=== PATIENT | female | born 1985 | race Caucasian/White ===

== ENCOUNTER 2016-12-22 14:59 | Emergency (ER) | payer MEDICARE, OTHER ==
[2016-12-22 15:32] VITALS: BP 118/68; PULSE 80; RESP 18; TEMP 97.2
--- NOTE | 2016-12-22 17:12 | ED ---
ENT HPI - General Chief complaint: ENT Stated complaint: Ear Pain Time Seen by Provider: 12/22/16 16:59 Source: patient, RN notes reviewed Mode of arrival: ambulatory Limitations: no limitations - History of Present Illness Initial comments: Patient is a 31 year old female with chief complaint of right ear pain and drainage for 4 weeks. Patient reports that she saw her PCP and was placed on ciprofloxacin drops for 4 weeks and has had no improvement of her ear pain. She states the outer ear is crusted and painful to touch. She denies fever, chills, headache, decreased hearing, changes in vision, nausea, vomiting, dizziness, cough, sore throat, chest pain, shortness of breath, or changes in bladder or bowel habits. - Related Data Home Medications Medication Instructions Recorded Confirmed FLUoxetine HCL [PROzac] 50 mg PO TU 08/24/14 06/09/16 Dicyclomine [Bentyl] 20 mg PO QID 09/28/15 06/09/16 Ibuprofen [Motrin] 800 mg PO Q8HR PRN 09/28/15 06/09/16 Ranitidine HCl [Zantac] 75 mg PO BID 09/28/15 06/09/16 Previous Rx's Medication Instructions Recorded Cephalexin [Keflex] 250 mg PO Q6HR #40 cap 06/09/16 Ibuprofen [Motrin] 600 mg PO Q6HR #20 tab 06/26/16 Erythromycin Topical [Erythromycin 1 applic TOPICAL BID #25 ml 11/02/16 2% Topical Soln] Tobramycin 0.3% Ophth Soln [Tobrex 1 drop RIGHT EAR DAILY #1 bottle 12/22/16 0.3% Ophth Soln] Allergies Allergy/AdvReac Type Severity Reaction Status Date / Time No Known Allergies Allergy Verified 06/26/16 15:43 Review of Systems ROS Statement: Those systems with pertinent positive or pertinent negative responses have been documented in the HPI. ROS Other: All systems not noted in ROS Statement are negative. Past Medical History Past Medical History: Heart Failure, GI Bleed Additional Past Medical History / Comment(s): HEART VALVE REPLACEMENT. HX GI PROB FOR YEARS - HX VOMITED BLOOD, HIATAL HERNIA. 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 DEVELOPMENTAL DISABILITY. History of Any Multi-Drug Resistant Organisms: None Reported Past Surgical History: Ear Surgery, Hernia Repair, Orthopedic Surgery Additional Past Surgical History / Comment(s): RT Foot Surgery; Open Heart Surg @ 3 YRS OLD, VALVE REPLACED. EXC BRAIN TUMOR. HIATAL HERNIA REPAIR. RT EARDRUM REPAIRED. Past Anesthesia/Blood Transfusion Reactions: No Reported Reaction Past Psychological History: ADD/ADHD, Anxiety Additional Psychological History / Comment(s): "TAKE RX AT HS TO CALM ME DOWN." IMPULSE CONTROL PROB, MOD MENTAL RETARDATION - PER DIRECTOR OF PSYCHIATRY GWEN NUÑEZ AT [facility], [phone], WHO ALSO GAVE ADDITIONAL PATIENT MEDICAL INFO/HX. Smoking Status: Current every day smoker Past Alcohol Use History: None Reported Past Drug Use History: None Reported - Past Family History Mother Family Medical History: No Reported History General Exam - General Exam Comments Initial Comments: Patient is a 31 year old woman of small stature, she is in no acute distress. Limitations: no limitations General appearance: alert, in no apparent distress Head exam: Present: atraumatic, normocephalic, normal inspection Eye exam: Present: normal appearance, PERRL, EOMI. Absent: scleral icterus, conjunctival injection, periorbital swelling ENT exam: Present: normal exam, normal oropharynx, mucous membranes moist, TM's normal bilaterally (Right and left tm have no erythema, or fluid collection. Right external ear canal is crusted and irritated. The canal is patent. ). Absent: normal external ear exam Neck exam: Present: normal inspection. Absent: tenderness, meningismus, lymphadenopathy Respiratory exam: Present: normal lung sounds bilaterally. Absent: respiratory distress, wheezes, rales, rhonchi, stridor Cardiovascular Exam: Present: regular rate, normal rhythm, normal heart sounds. Absent: systolic murmur, diastolic murmur, rubs, gallop, clicks GI/Abdominal exam: Present: soft, normal bowel sounds. Absent: distended, tenderness, guarding, rebound, rigid Extremities exam: Present: normal inspection, full ROM, normal capillary refill. Absent: tenderness, pedal edema, joint swelling, calf tenderness Neurological exam: Present: alert, oriented X3, CN II-XII intact Psychiatric exam: Present: normal affect, normal mood Skin exam: Present: warm, dry, intact, normal color. Absent: rash Course Vital Signs 12/22/16 15:30 Temperature 97.2 F L Pulse Rate 80 Respiratory 18 Rate Blood Pressure 118/68 O2 Sat by Pulse 96 Oximetry Medical Decision Making - Medical Decision Making Patient is a 31 year old female with otitis externa of the right ear for 4 weeks that has not improved with ciprofloxacin drops. Ear canal is patent and does not need to have ear wick in place. TMs are normal bilaterally. No fever or decreased hearing or dizziness. Patient will be switched to tobramycin drops and instructed to follow up with an ENT specialist. PAtient understands treatment plan and willcomply. Disposition Clinical Impression: Right otitis externa Disposition: HOME SELF-CARE Condition: Good Instructions: Otitis Externa (ED) Additional Instructions: Patient instructed to follow up with ENT specialist. Return to the EC if any alarming signs or symptoms occur. Follow-up with primary care physician as well. Prescriptions: Tobramycin 0.3% Ophth Soln [Tobrex 0.3% Ophth Soln] 1 drop RIGHT EAR DAILY #1 bottle Referrals: Tamica Bean MD [Primary Care Provider] - 1-2 days Param Crain DO [Doctor of Osteopathic Medicine] - 1-2 days Time of Disposition: 17:08
== END 2016-12-22 17:25 | disposition home or self-care (01) ==
LOC: EC 14:59
DX: H60.91 Unspecified otitis externa, right ear (principal); F41.9 Anxiety disorder, unspecified; F63.9 Impulse disorder, unspecified; F71 Moderate intellectual disabilities; F17.200 Nicotine dependence, unspecified, uncomplicated; Z95.2 Presence of prosthetic heart valve; Z79.899 Other long term (current) drug therapy
CPT/HCPCS: 99282

== ENCOUNTER 2017-04-23 18:32 | Emergency (ER) | payer MEDICARE, OTHER ==
[2017-04-23 18:41] VITALS: BP 96/53; PULSE 67; RESP 20; TEMP 98.1
--- NOTE | 2017-04-23 19:00 | ED ---
Lower Extremity Injury HPI - General Chief Complaint: Extremity Injury, Lower Stated Complaint: foot pain Time Seen by Provider: 04/23/17 18:46 Source: patient, RN notes reviewed Mode of arrival: ambulatory Limitations: no limitations - History of Present Illness Initial Comments: 31-year-old female presents emergency room chief complaint of left ankle pain. Patient states that she tripped on the curb on Thursday. Patient states since she's been having some left ankle pain. Patient states it's worse with walking. Patient states there is no fall or head injury with this. Patient states she was concerned due to her continued symptoms so she thought that she should be evaluated.Patient denies any recent fever, chills, shortness of breath , chest pain, back pain, abdominal pain, nausea vomiting, numbness or tingling, dysuria or hematuria, constipation or diarrhea, headaches or visual changes, or any other current symptoms. - Related Data Home Medications Medication Instructions Recorded Confirmed FLUoxetine HCL [PROzac] 50 mg PO TU 08/24/14 06/09/16 Dicyclomine [Bentyl] 20 mg PO QID 09/28/15 06/09/16 Ibuprofen [Motrin] 800 mg PO Q8HR PRN 09/28/15 06/09/16 Ranitidine HCl [Zantac] 75 mg PO BID 09/28/15 06/09/16 Previous Rx's Medication Instructions Recorded Cephalexin [Keflex] 250 mg PO Q6HR #40 cap 06/09/16 Ibuprofen [Motrin] 600 mg PO Q6HR #20 tab 06/26/16 Erythromycin Topical [Erythromycin 1 applic TOPICAL BID #25 ml 11/02/16 2% Topical Soln] Tobramycin 0.3% Ophth Soln [Tobrex 1 drop RIGHT EAR DAILY #1 bottle 12/22/16 0.3% Ophth Soln] Allergies Allergy/AdvReac Type Severity Reaction Status Date / Time No Known Allergies Allergy Verified 04/23/17 18:41 Review of Systems ROS Statement: Those systems with pertinent positive or pertinent negative responses have been documented in the HPI. ROS Other: All systems not noted in ROS Statement are negative. Past Medical History Past Medical History: Heart Failure, GI Bleed Additional Past Medical History / Comment(s): HEART VALVE REPLACEMENT. HX GI PROB FOR YEARS - HX VOMITED BLOOD, HIATAL HERNIA. 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 DEVELOPMENTAL DISABILITY. History of Any Multi-Drug Resistant Organisms: None Reported Past Surgical History: Ear Surgery, Hernia Repair, Orthopedic Surgery Additional Past Surgical History / Comment(s): RT Foot Surgery; Open Heart Surg @ 3 YRS OLD, VALVE REPLACED. EXC BRAIN TUMOR. HIATAL HERNIA REPAIR. RT EARDRUM REPAIRED. Past Anesthesia/Blood Transfusion Reactions: No Reported Reaction Past Psychological History: ADD/ADHD, Anxiety Additional Psychological History / Comment(s): "TAKE RX AT HS TO CALM ME DOWN." IMPULSE CONTROL PROB, MOD MENTAL RETARDATION - PER INDUSTRIAL SAFETY ENGINEER GWEN NUÑEZ AT [facility], [phone], WHO ALSO GAVE ADDITIONAL PATIENT MEDICAL INFO/HX. Smoking Status: Current every day smoker Past Alcohol Use History: None Reported Past Drug Use History: None Reported - Past Family History Mother Family Medical History: No Reported History General Exam - General Exam Comments Initial Comments: General: The patient is awake and alert, in no distress, and does not appear acutely ill. Neck: The neck is supple, there is no tenderness. Cardiovascular: There is a regular rate and rhythm. No murmur, rub or gallop is appreciated. Respiratory: Lungs are clear to auscultation, respirations are non-labored, breath sounds are equal. No wheezes, stridor, rales, or rhonchi. Musculoskeletal: Sensation intact with 2+ pulses of the left foot x-ray. Signed motion of the left ankle and foot. Patient does have tenderness along the medial aspect of the left foot. Normal range of motion. Neurological: CN II-XII intact, There are no obvious motor or sensory deficits. Coordination appears grossly intact. Speech is normal. Skin: Skin is warm and dry and no rashes or lesions are noted. Psychiatric: Normal mood and affect. Limitations: no limitations Course Vital Signs 04/23/17 18:37 Temperature 98.1 F Pulse Rate 67 Respiratory 20 Rate Blood Pressure 96/53 O2 Sat by Pulse 98 Oximetry Medical Decision Making - Medical Decision Making 31-year-old female presents for left ankle pain. Patient at this times x-rays reviewed and negative. We discussed Motrin Tylenol rest ice. We discussed return parameters and follow-up. Tenderness in the evidence. She'll be discharged. - Radiology Data Radiology results: report reviewed, image reviewed Disposition Clinical Impression: Left ankle sprain Disposition: HOME SELF-CARE Condition: Stable Instructions: Ankle Sprain (ED) Additional Instructions: Please use medication as discussed. Please follow up with family doctor if symptoms have not improved over the next two days. Please return to the emergency room if your symptoms increase or worsen or for any other concerns. Referrals: Tamica Bean MD [Primary Care Provider] - 1-2 days
--- NOTE | 2017-04-23 19:12 | XR ---
EXAMINATION TYPE: XR ankle complete LT DATE OF EXAM: 04/23/2017 7:09 PM COMPARISON: NONE HISTORY: Pain TECHNIQUE: 3 views FINDINGS: I see no fracture nor dislocation. Joint spaces are normal. IMPRESSION: Negative left ankle
== END 2017-04-23 19:17 | disposition home or self-care (01) ==
LOC: EC 18:32
DX: S93.402A Sprain of unspecified ligament of left ankle, initial encounter (principal); F17.200 Nicotine dependence, unspecified, uncomplicated; Z79.899 Other long term (current) drug therapy; Z87.19 Personal history of other diseases of the digestive system; Z98.890 Other specified postprocedural states; W22.8XXA Striking against or struck by other objects, initial encounter
CPT/HCPCS: 99283

== ENCOUNTER 2017-05-06 14:51 | Emergency (ER) | payer MEDICARE, OTHER ==
[2017-05-06 15:09] VITALS: BP 112/56; PULSE 78; RESP 20; TEMP 97.9
[2017-05-06] MEDS ORDERED: KETOROLAC 60 MG/2 ML VIAL IM STA (15:19)
--- NOTE | 2017-05-06 15:19 | ED ---
Extremity Problem HPI - General Chief complaint: Extremity Problem,Nontraumatic Stated complaint: R leg swelling Time Seen by Provider: 05/06/17 15:10 Source: patient, RN notes reviewed Mode of arrival: ambulatory Limitations: no limitations - History of Present Illness Initial comments: 31 yo female presents to the ER with cc of right groin pain. Patient states she went running 2 days ago and since she's had this right groin pain. Patient states she is able to walk she just has his pain when she tries to circulate one way or the other. Patient states she took Motrin without much improvement to the pain. Patient states she had no falls or trauma to the leg. Patient states she is not currently having any other symptoms. Patient denies any recent fever, chills, shortness of breath, chest pain, back pain, abdominal pain , nausea vomiting, numbness or tingling, dysuria or hematuria, constipation or diarrhea, headaches or visual changes, or any other current symptoms. - Related Data Home Medications Medication Instructions Recorded Confirmed FLUoxetine HCL [PROzac] 50 mg PO TU 08/24/14 06/09/16 Dicyclomine [Bentyl] 20 mg PO QID 09/28/15 06/09/16 Ibuprofen [Motrin] 800 mg PO Q8HR PRN 09/28/15 06/09/16 Ranitidine HCl [Zantac] 75 mg PO BID 09/28/15 06/09/16 Previous Rx's Medication Instructions Recorded Cephalexin [Keflex] 250 mg PO Q6HR #40 cap 06/09/16 Ibuprofen [Motrin] 600 mg PO Q6HR #20 tab 06/26/16 Erythromycin Topical [Erythromycin 1 applic TOPICAL BID #25 ml 11/02/16 2% Topical Soln] Tobramycin 0.3% Ophth Soln [Tobrex 1 drop RIGHT EAR DAILY #1 bottle 12/22/16 0.3% Ophth Soln] Allergies Allergy/AdvReac Type Severity Reaction Status Date / Time No Known Allergies Allergy Verified 04/23/17 18:41 Review of Systems ROS Statement: Those systems with pertinent positive or pertinent negative responses have been documented in the HPI. ROS Other: All systems not noted in ROS Statement are negative. Past Medical History Past Medical History: Heart Failure, GI Bleed Additional Past Medical History / Comment(s): HEART VALVE REPLACEMENT. HX GI PROB FOR YEARS - HX VOMITED BLOOD, HIATAL HERNIA. 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 DEVELOPMENTAL DISABILITY. History of Any Multi-Drug Resistant Organisms: None Reported Past Surgical History: Ear Surgery, Hernia Repair, Orthopedic Surgery Additional Past Surgical History / Comment(s): RT Foot Surgery; Open Heart Surg @ 3 YRS OLD, VALVE REPLACED. EXC BRAIN TUMOR. HIATAL HERNIA REPAIR. RT EARDRUM REPAIRED. Past Anesthesia/Blood Transfusion Reactions: No Reported Reaction Past Psychological History: ADD/ADHD, Anxiety Additional Psychological History / Comment(s): "TAKE RX AT HS TO CALM ME DOWN." IMPULSE CONTROL PROB, MOD MENTAL RETARDATION - PER NET LEAD ARCHITECT GWEN NUÑEZ AT [facility], [phone], WHO ALSO GAVE ADDITIONAL PATIENT MEDICAL INFO/HX. Smoking Status: Current every day smoker Past Alcohol Use History: None Reported Past Drug Use History: None Reported - Past Family History Mother Family Medical History: No Reported History General Exam - General Exam Comments Initial Comments: General: The patient is awake and alert, in no distress, and does not appear acutely ill. Neck: The neck is supple, there is no tenderness. Cardiovascular: There is a regular rate and rhythm. No murmur, rub or gallop is appreciated. Respiratory: Lungs are clear to auscultation, respirations are non-labored, breath sounds are equal. No wheezes, stridor, rales, or rhonchi. Musculoskeletal: Patient With 2+ pulses. Right lower extremity. Full range of motion of the right hip and knee and ankle. Patient has some tenderness along palpation along the upper right groin area. No tenderness to bony prominences of the hip. No deformity. Neurological: CN II-XII intact, There are no obvious motor or sensory deficits. Coordination appears grossly intact. Speech is normal. Skin: Skin is warm and dry and no rashes or lesions are noted. Psychiatric: Normal mood and affect. Limitations: no limitations Course Vital Signs 05/06/17 15:06 Temperature 97.9 F Pulse Rate 78 Respiratory 20 Rate Blood Pressure 112/56 O2 Sat by Pulse 98 Oximetry Medical Decision Making - Medical Decision Making 31-year-old female presents for what appears to be a right groin sprain. This time we will start the patient on Motrin for home. Discussed ICU discussed Tylenol. We discussed return parameters and follow-up. We discussed all the patient questions. She stated that she understood and she is agreement the plan. This time she'll be discharged home. - Radiology Data Radiology results: report reviewed, image reviewed Disposition Clinical Impression: Strain of right inguinal muscle Disposition: HOME SELF-CARE Condition: Stable Instructions: Groin Pain (ED) Additional Instructions: Please use medication as discussed. Please follow up with family doctor if symptoms have not improved over the next two days. Please return to the emergency room if your symptoms increase or worsen or for any other concerns. Referrals: Tamica Bean MD [Primary Care Provider] - 1-2 days Time of Disposition: 15:30
--- NOTE | 2017-05-06 15:23 | XR ---
EXAMINATION TYPE: XR Hip Complete RT DATE OF EXAM: 05/06/2017 CLINICAL HISTORY: pain TECHNIQUE: AP and frogleg views of the right hip are obtained. COMPARISON: None. FINDINGS: There is no acute fracture/dislocation evident. The joint space appears within normal li mits. The overlying soft tissue appears unremarkable. IMPRESSION: 1. There is no acute fracture or dislocation. ICD 10 NO FRACTURE, INITIAL EVALUATION
== END 2017-05-06 15:34 | disposition home or self-care (01) ==
LOC: EC 14:51
DX: S39.011A Strain of muscle, fascia and tendon of abdomen, initial encounter (principal); F17.200 Nicotine dependence, unspecified, uncomplicated; Z79.899 Other long term (current) drug therapy; X58.XXXA Exposure to other specified factors, initial encounter; Y93.02 Activity, running
CPT/HCPCS: 99283; 96372; 73502; J1885

== ENCOUNTER 2017-08-27 17:25 | Emergency (ER) | payer MEDICARE, OTHER ==
[2017-08-27 17:30] VITALS: BP 101/61; PULSE 70; RESP 20; TEMP 97.1
--- NOTE | 2017-08-27 17:44 | ED ---
General Adult HPI - General Chief complaint: Extremity Injury, Upper Stated complaint: left arm injury Time Seen by Provider: 08/27/17 17:39 Source: patient, RN notes reviewed Mode of arrival: ambulatory Limitations: no limitations - History of Present Illness Initial comments: Patient 32-year-old female who presents emergency room today with a chief complaint of a trip and fall that occurred yesterday. She states that she landed on the left elbow. She states she's had pain locally to this area. She states worse with certain movements of both flexion and extension. Patient denies any head injury or loss conscious. She denies any other complaints associated symptoms. Patient denies any recent fever, chills, shortness of breath, chest pain, back pain, abdominal pain, nausea or vomiting, numbness or tingling, dysuria or hematuria, constipation or diarrhea, headaches or visual changes, or any other complaints. - Related Data Home Medications Medication Instructions Recorded Confirmed FLUoxetine HCL [PROzac] 50 mg PO TU 08/24/14 06/09/16 Dicyclomine [Bentyl] 20 mg PO QID 09/28/15 06/09/16 Ibuprofen [Motrin] 800 mg PO Q8HR PRN 09/28/15 06/09/16 Ranitidine HCl [Zantac] 75 mg PO BID 09/28/15 06/09/16 Previous Rx's Medication Instructions Recorded Cephalexin [Keflex] 250 mg PO Q6HR #40 cap 06/09/16 Ibuprofen [Motrin] 600 mg PO Q6HR #20 tab 06/26/16 Erythromycin Topical [Erythromycin 1 applic TOPICAL BID #25 ml 11/02/16 2% Topical Soln] Tobramycin 0.3% Ophth Soln [Tobrex 1 drop RIGHT EAR DAILY #1 bottle 12/22/16 0.3% Ophth Soln] Allergies Allergy/AdvReac Type Severity Reaction Status Date / Time No Known Allergies Allergy Verified 08/27/17 17:29 Review of Systems ROS Statement: Those systems with pertinent positive or pertinent negative responses have been documented in the HPI. ROS Other: All systems not noted in ROS Statement are negative. Past Medical History Past Medical History: Heart Failure, GI Bleed Additional Past Medical History / Comment(s): HEART VALVE REPLACEMENT. HX GI PROB FOR YEARS - HX VOMITED BLOOD, HIATAL HERNIA. 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 DEVELOPMENTAL DISABILITY. History of Any Multi-Drug Resistant Organisms: None Reported Past Surgical History: Ear Surgery, Hernia Repair, Orthopedic Surgery Additional Past Surgical History / Comment(s): RT Foot Surgery; Open Heart Surg @ 3 YRS OLD, VALVE REPLACED. EXC BRAIN TUMOR. HIATAL HERNIA REPAIR. RT EARDRUM REPAIRED. Past Anesthesia/Blood Transfusion Reactions: No Reported Reaction Past Psychological History: ADD/ADHD, Anxiety Smoking Status: Current every day smoker Past Alcohol Use History: None Reported Past Drug Use History: None Reported - Past Family History Mother Family Medical History: No Reported History General Exam - General Exam Comments Initial Comments: General: The patient is awake and alert, in no distress, and does not appear acutely ill. Neck: The neck is supple, there is no tenderness or JVD. Cardiovascular: There is a regular rate and rhythm. No murmur, rub or gallop is appreciated. Respiratory: Lungs are clear to auscultation, respirations are non-labored, breath sounds are equal. No wheezes, stridor, rales, or rhonchi. Musculoskeletal: Patient has normal appearance of the left elbow. There is no bruising or swelling. Shows full range of motion both flexion and extension. Mild tenderness to the posterior aspect. Sensations are intact pulses are bilaterally 2+. Normal appearance of the left shoulder no bony tenderness. Normal appearance of the left wrist with no tenderness on exam. Pulses equal bilateral 2+. strength 5/5. Neurological: A&O x 3. CN II-XII intact, There are no obvious motor or sensory deficits. Coordination appears grossly intact. Speech is normal. Skin: Skin is warm and dry and no rashes or lesions are noted. Psychiatric: Normal mood and affect. Limitations: no limitations Course Vital Signs 08/27/17 17:27 Temperature 97.1 F L Pulse Rate 70 Respiratory 20 Rate Blood Pressure 101/61 O2 Sat by Pulse 96 Oximetry Medical Decision Making - Medical Decision Making X-ray negative for any acute abnormality. Patient will be discharged home advised ice elevate the affected area. Advised follow-up in 7-10 days if symptoms persist for repeat x-rays. Disposition Clinical Impression: Contusion of elbow, left Disposition: HOME SELF-CARE Condition: Good Instructions: Contusion in Adults (ED) Additional Instructions: Please use Tylenol/ibuprofen as needed for pain. Please continue to ice elevate the affected area. Please also doctor symptoms persist in 7-10 days. Please return to emergency room if the symptoms increase or worsen or for any other concerns. Referrals: Tamica Bean MD [Primary Care Provider] - 1-2 days Time of Disposition: 18:01
--- NOTE | 2017-08-27 18:00 | XR ---
EXAMINATION TYPE: XR elbow complete LT DATE OF EXAM: 08/27/2017 COMPARISON: NONE HISTORY: Elbow pain TECHNIQUE: 3 views FINDINGS: I see no fracture nor dislocation. Joint spaces are normal. There is no sign of elbow joint effusion. IMPRESSION: Negative left elbow exam
== END 2017-08-27 18:27 | disposition home or self-care (01) ==
LOC: EC 17:25
DX: S50.02XA Contusion of left elbow, initial encounter (principal); F17.200 Nicotine dependence, unspecified, uncomplicated; Z79.899 Other long term (current) drug therapy; W01.0XXA Fall on same level from slipping, tripping and stumbling without subsequent striking against object, initial encounter
CPT/HCPCS: 99283

== ENCOUNTER 2018-02-13 10:28 | Emergency (ER) | payer MEDICARE, OTHER ==
[2018-02-13 10:36] VITALS: BP 126/72; PULSE 87; RESP 17; TEMP 97.1
--- NOTE | 2018-02-13 11:54 | ED ---
Skin/Abscess/FB HPI - General Chief complaint: Skin/Abscess/Foreign Body Stated complaint: RASH Time Seen by Provider: 02/13/18 11:02 Source: patient, RN notes reviewed Mode of arrival: ambulatory Limitations: no limitations - History of Present Illness Initial comments: This is a 32-year-old female who is developmentally disabled who states she was putting baby powder on her perineum and buttock region and started developing a rash yesterday which became painful. She denies any fevers chills sweats dysuria hematuria or constipation diarrhea. No history of hemorrhoids MD complaint: rash - Related Data Home Medications Medication Instructions Recorded Confirmed EPINEPHrine [Epipen 2-Watson] 0.3 mg IM ONCE PRN 08/27/17 08/27/17 FLUoxetine HCL [PROzac Weekly] 90 mg PO Q7D 08/27/17 08/27/17 Loratadine Oral Soln [Claritin 5 mg PO DAILY 08/27/17 08/27/17 Oral Soln] Melatonin 3 mg PO HS 08/27/17 08/27/17 Montelukast [Singulair] 10 mg PO HS 08/27/17 08/27/17 Omeprazole 20 mg PO DAILY 08/27/17 08/27/17 Ondansetron [Zofran ODT] 4 mg PO Q8HR PRN 08/27/17 08/27/17 hydrOXYzine PAMOATE [Vistaril] 25 mg PO BID PRN 08/27/17 08/27/17 risperiDONE ODT [RisperDAL M-TAB] 1 mg PO HS 08/27/17 08/27/17 traZODone HCL 150 mg PO HS 08/27/17 08/27/17 Previous Rx's Medication Instructions Recorded Nystatin 100,000 Unit/gm Oint 1 applic TOPICAL BID #30 gm 02/13/18 [Mycostatin Oint] Allergies Allergy/AdvReac Type Severity Reaction Status Date / Time venom-honey bee Allergy Anaphylaxis Verified 02/13/18 10:33 Review of Systems ROS Statement: Those systems with pertinent positive or pertinent negative responses have been documented in the HPI. ROS Other: All systems not noted in ROS Statement are negative. Past Medical History Past Medical History: Heart Failure, GI Bleed Additional Past Medical History / Comment(s): HEART VALVE REPLACEMENT. HX GI PROB FOR YEARS - HX VOMITED BLOOD, HIATAL HERNIA. 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 DEVELOPMENTAL DISABILITY. History of Any Multi-Drug Resistant Organisms: None Reported Past Surgical History: Ear Surgery, Hernia Repair, Orthopedic Surgery Additional Past Surgical History / Comment(s): RT Foot Surgery; Open Heart Surg @ 3 YRS OLD, VALVE REPLACED. EXC BRAIN TUMOR. HIATAL HERNIA REPAIR. RT EARDRUM REPAIRED. Past Anesthesia/Blood Transfusion Reactions: No Reported Reaction Past Psychological History: ADD/ADHD, Anxiety Smoking Status: Current every day smoker Past Alcohol Use History: None Reported Past Drug Use History: None Reported - Past Family History Mother Family Medical History: No Reported History General Exam - General Exam Comments Initial Comments: This is a well-developed well-nourished awake alert oriented 3 female Limitations: no limitations General appearance: alert, in no apparent distress Head exam: Present: atraumatic, normocephalic, normal inspection Eye exam: Present: normal appearance, PERRL, EOMI. Absent: scleral icterus, conjunctival injection, periorbital swelling Neck exam: Present: normal inspection. Absent: tenderness, meningismus, lymphadenopathy Cardiovascular Exam: Present: regular rate GI/Abdominal exam: Present: soft, normal bowel sounds. Absent: distended, tenderness, guarding, rebound, rigid Rectal exam: Present: other (Examination of the perianal region reveals an erythematous rash in the perianal region extending toward the perineum. No drainage or discharge. No step-off or crepitation no eschar formation at this time. No bleeding. Patient does have a perianal sinus with no drainage at this time this is located in the 6 o'clock position.) Extremities exam: Present: normal inspection, full ROM, normal capillary refill. Absent: tenderness, pedal edema, joint swelling, calf tenderness Back exam: Present: normal inspection Neurological exam: Present: alert, oriented X3, CN II-XII intact Psychiatric exam: Present: normal affect, normal mood Skin exam: Present: warm, dry. Absent: intact, normal color Course Vital Signs 02/13/18 10:33 Temperature 97.1 F L Pulse Rate 87 Respiratory 17 Rate Blood Pressure 126/72 O2 Sat by Pulse 94 L Oximetry Medical Decision Making - Medical Decision Making Patient does have evidence of knee perianal rash she'll be discharged with precautions to not using more however. She'll be prescribed appropriate medication Disposition Clinical Impression: Perianal dermatitis, Candidiasis of anus Disposition: HOME SELF-CARE Condition: Good Instructions: Skin Yeast Infection (ED) Prescriptions: Nystatin 100,000 Unit/gm Oint [Mycostatin Oint] 1 applic TOPICAL BID #30 gm Referrals: Tamica Bean MD [Primary Care Provider] - 1-2 days
== END 2018-02-13 12:10 | disposition home or self-care (01) ==
LOC: EC 10:28 → EEVIPCON 10:28 → EC 12:10
DX: L30.9 Dermatitis, unspecified (principal); B37.89 Other sites of candidiasis; I50.9 Heart failure, unspecified; F90.9 Attention-deficit hyperactivity disorder, unspecified type; F41.9 Anxiety disorder, unspecified; F17.200 Nicotine dependence, unspecified, uncomplicated; Z79.899 Other long term (current) drug therapy; Z91.030 Bee allergy status
CPT/HCPCS: 99282

== ENCOUNTER 2018-03-02 19:19 | Inpatient (IN) | payer MEDICARE, OTHER ==
[2018-03-02] MEDS ORDERED: SODIUM CHLORIDE 0.9% 500 ML IV STA (19:34)
[2018-03-02] MEDS ORDERED: ONDANSETRON 4 MG/2 ML VIAL IVP STA (19:34)
--- NOTE | 2018-03-02 19:39 | ED ---
General Adult HPI - General Chief complaint: Nausea/Vomiting/Diarrhea Stated complaint: Vomiting and diarrhea Time Seen by Provider: 03/02/18 19:29 Source: patient, RN notes reviewed Mode of arrival: ambulatory Limitations: no limitations - History of Present Illness Initial comments: 32-year-old female presents to the emergency department with a chief complaint of nausea vomiting and diarrhea. Last 2 days. She denies any blood in the vomit or diarrhea. She states generalized abdominal cramping.any point tenderness. She states she has had some burning with urination. They state that they've been concerned about fever but never taking it. Patient denies any recent fever, chills, shortness of breath, chest pain, back pain, numbness or tingling, dysuria or hematuria, constipation or diarrhea, headaches or visual changes, or any other current symptoms. - Related Data Home Medications Medication Instructions Recorded Confirmed EPINEPHrine [Epipen 2-Watson] 0.3 mg IM ONCE PRN 08/27/17 03/02/18 FLUoxetine HCL [PROzac Weekly] 90 mg PO Q7D 08/27/17 03/02/18 Melatonin 3 mg PO HS 08/27/17 03/02/18 Montelukast [Singulair] 10 mg PO HS 08/27/17 03/02/18 Omeprazole 20 mg PO DAILY 08/27/17 03/02/18 hydrOXYzine PAMOATE [Vistaril] 25 mg PO BID PRN 08/27/17 03/02/18 risperiDONE ODT [RisperDAL M-TAB] 1 mg PO HS 08/27/17 03/02/18 traZODone HCL 150 mg PO HS 08/27/17 03/02/18 Loratadine [Claritin] 10 mg PO DAILY 03/02/18 03/02/18 Allergies Allergy/AdvReac Type Severity Reaction Status Date / Time venom-honey bee Allergy Anaphylaxis Verified 03/02/18 19:37 Review of Systems ROS Statement: Those systems with pertinent positive or pertinent negative responses have been documented in the HPI. ROS Other: All systems not noted in ROS Statement are negative. Past Medical History Past Medical History: Heart Failure, GI Bleed Additional Past Medical History / Comment(s): HEART VALVE REPLACEMENT. HX GI PROB FOR YEARS - HX VOMITED BLOOD, HIATAL HERNIA. 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 DEVELOPMENTAL DISABILITY. History of Any Multi-Drug Resistant Organisms: None Reported Past Surgical History: Ear Surgery, Hernia Repair, Orthopedic Surgery Additional Past Surgical History / Comment(s): RT Foot Surgery; Open Heart Surg @ 3 YRS OLD, VALVE REPLACED. EXC BRAIN TUMOR. HIATAL HERNIA REPAIR. RT EARDRUM REPAIRED. Past Anesthesia/Blood Transfusion Reactions: No Reported Reaction Past Psychological History: ADD/ADHD, Anxiety Smoking Status: Current every day smoker Past Alcohol Use History: None Reported Past Drug Use History: None Reported - Past Family History Mother Family Medical History: No Reported History General Exam Limitations: no limitations General appearance: alert, in no apparent distress ENT exam: Present: normal exam, mucous membranes moist Neck exam: Present: normal inspection. Absent: tenderness, meningismus, lymphadenopathy Respiratory exam: Present: normal lung sounds bilaterally. Absent: respiratory distress, wheezes, rales, rhonchi, stridor Cardiovascular Exam: Present: regular rate, normal rhythm, normal heart sounds. Absent: systolic murmur, diastolic murmur, rubs, gallop, clicks GI/Abdominal exam: Present: soft, normal bowel sounds. Absent: distended, tenderness, guarding, rebound, rigid Neurological exam: Present: alert, oriented X3 Psychiatric exam: Present: normal affect, normal mood Skin exam: Present: warm, dry, intact, normal color. Absent: rash Course Vital Signs 03/02/18 03/02/18 03/02/18 19:26 20:46 21:37 Temperature 97.9 F 98.0 F Pulse Rate 103 H 71 76 Respiratory 20 18 14 Rate Blood Pressure 123/65 106/57 116/65 O2 Sat by Pulse 96 99 97 Oximetry Medical Decision Making - Medical Decision Making 32-year-old female presents to the emergency department with a chief complaint of nausea vomiting and diarrhea. At this time patient's lab work is reviewed additional elevated white blood cell count. There is suspicion for possible UTI in the urine and CT is showing a colitis. Due to the patient's elevated white blood cell count with the colitis nausea vomiting diarrhea we will admit the patient and start her on Cipro Flagyl for the floor. We will admit to [facility] and consult oncology eye. Patient is in agreement this plan all questions have been answered - Lab Data Result diagrams: 03/02/18 19:50 03/02/18 19:50 Lab Results 03/02/18 03/02/1803/02/18 Range/Units 19:41 19:50 19:50 WBC 17.7 H (3.8-10.6) k/uL RBC 5.53 H (3.80-5.40) m/uL Hgb 15.6 (11.4-16.0) gm/dL Hct 45.5 (34.0-46.0) % MCV 82.3 (80.0-100.0) fL MCH 28.2 (25.0-35.0) pg MCHC 34.2 (31.0-37.0) g/dL RDW 13.2 (11.5-15.5) % Plt Count 212 (150-450) k/uL Neutrophils % 83 % Lymphocytes % 9 % Monocytes % 6 % Eosinophils % 1 % Basophils % 0 % Neutrophils # 14.6 H (1.3-7.7) k/uL Lymphocytes # 1.5 (1.0-4.8) k/uL Monocytes # 1.1 H (0-1.0) k/uL Eosinophils # 0.2 (0-0.7) k/uL Basophils # 0.1 (0-0.2) k/uL Sodium 143 (137-145) mmol/L Potassium 3.8 (3.5-5.1) mmol/L Chloride 110 H (98-107) mmol/L Carbon Dioxide 16 L (22-30) mmol/L Anion Gap 17 mmol/L BUN 6 L (7-17) mg/dL Creatinine 0.50 L (0.52-1.04) mg/dL Est GFR (CKD-EPI)AfAm >90 (>60 ml/min/1.73 sqM) Est GFR (CKD-EPI)NonAf >90 (>60 ml/min/1.73 sqM) Glucose 126 H (74-99) mg/dL Plasma Lactic Acid Grant (0.7-2.0) mmol/L Calcium 9.0 (8.4-10.2) mg/dL Total Bilirubin 0.3 (0.2-1.3) mg/dL AST 13 L (14-36) U/L ALT 16 (9-52) U/L Alkaline Phosphatase 72 (38-126) U/L Total Protein 6.9 (6.3-8.2) g/dL Albumin 4.0 (3.5-5.0) g/dL Amylase 43 (30-110) U/L Lipase 36 (23-300) U/L Urine Color Urine Appearance (Clear) Urine pH (5.0-8.0) Ur Specific [place] (1.001-1.035) Urine Protein (Negative) Urine Glucose (UA) (Negative) Urine Ketones (Negative) Urine Blood (Negative) Urine Nitrite (Negative) Urine Bilirubin (Negative) Urine Urobilinogen (<2.0) mg/dL Ur Leukocyte Esterase (Negative) Urine RBC (0-5) /hpf Urine WBC (0-5) /hpf Ur Squamous Epith Cells (0-4) /hpf Urine Bacteria (None) /hpf Urine Mucus (None) /hpf Urine HCG, Qual (Not Detectd) C. difficile (EIA) Intrp (Negative) Influenza Type A RNA Not Detected (Not Detectd) Influenza Type B (PCR) Not Detected (Not Detectd) 03/02/18 03/02/18 03/02/18 Range/Units 19:50 20:00 20:00 WBC (3.8-10.6) k/uL RBC (3.80-5.40) m/uL Hgb (11.4-16.0) gm/dL Hct (34.0-46.0) % MCV (80.0-100.0) fL MCH (25.0-35.0) pg MCHC (31.0-37.0) g/dL RDW (11.5-15.5) % Plt Count (150-450) k/uL Neutrophils % % Lymphocytes % % Monocytes % % Eosinophils % % Basophils % % Neutrophils # (1.3-7.7) k/uL Lymphocytes # (1.0-4.8) k/uL Monocytes # (0-1.0) k/uL Eosinophils # (0-0.7) k/uL Basophils # (0-0.2) k/uL Sodium (137-145) mmol/L Potassium (3.5-5.1) mmol/L Chloride (98-107) mmol/L Carbon Dioxide (22-30) mmol/L Anion Gap mmol/L BUN (7-17) mg/dL Creatinine (0.52-1.04) mg/dL Est GFR (CKD-EPI)AfAm (>60 ml/min/1.73 sqM) Est GFR (CKD-EPI)NonAf (>60 ml/min/1.73 sqM) Glucose (74-99) mg/dL Plasma Lactic Acid Grant 1.2 (0.7-2.0) mmol/L Calcium (8.4-10.2) mg/dL Total Bilirubin (0.2-1.3) mg/dL AST (14-36) U/L ALT (9-52) U/L Alkaline Phosphatase (38-126) U/L Total Protein (6.3-8.2) g/dL Albumin (3.5-5.0) g/dL Amylase (30-110) U/L Lipase (23-300) U/L Urine Color Red Urine Appearance Cloudy H (Clear) Urine pH 6.0 (5.0-8.0) Ur Specific [place] 1.025 (1.001-1.035) Urine Protein 2+ H (Negative) Urine Glucose (UA) Negative (Negative) Urine Ketones Trace H (Negative) Urine Blood Negative (Negative) Urine Nitrite Negative (Negative) Urine Bilirubin 1+ H (Negative) Urine Urobilinogen 4.0 (<2.0) mg/dL Ur Leukocyte Esterase Moderate H (Negative) Urine RBC 3 (0-5) /hpf Urine WBC 33 H (0-5) /hpf Ur Squamous Epith Cells 22 H (0-4) /hpf Urine Bacteria Rare H (None) /hpf Urine Mucus Many H (None) /hpf Urine HCG, Qual Not Detected (Not Detectd) C. difficile (EIA) Intrp (Negative) Influenza Type A RNA (Not Detectd) Influenza Type B (PCR) (Not Detectd) 03/02/18 Range/Units 21:29 WBC (3.8-10.6) k/uL RBC (3.80-5.40) m/uL Hgb (11.4-16.0) gm/dL Hct (34.0-46.0) % MCV (80.0-100.0) fL MCH (25.0-35.0) pg MCHC (31.0-37.0) g/dL RDW (11.5-15.5) % Plt Count (150-450) k/uL Neutrophils % % Lymphocytes % % Monocytes % % Eosinophils % % Basophils % % Neutrophils # (1.3-7.7) k/uL Lymphocytes # (1.0-4.8) k/uL Monocytes # (0-1.0) k/uL Eosinophils # (0-0.7) k/uL Basophils # (0-0.2) k/uL Sodium (137-145) mmol/L Potassium (3.5-5.1) mmol/L Chloride (98-107) mmol/L Carbon Dioxide (22-30) mmol/L Anion Gap mmol/L BUN (7-17) mg/dL Creatinine (0.52-1.04) mg/dL Est GFR (CKD-EPI)AfAm (>60 ml/min/1.73 sqM) Est GFR (CKD-EPI)NonAf (>60 ml/min/1.73 sqM) Glucose (74-99) mg/dL Plasma Lactic Acid Grant (0.7-2.0) mmol/L Calcium (8.4-10.2) mg/dL Total Bilirubin (0.2-1.3) mg/dL AST (14-36) U/L ALT (9-52) U/L Alkaline Phosphatase (38-126) U/L Total Protein (6.3-8.2) g/dL Albumin (3.5-5.0) g/dL Amylase (30-110) U/L Lipase (23-300) U/L Urine Color Urine Appearance (Clear) Urine pH (5.0-8.0) Ur Specific [place] (1.001-1.035) Urine Protein (Negative) Urine Glucose (UA) (Negative) Urine Ketones (Negative) Urine Blood (Negative) Urine Nitrite (Negative) Urine Bilirubin (Negative) Urine Urobilinogen (<2.0) mg/dL Ur Leukocyte Esterase (Negative) Urine RBC (0-5) /hpf Urine WBC (0-5) /hpf Ur Squamous Epith Cells (0-4) /hpf Urine Bacteria (None) /hpf Urine Mucus (None) /hpf Urine HCG, Qual (Not Detectd) C. difficile (EIA) Intrp Negative (Negative) Influenza Type A RNA (Not Detectd) Influenza Type B (PCR) (Not Detectd) Disposition Clinical Impression: Colitis, UTI (urinary tract infection) Disposition: ADMITTED IP TO THIS HOSP Condition: Stable Referrals: Tamica Bean MD [Primary Care Provider] - 1-2 days Decision Date: 03/02/18 Decision Time: 22:14
[2018-03-02 19:59] LABS: Basophils # (A) 0.1 k/uL (0-0.2); Basophils % (A) 0 %; Eosinophils # (A) 0.2 k/uL (0-0.7); Eosinophils % (A) 1 %; HCT 45.5 % (34.0-46.0); HGB 15.6 gm/dL (11.4-16.0); Lymphocytes # (A) 1.5 k/uL (1.0-4.8); Lymphocytes % (A) 9 %; MCH 28.2 pg (25.0-35.0); MCHC 34.2 g/dL (31.0-37.0); MCV 82.3 fL (80.0-100.0); Mean Platelet Volume 7.7; Monocytes # (A) 1.1 k/uL (0-1.0); Monocytes % (A) 6 %; Neutrophils # (A) 14.6 k/uL (1.3-7.7); Neutrophils % (A) 83 %; Platelet Count 212 k/uL (150-450); RBC 5.53 m/uL (3.80-5.40); RDW 13.2 % (11.5-15.5); WBC 17.7 k/uL (3.8-10.6)
[2018-03-02] MEDS ORDERED: RX INFO: IV CONTRAST WAS GIVEN 1 EACH MISC MISCELLANE PRN (20:09)
[2018-03-02 20:10] LABS: ALT 16 U/L (9-52); AST 13 U/L (14-36); Alkaline Phosphatase 72 U/L (38-126); Amylase 43 U/L (30-110); Anion Gap 17 mmol/L; Blood Urea Nitrogen 6 mg/dL (7-17); Carbon Dioxide 16 mmol/L (22-30); Chloride 110 mmol/L (98-107); Glucose 126 mg/dL (74-99); Lipase 36 U/L (23-300); Potassium 3.8 mmol/L (3.5-5.1); Sodium 143 mmol/L (137-145); Total Bilirubin 0.3 mg/dL (0.2-1.3); Total Protein 6.9 g/dL (6.3-8.2)
[2018-03-02 20:12] LABS: Appearance,Urine Cloudy (Clear); Bacteria,Urine Rare /hpf; Bilirubin,Urine 1+ (Negative); Blood,Urine Negative (Negative); Color,Urine Red; Glucose,Urine (UA) Negative (Negative); Ketones,Urine Trace (Negative); Leukocyte Esterase,Urine Moderate (Negative); Mucus,Urine Many /hpf; Nitrite,Urine Negative (Negative); Protein,Urine 2+ (Negative); RBC,Urine 3 /hpf (0-5); Specific Gravity,Urine 1.025 (1.001-1.035); Squamous Epithelial Cell,Urine 22 /hpf (0-4); WBC,Urine 33 /hpf (0-5)
--- NOTE | 2018-03-02 20:58 | CT ---
EXAMINATION TYPE: CT abdomen pelvis w con DATE OF EXAM: 03/02/2018 HISTORY: Abdominal distention and fever CT DLP: 297.6mGycm Automated Exposure Control for Dose Reduction was Utilized. CONTRAST: CT scan of the abdomen and pelvis is performed with IV Contrast, patient injected with 100 mL of Isov ue 300. COMPARISON: None. FINDINGS: LUNG BASES: No significant abnormality is appreciated. LIVER/GB: No significant abnormality is appreciated. No cholelithiasis. PANCREAS: No significant abnormality is seen. No ductal dilatation. SPLEEN: The spleen is nonenlarged measuring 12 cm in craniocaudal dimension. ADRENALS: No significant abnormality is seen. No nodularity. KIDNEYS: No significant abnormality is seen. Kidneys excrete and enhance symmetrically. BOWEL: There is diffuse mucosal hyperemia of the nondilated large bowel as seen on series 7 image 28. Mild surrounding inflammatory fat stranding is seen of the colon such as on series 3 image 49 in the left hemicolon. Areas of submucosal fat deposition such as on series 7 image 25 and series 3 image 4 8 within the redundant transverse colon are seen indicating a chronic component. Few loops of small b owel display mild bowel wall thickening centrally within the abdomen on series 3 image 32. The append ix is within normal limits of size measuring 6 mm and without periappendiceal fat stranding. Large sharon wel measures up to 3.9 cm and small bowel is also nondilated mucosal hyperemia small bowel with focal narrowing is seen within the central abdomen on series 7 image 21 and series 3 image 38. UTERUS/ADNEXA: There are cystic changes of the right adnexa. LYMPH NODES: No greater than 1cm abdominal or pelvic lymph nodes are appreciated. OSSEOUS STRUCTURES: There is a slight levoscoliotic curvature of the thoracolumbar spine, which may b e positional in nature. IMPRESSION: 1. Diffuse colonic mucosal hyperemia, mild pericolonic fat stranding, and areas of submucosal fat dep osition suggest acute on chronic inflammatory or infectious process. Considerations are for inflammat ory bowel disease or colitis such as C. difficile colitis. 2. Focal areas of mucosal hyperemia, bowel wall thickening, and narrowing of the small bowel may be r eactive, inflammatory, or relate to enteritis. 3. Cystic changes of the right ovary.
[2018-03-02] MEDS ORDERED: ONDANSETRON 4 MG/2 ML VIAL IVP PRN (22:14)
[2018-03-02] MEDS ORDERED: NALOXONE 0.4 MG/ML 1 ML VIAL IV PRN (22:14)
[2018-03-02] MEDS ORDERED: metroNIDAZOLE-NS PMX 500 MG in SALINE 1 100ML.BAG IVPB ONE (22:17)
[2018-03-02] MEDS ORDERED: LEVOFLOXACIN 250MG-D5W PMX 250 MG in DEXTROSE/WATER 1 50ML.BAG IVPB STA (22:17)
[2018-03-02] MEDS: SODIUM CHLORIDE 0.9% 1,000 ML IV SCH (22:51)
[2018-03-02] MEDS ORDERED: hydrOXYzine PAMOATE 25 MG CAP PO PRN (23:27)
[2018-03-02] MEDS: MELATONIN 3 MG TABLET PO SCH (23:45)
[2018-03-02] MEDS: traZODone HCL 50 MG TAB PO SCH (23:45)
[2018-03-02] MEDS: risperiDONE ODT 1 MG TAB PO SCH (23:46)
[2018-03-02] MEDS: MONTELUKAST 10 MG TAB PO SCH (23:46)
[2018-03-03 03:15] VITALS: BMI 21.3
[2018-03-03 07:55] LABS: Basophils # (A) 0.1 k/uL (0-0.2); Basophils % (A) 1 %; Eosinophils # (A) 0.1 k/uL (0-0.7); Eosinophils % (A) 1 %; HCT 38.6 % (34.0-46.0); HGB 13.1 gm/dL (11.4-16.0); Lymphocytes # (A) 1.4 k/uL (1.0-4.8); Lymphocytes % (A) 15 %; MCH 28.6 pg (25.0-35.0); MCV 84.2 fL (80.0-100.0); Mean Platelet Volume 7.3; Monocytes # (A) 0.8 k/uL (0-1.0); Monocytes % (A) 9 %; Neutrophils % (A) 73 %; Platelet Count 192 k/uL (150-450); RBC 4.58 m/uL (3.80-5.40); RDW 13.1 % (11.5-15.5); WBC 9.6 k/uL (3.8-10.6)
[2018-03-03 08:16] LABS: ALT 23 U/L (9-52); AST 11 U/L (14-36); Alkaline Phosphatase 53 U/L (38-126); Anion Gap 11 mmol/L; Blood Urea Nitrogen 3 mg/dL (7-17); Calcium 8.2 mg/dL (8.4-10.2); Carbon Dioxide 18 mmol/L (22-30); Chloride 115 mmol/L (98-107); Glucose 70 mg/dL (74-99); Potassium 3.9 mmol/L (3.5-5.1); Sodium 144 mmol/L (137-145); Total Bilirubin 0.3 mg/dL (0.2-1.3); Total Protein 5.5 g/dL (6.3-8.2)
[2018-03-03] MEDS: LORATADINE 10 MG TAB PO SCH (08:33)
[2018-03-03] MEDS: PANTOPRAZOLE 40 MG TABLET PO SCH (08:33)
[2018-03-03] MEDS ORDERED: predniSONE 20 MG TAB PO STA (10:43)
--- NOTE | 2018-03-03 10:50 | P.HPIM ---
History of Present Illness 32-year-old female presents to the emergency department with a chief complaint of nausea vomiting and diarrhea. Last 2 days. She denies any blood in the vomit or diarrhea. She states generalized abdominal cramping.any point tenderness. She states she has had some burning with urination. They state that they've been concerned about fever but never taking it. Also company of severe abdominal pain although her abdomen is soft patient is found to have diffuse colitis which is normally seen in ulcerative colitis. We will give her a dose of prednisone and will let the gastroneurology make further addition regarding his antibiotic contrast systemic steroids. Patient is negative for C. diff patient is still having diarrhea had couple episodes of diarrhea today patient's IV fluids will be increased to 100 mL per hour because of the diarrhea. Patient was given a dose of levofloxacin and metronidazole any Review of Systems REVIEW OF SYSTEMS: CONSTITUTIONAL: No fever, no malaise, no fatigue. HEENT: No recent visual problems or hearing problems. Denied any sore throat. CARDIOVASCULAR: No chest pain, orthopnea, PND, no palpitations, no syncope. PULMONARY: No shortness of breath, no cough, no hemoptysis. GASTROINTESTINAL: As mentioned in HPI NEUROLOGICAL: No headaches, no weakness, no numbness. HEMATOLOGICAL: Denies any bleeding or petechiae. GENITOURINARY: Denies any burning micturition, frequency, or urgency. MUSCULOSKELETAL/RHEUMATOLOGICAL: Denies any joint pain, swelling, or any muscle pain. ENDOCRINE: Denies any polyuria or polydipsia. The rest of the 14-point review of systems is negative. Past Medical History Past Medical History: Heart Failure, GI Bleed Additional Past Medical History / Comment(s): HEART VALVE REPLACEMENT. HX GI PROB FOR YEARS, HIATAL HERNIA. 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 DEVELOPMENTAL DISABILITY. History of Any Multi-Drug Resistant Organisms: None Reported Past Surgical History: Ear Surgery, Hernia Repair, Orthopedic Surgery Additional Past Surgical History / Comment(s): RT Foot Surgery; Open Heart Surg @ 3 YRS OLD, VALVE REPLACED. EXC BRAIN TUMOR. HIATAL HERNIA REPAIR. RT EARDRUM REPAIRED. Past Anesthesia/Blood Transfusion Reactions: No Reported Reaction Past Psychological History: ADD/ADHD, Anxiety Additional Psychological History / Comment(s): IMPULSE CONTROL PROB, MOD MENTAL RETARDATION Smoking Status: Current every day smoker Past Alcohol Use History: None Reported Past Drug Use History: None Reported - Past Family History Father Family Medical History: No Reported History Additional Family Medical History / Comment(s): Mother Family Medical History: No Reported History Additional Family Medical History / Comment(s): Medications and Allergies Home Medications Medication Instructions Recorded Confirmed Type EPINEPHrine [Epipen 2-Watson] 0.3 mg IM ONCE PRN 08/27/17 03/02/18 History FLUoxetine HCL [PROzac Weekly] 90 mg PO Q7D 08/27/17 03/02/18 History Melatonin 3 mg PO HS 08/27/17 03/02/18 History Montelukast [Singulair] 10 mg PO HS 08/27/17 03/02/18 History Omeprazole 20 mg PO DAILY 08/27/17 03/02/18 History hydrOXYzine PAMOATE [Vistaril] 25 mg PO BID PRN 08/27/17 03/02/18 History risperiDONE ODT [RisperDAL M-TAB] 1 mg PO HS 08/27/17 03/02/18 History traZODone HCL 150 mg PO HS 08/27/17 03/02/18 History Loratadine [Claritin] 10 mg PO DAILY 03/02/18 03/02/18 History Allergies Allergy/AdvReac Type Severity Reaction Status Date / Time venom-honey bee Allergy Anaphylaxis Verified 03/02/18 19:37 Physical Exam Vitals: Vital Signs Temp Pulse Pulse Resp BP BP Pulse Ox 03/03/18 07:00 98.4 F 74 18 99/54 100 03/02/18 23:45 18 03/02/18 23:09 98.5 F 75 18 118/63 96 03/02/18 21:37 98.0 F 76 14 116/65 97 03/02/18 20:46 71 18 106/57 99 03/02/18 19:26 97.9 F 103 H 20 123/65 96 Intake and Output 03/02/18 03/03/18 03/03/18 22:59 06:59 14:59 Other: # Voids 2 # Bowel Movements 1 Weight 31.751 kg 31.751 kg PHYSICAL EXAMINATION: GENERAL: The patient is alert and oriented x3, not in any acute distress. Short stature and mental delay HEENT: Pupils are round and equally reacting to light. EOMI. No scleral icterus. No conjunctival pallor. Normocephalic, atraumatic. No pharyngeal erythema. No thyromegaly. CARDIOVASCULAR: S1 and S2 present. No murmurs, rubs, or gallops. PULMONARY: Chest is clear to auscultation, no wheezing or crackles. ABDOMEN: Soft, subjective tenderness in the right lower quadrant, nondistended, normoactive bowel sounds. No palpable organomegaly. MUSCULOSKELETAL: No joint swelling or deformity. EXTREMITIES: No cyanosis, clubbing, or pedal edema. NEUROLOGICAL: Gross neurological examination did not reveal any focal deficits. SKIN: No rashes. Results CBC & Chem 7: 03/03/18 07:18 03/03/18 07:18 Labs: Abnormal Lab Results - Last 24 Hours (Table) 03/02/18 03/02/18 03/02/18 Range/Units 19:50 19:50 20:00 WBC 17.7 H (3.8-10.6) k/uL RBC 5.53 H (3.80-5.40) m/uL Neutrophils # 14.6 H (1.3-7.7) k/uL Monocytes # 1.1 H (0-1.0) k/uL Chloride 110 H (98-107) mmol/L Carbon Dioxide 16 L (22-30) mmol/L BUN 6 L (7-17) mg/dL Creatinine 0.50 L (0.52-1.04) mg/dL Glucose 126 H (74-99) mg/dL Calcium (8.4-10.2) mg/dL AST 13 L (14-36) U/L Total Protein (6.3-8.2) g/dL Albumin (3.5-5.0) g/dL Urine Appearance Cloudy H (Clear) Urine Protein 2+ H (Negative) Urine Ketones Trace H (Negative) Urine Bilirubin 1+ H (Negative) Ur Leukocyte Esterase Moderate H (Negative) Urine WBC 33 H (0-5) /hpf Ur Squamous Epith Cells 22 H (0-4) /hpf Urine Bacteria Rare H (None) /hpf Urine Mucus Many H (None) /hpf 03/03/18 Range/Units 07:18 WBC (3.8-10.6) k/uL RBC (3.80-5.40) m/uL Neutrophils # (1.3-7.7) k/uL Monocytes # (0-1.0) k/uL Chloride 115 H (98-107) mmol/L Carbon Dioxide 18 L (22-30) mmol/L BUN 3 L (7-17) mg/dL Creatinine 0.51 L (0.52-1.04) mg/dL Glucose 70 L (74-99) mg/dL Calcium 8.2 L (8.4-10.2) mg/dL AST 11 L (14-36) U/L Total Protein 5.5 L (6.3-8.2) g/dL Albumin 3.0 L (3.5-5.0) g/dL Urine Appearance (Clear) Urine Protein (Negative) Urine Ketones (Negative) Urine Bilirubin (Negative) Ur Leukocyte Esterase (Negative) Urine WBC (0-5) /hpf Ur Squamous Epith Cells (0-4) /hpf Urine Bacteria (None) /hpf Urine Mucus (None) /hpf Microbiology - Last 24 Hours (Table) 03/02/18 20:00 Urine Culture - Preliminary Urine,Clean Catch 03/02/18 21:29 Stool Culture - Preliminary Stool Thrombosis Risk Factor Assmnt - Choose All That Apply Any of the Below Risk Factors Present?: No Assessment and Plan Plan: Abdominal pain, diarrhea secondary to colitis patient has diffuse colitis concern for ulcerative colitis patient will be given a dose of prednisone as mentioned above gastric body will evaluated the patient. -Asked esophageal reflux disease -depression -Developmental delay For above-mentioned chronic medical problems patient will be resumed and continued on appropriate home medications
[2018-03-03] MEDS: KETOROLAC 30 MG/ML 1 ML VIAL IVP PRN (17:21)
[2018-03-03] MEDS: SODIUM CHLORIDE 0.9% 1,000 ML IV SCH ×2 (19:39→19:40)
[2018-03-03] MEDS: traZODone HCL 50 MG TAB PO SCH (21:18)
[2018-03-03] MEDS: risperiDONE ODT 1 MG TAB PO SCH (21:18)
[2018-03-03] MEDS: MONTELUKAST 10 MG TAB PO SCH (21:18)
[2018-03-03] MEDS: MELATONIN 3 MG TABLET PO SCH (21:18)
[2018-03-03] MEDS: ACETAMINOPHEN TAB 325 MG TAB PO PRN (21:32)
--- NOTE | 2018-03-03 21:57 | CONS ---
CONSULTATION DATE OF DICTATION: 03/03/2018 REASON FOR CONSULTATION: Nausea, vomiting, diarrhea. HISTORY OF PRESENT ILLNESS: The patient is a 32-year-old white female who came into the emergency room with nausea, vomiting and diarrhea for the last several years' duration. much worse and hence came into the emergency room and subsequently admitted to the hospital for further evaluation. She did have a CT of the abdomen and pelvis done that showed diffuse thickening of the colon consistent with colitis/possible IBD and hence we are consulted in regards to these issues. Upon further questioning, the patient states that she has been having diarrhea for many years; in fact, she was investigated with a colonoscopy by Dr. Mittal in August of 2015 which revealed normal colon, and random biopsies from the colon did not show any evidence of colitis. The patient since then has been taking Imodium as needed. During this hospitalization she did have stool studies and C difficile has been negative. This morning she states that she had 2 soft bowel movements, has been on a clear liquid diet. She was given a dose of empiric prednisone for possible IBD. She denies any rectal bleeding or melena. She usually has about 3 to 4 loose bowel movements daily. No weight loss. No fever, chills, night sweats. No family history of inflammatory bowel disease. PAST MEDICAL HISTORY: 1. Congestive heart failure. 2. Heart valve replacement. 3. History of developmental disability. PAST SURGICAL HISTORY: 1. Open heart surgery at age 3 for valve replacement. 2. Excision of brain tumor. 3. Hiatal hernia repair. FAMILY HISTORY: Father . Mother: None. HOME MEDICATIONS: 1. Singulair. 2. Melatonin. 3. Vistaril. 4. Risperdal. 5. Trazodone. 6. Claritin. 7. Omeprazole. 8. Prozac. ALLERGIES: NONE. SOCIAL HISTORY: No smoking or alcohol use. REVIEW OF SYSTEMS: CARDIOPULMONARY: No chest pain, shortness of breath. GENITOURINARY: No dysuria or hematuria. MUSCULOSKELETAL: Unremarkable. SKIN: Unremarkable. ENDOCRINE: Unremarkable. PSYCHIATRY: Unremarkable. NEUROLOGY: Mild mental retardation. ENT/VISION: Unremarkable. CONSTITUTIONAL: No recent weight loss. No fever, chills, night sweats. PHYSICAL EXAMINATION: She appears comfortable, in no apparent distress. Vital signs are stable. Blood pressure is 99/54, pulse rate 74, temperature 98.4. HEENT EXAMINATION: Unremarkable. Conjunctivae pink. Sclerae anicteric. Oral cavity NECK: No JVD or lymph node enlargement. Abdomen was soft. It was nontender, nondistended. Liver and spleen were not palpable. Bowel sounds are positive. No organomegaly. EXTREMITIES: No pedal edema. SKIN: No rashes. NEURO: Alert and oriented LABS: WBC 17.7, hemoglobin 15.6, platelets are normal. Basic metabolic panel is within normal limits. Stool for C difficile toxin is negative. CT of the abdomen and pelvis showed diffuse mucosal thickening of the large bowel suspicious for acute colitis. Possibility of IBD versus infectious colitis cannot be excluded. IMPRESSION: This is a patient who presents to the hospital with chronic diarrhea with abdominal pain, intermittent episodes of nausea and vomiting on and off for the last several years' duration which have been much worse in the she did have a colonoscopy by Dr. Mittal in 2014 which was unremarkable. Biopsies were also unremarkable. Most likely we are dealing with an acute infectious diarrhea irritable bowel syndrome. She was given a dose of prednisone 20 mg this morning for possible IBD. In any event, her diarrhea has significantly improved, and this morning she had only 2 bowel movements C difficile toxin was negative. RECOMMENDATIONS: 1. No indication for steroid therapy at the present time. 2. Imodium as needed for the chronic diarrhea. 3. . 4. If her symptoms improve, she can be discharged home tomorrow with an outpatient followup. Thank you for this consultation. MMODL / IJN: [id number] /
[2018-03-04] MEDS: KETOROLAC 30 MG/ML 1 ML VIAL IVP PRN ×2 (00:01→05:57)
[2018-03-04] MEDS: SODIUM CHLORIDE 0.9% 1,000 ML IV SCH (05:57)
[2018-03-04 07:32] VITALS: BP 97/59; PULSE 62; TEMP 97.9
[2018-03-04] MEDS: ACETAMINOPHEN TAB 325 MG TAB PO PRN ×2 (07:59→12:37)
[2018-03-04] MEDS: PANTOPRAZOLE 40 MG TABLET PO SCH (07:59)
[2018-03-04] MEDS: LORATADINE 10 MG TAB PO SCH (07:59)
[2018-03-04 10:56] VITALS: RESP 15
--- NOTE | 2018-03-04 12:13 | P.DS ---
Providers Date of admission: 03/02/18 22:39 Attending physician: Stephon Celaya Consults: 03/02/18 22:15 Consult Physician Routine Consulting Provider: Khurram Singh Consult Reason/Comments: colitis Do you want consulting provider notified?: Yes Primary care physician: Vikas Davey [facility] Course: Patient is a pleasant 31-year-old female was admitted for a possibility of nonspecific carotis patient has diffuse thickening of the colon. Which appears to be nonspecific colitis and patient will follow with central does outpatient gastric body evaluate the patient has been not recommending either steroid her anti-medics at this time. Patient will be discharged on as needed Imodium for diarrhea. Patient is than 100,000 the bacilli in the urine and septic cocci. It appears to be a symptom any bacteria concerning her abdominal pain leukocytosis and unsure whether abdominal pain is secondary to colitis, patient will be discharged and treated like urinary tract infection with Ceftin for 5 days. PHYSICAL EXAMINATION: GENERAL: The patient is alert and oriented x3, not in any acute distress. Well developed, well nourished. HEENT: Pupils are round and equally reacting to light. EOMI. No scleral icterus. No conjunctival pallor. Normocephalic, atraumatic. No pharyngeal erythema. No thyromegaly. CARDIOVASCULAR: S1 and S2 present. No murmurs, rubs, or gallops. PULMONARY: Chest is clear to auscultation, no wheezing or crackles. ABDOMEN: Soft, nontender, nondistended, normoactive bowel sounds. No palpable organomegaly. MUSCULOSKELETAL: No joint swelling or deformity. EXTREMITIES: No cyanosis, clubbing, or pedal edema. NEUROLOGICAL: Gross neurological examination did not reveal any focal deficits. SKIN: No rashes. Abdominal pain, diarrhea secondary to colitis or urinary tract infection prednisone as mentioned above gastric body will evaluated the patient. -Asked esophageal reflux disease -depression -Developmental delay -Urinary tract infection cannot be ruled out Patient Condition at Discharge: Stable Plan - Discharge Summary New Discharge Prescriptions: New Cefuroxime Axetil [Ceftin] 500 mg PO BID #10 tab Loperamide [Imodium] 2 mg PO QID PRN #30 capsule PRN Reason: Diarrhea No Action EPINEPHrine [Epipen 2-Watson] 0.3 mg IM ONCE PRN PRN Reason: Anaphylaxis Omeprazole 20 mg PO DAILY Montelukast [Singulair] 10 mg PO HS traZODone HCL 150 mg PO HS risperiDONE ODT [RisperDAL M-TAB] 1 mg PO HS hydrOXYzine PAMOATE [Vistaril] 25 mg PO BID PRN PRN Reason: Anxiety FLUoxetine HCL [PROzac Weekly] 90 mg PO Q7D Melatonin 3 mg PO HS Loratadine [Claritin] 10 mg PO DAILY Discharge Medication List EPINEPHrine [Epipen 2-Watson] 0.3 mg IM ONCE PRN 08/27/17 [History] FLUoxetine HCL [PROzac Weekly] 90 mg PO Q7D 08/27/17 [History] Melatonin 3 mg PO HS 08/27/17 [History] Montelukast [Singulair] 10 mg PO HS 08/27/17 [History] Omeprazole 20 mg PO DAILY 08/27/17 [History] hydrOXYzine PAMOATE [Vistaril] 25 mg PO BID PRN 08/27/17 [History] risperiDONE ODT [RisperDAL M-TAB] 1 mg PO HS 08/27/17 [History] traZODone HCL 150 mg PO HS 08/27/17 [History] Loratadine [Claritin] 10 mg PO DAILY 03/02/18 [History] Cefuroxime Axetil [Ceftin] 500 mg PO BID #10 tab 03/04/18 [Rx] Loperamide [Imodium] 2 mg PO QID PRN #30 capsule 03/04/18 [Rx] Follow up Appointment(s)/Referral(s): Tamica Bean MD [Primary Care Provider] - 3 Days Huong Gibson MD [STAFF PHYSICIAN] - 1 Week Discharge Disposition: HOME SELF-CARE
== END 2018-03-04 14:46 | disposition home or self-care (01) | DRG 392 ==
LOC: EC 19:19 → 5MS5E 22:39
PROVIDERS: ADMIT Hospitalist; ATTEND Hospitalist
DX: A09 Infectious gastroenteritis and colitis, unspecified (principal); I50.9 Heart failure, unspecified; N39.0 Urinary tract infection, site not specified; F17.200 Nicotine dependence, unspecified, uncomplicated; F32.9 Major depressive disorder, single episode, unspecified; F41.9 Anxiety disorder, unspecified; F71 Moderate intellectual disabilities; F90.9 Attention-deficit hyperactivity disorder, unspecified type; K21.9 Gastro-esophageal reflux disease without esophagitis; Z95.2 Presence of prosthetic heart valve; Z79.899 Other long term (current) drug therapy; Z79.52 Long term (current) use of systemic steroids; Z91.030 Bee allergy status
CPT/HCPCS: 36415; 74177; 80053; 81001; 81025; 82150; 83605; 83690; 85025; 87040; 87045; 87046; 87077; 87086; 87186; 87324; 87502; 89055; 96365; 96375; 99285

== ENCOUNTER 2018-03-18 12:02 | Day surgery (SDC) | payer MEDICARE, OTHER ==
[2018-03-17 08:24] VITALS: BMI 21.3
[~2018-03-18 12:02] MED LIST: LACTATED RINGERS 1,000 ML IV SCH
[2018-03-18 12:47] VITALS: RESP 16; TEMP 98.1
[2018-03-18] MEDS ORDERED: LIDOCAINE 1% 20 ML VIAL (10MG/ML) FOR IV START SQ ONE (12:59)
[2018-03-18] MEDS ORDERED: LIDOCAINE 1% INJ 10MG/ML (20 ML MDV) ONE (13:37)
[2018-03-18] MEDS ORDERED: PROPOFOL 10 MG/ML 20 ML VIAL IV ONE (13:37)
[2018-03-18 14:25] VITALS: PULSE 66
--- NOTE | 2018-03-18 14:32 | P.PCN ---
Date of Procedure: 03/18/18 Procedure(s) Performed: Procedure: 1. Esophagogastroduodenoscopy and biopsy. 2. Colonoscopy and biopsy. Preoperative diagnosis: Nausea, vomiting and diarrhea. Postoperative diagnosis: 1. Small sliding hiatal hernia with no obvious esophagitis or complicated reflux disease. 2. Mild antral gastritis. 3. Terminal ileitis. 4. Biopsies obtained from the duodenum, antrum, esophagus, terminal ileum and right colon. Preparation: HalfLytely prep. Sedation: Was provided by anesthesia. Brief clinical history: The patient is a 32-year-old female who I have evaluated recently in the office regarding chronic nausea, vomiting and diarrhea. I scheduled this evaluation to assess for celiac disease, inflammatory bowel disease or other pathology. Her last endoscopic evaluation I am aware of was in 2011. Procedure: With the patient on her left lateral decubitus position and after informed consent and adequate sedation, I passed the Olympus-GIF 160 video upper endoscope through the cricopharyngeus down the esophagus. GE junction was at 30-31 cm from the incisors and there was a small sliding hiatal hernia but no obvious esophagitis or complicated reflux disease. The endoscope was then passed into the stomach which was insufflated with air and inspected in detail including the retroflex view in the cardia. There was some mottling and erythema in the antrum but no ulcers or erosions. Pyloric channel, duodenal bulb, post bulbar area and descending duodenum appeared within normal limits. I obtained multiple biopsies from the duodenum, antrum and esophagus then the endoscope was withdrawn and I proceeded with the colonoscopy. Perianal area did not show any fissures or fistulas. There were no masses felt on digital rectal examination. The Olympus CFQ 160L video colonoscope was then inserted in the rectum in the usual fashion and advanced to the cecum. I intubated the ileocecal valve and examined the terminal ileum. There was multiple erosions and small ulcerations in the terminal ileum against a background of edema and erythema of the mucosa and there was some friability consistent with ileitis. There were no strictures. The colon appeared healthy with no evidence of inflammatory bowel disease. There were no polyps, cancer or diverticular disease. I obtained biopsies from the terminal ileum and right colon then I retroflexed the endoscope in the rectum is for the endoscope was withdrawn. The patient tolerated the procedure well. Plan: I shared the findings with the patient and her legal guardian. Will await biopsy results. I will see her in follow-up in the office and make additional recommendations regarding her management based on her course and biopsy results. I will keep you updated on her progress.
[2018-03-18 14:35] VITALS: BP 120/72
== END 2018-03-18 14:56 | disposition home or self-care (01) ==
LOC: ORWHC2ENDO 12:02
DX: K29.50 Unspecified chronic gastritis without bleeding (principal); K21.0 Gastro-esophageal reflux disease with esophagitis; K51.80 Other ulcerative colitis without complications; K44.9 Diaphragmatic hernia without obstruction or gangrene; Z95.2 Presence of prosthetic heart valve; J45.909 Unspecified asthma, uncomplicated; F17.210 Nicotine dependence, cigarettes, uncomplicated; Z79.899 Other long term (current) drug therapy; Z91.030 Bee allergy status
CPT/HCPCS: 88305; 84703; 45380; 43239; J2001; J2704

== ENCOUNTER 2018-03-24 13:18 | Emergency (ER) | payer MEDICARE, OTHER ==
[2018-03-24 13:34] VITALS: BP 110/70; PULSE 98; RESP 20; TEMP 98
--- NOTE | 2018-03-24 14:35 | ED ---
General Adult HPI - General Chief complaint: Fall Stated complaint: Fell off porch-leg/hand pain Time Seen by Provider: 03/24/18 14:15 Source: patient, RN notes reviewed Mode of arrival: ambulatory Limitations: no limitations - History of Present Illness Initial comments: 32-year-old female presents to the emergency department for chief complaint of fall last night patient fell about 2 feet off of a porch. Patient states she fell on her right wrist. Patient is complaining of pain in the right wrist and hand as well as the left upper leg. Patient denies any neck or back pain. Patient denies any loss of consciousness or headaches. Patient denies hitting her head. Patient states she can move her right wrist but it is painful. Patient states she can walk without difficulty. Patient has no other complaints at this time including shortness of breath, chest pain, abdominal pain, visual changes, nausea or vomiting. - Related Data Home Medications Medication Instructions Recorded Confirmed EPINEPHrine [Epipen 2-Watson] 0.3 mg IM ONCE PRN 08/27/17 03/24/18 FLUoxetine HCL [PROzac Weekly] 90 mg PO Q7D 08/27/17 03/24/18 Melatonin 3 mg PO HS 08/27/17 03/24/18 Montelukast [Singulair] 10 mg PO HS 08/27/17 03/24/18 Omeprazole 20 mg PO DAILY 08/27/17 03/24/18 hydrOXYzine PAMOATE [Vistaril] 25 mg PO BID PRN 08/27/17 03/24/18 risperiDONE ODT [RisperDAL M-TAB] 1 mg PO HS 08/27/17 03/24/18 traZODone HCL 150 mg PO HS 08/27/17 03/24/18 Loratadine [Claritin] 10 mg PO DAILY 03/02/18 03/24/18 Previous Rx's Medication Instructions Recorded Loperamide [Imodium] 2 mg PO QID PRN #30 capsule 03/04/18 Allergies Allergy/AdvReac Type Severity Reaction Status Date / Time venom-honey bee Allergy Anaphylaxis Verified 03/24/18 13:50 Review of Systems ROS Statement: Those systems with pertinent positive or pertinent negative responses have been documented in the HPI. ROS Other: All systems not noted in ROS Statement are negative. Past Medical History Past Medical History: Heart Failure, GI Bleed Additional Past Medical History / Comment(s): HEART VALVE REPLACEMENT. HX GI PROB FOR YEARS, HIATAL HERNIA. 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 DEVELOPMENTAL DISABILITY. colitis History of Any Multi-Drug Resistant Organisms: None Reported Past Surgical History: Ear Surgery, Hernia Repair, Orthopedic Surgery Additional Past Surgical History / Comment(s): RT Foot Surgery; Open Heart Surg @ 3 YRS OLD, VALVE REPLACED. EXC BRAIN TUMOR. HIATAL HERNIA REPAIR. RT EARDRUM REPAIRED. Past Anesthesia/Blood Transfusion Reactions: No Reported Reaction Past Psychological History: ADD/ADHD, Anxiety Smoking Status: Current every day smoker Past Alcohol Use History: None Reported Past Drug Use History: None Reported - Past Family History Father Family Medical History: No Reported History Additional Family Medical History / Comment(s): Mother Family Medical History: No Reported History Additional Family Medical History / Comment(s): General Exam Limitations: no limitations General appearance: alert, in no apparent distress Neck exam: Present: normal inspection, full ROM. Absent: tenderness, meningismus, lymphadenopathy Respiratory exam: Present: normal lung sounds bilaterally. Absent: respiratory distress, wheezes, rales, rhonchi, stridor Cardiovascular Exam: Present: regular rate, normal rhythm, normal heart sounds. Absent: systolic murmur, diastolic murmur, rubs, gallop, clicks Extremities exam: Present: full ROM (Full range of motion of the right wrist with pain with flexion. Full range of motion of the left hip and knee.), tenderness (Tenderness to the dorsal aspect of the right wrist and hand. No scaphoid tenderness. Tenderness to the lateral left hip. No tenderness of left knee or ankle.), normal capillary refill (Refill less than 2 seconds in the right upper extremity and radial pulse 2+. Cap refill less than 2 seconds in the left lower extremity.). Absent: pedal edema, joint swelling, calf tenderness Course Vital Signs 03/24/18 13:32 Temperature 98.0 F Pulse Rate 98 Respiratory 20 Rate Blood Pressure 110/70 O2 Sat by Pulse 98 Oximetry Medical Decision Making - Medical Decision Making 32-year-old female presents the emergency department for chief complaint of fall last night. Patient denies loss of consciousness or hitting her head. Patient fell from a porch onto her right wrist and left upper leg. Exam on exam patient has some tenderness in the left wrist and dorsal hand on palpation and tenderness with flexion of the right wrist. No tenderness of the scaphoid area. Patient also has tenderness to the elevation of the left hip on the lateral aspect. Patient has full range of motion of the hip. No pain in the back. Patient denies any chance of . X-rays of the right wrist and hand and left femur were ordered which showed no acute fractures or dislocations. 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 Patient had no tenderness of the left patella or knee joint. Patient was given an [place] wrap of the right wrist. She was educated on keeping it elevated, resting and icing it. She was also told to ice the left hip but states her pain is better in the left hip. She was told to take Motrin or Tylenol for pain relief which she states she has at home. She was educated if symptoms do not resolve in 7-10 days she may need repeat x-rays. Patient will follow-up with primary care. She will return to the emergency Department if she has any worsening symptoms. Disposition Clinical Impression: Wrist pain Disposition: HOME SELF-CARE Condition: Good Instructions: Wrist Injury (ED), RICE Therapy (ED) Additional Instructions: Please use Motrin or Tylenol for pain relief. Please room her to rest, ice, and elevate the right wrist. Follow up with primary care provider in one to 2 days. Return to the emergency department if you have any worsening symptoms Is patient prescribed a controlled substance at d/c from ED?: No Referrals: Tamica Bean MD [Primary Care Provider] - 1-2 days Time of Disposition: 15:26
--- NOTE | 2018-03-24 14:40 | XR ---
EXAMINATION TYPE: XR femur LT DATE OF EXAM: 03/24/2018 COMPARISON: NONE HISTORY: Pain TECHNIQUE: 4 views submitted FINDINGS: Visualized femurs intact. No definite acute displaced fracture. Osseous structures intact. Narrowing of the joint space is noted. No erosive changes. 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 IMPRESSION: No acute fracture. 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 Correlate with point tenderness for confi rmation.
--- NOTE | 2018-03-24 14:41 | XR ---
EXAMINATION TYPE: XR hand complete RT DATE OF EXAM: 03/24/2018 COMPARISON: NONE HISTORY: Pain TECHNIQUE: Three views are submitted. FINDINGS: The osseous structures are intact. The joint spaces are preserved and there is no acute fracture or dislocation. IMPRESSION: 1. No definite acute fracture or dislocation if symptoms persist, follow-up study in 7 to 10 days wo uld be suggested
--- NOTE | 2018-03-24 14:42 | XR ---
EXAMINATION TYPE: XR wrist complete RT DATE OF EXAM: 03/24/2018 COMPARISON: NONE HISTORY: Pain TECHNIQUE: Four views submitted. FINDINGS: The osseous structures are intact. The joint spaces are preserved and there is no acute fracture or dislocation. IMPRESSION: 1. No definite acute fracture or dislocation if symptoms persist, follow-up study in 7 to 10 days wo uld be suggested
== END 2018-03-24 15:39 | disposition home or self-care (01) ==
LOC: EC 13:18
DX: M25.531 Pain in right wrist (principal); M79.641 Pain in right hand; M25.552 Pain in left hip; I50.9 Heart failure, unspecified; F90.9 Attention-deficit hyperactivity disorder, unspecified type; F41.9 Anxiety disorder, unspecified; F17.200 Nicotine dependence, unspecified, uncomplicated; Z91.030 Bee allergy status; Z79.899 Other long term (current) drug therapy; W01.0XXA Fall on same level from slipping, tripping and stumbling without subsequent striking against object, initial encounter; Y92.89 Other specified places as the place of occurrence of the external cause
CPT/HCPCS: 99283

== ENCOUNTER 2018-05-10 21:14 | Emergency (ER) | payer MEDICARE, OTHER ==
[2018-05-10] MEDS ORDERED: ALBUTEROL NEBULIZED 2.5 MG/3 ML INHALATION STA ×2 (22:47→23:43)
[2018-05-10] MEDS ORDERED: ONDANSETRON 4 MG/2 ML VIAL IVP STA (22:47)
--- NOTE | 2018-05-10 22:51 | ED ---
Nausea/Vomiting/Diarrhea HPI - General Chief complaint: Nausea/Vomiting/Diarrhea Stated complaint: vomiting Time Seen by Provider: 05/10/18 22:26 Source: patient Mode of arrival: ambulatory Limitations: no limitations - History of Present Illness Initial comments: This patient is a 32-year-old woman who presents with the complaint that she has had multiple episodes of vomiting. The patient states that this had started this evening sometime after 6 PM. She does note that she is having frequent nonproductive cough, and that the gagging associated may have brought the vomiting on. Patient is denying further associated symptoms, including no fever or chills, no chest or abdominal pain. No dyspnea or sputum associated with the cough. She has not had change in bowel movements or urination. MD complaint: vomiting -: hour(s) Associated Abdominal Pain: No Consistency: intermittent Improves with: none Worsens with: other Associated Symptoms: cough - Related Data Home Medications Medication Instructions Recorded Confirmed FLUoxetine HCL [PROzac Weekly] 90 mg PO Q7D 08/27/17 05/10/18 Melatonin 3 mg PO HS 08/27/17 05/10/18 Montelukast [Singulair] 10 mg PO HS 08/27/17 05/10/18 Omeprazole 20 mg PO DAILY 08/27/17 05/10/18 hydrOXYzine PAMOATE [Vistaril] 25 mg PO BID PRN 08/27/17 05/10/18 risperiDONE ODT [RisperDAL M-TAB] 1 mg PO HS 08/27/17 05/10/18 traZODone HCL 150 mg PO HS 08/27/17 05/10/18 Loratadine [Claritin] 10 mg PO DAILY 03/02/18 05/10/18 Mesalamine [Pentasa] 500 mg PO QID 05/10/18 05/10/18 Previous Rx's Medication Instructions Recorded Albuterol Inhaler [Ventolin Hfa 1 - 2 puff INHALATION Q6HR PRN #1 05/11/18 Inhaler] inhaler Benzonatate [Tessalon Perles] 100 mg PO TID PRN #20 capsule 05/11/18 predniSONE 30 mg PO DAILY #15 tab 05/11/18 Allergies Allergy/AdvReac Type Severity Reaction Status Date / Time venom-honey bee Allergy Anaphylaxis Verified 05/10/18 22:48 Review of Systems ROS Statement: Those systems with pertinent positive or pertinent negative responses have been documented in the HPI. ROS Other: All systems not noted in ROS Statement are negative. Constitutional: Denies: fever, chills, weakness Respiratory: Reports: cough. Denies: dyspnea, hemoptysis Cardiovascular: Denies: chest pain, palpitations, orthopnea, edema, syncope Gastrointestinal: Reports: vomiting. Denies: abdominal pain, nausea, diarrhea, hematemesis, melena, hematochezia Genitourinary: Denies: dysuria, hematuria Musculoskeletal: Denies: back pain Skin: Denies: rash Neurological: Denies: headache Past Medical History Past Medical History: Heart Failure, GI Bleed Additional Past Medical History / Comment(s): HEART VALVE REPLACEMENT. HX GI PROB FOR YEARS, HIATAL HERNIA. 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 DEVELOPMENTAL DISABILITY. colitis History of Any Multi-Drug Resistant Organisms: None Reported Past Surgical History: Ear Surgery, Hernia Repair, Orthopedic Surgery Additional Past Surgical History / Comment(s): RT Foot Surgery; Open Heart Surg @ 3 YRS OLD, VALVE REPLACED. EXC BRAIN TUMOR. HIATAL HERNIA REPAIR. RT EARDRUM REPAIRED. Past Anesthesia/Blood Transfusion Reactions: No Reported Reaction Past Psychological History: ADD/ADHD, Anxiety Smoking Status: Current every day smoker Past Alcohol Use History: None Reported Past Drug Use History: None Reported - Past Family History Father Family Medical History: No Reported History Additional Family Medical History / Comment(s): Mother Family Medical History: No Reported History Additional Family Medical History / Comment(s): General Exam Limitations: no limitations General appearance: alert, in no apparent distress Head exam: Present: atraumatic, normocephalic Eye exam: Present: normal appearance. Absent: scleral icterus, conjunctival injection ENT exam: Present: normal oropharynx Respiratory exam: Present: wheezes, other (Frequent nonproductive cough during the exam). Absent: respiratory distress, rales, rhonchi, stridor, accessory muscle use, decreased breath sounds, prolonged expiratory Cardiovascular Exam: Present: regular rate, normal rhythm, normal heart sounds. Absent: systolic murmur, diastolic murmur, rubs, gallop GI/Abdominal exam: Present: soft, normal bowel sounds. Absent: distended, tenderness, guarding, rebound, rigid, mass Extremities exam: Present: normal inspection, normal capillary refill. Absent: pedal edema, calf tenderness Back exam: Present: normal inspection. Absent: CVA tenderness (R), CVA tenderness (L) Skin exam: Present: warm, dry, intact, normal color. Absent: rash Course Vital Signs 05/10/18 05/10/18 05/10/18 21:35 22:56 23:06 Temperature 98.0 F Pulse Rate 69 72 72 Respiratory 18 Rate Blood Pressure 112/73 O2 Sat by Pulse 97 Oximetry 05/10/18 05/11/18 05/11/18 23:57 00:06 00:26 Temperature Pulse Rate 68 72 122 H Respiratory 18 Rate Blood Pressure 106/56 O2 Sat by Pulse 93 L Oximetry Medical Decision Making - Lab Data Result diagrams: 05/10/18 22:30 05/10/18 22:30 Lab Results 05/10/18 05/10/18 Range/Units 22:30 22:30 WBC 17.4 H (3.8-10.6) k/uL RBC 5.34 (3.80-5.40) m/uL Hgb 15.7 (11.4-16.0) gm/dL Hct 45.0 (34.0-46.0) % MCV 84.4 (80.0-100.0) fL MCH 29.3 (25.0-35.0) pg MCHC 34.7 (31.0-37.0) g/dL RDW 13.0 (11.5-15.5) % Plt Count 207 (150-450) k/uL Neutrophils % 88 % Lymphocytes % 8 % Monocytes % 3 % Eosinophils % 0 % Basophils % 0 % Neutrophils # 15.3 H (1.3-7.7) k/uL Lymphocytes # 1.3 (1.0-4.8) k/uL Monocytes # 0.6 (0-1.0) k/uL Eosinophils # 0.0 (0-0.7) k/uL Basophils # 0.1 (0-0.2) k/uL Sodium 141 (137-145) mmol/L Potassium 4.7 (3.5-5.1) mmol/L Chloride 104 (98-107) mmol/L Carbon Dioxide 23 (22-30) mmol/L Anion Gap 14 mmol/L BUN 6 L (7-17) mg/dL Creatinine 0.59 (0.52-1.04) mg/dL Est GFR (CKD-EPI)AfAm >90 (>60 ml/min/1.73 sqM) Est GFR (CKD-EPI)NonAf >90 (>60 ml/min/1.73 sqM) Glucose 104 H (74-99) mg/dL Calcium 9.5 (8.4-10.2) mg/dL Total Bilirubin 0.4 (0.2-1.3) mg/dL AST 19 (14-36) U/L ALT 36 (9-52) U/L Alkaline Phosphatase 72 (38-126) U/L Total Protein 7.1 (6.3-8.2) g/dL Albumin 4.6 (3.5-5.0) g/dL Disposition Clinical Impression: Bronchitis Disposition: HOME SELF-CARE Condition: Fair Instructions: Acute Bronchitis (ED) Prescriptions: Albuterol Inhaler [Ventolin Hfa Inhaler] 1 - 2 puff INHALATION Q6HR PRN #1 inhaler PRN Reason: Wheezing Benzonatate [Tessalon Perles] 100 mg PO TID PRN #20 capsule PRN Reason: Cough predniSONE 30 mg PO DAILY #15 tab Is patient prescribed a controlled substance at d/c from ED?: No Referrals: Tamica Bean MD [Primary Care Provider] - 1-2 days
[2018-05-10 22:54] LABS: Basophils # (A) 0.1 k/uL (0-0.2); Basophils % (A) 0 %; Eosinophils % (A) 0 %; HGB 15.7 gm/dL (11.4-16.0); Lymphocytes # (A) 1.3 k/uL (1.0-4.8); Lymphocytes % (A) 8 %; MCH 29.3 pg (25.0-35.0); MCHC 34.7 g/dL (31.0-37.0); MCV 84.4 fL (80.0-100.0); Mean Platelet Volume 7.5; Monocytes # (A) 0.6 k/uL (0-1.0); Monocytes % (A) 3 %; Neutrophils # (A) 15.3 k/uL (1.3-7.7); Neutrophils % (A) 88 %; Platelet Count 207 k/uL (150-450); RBC 5.34 m/uL (3.80-5.40); WBC 17.4 k/uL (3.8-10.6)
[2018-05-10 23:10] LABS: ALT 36 U/L (9-52); AST 19 U/L (14-36); Albumin 4.6 g/dL (3.5-5.0); Alkaline Phosphatase 72 U/L (38-126); Anion Gap 14 mmol/L; Blood Urea Nitrogen 6 mg/dL (7-17); Calcium 9.5 mg/dL (8.4-10.2); Carbon Dioxide 23 mmol/L (22-30); Chloride 104 mmol/L (98-107); Glucose 104 mg/dL (74-99); Potassium 4.7 mmol/L (3.5-5.1); Sodium 141 mmol/L (137-145); Total Bilirubin 0.4 mg/dL (0.2-1.3); Total Protein 7.1 g/dL (6.3-8.2)
--- NOTE | 2018-05-10 23:36 | XR ---
EXAMINATION TYPE: XR chest 2V DATE OF EXAM: 05/10/2018 COMPARISON: 02/25/2016 HISTORY: Heart valve replacement. Vomiting TECHNIQUE: Frontal and lateral views of the chest are obtained. FINDINGS: There is thoracic mild dextroscoliosis. Lungs are clear. Heart size is normal. There is no sign of pleural effusion or pneumothorax. There are sternal wires. IMPRESSION: No active cardiopulmonary disease. No change.
[2018-05-10] MEDS ORDERED: predniSONE 20 MG TAB PO STA (23:43)
[2018-05-11 01:02] VITALS: BP 101/59; RESP 19; TEMP 98.6
[2018-05-11 01:33] VITALS: PULSE 91
== END 2018-05-11 01:32 | disposition home or self-care (01) ==
LOC: EC 21:14
DX: J40 Bronchitis, not specified as acute or chronic (principal); F41.9 Anxiety disorder, unspecified; F17.200 Nicotine dependence, unspecified, uncomplicated; Z79.899 Other long term (current) drug therapy; Z91.030 Bee allergy status; Z87.19 Personal history of other diseases of the digestive system
CPT/HCPCS: 36415; 94640; 80053; 85025; 71046; 99284; 96374; J2405; J7512

== ENCOUNTER 2018-05-23 15:55 | Emergency (ER) | payer MEDICARE, OTHER ==
[2018-05-23 16:43] VITALS: BP 123/78; PULSE 82; RESP 18; TEMP 98
--- NOTE | 2018-05-23 17:20 | ED ---
General Adult HPI - General Chief complaint: Upper Respiratory Infection Stated complaint: Cold Symtoms Time Seen by Provider: 05/23/18 16:47 Source: patient, RN notes reviewed Mode of arrival: ambulatory Limitations: no limitations - History of Present Illness Initial comments: 32-year-old female presents to the emergency department for a chief complaint of cough times one week. Patient describes the cough as a dry cough. Patient denies coughing anything up. Patient has tried mfej-ozp-wyrbnzy cold medicine. Patient denies shortness of breath or difficulty breathing. Patient denies a history of asthma. Patient is a current smoker. Patient also admits to mild rhinorrhea. Patient denies sore throat. Patient states she has seasonal ALLERGIES. Denies fevers or chills at home. Patient also hurt her wrist while walking across the street to smoke today and fell. Patient states it is painful to move. Patient did not sustain any other injuries when she fell. Patient has no other complaints at this time including shortness of breath, chest pain, abdominal pain, nausea or vomiting, headache, or visual changes. - Related Data Home Medications Medication Instructions Recorded Confirmed FLUoxetine HCL [PROzac Weekly] 90 mg PO Q7D 08/27/17 05/23/18 Melatonin 3 mg PO HS 08/27/17 05/23/18 Montelukast [Singulair] 10 mg PO HS 08/27/17 05/23/18 Omeprazole 20 mg PO DAILY 08/27/17 05/23/18 hydrOXYzine PAMOATE [Vistaril] 25 mg PO BID PRN 08/27/17 05/23/18 risperiDONE ODT [RisperDAL M-TAB] 1 mg PO HS 08/27/17 05/23/18 traZODone HCL 150 mg PO HS 08/27/17 05/23/18 Loratadine [Claritin] 10 mg PO DAILY 03/02/18 05/23/18 Mesalamine [Pentasa] 500 mg PO QID 05/10/18 05/23/18 Previous Rx's Medication Instructions Recorded Albuterol Inhaler [Ventolin Hfa 1 - 2 puff INHALATION Q6HR PRN #1 05/11/18 Inhaler] inhaler Benzonatate [Tessalon Perles] 100 mg PO TID PRN #20 capsule 05/11/18 predniSONE 30 mg PO DAILY #15 tab 05/11/18 Benzonatate [Tessalon Perles] 200 mg PO Q8H PRN #15 capsule 05/23/18 Loratadine [Claritin] 10 mg PO DAILY #20 tab 05/23/18 Allergies Allergy/AdvReac Type Severity Reaction Status Date / Time venom-honey bee Allergy Anaphylaxis Verified 05/10/18 22:48 Review of Systems ROS Statement: Those systems with pertinent positive or pertinent negative responses have been documented in the HPI. ROS Other: All systems not noted in ROS Statement are negative. Past Medical History Past Medical History: Heart Failure, GI Bleed Additional Past Medical History / Comment(s): HEART VALVE REPLACEMENT. HX GI PROB FOR YEARS, HIATAL HERNIA. 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 DEVELOPMENTAL DISABILITY. colitis History of Any Multi-Drug Resistant Organisms: None Reported Past Surgical History: Ear Surgery, Hernia Repair, Orthopedic Surgery Additional Past Surgical History / Comment(s): RT Foot Surgery; Open Heart Surg @ 3 YRS OLD, VALVE REPLACED. EXC BRAIN TUMOR. HIATAL HERNIA REPAIR. RT EARDRUM REPAIRED. Past Anesthesia/Blood Transfusion Reactions: No Reported Reaction Past Psychological History: ADD/ADHD, Anxiety Smoking Status: Current every day smoker Past Alcohol Use History: None Reported Past Drug Use History: None Reported - Past Family History Father Family Medical History: No Reported History Additional Family Medical History / Comment(s): Mother Family Medical History: No Reported History Additional Family Medical History / Comment(s): General Exam Limitations: no limitations General appearance: alert, in no apparent distress Head exam: Present: atraumatic, normocephalic, normal inspection Eye exam: Present: normal appearance ENT exam: Present: normal exam, normal oropharynx, mucous membranes moist, TM's normal bilaterally, normal external ear exam Neck exam: Present: normal inspection, full ROM. Absent: tenderness, meningismus, lymphadenopathy Respiratory exam: Present: normal lung sounds bilaterally. Absent: respiratory distress, wheezes, rales, rhonchi, stridor Cardiovascular Exam: Present: regular rate, normal rhythm, normal heart sounds. Absent: systolic murmur, diastolic murmur, rubs, gallop, clicks Extremities exam: Present: tenderness (Tenderness to the dorsal left wrist. No scaphoid tenderness. No tenderness in the hand or forearm.), normal capillary refill (Refill less than 2 seconds and radial pulse 2+ in left upper extremity) , other (Sensation intact in the left upper extremity. No abrasions or lacerations noted. No signs of infection.). Absent: full ROM (Patient has about 30 flexion and extension of the left wrist. Full range motion of the left elbow and digits in the left hand), joint swelling (No swelling, redness, or ecchymosis noted in the left wrist) Course Vital Signs 05/23/18 16:41 Temperature 98.0 F Pulse Rate 82 Respiratory 18 Rate Blood Pressure 123/78 O2 Sat by Pulse 97 Oximetry Medical Decision Making - Medical Decision Making 32-year-old female presents to the emergency department for chief complaint of cough times one week. Patient also has mild rhinorrhea. No sore throat. No shortness of breath or difficulty breathing. No history of asthma. Patient also hurt her left wrist while walking across the street to smoke. She had fallen on it. Patient has limited range of motion of the left wrist. Tenderness to the dorsal left wrist. No scaphoid tenderness. No swelling or ecchymosis noted to the left wrist. Lungs are clear to auscultation bilaterally. Throat is nonerythematous and tympanic membranes are within normal limits. No rhinorrhea noted at this time. Patient is afebrile in the emergency department with a temp of 98.0. 97% on room air. No acute fractures evident in the left wrist. No correlation for a possible subluxation of the ulna seen on physical exam. Chest x-ray shows no acute cardiopulmonary process. Patient will be discharged home with Tessalon Perles and Claritin. She will follow up with primary care in 1-2 days. She will return to the emergency Department if she has any worsening symptoms, shortness of breath, difficult to breathing, or high fevers. Disposition Clinical Impression: Upper respiratory infection Disposition: HOME SELF-CARE Condition: Good Instructions: Upper Respiratory Infection (ED) Additional Instructions: Please take Motrin for pain in the left wrist. Please take Tessalon perles for cough as needed. Please take Claritin daily. Follow-up with primary care in 1- 2 days. If symptoms worsen or you experience shortness of breath return to the emergency department. Prescriptions: Benzonatate [Tessalon Perles] 200 mg PO Q8H PRN #15 capsule PRN Reason: Cough Loratadine [Claritin] 10 mg PO DAILY #20 tab Is patient prescribed a controlled substance at d/c from ED?: No Referrals: Tamica Bean MD [Primary Care Provider] - 1-2 days Time of Disposition: 17:26
--- NOTE | 2018-05-23 17:31 | XR ---
EXAMINATION TYPE: XR chest 2V DATE OF EXAM: 05/23/2018 COMPARISON: 05/10/2018 INDICATION: Pain TECHNIQUE: Frontal and lateral views of the chest are obtained. FINDINGS: The heart size is normal. The pulmonary vasculature is normal. The lungs are clear. Scoliosis is present. Sternotomy wires are present. IMPRESSION: 1. No acute pulmonary process.
--- NOTE | 2018-05-23 17:33 | XR ---
EXAMINATION TYPE: XR wrist complete LT DATE OF EXAM: 05/23/2018 COMPARISON: NONE HISTORY: Pain TECHNIQUE: 4 view left wrist FINDINGS: No acute fractures are evident. Soft tissues are normal. Joint spaces are preserved. Follow-up exam can be performed 7-10 days from acute trauma for continued pain. If there is pain at t he anatomic snuff box, nuclear medicine bone scan could be performed. There appears to be some rotation on the lateral projection. Correlate for subluxation of the ulna. IMPRESSION: 1. No acute fractures evident. 2. Bilateral view is somewhat limited. Correlate for subluxation of the ulna.
== END 2018-05-23 17:48 | disposition home or self-care (01) ==
LOC: EC 15:55
DX: J06.9 Acute upper respiratory infection, unspecified (principal); M25.532 Pain in left wrist; I50.9 Heart failure, unspecified; F90.9 Attention-deficit hyperactivity disorder, unspecified type; F41.9 Anxiety disorder, unspecified; F17.200 Nicotine dependence, unspecified, uncomplicated; Z79.899 Other long term (current) drug therapy; Z91.030 Bee allergy status; Z95.2 Presence of prosthetic heart valve
CPT/HCPCS: 71046; 99283

== ENCOUNTER 2018-10-12 19:44 | Emergency (ER) | payer MEDICARE, OTHER ==
[2018-10-12 19:53] VITALS: TEMP 97.4
--- NOTE | 2018-10-12 21:16 | ED ---
General Adult HPI - General Chief complaint: Vaginal Bleeding Stated complaint: female gu Time Seen by Provider: 10/12/18 20:28 Source: patient Mode of arrival: ambulatory Limitations: no limitations - History of Present Illness Initial comments: 33-year-old female patient presents to the emergency department today for complaints of vaginal bleeding. Patient states that she started having increased vaginal bleeding yesterday with passage of small clots. Patient states that she has changed her pad approximately every 4 hours. Patient states that she has not had a menstrual period for the last 7 years due to taking the Depo shot. Patient states that she is late receiving the depo shot, she was due in the middle of August. States that she is having some suprapubic cramping. She denies any dizziness or weakness. Denies any use of anticoagulants or antiplatelet medications. She denies any history of bleeding disorders. She denies chance of . Patient denies any recent rash, fever, chills, shortness breath, chest pain, nausea, vomiting, diarrhea, constipation, back pain, numbness, tingling, hematuria, dysuria, urinary urgency , urinary frequency, headache, visual changes, or any other complaints. - Related Data Home Medications Medication Instructions Recorded Confirmed FLUoxetine HCL [PROzac Weekly] 90 mg PO Q7D 08/27/17 10/12/18 Omeprazole 20 mg PO DAILY 08/27/17 10/12/18 hydrOXYzine PAMOATE [Vistaril] 25 mg PO BID PRN 08/27/17 10/12/18 risperiDONE ODT [RisperDAL M-TAB] 1 mg PO HS 08/27/17 10/12/18 Mesalamine [Pentasa] 1,000 mg PO QID 05/10/18 10/12/18 Melatonin 5 mg PO HS 10/12/18 10/12/18 traZODone HCL 200 mg PO HS 10/12/18 10/12/18 Previous Rx's Medication Instructions Recorded Loratadine [Claritin] 10 mg PO DAILY #20 tab 05/23/18 Allergies Allergy/AdvReac Type Severity Reaction Status Date / Time venom-honey bee Allergy Anaphylaxis Verified 10/12/18 20:42 Review of Systems ROS Statement: Those systems with pertinent positive or pertinent negative responses have been documented in the HPI. ROS Other: All systems not noted in ROS Statement are negative. Past Medical History Past Medical History: Heart Failure, GI Bleed Additional Past Medical History / Comment(s): HEART VALVE REPLACEMENT. HX GI PROB FOR YEARS, HIATAL HERNIA. 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 DEVELOPMENTAL DISABILITY. colitis History of Any Multi-Drug Resistant Organisms: None Reported Past Surgical History: Ear Surgery, Hernia Repair, Orthopedic Surgery Additional Past Surgical History / Comment(s): RT Foot Surgery; Open Heart Surg @ 3 YRS OLD, VALVE REPLACED. EXC BRAIN TUMOR. HIATAL HERNIA REPAIR. RT EARDRUM REPAIRED. Past Anesthesia/Blood Transfusion Reactions: No Reported Reaction Past Psychological History: ADD/ADHD, Anxiety Smoking Status: Current some day smoker Past Alcohol Use History: None Reported Past Drug Use History: None Reported - Past Family History Father Family Medical History: No Reported History Additional Family Medical History / Comment(s): Mother Family Medical History: No Reported History Additional Family Medical History / Comment(s): General Exam Limitations: no limitations General appearance: alert, in no apparent distress, other (This is a well- developed, well-nourished adult female patient in no acute distress. Vital signs upon presentation are temperature 97.4F, pulse 76, respirations 20, blood pressure 107/72, pulse ox 97% on room air.) Eye exam: Present: normal appearance, PERRL, EOMI. Absent: scleral icterus, conjunctival injection, periorbital swelling ENT exam: Present: normal exam, normal oropharynx, mucous membranes moist Respiratory exam: Present: normal lung sounds bilaterally. Absent: respiratory distress, wheezes, rales, rhonchi, stridor Cardiovascular Exam: Present: regular rate, normal rhythm, normal heart sounds. Absent: systolic murmur, diastolic murmur, rubs, gallop, clicks GI/Abdominal exam: Present: soft, normal bowel sounds. Absent: distended, tenderness, guarding, rebound, rigid Back exam: Present: normal inspection. Absent: CVA tenderness (R), CVA tenderness (L) Neurological exam: Present: alert, oriented X3, CN II-XII intact Psychiatric exam: Present: normal affect, normal mood Skin exam: Present: warm, dry, intact, normal color. Absent: rash Course Vital Signs 10/12/18 10/12/18 19:49 21:25 Temperature 97.4 F L Pulse Rate 76 85 Respiratory 20 17 Rate Blood Pressure 107/72 123/85 O2 Sat by Pulse 97 97 Oximetry Medical Decision Making - Medical Decision Making 33-year-old female patient presented to the emergency department today for complaints of vaginal bleeding with passage of clots. Physical examination is unremarkable, abdomen soft and nontender. Vital signs are stable with no tachycardia or hypotension. Patient does report being late receiving her depo provera injection. She does not report any significant amount of bleeding stating that she has to change her pad only every 4 hours. Given patient's description of symptoms this is felt to be breakthrough bleeding from being late with her injection. Patient is hemodynamically stable. I did discuss that this is most likely return of her normal menstrual cycle. She is instructed to follow-up with her primary care physician and gynecology for further evaluation. Return parameters were discussed in detail. She verbalizes understanding and agrees with this plan. Disposition Clinical Impression: Menses, irregular Disposition: HOME SELF-CARE Condition: Good Instructions: Menstruation (ED) Additional Instructions: Increase fluids. Follow up with your primary care physician or school teacher for recheck in 1-2 days. Return immediately for any new, worsening, or concerning symptoms. Is patient prescribed a controlled substance at d/c from ED?: No Referrals: Tamica Bean MD [Primary Care Provider] - 1-2 days Time of Disposition: 21:16
[2018-10-12] MEDS ORDERED: KETOROLAC 30 MG/ML 1 ML VIAL IM STA (21:21)
[2018-10-12 21:27] VITALS: BP 123/85; PULSE 85; RESP 17
== END 2018-10-12 21:28 | disposition home or self-care (01) ==
LOC: EC 19:44
DX: N92.6 Irregular menstruation, unspecified (principal); I50.9 Heart failure, unspecified; F90.9 Attention-deficit hyperactivity disorder, unspecified type; F41.9 Anxiety disorder, unspecified; F17.200 Nicotine dependence, unspecified, uncomplicated; Z79.899 Other long term (current) drug therapy; Z91.030 Bee allergy status; Z95.2 Presence of prosthetic heart valve
CPT/HCPCS: 99283; 96372; J1885

== ENCOUNTER → 2018-11-01 | Outpatient (CLI) | payer MEDICARE, OTHER ==
--- NOTE | 2018-11-01 15:44 | US ---
EXAMINATION TYPE: US pelvic complete DATE OF EXAM: 11/01/2018 COMPARISON: NONE CLINICAL HISTORY: N94.6 DYSMENORRHEA. No cycles for 7 years since she gave , patient states no p rocedure to stop cycles done, spotting to light bleeding has begun, , patient is of small stature and habitus TECHNIQUE: TA. Transabdominal sonographic images of the pelvis were acquired. No TV done at this t ulices. Date of LMP: 7 yrs ago EXAM MEASUREMENTS: Uterus: 7.8 x 3.9 x 3.3 cm Endometrial Stripe: 0.7 cm Right Ovary: 2.4 x 2.4 x 2.4 cm Left Ovary: 1.9 x 1.6 x 1.1 cm 1. Uterus: Retroverted wnl 2. Endometrium: wnl 3. Right Ovary: 1.8cm dominant follicle incidentally seen 4. Left Ovary: wnl 5. Bilateral Adnexa: wnl 6. Posterior cul-de-sac: mild free fluid seen IMPRESSION: 1. Endometrial thickness is within normal limits. 2. Scant amount of free pelvic fluid is likely physiologic. 3. Dominant 1.8 cm right ovarian follicle incidentally noted.
== END | disposition home or self-care (01) ==
LOC: RADUSWWP 15:05
PROVIDERS: ATTEND Internal Medicine
DX: N94.6 Dysmenorrhea, unspecified (principal); Z88.2 Allergy status to sulfonamides
CPT/HCPCS: 76856

== ENCOUNTER 2019-06-26 13:10 | Emergency (ER) | payer MEDICARE, OTHER ==
[2019-06-26] MEDS ORDERED: ONDANSETRON 4 MG/2 ML VIAL IVP STA (14:10)
[2019-06-26] MEDS ORDERED: SODIUM CHLORIDE 0.9% 500 ML 500 ML IV STA (14:10)
[2019-06-26] MEDS ORDERED: KETOROLAC 30 MG/ML 1 ML VIAL IVP STA (14:10)
--- NOTE | 2019-06-26 14:20 | ED ---
General Adult HPI - General Chief complaint: Abdominal Pain Stated complaint: Vomiting Time Seen by Provider: 06/26/19 13:35 Source: patient, RN notes reviewed Mode of arrival: ambulatory Limitations: no limitations - History of Present Illness Initial comments: 34-year-old female with a past medical history of heart failure, GI bleed, hiatal hernia, Crohn's disease presents to the emergency department for abdominal pain. This has been ongoing for the past several days. States that she is now having nausea vomiting as well. States the pain is mostly in the mid lower abdomen. This is sharp in nature. Patient denies fevers or chills. She denies diarrhea. Denies any alleviating or aggravating factors.Patient has no other complaints at this time including shortness of breath, chest pain, headache, or visual changes. - Related Data Home Medications Medication Instructions Recorded Confirmed FLUoxetine HCL [PROzac Weekly] 90 mg PO MO 08/27/17 06/26/19 Omeprazole 20 mg PO DAILY 08/27/17 06/26/19 hydrOXYzine PAMOATE [Vistaril] 25 mg PO BID PRN 08/27/17 06/26/19 risperiDONE ODT [RisperDAL M-TAB] 1 mg PO HS 08/27/17 06/26/19 Mesalamine [Pentasa] 1,000 mg PO QID 05/10/18 06/26/19 Melatonin 5 mg PO HS 10/12/18 06/26/19 traZODone HCL 200 mg PO HS 10/12/18 06/26/19 Previous Rx's Medication Instructions Recorded Loratadine [Claritin] 10 mg PO DAILY #20 tab 05/23/18 Cephalexin [Keflex] 500 mg PO TID 7 Days cap 06/26/19 Allergies Allergy/AdvReac Type Severity Reaction Status Date / Time venom-honey bee Allergy Anaphylaxis Verified 06/26/19 14:03 Review of Systems ROS Statement: Those systems with pertinent positive or pertinent negative responses have been documented in the HPI. ROS Other: All systems not noted in ROS Statement are negative. Past Medical History Past Medical History: Heart Failure, GI Bleed Additional Past Medical History / Comment(s): HEART VALVE REPLACEMENT. HX GI PROB FOR YEARS, HIATAL HERNIA. 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 DEVELOPMENTAL DISABILITY. colitis History of Any Multi-Drug Resistant Organisms: None Reported Past Surgical History: Ear Surgery, Hernia Repair, Orthopedic Surgery Additional Past Surgical History / Comment(s): RT Foot Surgery; Open Heart Surg @ 3 YRS OLD, VALVE REPLACED. EXC BRAIN TUMOR. HIATAL HERNIA REPAIR. RT EARDRUM REPAIRED. Past Anesthesia/Blood Transfusion Reactions: No Reported Reaction Past Psychological History: ADD/ADHD, Anxiety Smoking Status: Current some day smoker Past Alcohol Use History: None Reported Past Drug Use History: None Reported - Past Family History Father Family Medical History: No Reported History Additional Family Medical History / Comment(s): Mother Family Medical History: No Reported History Additional Family Medical History / Comment(s): General Exam Limitations: no limitations General appearance: alert, in no apparent distress Head exam: Present: atraumatic, normocephalic, normal inspection Eye exam: Present: normal appearance, PERRL, EOMI. Absent: scleral icterus, conjunctival injection, periorbital swelling ENT exam: Present: normal exam, mucous membranes moist Neck exam: Present: normal inspection, full ROM. Absent: tenderness, meningismus, lymphadenopathy Respiratory exam: Present: normal lung sounds bilaterally. Absent: respiratory distress, wheezes, rales, rhonchi, stridor Cardiovascular Exam: Present: regular rate, normal rhythm, normal heart sounds. Absent: systolic murmur, diastolic murmur, rubs, gallop, clicks GI/Abdominal exam: Present: soft, tenderness (tenderess nto the periumbilical area with mild guarding noted), normal bowel sounds. Absent: distended, guarding, rebound, rigid Neurological exam: Present: alert, oriented X3 Psychiatric exam: Present: normal affect, normal mood Course Vital Signs 06/26/19 06/26/19 13:12 14:40 Temperature 98.3 F Pulse Rate 82 Respiratory 18 16 Rate Blood Pressure 121/72 O2 Sat by Pulse 95 Oximetry Medical Decision Making - Medical Decision Making 34-year-old female with a past medical history of heart failure, GI bleed, hiatal hernia, Crohn's disease presents for abdominal pain 3 days. Also admits to nausea and vomiting as well. States the pain is also in the mid lower abdomen. Exam patient does have some lower abdominal pain with tenderness. CBC and CMP are unremarkable. Urine does show urinary tract infection, patient w ill be treated with Keflex. No evidence of sepsis. CT shows bowels aren't a similar appearance to prior exam and likely related to patient's underlying colitis. Patient will be treated with antibiotics for urinary tract infection and will follow up with GI. She will return here if she has any worsening symptoms. - Lab Data Result diagrams: 06/26/19 14:25 06/26/19 14:25 Lab Results 06/26/19 06/26/19 06/26/19 Range/Units 14:25 14:25 14:25 WBC 9.8 (3.8-10.6) k/uL RBC 4.84 (3.80-5.40) m/uL Hgb 13.7 (11.4-16.0) gm/dL Hct 40.0 (34.0-46.0) % MCV 82.7 (80.0-100.0) fL MCH 28.4 (25.0-35.0) pg MCHC 34.4 (31.0-37.0) g/dL RDW 15.7 H (11.5-15.5) % Plt Count 225 (150-450) k/uL Neutrophils % 74 % Lymphocytes % 16 % Monocytes % 7 % Eosinophils % 1 % Basophils % 1 % Neutrophils # 7.3 (1.3-7.7) k/uL Lymphocytes # 1.6 (1.0-4.8) k/uL Monocytes # 0.7 (0-1.0) k/uL Eosinophils # 0.1 (0-0.7) k/uL Basophils # 0.1 (0-0.2) k/uL Sodium 141 (137-145) mmol/L Potassium 3.9 (3.5-5.1) mmol/L Chloride 113 H (98-107) mmol/L Carbon Dioxide 20 L (22-30) mmol/L Anion Gap 8 mmol/L BUN 7 (7-17) mg/dL Creatinine 0.58 (0.52-1.04) mg/dL Est GFR (CKD-EPI)AfAm >90 (>60 ml/min/1.73 sqM) Est GFR (CKD-EPI)NonAf >90 (>60 ml/min/1.73 sqM) Glucose 81 (74-99) mg/dL Plasma Lactic Acid [place] 0.7 (0.7-2.0) mmol/L Calcium 9.1 (8.4-10.2) mg/dL Total Bilirubin 0.3 (0.2-1.3) mg/dL AST 11 L (14-36) U/L ALT 14 (9-52) U/L Alkaline Phosphatase 76 (38-126) U/L Total Protein 6.3 (6.3-8.2) g/dL Albumin 3.8 (3.5-5.0) g/dL Amylase 49 (30-110) U/L Lipase 76 (23-300) U/L Urine Color Urine Appearance (Clear) Urine pH (5.0-8.0) Ur Specific [place] (1.001-1.035) Urine Protein (Negative) Urine Glucose (UA) (Negative) Urine Ketones (Negative) Urine Blood (Negative) Urine Nitrite (Negative) Urine Bilirubin (Negative) Urine Urobilinogen (<2.0) mg/dL Ur Leukocyte Esterase (Negative) Urine RBC (0-5) /hpf Urine WBC (0-5) /hpf Ur Squamous Epith Cells (0-4) /hpf Amorphous Sediment (None) /hpf Urine Bacteria (None) /hpf Urine Mucus (None) /hpf Urine HCG, Qual (Not Detectd) 06/26/19 06/26/19 Range/Units 15:20 15:20 WBC (3.8-10.6) k/uL RBC (3.80-5.40) m/uL Hgb (11.4-16.0) gm/dL Hct (34.0-46.0) % MCV (80.0-100.0) fL MCH (25.0-35.0) pg MCHC (31.0-37.0) g/dL RDW (11.5-15.5) % Plt Count (150-450) k/uL Neutrophils % % Lymphocytes % % Monocytes % % Eosinophils % % Basophils % % Neutrophils # (1.3-7.7) k/uL Lymphocytes # (1.0-4.8) k/uL Monocytes # (0-1.0) k/uL Eosinophils # (0-0.7) k/uL Basophils # (0-0.2) k/uL Sodium (137-145) mmol/L Potassium (3.5-5.1) mmol/L Chloride (98-107) mmol/L Carbon Dioxide (22-30) mmol/L Anion Gap mmol/L BUN (7-17) mg/dL Creatinine (0.52-1.04) mg/dL Est GFR (CKD-EPI)AfAm (>60 ml/min/1.73 sqM) Est GFR (CKD-EPI)NonAf (>60 ml/min/1.73 sqM) Glucose (74-99) mg/dL Plasma Lactic Acid [place] (0.7-2.0) mmol/L Calcium (8.4-10.2) mg/dL Total Bilirubin (0.2-1.3) mg/dL AST (14-36) U/L ALT (9-52) U/L Alkaline Phosphatase (38-126) U/L Total Protein (6.3-8.2) g/dL Albumin (3.5-5.0) g/dL Amylase (30-110) U/L Lipase (23-300) U/L Urine Color Yellow Urine Appearance Clear (Clear) Urine pH 6.0 (5.0-8.0) Ur Specific [place] 1.008 (1.001-1.035) Urine Protein Negative (Negative) Urine Glucose (UA) Negative (Negative) Urine Ketones Negative (Negative) Urine Blood Negative (Negative) Urine Nitrite Negative (Negative) Urine Bilirubin Negative (Negative) Urine Urobilinogen <2.0 (<2.0) mg/dL Ur Leukocyte Esterase Large H (Negative) Urine RBC 3 (0-5) /hpf Urine WBC 33 H (0-5) /hpf Ur Squamous Epith Cells 7 H (0-4) /hpf Amorphous Sediment Rare H (None) /hpf Urine Bacteria Rare H (None) /hpf Urine Mucus Rare H (None) /hpf Urine HCG, Qual Not Detected (Not Detectd) Disposition Clinical Impression: Urinary tract infection, Abdominal pain Disposition: HOME SELF-CARE Condition: Good Instructions (If sedation given, give patient instructions): Abdominal Pain (ED), Urinary Tract Infection in Women (ED) Additional Instructions: Take antibiotic as directed. Please follow up with primary care in 1-2 days. Follow up with GI as well. Please return to the ER if patient has any worsening symptoms. Prescriptions: Cephalexin [Keflex] 500 mg PO TID 7 Days cap Is patient prescribed a controlled substance at d/c from ED?: No Referrals: Tamica Bean MD [Primary Care Provider] - 1-2 days Ashu Javier MD [STAFF PHYSICIAN] - 1-2 days Time of Disposition: 17:28
[2019-06-26 14:41] VITALS: RESP 16
[2019-06-26 14:48] LABS: ALT 14 U/L (9-52); AST 11 U/L (14-36); African American GFR (CKD) >90 (>60 ml/min/1.73 sqM); Albumin 3.8 g/dL (3.5-5.0); Alkaline Phosphatase 76 U/L (38-126); Amylase 49 U/L (30-110); Anion Gap 8 mmol/L; Blood Urea Nitrogen 7 mg/dL (7-17); Calcium 9.1 mg/dL (8.4-10.2); Carbon Dioxide 20 mmol/L (22-30); Chloride 113 mmol/L (98-107); Glucose 81 mg/dL (74-99); Potassium 3.9 mmol/L (3.5-5.1); Sodium 141 mmol/L (137-145); Total Bilirubin 0.3 mg/dL (0.2-1.3); Total Protein 6.3 g/dL (6.3-8.2)
[2019-06-26 14:54] LABS: Basophils # (A) 0.1 k/uL (0-0.2); Basophils % (A) 1 %; Eosinophils # (A) 0.1 k/uL (0-0.7); Eosinophils % (A) 1 %; HGB 13.7 gm/dL (11.4-16.0); Lymphocytes # (A) 1.6 k/uL (1.0-4.8); Lymphocytes % (A) 16 %; MCH 28.4 pg (25.0-35.0); MCHC 34.4 g/dL (31.0-37.0); MCV 82.7 fL (80.0-100.0); Mean Platelet Volume 7.2; Monocytes # (A) 0.7 k/uL (0-1.0); Monocytes % (A) 7 %; Neutrophils # (A) 7.3 k/uL (1.3-7.7); Neutrophils % (A) 74 %; Platelet Count 225 k/uL (150-450); RBC 4.84 m/uL (3.80-5.40); RDW 15.7 % (11.5-15.5); WBC 9.8 k/uL (3.8-10.6)
[2019-06-26 15:59] LABS: Amorphous Sediment,Urine Rare /hpf; Appearance,Urine Clear (Clear); Bacteria,Urine Rare /hpf; Bilirubin,Urine Negative (Negative); Blood,Urine Negative (Negative); Color,Urine Yellow; Glucose,Urine (UA) Negative (Negative); Ketones,Urine Negative (Negative); Leukocyte Esterase,Urine Large (Negative); Mucus,Urine Rare /hpf; Nitrite,Urine Negative (Negative); Protein,Urine Negative (Negative); RBC,Urine 3 /hpf (0-5); Specific Gravity,Urine 1.008 (1.001-1.035); Squamous Epithelial Cell,Urine 7 /hpf (0-4); Urobilinogen,Urine <2.0 mg/dL (<2.0); WBC,Urine 33 /hpf (0-5)
--- NOTE | 2019-06-26 16:50 | CT ---
EXAMINATION TYPE: CT abdomen pelvis w con DATE OF EXAM: 06/26/2019 COMPARISON: Prior chest x-ray 03/02/2018 HISTORY: Abdominal pain. Hx of crohns CT DLP: 401.3 mGycm Automated exposure control for dose reduction was used. TECHNIQUE: Helical acquisition of images from the lung bases through the pelvis have been completed. CONTRAST: Performed without Oral Contrast and with IV Contrast, patient injected with 70 mL of Isovue 300. FINDINGS: LUNG BASES: No significant abnormality is appreciated. AORTA: No significant abnormality is appreciated. LIVER/GB: No significant abnormality is appreciated. PANCREAS: No significant abnormality is seen. SPLEEN: No significant abnormality is seen. ADRENALS: No significant abnormality is seen. KIDNEYS: No significant abnormality is seen. REPRODUCTIVE ORGANS: No significant abnormality is seen BOWEL: Colonic wall shows some fatty replacement similar to prior exam. Areas of bowel wall hyperemi a also noted as on prior. There are fluid-filled loops of small bowel, areas of colonic wall thickeni ng present. FREE AIR: No Free Air visible. ASCITES: None visible. PELVIC ADENOPATHY: None visualized. RETROPERITONEAL ADENOPATHY: No Retroperitoneal Adenopathy visible. URINARY BLADDER: No significant abnormality is seen. OSSEOUS STRUCTURES: Spinal curvature is again noted. IMPRESSION: BOWEL SHOWS A SIMILAR APPEARANCE TO PRIOR EXAM AND MAY BE RELATED TO PATIENT'S UNDERLYING COLITIS, CR OHN'S DISEASE.
[2019-06-26 17:39] VITALS: BP 112/65; PULSE 78; TEMP 98
== END 2019-06-26 17:35 | disposition home or self-care (01) ==
LOC: EC 13:10
DX: N39.0 Urinary tract infection, site not specified (principal); R10.33 Periumbilical pain; R11.2 Nausea with vomiting, unspecified; I50.9 Heart failure, unspecified; F90.9 Attention-deficit hyperactivity disorder, unspecified type; F41.9 Anxiety disorder, unspecified; F17.200 Nicotine dependence, unspecified, uncomplicated; Z79.899 Other long term (current) drug therapy; Z91.030 Bee allergy status; Z95.2 Presence of prosthetic heart valve
CPT/HCPCS: 36415; 80053; 82150; 83605; 83690; 85025; 81001; 81025; 74177; 99284; 96360; J2405; J1885; Q9967

== ENCOUNTER 2019-08-06 02:33 | Emergency (ER) | payer MEDICARE, OTHER ==
--- NOTE | 2019-08-06 04:03 | XR ---
EXAM: XR Left Ribs and AP Chest, 3 or More Views CLINICAL HISTORY: ITS.REASON XR Reason: Pain, fall TECHNIQUE: Frontal and oblique views of the left ribs and frontal view of the chest. COMPARISON: Chest radiography 05/23/18 FINDINGS: No acute or healing fracture or malalignment. Intact sternotomy wires. No consolidation. No pleural effusion or pneumothorax. Scoliosis. IMPRESSION: 1. No acute cardiopulmonary disease. 2. No acute or healing left rib fractures.
--- NOTE | 2019-08-06 04:20 | ED ---
General Adult HPI - General Chief complaint: Trauma Stated complaint: Rib Pain Time Seen by Provider: 08/06/19 02:43 Source: patient Mode of arrival: ambulatory Limitations: no limitations - History of Present Illness Initial comments: This patient is a 34-year-old woman who presents to be evaluated for left rib pains. Patient states she had a low level fall onto the edge of a metal cart landing on the side of her ribs. She did initially have some pain and stated that she felt that it would resolve but as it has not gone away in the intervening days she is concerned she may have a rib fracture. The patient denies shortness of breath, cough or hemoptysis, fever or chills. Onset/Timin -: days(s) Location: chest Radiation: non-radiation Quality: aching Consistency: constant Improves with: none Worsens with: movement, other (Patient) Treatments Prior to Arrival: none - Related Data Home Medications Medication Instructions Recorded Confirmed FLUoxetine HCL [PROzac Weekly] 90 mg PO MO 08/27/17 06/26/19 Omeprazole 20 mg PO DAILY 08/27/17 06/26/19 hydrOXYzine PAMOATE [Vistaril] 25 mg PO BID PRN 08/27/17 06/26/19 risperiDONE ODT [RisperDAL M-TAB] 1 mg PO HS 08/27/17 06/26/19 Mesalamine [Pentasa] 1,000 mg PO QID 05/10/18 06/26/19 Melatonin 5 mg PO HS 10/12/18 06/26/19 traZODone HCL 200 mg PO HS 10/12/18 06/26/19 Previous Rx's Medication Instructions Recorded Loratadine [Claritin] 10 mg PO DAILY #20 tab 05/23/18 Cephalexin [Keflex] 500 mg PO TID 7 Days cap 06/26/19 Naproxen [Naprosyn] 250 mg PO BID #14 tab 08/06/19 Allergies Allergy/AdvReac Type Severity Reaction Status Date / Time venom-honey bee Allergy Anaphylaxis Verified 08/06/19 02:42 Review of Systems ROS Statement: Those systems with pertinent positive or pertinent negative responses have been documented in the HPI. ROS Other: All systems not noted in ROS Statement are negative. Constitutional: Denies: fever, chills Respiratory: Denies: cough, dyspnea, hemoptysis Cardiovascular: Reports: as per HPI, chest pain. Denies: palpitations, syncope Gastrointestinal: Denies: abdominal pain, nausea, vomiting Genitourinary: Denies: dysuria, hematuria Musculoskeletal: Denies: back pain Skin: Denies: rash Neurological: Denies: headache Past Medical History Past Medical History: Heart Failure, GI Bleed Additional Past Medical History / Comment(s): HEART VALVE REPLACEMENT. HX GI PROB FOR YEARS, HIATAL HERNIA. 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 DEVELOPMENTAL DISABILITY. colitis History of Any Multi-Drug Resistant Organisms: None Reported Past Surgical History: Ear Surgery, Hernia Repair, Orthopedic Surgery Additional Past Surgical History / Comment(s): RT Foot Surgery; Open Heart Surg @ 3 YRS OLD, VALVE REPLACED. EXC BRAIN TUMOR. HIATAL HERNIA REPAIR. RT EARDRUM REPAIRED. Past Anesthesia/Blood Transfusion Reactions: No Reported Reaction Past Psychological History: ADD/ADHD, Anxiety Smoking Status: Current some day smoker Past Alcohol Use History: None Reported Past Drug Use History: None Reported - Past Family History Father Family Medical History: No Reported History Additional Family Medical History / Comment(s): Mother Family Medical History: No Reported History Additional Family Medical History / Comment(s): General Exam Limitations: no limitations General appearance: alert, in no apparent distress Head exam: Present: atraumatic, other (Microcephaly) Neck exam: Present: normal inspection, full ROM. Absent: tenderness Respiratory exam: Present: normal lung sounds bilaterally, chest wall tenderness (Left-sided rib tenderness). Absent: respiratory distress, wheezes, rales, rhonchi, stridor, accessory muscle use, decreased breath sounds, prolonged expiratory Cardiovascular Exam: Present: regular rate, normal rhythm, normal heart sounds. Absent: systolic murmur, diastolic murmur, rubs, gallop GI/Abdominal exam: Present: soft. Absent: distended, tenderness, guarding, rebound, rigid, mass Back exam: Present: normal inspection. Absent: CVA tenderness (L), vertebral tenderness Neurological exam: Present: alert Skin exam: Present: warm, dry, intact, normal color. Absent: rash Course Vital Signs 08/06/19 08/06/19 02:39 04:42 Temperature 97.8 F 97.9 F Pulse Rate 83 69 Respiratory 15 16 Rate Blood Pressure 106/70 115/67 O2 Sat by Pulse 97 98 Oximetry Disposition Clinical Impression: Fall, Chest wall injury Disposition: HOME SELF-CARE Condition: Good Instructions (If sedation given, give patient instructions): Chest Wall Pain (ED) Prescriptions: Naproxen [Naprosyn] 250 mg PO BID #14 tab Is patient prescribed a controlled substance at d/c from ED?: No Referrals: Tamica Bean MD [Primary Care Provider] - 1-2 days
[2019-08-06 04:43] VITALS: BP 115/67; PULSE 69; RESP 16; TEMP 97.9
== END 2019-08-06 04:43 | disposition home or self-care (01) ==
LOC: EC 02:33
DX: S29.9XXA Unspecified injury of thorax, initial encounter (principal); I50.9 Heart failure, unspecified; F41.9 Anxiety disorder, unspecified; F17.200 Nicotine dependence, unspecified, uncomplicated; Z95.2 Presence of prosthetic heart valve; Z79.899 Other long term (current) drug therapy; Z91.030 Bee allergy status; W22.8XXA Striking against or struck by other objects, initial encounter; Y92.512 Supermarket, store or market as the place of occurrence of the external cause
CPT/HCPCS: 99283

== ENCOUNTER → 2019-10-17 | Outpatient (CLI) | payer MEDICARE, OTHER ==
[2019-10-17 16:41] LABS: HCT 40.1 % (34.0-46.0); MCHC 34.9 g/dL (31.0-37.0); MCV 80.2 fL (80.0-100.0); Mean Platelet Volume 6.7; Platelet Count 213 k/uL (150-450); RDW 12.8 % (11.5-15.5)
[2019-10-17 17:20] LABS: Erythrocyte Sedimentation Rate 3 mm/hr (0-20)
[2019-10-18 01:57] LABS: % Iron Saturation 16.09 (12.00-45.00); ALT 20 U/L (8-44); AST 21 U/L (13-35); African American GFR (CKD) 136.9 (60.0-200.0); Albumin/Globulin Ratio 2.33 (1.60-3.17); Alkaline Phosphatase 79 U/L (41-126); C Reactive Protein <0.4 mg/dL (0.0-0.8); Calcium 8.4 mg/dL (8.7-10.3); Carbon Dioxide 20.1 mmol/L (21.6-31.8); Chloride 109 mmol/L (96-109); Globulin 1.8 g/dL (1.6-3.3); Glucose 78 mg/dL (70-110); Iron 51 ug/dL (50-170); Potassium 4.2 mmol/L (3.5-5.5); Sodium 140 mmol/L (135-145); Total Bilirubin 0.2 mg/dL (0.3-1.2); Total Iron Binding Capacity 317 ug/dL (228-460)
[2019-10-18 02:03] LABS: Hepatitis A Antibody IgM Non-Reactive (Non-Reactive); Hepatitis B Core IgM Non-Reactive (Non-Reactive); Hepatitis B Surface Antigen Non-Reactive (Non-Reactive); Hepatitis C IgG Antibody Non-Reactive (Non-Reactive)
== END | disposition home or self-care (01) ==
LOC: LABWHC1 15:35
PROVIDERS: ATTEND Physician Assistant
DX: K50.00 Crohn's disease of small intestine without complications (principal)
CPT/HCPCS: 36415; 80053; 80074; 82607; 83540; 83550; 85027; 85652; 86140

== ENCOUNTER → 2020-06-12 | Outpatient (CLI) | payer MEDICARE, OTHER ==
--- NOTE | 2020-06-13 02:37 | MR ---
EXAMINATION TYPE: MR ankle RT wo con DATE OF EXAM: 06/12/2020 COMPARISON: None HISTORY: RT ankle pain, swelling, locking Multiplanar multiecho imaging of the right ankle was performed with no contrast. There is some deformity of the posterior calcaneus. The ankle mortise is anatomic. There is some narr owing of the posterior aspect of the ankle joint space. There is deformity of the Achilles tendon whi ch is anterior to its normal position. There appears to be absence of bone on the posterior calcaneus . There is narrowing and deformity of the talonavicular joint. There is fusion of the subtalar joint. There is some ankylosis of the calcaneal cuboidal joint. The medial and lateral flexor tendons appea r intact. Extensor tendons of the foot appear intact. I see no focal bone destruction. There is no ev idence of a soft tissue mass. There is no pathologic fluid collection. There is mild subcutaneous edema around the lateral hindfoot and also anterior to the lower tibia. IMPRESSION: No acute bony abnormality. Deformity of the calcaneus. Multiple fusions of the hindfoot. No evidence of ligament or tendon tear. Mild arthritic change of the ankle joint. Subcutaneous edema around the anterior lower tibia and over the lateral aspect of the hindfoot.
== END | disposition home or self-care (01) ==
LOC: RADMRIMAIN 06-04 12:42
PROVIDERS: ATTEND Orthopaedic Surgery
DX: M19.071 Primary osteoarthritis, right ankle and foot (principal); M21.961 Unspecified acquired deformity of right lower leg; Z72.0 Tobacco use

== ENCOUNTER 2020-07-02 15:40 | Emergency (ER) | payer MEDICARE, OTHER ==
[2020-07-02 15:47] VITALS: RESP 16; TEMP 98.1
[2020-07-02] MEDS ORDERED: ONDANSETRON 4 MG/2 ML VIAL IVP STA (16:14)
[2020-07-02] MEDS ORDERED: SODIUM CHLORIDE 0.9% 1,000 ML IV STA (16:14)
--- NOTE | 2020-07-02 16:30 | ED ---
General Adult HPI - General Chief complaint: Dizziness Stated complaint: dizziness Time Seen by Provider: 07/02/20 15:54 Source: patient Mode of arrival: wheelchair Limitations: no limitations - History of Present Illness Initial comments: 35-year-old female patient presents to the emergency department today for evaluation of dizziness. Patient states she had an appointment with her primary care physician earlier today. Patient states upon discharge became very dizzy. States the room is spinning around her. States the dizziness is present at rest or with movement. States she has had several episodes of vomiting since the incident. She has been unable to keep down any food or fluids. She denies blurred or double vision. Denies any headache. Denies abdominal pain, fever, chills, constipation, or diarrhea. Denies any urinary symptoms. Denies any chance of . Patient does admit to sustaining a head injury about a week ago. States she was diagnosed with concussion. She states she has not been any dizziness since the injury. Patient denies any recent rash, cough, shortness of breath, chest pain, back pain, numbness, tingling, hematuria, dysuria, urinary urgency, urinary frequency, or any other complaints. - Related Data Home Medications Medication Instructions Recorded Confirmed FLUoxetine HCL [PROzac Weekly] 90 mg PO TU 08/27/17 06/28/20 hydrOXYzine pamoate [Vistaril] 25 mg PO BID PRN 08/27/17 06/28/20 risperiDONE ODT [RisperDAL M-TAB] 1 mg PO 08/27/17 06/28/20 Melatonin 5 mg PO 10/12/18 06/28/20 traZODone HCL 200 mg PO 10/12/18 06/28/20 Famotidine [Pepcid] 20 mg PO BID 06/28/20 06/28/20 Montelukast [Singulair] 10 mg PO DAILY 06/28/20 06/28/20 buPROPion HCL [Wellbutrin SR] 150 mg PO DAILY 06/28/20 06/28/20 Previous Rx's Medication Instructions Recorded Loratadine [Claritin] 10 mg PO DAILY #20 tab 05/23/18 Meclizine [Antivert] 25 mg PO BID #14 tab 07/02/20 Ondansetron [Zofran ODT] 4 mg PO Q8HR PRN #10 tab 07/02/20 Allergies Allergy/AdvReac Type Severity Reaction Status Date / Time venom-honey bee Allergy Anaphylaxis Verified 07/02/20 15:46 Review of Systems ROS Statement: Those systems with pertinent positive or pertinent negative responses have been documented in the HPI. ROS Other: All systems not noted in ROS Statement are negative. Past Medical History Past Medical History: Heart Failure, GI Bleed Additional Past Medical History / Comment(s): HEART VALVE REPLACEMENT. HX GI PROB FOR YEARS, HIATAL HERNIA. 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 DEVELOPMENTAL DISABILITY. colitis History of Any Multi-Drug Resistant Organisms: None Reported Past Surgical History: Ear Surgery, Hernia Repair, Orthopedic Surgery Additional Past Surgical History / Comment(s): RT Foot Surgery; Open Heart Surg @ 3 YRS OLD, VALVE REPLACED. EXC BRAIN TUMOR. HIATAL HERNIA REPAIR. RT EARDRUM REPAIRED. Past Anesthesia/Blood Transfusion Reactions: No Reported Reaction Past Psychological History: ADD/ADHD, Anxiety Smoking Status: Never smoker Past Alcohol Use History: None Reported Past Drug Use History: None Reported - Past Family History Father Family Medical History: No Reported History Additional Family Medical History / Comment(s): Mother Family Medical History: No Reported History Additional Family Medical History / Comment(s): General Exam Limitations: no limitations General appearance: alert, in no apparent distress, other (This is a small appearing adult female patient in no acute distress. Vital signs upon presen tation are temperature 98.1F, pulse 78, respirations 16, blood pressure 101/62, pulse ox 99% on room air.) Eye exam: Present: normal appearance, PERRL, EOMI. Absent: scleral icterus, conjunctival injection, nystagmus, periorbital swelling Respiratory exam: Present: normal lung sounds bilaterally. Absent: respiratory distress, wheezes, rales, rhonchi, stridor Cardiovascular Exam: Present: regular rate, normal rhythm, normal heart sounds. Absent: systolic murmur, diastolic murmur, rubs, gallop, clicks GI/Abdominal exam: Present: soft, normal bowel sounds. Absent: distended, tenderness, guarding, rebound, rigid Neurological exam: Present: alert, oriented X3, CN II-XII intact, other (Strength in all 4 extremities is 5/5.) Psychiatric exam: Present: normal affect, normal mood Skin exam: Present: warm, dry, intact, normal color. Absent: rash Course Vital Signs 07/02/20 07/02/20 07/02/20 15:42 17:46 18:06 Temperature 98.1 F Pulse Rate 78 86 Pulse Rate [ 69 Sitting] Pulse Rate [ 77 Standing] Pulse Rate [ 65 Supine] Respiratory 16 16 Rate Blood Pressure 101/62 112/79 Blood Pressure 108/68 [Sitting] Blood Pressure 105/65 [Standing] Blood Pressure 115/67 [Supine] O2 Sat by Pulse 99 99 Oximetry 07/02/20 18:35 Temperature Pulse Rate 73 Pulse Rate [ Sitting] Pulse Rate [ Standing] Pulse Rate [ Supine] Respiratory 16 Rate Blood Pressure 106/67 Blood Pressure [Sitting] Blood Pressure [Standing] Blood Pressure [Supine] O2 Sat by Pulse 99 Oximetry EKG Findings - EKG Comments: EKG Findings:: EKG obtained at 1622 shows normal sinus rhythm with a ventricular rate is 64, OR interval 192, QRS duration 86, QT 438, QTC 451. Medical Decision Making - Medical Decision Making 35 year-old female patient presents to the emergency department today for evaluation of dizziness and vomiting. Physical examination reveals normal soft nontender abdomen. She is neurologically intact with no focal deficits. EKG shows sinus rhythm. She is given IV fluids. Labs reviewed and are unremarkable. I did discuss findings and results with the patient. She'll be started on meclizine instructed to rest. She is instructed to follow-up with her primary care physician for recheck in 1-2 days. Return parameters discussed in detail. She verbalizes understanding and agrees with this plan - Lab Data Result diagrams: 07/02/20 16:21 07/02/20 16:21 Lab Results 07/02/20 07/02/20 07/02/20 Range/Units 16:21 16:21 16:21 WBC 8.5 (3.8-10.6) k/uL RBC 4.85 (3.80-5.40) m/uL Hgb 13.7 (11.4-16.0) gm/dL Hct 40.8 (34.0-46.0) % MCV 84.2 (80.0-100.0) fL MCH 28.3 (25.0-35.0) pg MCHC 33.6 (31.0-37.0) g/dL RDW 12.5 (11.5-15.5) % Plt Count 169 (150-450) k/uL Neutrophils % 63 % Lymphocytes % 24 % Monocytes % 8 % Eosinophils % 1 % Basophils % 1 % Neutrophils # 5.4 (1.3-7.7) k/uL Lymphocytes # 2.0 (1.0-4.8) k/uL Monocytes # 0.7 (0-1.0) k/uL Eosinophils # 0.1 (0-0.7) k/uL Basophils # 0.1 (0-0.2) k/uL Sodium 140 (137-145) mmol/L Potassium 3.8 (3.5-5.1) mmol/L Chloride 108 H (98-107) mmol/L Carbon Dioxide 23 (22-30) mmol/L Anion Gap 9 mmol/L BUN 8 (7-17) mg/dL Creatinine 0.60 (0.52-1.04) mg/dL Est GFR (CKD-EPI)AfAm >90 (>60 ml/min/1.73 sqM) Est GFR (CKD-EPI)NonAf >90 (>60 ml/min/1.73 sqM) Glucose 82 (74-99) mg/dL Calcium 8.9 (8.4-10.2) mg/dL Total Bilirubin 0.4 (0.2-1.3) mg/dL AST 17 (14-36) U/L ALT 11 (4-34) U/L Alkaline Phosphatase 70 (38-126) U/L Troponin I <0.012 (0.000-0.034) ng/mL Total Protein 6.4 (6.3-8.2) g/dL Albumin 4.1 (3.5-5.0) g/dL Urine Color Urine Appearance (Clear) Urine pH (5.0-8.0) Ur Specific [place] (1.001-1.035) Urine Protein (Negative) Urine Glucose (UA) (Negative) Urine Ketones (Negative) Urine Blood (Negative) Urine Nitrite (Negative) Urine Bilirubin (Negative) Urine Urobilinogen (<2.0) mg/dL Ur Leukocyte Esterase (Negative) Urine RBC (0-5) /hpf Urine WBC (0-5) /hpf Ur Squamous Epith Cells (0-4) /hpf Urine Bacteria (None) /hpf Urine Mucus (None) /hpf Urine HCG, Qual (Not Detectd) 08/03/20 08/03/20 Range/Units 17:43 17:43 WBC (3.8-10.6) k/uL RBC (3.80-5.40) m/uL Hgb (11.4-16.0) gm/dL Hct (34.0-46.0) % MCV (80.0-100.0) fL MCH (25.0-35.0) pg MCHC (31.0-37.0) g/dL RDW (11.5-15.5) % Plt Count (150-450) k/uL Neutrophils % % Lymphocytes % % Monocytes % % Eosinophils % % Basophils % % Neutrophils # (1.3-7.7) k/uL Lymphocytes # (1.0-4.8) k/uL Monocytes # (0-1.0) k/uL Eosinophils # (0-0.7) k/uL Basophils # (0-0.2) k/uL Sodium (137-145) mmol/L Potassium (3.5-5.1) mmol/L Chloride (98-107) mmol/L Carbon Dioxide (22-30) mmol/L Anion Gap mmol/L BUN (7-17) mg/dL Creatinine (0.52-1.04) mg/dL Est GFR (CKD-EPI)AfAm (>60 ml/min/1.73 sqM) Est GFR (CKD-EPI)NonAf (>60 ml/min/1.73 sqM) Glucose (74-99) mg/dL Calcium (8.4-10.2) mg/dL Total Bilirubin (0.2-1.3) mg/dL AST (14-36) U/L ALT (4-34) U/L Alkaline Phosphatase (38-126) U/L Troponin I (0.000-0.034) ng/mL Total Protein (6.3-8.2) g/dL Albumin (3.5-5.0) g/dL Urine Color Light Yellow Urine Appearance Clear (Clear) Urine pH 6.0 (5.0-8.0) Ur Specific [place] 1.003 (1.001-1.035) Urine Protein Negative (Negative) Urine Glucose (UA) Negative (Negative) Urine Ketones Negative (Negative) Urine Blood Negative (Negative) Urine Nitrite Negative (Negative) Urine Bilirubin Negative (Negative) Urine Urobilinogen <2.0 (<2.0) mg/dL Ur Leukocyte Esterase Moderate H (Negative) Urine RBC 3 (0-5) /hpf Urine WBC 13 H (0-5) /hpf Ur Squamous Epith Cells 1 (0-4) /hpf Urine Bacteria Rare H (None) /hpf Urine Mucus Rare H (None) /hpf Urine HCG, Qual Not Detected (Not Detectd) Disposition Clinical Impression: Dizziness, Vomiting Disposition: HOME SELF-CARE Condition: Good Instructions (If sedation given, give patient instructions): Acute Nausea and Vomiting (ED), Dizziness (ED) Additional Instructions: Increase fluids. Rest. Take medications as directed. Follow-up through primary care physician for recheck in 1-2 days. Return to the emergency department immediately for any new, worsening, or concerning symptoms. Prescriptions: Meclizine [Antivert] 25 mg PO BID #14 tab Ondansetron [Zofran ODT] 4 mg PO Q8HR PRN #10 tab PRN Reason: Nausea Is patient prescribed a controlled substance at d/c from ED?: No Referrals: Tamica Bean MD [Primary Care Provider] - 1-2 days Time of Disposition: 18:33
[2020-07-02 16:41] LABS: Basophils # (A) 0.1 k/uL (0-0.2); Basophils % (A) 1 %; Eosinophils # (A) 0.1 k/uL (0-0.7); Eosinophils % (A) 1 %; HCT 40.8 % (34.0-46.0); HGB 13.7 gm/dL (11.4-16.0); Lymphocytes % (A) 24 %; MCH 28.3 pg (25.0-35.0); MCHC 33.6 g/dL (31.0-37.0); MCV 84.2 fL (80.0-100.0); Mean Platelet Volume 8.3; Monocytes # (A) 0.7 k/uL (0-1.0); Monocytes % (A) 8 %; Neutrophils # (A) 5.4 k/uL (1.3-7.7); Neutrophils % (A) 63 %; Platelet Count 169 k/uL (150-450); RBC 4.85 m/uL (3.80-5.40); RDW 12.5 % (11.5-15.5); WBC 8.5 k/uL (3.8-10.6)
[2020-07-02 16:51] LABS: ALT 11 U/L (4-34); AST 17 U/L (14-36); African American GFR (CKD) >90 (>60 ml/min/1.73 sqM); Albumin 4.1 g/dL (3.5-5.0); Alkaline Phosphatase 70 U/L (38-126); Anion Gap 9 mmol/L; Blood Urea Nitrogen 8 mg/dL (7-17); Calcium 8.9 mg/dL (8.4-10.2); Carbon Dioxide 23 mmol/L (22-30); Chloride 108 mmol/L (98-107); Glucose 82 mg/dL (74-99); Non-African American GFR(CKD) >90 (>60 ml/min/1.73 sqM); Potassium 3.8 mmol/L (3.5-5.1); Sodium 140 mmol/L (137-145); Total Bilirubin 0.4 mg/dL (0.2-1.3); Total Protein 6.4 g/dL (6.3-8.2)
[2020-07-02 18:21] LABS: Appearance,Urine Clear (Clear); Bacteria,Urine Rare /hpf; Bilirubin,Urine Negative (Negative); Blood,Urine Negative (Negative); Color,Urine Light Yellow; Glucose,Urine (UA) Negative (Negative); Ketones,Urine Negative (Negative); Leukocyte Esterase,Urine Moderate (Negative); Mucus,Urine Rare /hpf; Nitrite,Urine Negative (Negative); Protein,Urine Negative (Negative); RBC,Urine 3 /hpf (0-5); Specific Gravity,Urine 1.003 (1.001-1.035); Squamous Epithelial Cell,Urine 1 /hpf (0-4); Urobilinogen,Urine <2.0 mg/dL (<2.0); WBC,Urine 13 /hpf (0-5)
[2020-07-02] MEDS ORDERED: MECLIZINE 12.5 MG TAB PO STA (18:24)
[2020-07-02 18:36] VITALS: BP 106/67; PULSE 73
== END 2020-07-02 18:50 | disposition home or self-care (01) ==
LOC: EC 15:40
DX: R42 Dizziness and giddiness (principal); R11.10 Vomiting, unspecified; I50.9 Heart failure, unspecified; F41.9 Anxiety disorder, unspecified; F90.9 Attention-deficit hyperactivity disorder, unspecified type; Z79.899 Other long term (current) drug therapy; Z79.51 Long term (current) use of inhaled steroids; Z91.030 Bee allergy status; Z95.2 Presence of prosthetic heart valve
CPT/HCPCS: 36415; 93005; 80053; 84484; 85025; 81001; 81025; 87086; 99284; 96374; 96361 ×2; J2405

== ENCOUNTER 2020-07-18 15:55 | Emergency (ER) | payer MEDICARE, OTHER ==
[2020-07-18 16:08] VITALS: BP 106/72; PULSE 93; RESP 20; TEMP 98.2
[2020-07-18] MEDS ORDERED: ACETAMINOPHEN TAB 500 MG TAB PO STA (16:16)
--- NOTE | 2020-07-18 16:46 | XR ---
EXAMINATION TYPE: XR foot complete RT DATE OF EXAM: 07/18/2020 COMPARISON: 09/11/2016 HISTORY: Foot pain TECHNIQUE: 3 views FINDINGS: Metatarsals are intact. There is some deformity of the calcaneus and hindfoot. There is fus ion of the subtalar joint and the calcaneal cuboidal joint. I see no fracture nor dislocation. There are no erosions. There is no subluxation. IMPRESSION: Deformity of the hindfoot. No acute abnormality of the right foot. No fracture. No change compared to old exam.
--- NOTE | 2020-07-18 16:59 | ED ---
Lower Extremity Injury HPI - General Chief Complaint: Extremity Injury, Lower Stated Complaint: Foot Injury Time Seen by Provider: 07/18/20 16:09 Source: patient, family Mode of arrival: wheelchair Limitations: physical limitation - History of Present Illness Initial Comments: 35 year-old female patient presents to the emergency department today for eval uation of right foot injury. Patient states that she did injure the foot on Thursday. States that she fell down and landed on top of her foot. States she's been having pain since. States she has taken Motrin for the pain but denies any other pain medication or relief practices. She denies numbness or tingling to the foot. She has had previous surgery to this foot. Denies any other injuries or concerns.Patient denies any headache, neck pain, back pain, chest pain, shortness of breath, dizziness, weakness, abdominal pain, nausea, vomiting, or difficulties with bowel movements or urination. - Related Data Home Medications Medication Instructions Recorded Confirmed FLUoxetine HCL [PROzac Weekly] 90 mg PO TU 08/27/17 06/28/20 hydrOXYzine pamoate [Vistaril] 25 mg PO BID PRN 08/27/17 06/28/20 risperiDONE ODT [RisperDAL M-TAB] 1 mg PO HS 08/27/17 06/28/20 Melatonin 5 mg PO HS 10/12/18 06/28/20 traZODone HCL 200 mg PO HS 10/12/18 06/28/20 Famotidine [Pepcid] 20 mg PO BID 06/28/20 06/28/20 Montelukast [Singulair] 10 mg PO DAILY 06/28/20 06/28/20 buPROPion HCL [Wellbutrin SR] 150 mg PO DAILY 06/28/20 06/28/20 Previous Rx's Medication Instructions Recorded Loratadine [Claritin] 10 mg PO DAILY #20 tab 05/23/18 Meclizine [Antivert] 25 mg PO BID #14 tab 07/02/20 Ondansetron [Zofran ODT] 4 mg PO Q8HR PRN #10 tab 07/02/20 Allergies Allergy/AdvReac Type Severity Reaction Status Date / Time venom-honey bee Allergy Anaphylaxis Verified 07/18/20 16:08 Review of Systems ROS Statement: Those systems with pertinent positive or pertinent negative responses have been documented in the HPI. ROS Other: All systems not noted in ROS Statement are negative. Past Medical History Past Medical History: Heart Failure, GI Bleed Additional Past Medical History / Comment(s): HEART VALVE REPLACEMENT. HX GI PROB FOR YEARS, HIATAL HERNIA. 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 DEVELOPMENTAL DISABILITY. colitis History of Any Multi-Drug Resistant Organisms: None Reported Past Surgical History: Ear Surgery, Hernia Repair, Orthopedic Surgery Additional Past Surgical History / Comment(s): RT Foot Surgery; Open Heart Surg @ 3 YRS OLD, VALVE REPLACED. EXC BRAIN TUMOR. HIATAL HERNIA REPAIR. RT EARDRUM REPAIRED. Past Anesthesia/Blood Transfusion Reactions: No Reported Reaction Past Psychological History: ADD/ADHD, Anxiety Smoking Status: Never smoker Past Alcohol Use History: None Reported Past Drug Use History: None Reported - Past Family History Father Family Medical History: No Reported History Additional Family Medical History / Comment(s): Mother Family Medical History: No Reported History Additional Family Medical History / Comment(s): General Exam Limitations: physical limitation General appearance: alert, in no apparent distress Respiratory exam: Present: normal lung sounds bilaterally. Absent: respiratory distress, wheezes, rales, rhonchi, stridor Cardiovascular Exam: Present: regular rate, normal rhythm, normal heart sounds. Absent: systolic murmur, diastolic murmur, rubs, gallop, clicks Extremities exam: Present: normal inspection, full ROM, normal capillary refill, other (There is tenderness noted over the right lateral foot. No ecchymosis, swelling, redness noted. Pedal and posttibial pulses are 2+ and equal.). Ab sent: tenderness, pedal edema, joint swelling, calf tenderness Neurological exam: Present: alert, oriented X3, CN II-XII intact Psychiatric exam: Present: normal affect, normal mood Skin exam: Present: warm, dry, intact, normal color. Absent: rash Course Vital Signs 07/18/20 16:05 Temperature 98.2 F Pulse Rate 93 Respiratory 20 Rate Blood Pressure 106/72 O2 Sat by Pulse 99 Oximetry Medical Decision Making - Medical Decision Making 35-year-old female patient presents to the emergency department today for evaluation of right foot pain after a fall on Thursday. Physical examination was unremarkable. She does have chronic skeletal deformity to the ankle and foot. There is previous surgery. There is no redness or swelling over the foot. X- ray was obtained and showed no acute abnormalities or changes from previous exam. We did place an [place] wrap for comfort and support. We did discuss brain as a cause for her symptoms. She'll be discharged follow-up with her primary care physician for recheck in 1-2 days. Return parameters discussed in detail. She verbalizes understanding and agrees with this plan. - Radiology Data Radiology results: report reviewed, image reviewed 3 views of the right foot are obtained. Report was reviewed in its entirety. Impression by Dr. Andres shows deformity of the hindfoot. No acute abnormality. No fracture. No change compared to old exam. Disposition Clinical Impression: Right foot sprain Disposition: HOME SELF-CARE Condition: Good Instructions (If sedation given, give patient instructions): Foot Sprain (ED) Additional Instructions: Use [place] wrap for comfort and support. Rest, ice, elevate the foot. Take Tylenol Motrin for pain control. Follow-up through primary care physician for recheck in 1-2 days. Have repeat x-rays performed in 7-10 days if pain symptoms persist. Return to the emergency department immediately for any new, worsening, or concerning symptoms. Is patient prescribed a controlled substance at d/c from ED?: No Referrals: Tamica Bean MD [Primary Care Provider] - 1-2 days Time of Disposition: 16:59
== END 2020-07-18 17:08 | disposition home or self-care (01) ==
LOC: EC 15:55
DX: S93.601A Unspecified sprain of right foot, initial encounter (principal); M21.961 Unspecified acquired deformity of right lower leg; F90.9 Attention-deficit hyperactivity disorder, unspecified type; F41.9 Anxiety disorder, unspecified; Z79.890 Hormone replacement therapy; Z79.899 Other long term (current) drug therapy; Z91.030 Bee allergy status; Z98.890 Other specified postprocedural states; W01.0XXA Fall on same level from slipping, tripping and stumbling without subsequent striking against object, initial encounter; Y92.009 Unspecified place in unspecified non-institutional (private) residence as the place of occurrence of the external cause
CPT/HCPCS: 99283

== ENCOUNTER → 2020-08-27 | Outpatient (CLI) | payer MEDICARE, OTHER ==
--- NOTE | 2020-08-27 19:36 | MR ---
MRI right ankle HISTORY: Pain Multiplanar multisequence imaging obtained through the right ankle Correlation to prior right ankle MRI 06/12/2020 There is no significant interval change. Ankylosis present between the talus, calcaneus, navicular an d cuboid bones as noted on prior exam. Tibiotalar joint shows remodeling. Articular cartilage is thou ght to be thinned. Achilles tendon is likely repositioned with some thickened appearance peripherally , soft tissue present may represent scar tissue at the level near the insertion and slightly proximal with susceptibility artifact, plantar aponeurosis is intact. Arthropathy is present at the mid foot, joints show similar appearance with articular cartilage signal loss, some subchondral geode formatio n at the navicular cuneiform joints, remodeling of joint spaces. No fracture or dislocation. Flexor a nd extensor tendons without well-defined possibly due to plane of imaging. Peroneal longus and brevis tendons, seen peripherally. Difficult to exclude a longitudinal tear of peroneal longus seen on sagi ttal image 12, coronal image 14. There is no ankle joint effusion. IMPRESSION: Exam may be somewhat limited by overlying cast. Possible longitudinal tear peroneal longu s tendon as described. Postop changes. Osteoarthritis.
== END | disposition home or self-care (01) ==
LOC: RADMRIMAIN 12:00
PROVIDERS: ATTEND Orthopaedic Surgery
DX: M19.071 Primary osteoarthritis, right ankle and foot (principal); Z98.890 Other specified postprocedural states; Z72.0 Tobacco use

== ENCOUNTER 2020-09-14 19:55 | Emergency (ER) | payer MEDICARE, OTHER ==
[2020-09-14 20:01] VITALS: BP 123/83; PULSE 95; RESP 18; TEMP 97.7
[2020-09-14] MEDS ORDERED: KETOROLAC 15 MG/ML 1 ML VIAL IM STA (20:22)
--- NOTE | 2020-09-14 20:24 | ED ---
Lower Extremity Injury HPI - General Chief Complaint: Extremity Injury, Lower Stated Complaint: R Foot Swelling Time Seen by Provider: 09/14/20 20:03 Source: patient Mode of arrival: ambulatory Limitations: no limitations - History of Present Illness Initial Comments: 35 year-old female patient presents to the emergency department today for evaluation of right foot swelling. Patient states that she has had chronic injury to the right foot and ankle, she has had surgery before. Patient states that she has been on her feet all day today and she's had increased swelling to the foot. Patient states that the foot is also painful. Denies taking any medication for pain. States she was recently in a cast for injury but it was removed. Patient states she's had on and off swelling to the foot for many years. Denies any new injury.Patient denies any headache, neck pain, back pain, chest pain, shortness of breath, dizziness, weakness, abdominal pain, nausea, vomiting, or difficulties with bowel movements or urination. - Related Data Home Medications Medication Instructions Recorded Confirmed FLUoxetine HCL [PROzac Weekly] 90 mg PO TU 08/27/17 06/28/20 hydrOXYzine pamoate [Vistaril] 25 mg PO BID PRN 08/27/17 06/28/20 risperiDONE ODT [RisperDAL M-TAB] 1 mg PO HS 08/27/17 06/28/20 Melatonin 5 mg PO HS 10/12/18 06/28/20 traZODone HCL 200 mg PO HS 10/12/18 06/28/20 Famotidine [Pepcid] 20 mg PO BID 06/28/20 06/28/20 Montelukast [Singulair] 10 mg PO DAILY 06/28/20 06/28/20 buPROPion HCL [Wellbutrin SR] 150 mg PO DAILY 06/28/20 06/28/20 Previous Rx's Medication Instructions Recorded Loratadine [Claritin] 10 mg PO DAILY #20 tab 05/23/18 Meclizine [Antivert] 25 mg PO BID #14 tab 07/02/20 Ondansetron [Zofran ODT] 4 mg PO Q8HR PRN #10 tab 07/02/20 Allergies Allergy/AdvReac Type Severity Reaction Status Date / Time venom-honey bee Allergy Anaphylaxis Verified 09/14/20 20:00 Review of Systems ROS Statement: Those systems with pertinent positive or pertinent negative responses have been documented in the HPI. ROS Other: All systems not noted in ROS Statement are negative. Past Medical History Past Medical History: Heart Failure, GI Bleed Additional Past Medical History / Comment(s): HEART VALVE REPLACEMENT. HX GI PROB FOR YEARS, HIATAL HERNIA. 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 DEVELOPMENTAL DISABILITY. colitis History of Any Multi-Drug Resistant Organisms: None Reported Past Surgical History: Ear Surgery, Hernia Repair, Orthopedic Surgery Additional Past Surgical History / Comment(s): RT Foot Surgery; Open Heart Surg @ 3 YRS OLD, VALVE REPLACED. EXC BRAIN TUMOR. HIATAL HERNIA REPAIR. RT EARD RUM REPAIRED. Past Anesthesia/Blood Transfusion Reactions: No Reported Reaction Past Psychological History: ADD/ADHD, Anxiety Smoking Status: Current every day smoker Past Alcohol Use History: None Reported Past Drug Use History: None Reported - Past Family History Father Family Medical History: No Reported History Additional Family Medical History / Comment(s): Mother Family Medical History: No Reported History Additional Family Medical History / Comment(s): General Exam Limitations: no limitations General appearance: alert, in no apparent distress Respiratory exam: Present: normal lung sounds bilaterally. Absent: respiratory distress, wheezes, rales, rhonchi, stridor Cardiovascular Exam: Present: regular rate, normal rhythm, normal heart sounds. Absent: systolic murmur, diastolic murmur, rubs, gallop, clicks Extremities exam: Present: full ROM, normal capillary refill, other (Mild soft tissue swelling noted over the dorsal aspect of the right foot. No erythema. Skin is otherwise warm and dry. Cap refills less than 3 seconds. Pedal pulses 2+. There is no calf swelling or tenderness.). Absent: normal inspection, tenderness, pedal edema, joint swelling, calf tenderness Neurological exam: Present: alert, oriented X3, CN II-XII intact Psychiatric exam: Present: normal affect, normal mood Skin exam: Present: warm, dry, intact, normal color. Absent: rash Course Vital Signs 09/14/20 19:58 Temperature 97.7 F Pulse Rate 95 Respiratory 18 Rate Blood Pressure 123/83 O2 Sat by Pulse 97 Oximetry Medical Decision Making - Medical Decision Making 35-year-old female patient presents to the emergency department today for evaluation of swelling to the right foot. Physical examination did reveal soft tissue swelling to the dorsal aspect of the foot. No erythema. Neurovascular status is intact. There is no calf pain or swelling. Patient has known injury to the foot recently got out of a cast. States she's been on her feet all day today. States she has chronic issues and swelling with this foot. She has not taking anything for pain. Will give [place] wrap for compression. She is instructed to elevate the foot. She is instructed to take ibuprofen and Tylenol for pain control. She does have an appointment numbing up with her warehouse distribution specialist. She is urged to keep this appointment. Return parameters were discussed in detail. She verbalizes understanding and agrees this plan. Disposition Clinical Impression: Swelling of right foot Disposition: HOME SELF-CARE Condition: Good Instructions (If sedation given, give patient instructions): Edema (ED) Additional Instructions: Use [place] wrap for compression and support. Take Tylenol Motrin for pain control. Keep leg elevated to aid with swelling. Follow-up with warehouse distribution specialist as you have planned. Follow-up with your primary care physician for recheck in 1-2 days. Return to the emergency department immediately for any new, worsening, or concerning symptoms. Is patient prescribed a controlled substance at d/c from ED?: No Referrals: Tamica Bean MD [Primary Care Provider] - 1-2 days Time of Disposition: 20:23
== END 2020-09-14 20:44 | disposition home or self-care (01) ==
LOC: EC 19:55
DX: S99.921A Unspecified injury of right foot, initial encounter (principal); M79.89 Other specified soft tissue disorders; K44.9 Diaphragmatic hernia without obstruction or gangrene; F41.9 Anxiety disorder, unspecified; F90.9 Attention-deficit hyperactivity disorder, unspecified type; F17.200 Nicotine dependence, unspecified, uncomplicated; Z79.899 Other long term (current) drug therapy; Z79.890 Hormone replacement therapy; Z91.030 Bee allergy status; Z98.890 Other specified postprocedural states; X58.XXXA Exposure to other specified factors, initial encounter
CPT/HCPCS: 99283; 96372; J1885

== ENCOUNTER 2021-02-04 19:17 | Emergency (ER) | payer MEDICARE, OTHER ==
[2021-02-04 19:26] VITALS: BP 123/82; PULSE 96; RESP 18; TEMP 97.8
--- NOTE | 2021-02-04 19:58 | CT ---
EXAMINATION TYPE: CT brain cspine wo con DATE OF EXAM: 02/04/2021 COMPARISON: CT brain and C-spine from 06/28/2020. HISTORY: Fall. Loss of consciousness. CT DLP: 1071 mGycm Automated exposure control for dose reduction was used. TECHNIQUE: CT scan of the head and cervical spine are performed without contrast. FINDINGS: There is no acute intracranial hemorrhage, mass effect, or midline shift identified. The ventricles and sulci are within normal limits in size. The globes are intact and the visualized sin uses are clear. Cervical spine is visualized in its entirety from C1 through upper thoracic levels and demonstrates s atisfactory alignment without evidence of acute fracture or dislocation. Prevertebral soft tissue ap pears within normal limits. The C1-C2 articulation is unremarkable. There is straightening of the c ervical spine. Right-sided scoliosis of the cervical spine is also noted. IMPRESSION: 1. There is no acute fracture or dislocation evident in the cervical spine. 2. No acute intracranial hemorrhage, mass effect, or midline shift is seen.
--- NOTE | 2021-02-04 20:51 | ED ---
Head Injury HPI - General Chief complaint: Head Injury Stated complaint: fell/hit head Time Seen by Provider: 02/04/21 20:50 Source: patient Mode of arrival: ambulatory Limitations: no limitations - History of Present Illness Initial comments: 35yo female presenting today for chief complaint of trip and fall head injury around 1PM today. Patient states she tripped and fall the sidewalk striking her head today. Patient states she's had some nausea since. Patient states she is a mild headache. She denies vision changes because of the upper or lower extremity speech changes she denies repetitive questioning she denies any neck pain, she has a injury to the extremities abdomen or chest. Denies thoracic or lumbar spine. She denies any use of anticoagulation therapy she denies any bleeding diathesis. Patient is noticeable complaints upon arrival she appears well and nontoxic distress. Patient denies chest pain syncope or shortness of breath - Related Data Home Medications Medication Instructions Recorded Confirmed FLUoxetine HCL [PROzac Weekly] 90 mg PO TU 08/27/17 06/28/20 hydrOXYzine pamoate [Vistaril] 25 mg PO BID PRN 08/27/17 06/28/20 risperiDONE ODT [RisperDAL M-TAB] 1 mg PO HS 08/27/17 06/28/20 Melatonin 5 mg PO HS 10/12/18 06/28/20 traZODone HCL 200 mg PO HS 10/12/18 06/28/20 Famotidine [Pepcid] 20 mg PO BID 06/28/20 06/28/20 Montelukast [Singulair] 10 mg PO DAILY 06/28/20 06/28/20 buPROPion HCL [Wellbutrin SR] 150 mg PO DAILY 06/28/20 06/28/20 Previous Rx's Medication Instructions Recorded Loratadine [Claritin] 10 mg PO DAILY #20 tab 05/23/18 Meclizine [Antivert] 25 mg PO BID #14 tab 07/02/20 Ondansetron [Zofran ODT] 4 mg PO Q8HR PRN #10 tab 07/02/20 Allergies/Adverse reactions: Allergies Allergy/AdvReac Type Severity Reaction Status Date / Time venom-honey bee Allergy Anaphylaxis Verified 02/04/21 19:26 Review of Systems ROS Statement: Those systems with pertinent positive or pertinent negative responses have been documented in the HPI. ROS Other: All systems not noted in ROS Statement are negative. Past Medical History Past Medical History: Heart Failure, GI Bleed Additional Past Medical History / Comment(s): HEART VALVE REPLACEMENT. HX GI PROB FOR YEARS, HIATAL HERNIA. 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 DEVELOPMENTAL DISABILITY. colitis History of Any Multi-Drug Resistant Organisms: None Reported Past Surgical History: Ear Surgery, Hernia Repair, Orthopedic Surgery Additional Past Surgical History / Comment(s): RT Foot Surgery; Open Heart Surg @ 3 YRS OLD, VALVE REPLACED. EXC BRAIN TUMOR. HIATAL HERNIA REPAIR. RT EARDRUM REPAIRED. Past Anesthesia/Blood Transfusion Reactions: No Reported Reaction Past Psychological History: ADD/ADHD, Anxiety Smoking Status: Current every day smoker Past Alcohol Use History: None Reported Past Drug Use History: None Reported - Past Family History Father Family Medical History: No Reported History Additional Family Medical History / Comment(s): Mother Family Medical History: No Reported History Additional Family Medical History / Comment(s): General Exam - General Exam Comments Initial Comments: General: The patient is awake and alert, in no distress Eye: +3 mm pupils are equal, round and reactive to light, extra-ocular movements are intact. No nystagmus. There is normal conjunctiva bilaterally. No signs of icterus. Ears, nose, mouth and throat: There are moist mucous membranes and no oral lesions. Neck: The neck is supple, there is no tenderness or JVD. Midline constipation of the cervical spine full range of motion cervical spine without limitations. Cardiovascular: There is a regular rate and rhythm. No murmur, rub or gallop is appreciated. Respiratory: Lungs are clear to auscultation, respirations are non-labored, rut ath sounds are equal. No wheezes, stridor, rales, or rhonchi. Gastrointestinal: Soft, non-distended, non-tender abdomen without masses or organomegaly noted. There is no rebound or guarding present. Musculoskeletal: Normal ROM, no tenderness. Strength 5/5 of the UE and LE b/l. Sensation intact. Radial and DP pulses equal bilaterally 2+. Neurological: A&O x 3. CN II-XII intact, There are no obvious motor or sensory deficits. No pronator drift gait is smooth and coordinated without ataxia. Coordination appears grossly intact. Speech is normal. Skin: Skin is warm and dry and no rashes or lesions are noted. Psychiatric: Cooperative, appropriate mood & affect, normal judgment. Limitations: no limitations Course Vital Signs 02/04/21 19:24 Temperature 97.8 F Pulse Rate 96 Respiratory 18 Rate Blood Pressure 123/82 O2 Sat by Pulse 96 Oximetry Medical Decision Making - Medical Decision Making 35yo female presenting for cc of trip and fall with headache/nausea/vomiting. CT brain (-). C-spine limited views but patient has no midline tenderness. patient has no focal neurological deficits. she appears well nontoxic. patient is agreeable to discharge [facility] concussion protocols and pcp f/u. patient discharged appearing well. Disposition Clinical Impression: Fall, Head injury, Concussion Disposition: HOME SELF-CARE Condition: Good Instructions (If sedation given, give patient instructions): Concussion (ED) Additional Instructions: Please use medication as discussed. Please follow-up with family doctor in the next 2 days. Please return to emergency room if the symptoms increase or worsen or for any other concerns. Is patient prescribed a controlled substance at d/c from ED?: No Referrals: Eduardo Montoya MD [Primary Care Provider] - 1-2 days Time of Disposition: 20:51
== END 2021-02-04 20:59 | disposition home or self-care (01) ==
LOC: EC 19:17
DX: S06.0X0A Concussion without loss of consciousness, initial encounter (principal); I50.9 Heart failure, unspecified; F17.200 Nicotine dependence, unspecified, uncomplicated; W01.0XXA Fall on same level from slipping, tripping and stumbling without subsequent striking against object, initial encounter; Z95.2 Presence of prosthetic heart valve
CPT/HCPCS: 70450; 72125; 99284

== ENCOUNTER 2021-03-16 13:08 | Inpatient (IN) | payer MEDICARE, OTHER ==
[2021-03-16] MEDS ORDERED: LORazepam 2 MG/ML INJ IV STA (13:34)
--- NOTE | 2021-03-16 13:37 | ED ---
General Adult HPI - General Chief complaint: Extremity Problem,Nontraumatic Stated complaint: Right leg shaking Time Seen by Provider: 03/16/21 13:21 Source: patient, RN notes reviewed Mode of arrival: EMS Limitations: no limitations - History of Present Illness Initial comments: Patient is a pleasant 35-year-old female presenting to the emergency Department with complaints of right leg shaking. Onset of symptoms was when she woke this morning. Symptoms have been waxing and waning. No history of similar symptoms previously. Patient cannot control his shaking. She can only involves the right leg. No other area of involvement. Patient states her vision may be a little bit blurry. No confusion or weakness. No history of seizures. - Related Data Home Medications Medication Instructions Recorded Confirmed FLUoxetine HCL [PROzac Weekly] 90 mg PO TU 08/27/17 03/16/21 traZODone HCL 200 mg PO HS 10/12/18 03/16/21 Famotidine [Pepcid] 20 mg PO BID 06/28/20 03/16/21 Montelukast [Singulair] 10 mg PO DAILY 06/28/20 03/16/21 Allopurinol [Zyloprim] 100 mg PO DAILY 03/16/21 03/16/21 Ergocalciferol [Vitamin D2 (1250 1,250 mcg PO Q30D 03/16/21 03/16/21 Mcg = 71723 Iu)] buPROPion [Wellbutrin] 75 mg PO BID 03/16/21 03/16/21 busPIRone HCl [Buspar] 10 mg PO BID 03/16/21 03/16/21 Previous Rx's Medication Instructions Recorded Loratadine [Claritin] 10 mg PO DAILY #20 tab 05/23/18 Allergies Allergy/AdvReac Type Severity Reaction Status Date / Time venom-honey bee Allergy Anaphylaxis Verified 03/16/21 14:18 Review of Systems ROS Statement: Those systems with pertinent positive or pertinent negative responses have been documented in the HPI. ROS Other: All systems not noted in ROS Statement are negative. Constitutional: Denies: fever Eyes: Reports: as per HPI. Denies: eye pain, eye discharge ENT: Denies: ear pain Respiratory: Denies: dyspnea Cardiovascular: Denies: chest pain Endocrine: Denies: fatigue Gastrointestinal: Denies: abdominal pain Genitourinary: Denies: dysuria Musculoskeletal: Denies: back pain Skin: Denies: rash Neurological: Reports: as per HPI. Denies: headache, weakness, confusion Past Medical History Past Medical History: Heart Failure, GI Bleed Additional Past Medical History / Comment(s): HEART VALVE REPLACEMENT. HX GI PROB FOR YEARS, HIATAL HERNIA. 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 DEVELOPMENTAL DISABILITY. colitis History of Any Multi-Drug Resistant Organisms: None Reported Past Surgical History: Ear Surgery, Hernia Repair, Orthopedic Surgery Additional Past Surgical History / Comment(s): RT Foot Surgery; Open Heart Surg @ 3 YRS OLD, VALVE REPLACED. EXC BRAIN TUMOR. HIATAL HERNIA REPAIR. RT EARDRUM REPAIRED. Past Anesthesia/Blood Transfusion Reactions: No Reported Reaction Past Psychological History: ADD/ADHD, Anxiety Smoking Status: Current every day smoker Past Alcohol Use History: None Reported Past Drug Use History: None Reported - Past Family History Father Family Medical History: No Reported History Additional Family Medical History / Comment(s): Mother Family Medical History: No Reported History Additional Family Medical History / Comment(s): General Exam Limitations: no limitations General appearance: alert, in no apparent distress Head exam: Present: atraumatic, normocephalic Eye exam: Present: normal appearance, PERRL, EOMI Expanded Eyelids: Normal Inspection: Bilateral Pupils: Regular, Round: Bilateral Sclera/Conjunctival: Normal Inspection: Bilateral Posterior chamber: Normal Inspection: Bilateral Neck exam: Present: normal inspection Respiratory exam: Present: normal lung sounds bilaterally, other (Sternotomy scar) Cardiovascular Exam: Present: regular rate, normal rhythm GI/Abdominal exam: Present: soft. Absent: tenderness Extremities exam: Present: normal inspection, full ROM. Absent: tenderness Neurological exam: Present: alert, oriented X3, CN II-XII intact, other (Intermittent tremor to the right leg). Absent: motor sensory deficit Expanded Neurological exam: Present: protecting the airway Speech: Present: fluid speech Cranial nerves: EOM's Intact: Normal Cerebellar function: Heel to [place]: Normal Motor strength exam: RUE: 5, LUE: 5, RLE: 5, LLE: 5 Eye Response: (4) open spontaneously Motor Response: (6) obeys commands Verbal Response: (5) oriented Psychiatric exam: Present: normal affect, normal mood Skin exam: Present: normal color Course Vital Signs 03/16/21 03/16/21 13:13 14:00 Temperature 97.9 F Pulse Rate 92 70 Respiratory 16 22 Rate Blood Pressure 109/85 126/86 O2 Sat by Pulse 98 97 Oximetry EKG Findings - EKG Comments: EKG Findings:: Normal sinus rhythm at 74. SC 176. QRS 80. QT 406. QTc 450. Normal axis. Normal QRS. T wave inversion in precordial leads. Medical Decision Making - Medical Decision Making Patient reevaluated. And resting comfortably in bed. Patient still complaining of occasional right leg tremor. This is again witnessed during part of the reevaluation. Patient states blurry vision has resolved. Patient updated on results and plan. Case was discussed in detail with Dr. Montoya who is familiar with this patient and will admit with neurology consult. - Lab Data Result diagrams: 03/16/21 13:39 03/16/21 13:39 Lab Results 03/16/21 03/16/21 Range/Units 13:39 13:39 WBC 11.7 H (3.8-10.6) k/uL RBC 5.25 (3.80-5.40) m/uL Hgb 16.0 (11.4-16.0) gm/dL Hct 44.3 (34.0-46.0) % MCV 84.3 (80.0-100.0) fL MCH 30.5 (25.0-35.0) pg MCHC 36.2 (31.0-37.0) g/dL RDW 13.0 (11.5-15.5) % Plt Count 248 (150-450) k/uL MPV 7.6 Neutrophils % 68 % Lymphocytes % 17 % Monocytes % 11 % Eosinophils % 1 % Basophils % 1 % Neutrophils # 8.0 H (1.3-7.7) k/uL Lymphocytes # 2.0 (1.0-4.8) k/uL Monocytes # 1.3 H (0-1.0) k/uL Eosinophils # 0.1 (0-0.7) k/uL Basophils # 0.1 (0-0.2) k/uL Sodium 137 (137-145) mmol/L Potassium 4.2 (3.5-5.1) mmol/L Chloride 106 (98-107) mmol/L Carbon Dioxide 20 L (22-30) mmol/L Anion Gap 11 mmol/L BUN 13 (7-17) mg/dL Creatinine 0.64 (0.52-1.04) mg/dL Est GFR (CKD-EPI)AfAm >90 (>60 ml/min/1.73 sqM) Est GFR (CKD-EPI)NonAf >90 (>60 ml/min/1.73 sqM) Glucose 96 (74-99) mg/dL Calcium 9.7 (8.4-10.2) mg/dL Magnesium 1.5 L (1.6-2.3) mg/dL Total Bilirubin 0.7 (0.2-1.3) mg/dL AST 32 (14-36) U/L ALT 39 H (4-34) U/L Alkaline Phosphatase 83 (38-126) U/L Total Protein 7.2 (6.3-8.2) g/dL Albumin 4.6 (3.5-5.0) g/dL - Radiology Data Radiology results: report reviewed (Computed tomography scan of the brain reveals no acute abnormality.) Disposition Clinical Impression: Tremor Disposition: ADMITTED IP TO THIS HOSP Is patient prescribed a controlled substance at d/c from ED?: No Referrals: Eduarod Montoya MD [Primary Care Provider] - 1-2 days Decision Time: 15:28
[2021-03-16 13:53] LABS: Basophils # (A) 0.1 k/uL (0-0.2); Basophils % (A) 1 %; Eosinophils # (A) 0.1 k/uL (0-0.7); Eosinophils % (A) 1 %; HCT 44.3 % (34.0-46.0); Lymphocytes % (A) 17 %; MCH 30.5 pg (25.0-35.0); MCHC 36.2 g/dL (31.0-37.0); MCV 84.3 fL (80.0-100.0); Mean Platelet Volume 7.6; Monocytes # (A) 1.3 k/uL (0-1.0); Monocytes % (A) 11 %; Neutrophils % (A) 68 %; Platelet Count 248 k/uL (150-450); RBC 5.25 m/uL (3.80-5.40); WBC 11.7 k/uL (3.8-10.6)
[2021-03-16 14:00] LABS: ALT 39 U/L (4-34); AST 32 U/L (14-36); African American GFR (CKD) >90 (>60 ml/min/1.73 sqM); Albumin 4.6 g/dL (3.5-5.0); Alkaline Phosphatase 83 U/L (38-126); Anion Gap 11 mmol/L; Blood Urea Nitrogen 13 mg/dL (7-17); Calcium 9.7 mg/dL (8.4-10.2); Carbon Dioxide 20 mmol/L (22-30); Chloride 106 mmol/L (98-107); Glucose 96 mg/dL (74-99); Magnesium 1.5 mg/dL (1.6-2.3); Non-African American GFR(CKD) >90 (>60 ml/min/1.73 sqM); Potassium 4.2 mmol/L (3.5-5.1); Sodium 137 mmol/L (137-145); Total Bilirubin 0.7 mg/dL (0.2-1.3); Total Protein 7.2 g/dL (6.3-8.2)
--- NOTE | 2021-03-16 14:10 | CT ---
EXAMINATION TYPE: CT brain wo con DATE OF EXAM: 03/16/2021 COMPARISON: 02/04/2021 HISTORY: Blurry vision, seizure activity CT DLP: 952.8 mGycm Automated exposure control for dose reduction was used. There is some metal artifact from right sided hearing aid. The ventricles have fairly normal size. Th ere is no mass effect nor midline shift. There is no evidence of intracranial hemorrhage. The calvari um is intact. Skull base is intact. IMPRESSION: No acute intracranial abnormality. No adverse change compared to old exam.
[2021-03-16] MEDS ORDERED: NALOXONE 0.4 MG/ML 1 ML VIAL IV PRN (15:29)
[2021-03-16] MEDS ORDERED: LORazepam 2 MG/ML INJ IV PRN (15:29)
[2021-03-16] MEDS ORDERED: Magnesium Replacement Protocol 1 EACH MISC MISCELLANE PRN (17:24)
[2021-03-16] MEDS ORDERED: levETIRAcetam IV 500 MG in SODIUM CHLORIDE 0.9% 100 ML IVPB STA (18:50)
--- NOTE | 2021-03-16 19:05 | P.CNNES ---
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 She said that she woke up at 6:00 in the morning today and that she was feeling dizzy and she noticed that she is having the multiple episode of right leg uncontrollable shaking episodes that she could not stop. He said that she didn't lose consciousness with these episodes, denies any urinary or bowel incontinence or tongue bite. He said the episode the lasted a long time and upon asking her she said almost an hour but she said that she had another episode after that. He denies any history of epilepsy. Denies any similar episodes like this before. She notified ED team that she noted that her vision was also blurry. Regarding the patient's the brain tumor she said that she had as a child and it was resected at [facility] but she doesn't have any real recollection of what it was and that she said that surgery happened in the back of the head near the parietal occipital region. Regarding her history she said it was at term, normal and it was vaginal delivery. There is no complication. There is no family history of seizures. She does smoke one pack of cigarettes daily and she's been smoking for a long time. Denies any alcohol use. Of note she has a cast on her left upper extremity and she said that that she broke it because she tripped and she said that the cast will come off soon. Work-up in the hospital consisted of: Initial vital signs: Blood pressure of 109/85, heart rate of 92, temperature of 97.9 for oral, respiratory of 16, pulse ox of 98% room air. CT of the head is reported as no acute intracranial abnormality. No adverse changes compared to old exam. In the body of the report is mentioned that the patient has some metal artifact from the right side hearing aid. White blood cell is 11.7 which is slightly elevated Sodium is 137, glucose is 96, calcium 9.7, potassium is 4.2 on oral normal. The ALT slightly minimally elevated 39. While AST is 32 is normal. The magnesium is slightly low with 1.5. Escamilla virus PCR was not detected. Review of Systems Review of system: The 12 point system was reviewed and apparent positive and negative per HPI. Past Medical History Past Medical History: Heart Failure, GI Bleed Additional Past Medical History / Comment(s): HEART VALVE REPLACEMENT. HX GI PROB FOR YEARS, HIATAL HERNIA. 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 DEVELOPMENTAL DISABILITY. colitis History of Any Multi-Drug Resistant Organisms: None Reported Past Surgical History: Ear Surgery, Hernia Repair, Orthopedic Surgery Additional Past Surgical History / Comment(s): RT Foot Surgery; Open Heart Surg @ 3 YRS OLD, VALVE REPLACED. EXC BRAIN TUMOR. HIATAL HERNIA REPAIR. RT EARDRUM REPAIRED. Past Anesthesia/Blood Transfusion Reactions: No Reported Reaction Past Psychological History: ADD/ADHD, Anxiety Smoking Status: Current every day smoker Past Alcohol Use History: None Reported Past Drug Use History: None Reported - Past Family History Father Family Medical History: No Reported History Additional Family Medical History / Comment(s): Mother Family Medical History: No Reported History Additional Family Medical History / Comment(s): Medications and Allergies Home Medications Medication Instructions Recorded Confirmed Type FLUoxetine HCL [PROzac Weekly] 90 mg PO TU 08/27/17 03/16/21 History Loratadine [Claritin] 10 mg PO DAILY #20 tab 05/23/18 03/16/21 Rx traZODone HCL 200 mg PO HS 10/12/18 03/16/21 History Famotidine [Pepcid] 20 mg PO BID 06/28/20 03/16/21 History Montelukast [Singulair] 10 mg PO DAILY 06/28/20 03/16/21 History Allopurinol [Zyloprim] 100 mg PO DAILY 03/16/21 03/16/21 History Ergocalciferol [Vitamin D2 (1250 1,250 mcg PO Q30D 03/16/21 03/16/21 History Mcg = 61542 Iu)] buPROPion [Wellbutrin] 75 mg PO BID 03/16/21 03/16/21 History busPIRone HCl [Buspar] 10 mg PO BID 03/16/21 03/16/21 History Allergies Allergy/AdvReac Type Severity Reaction Status Date / Time venom-honey bee Allergy Anaphylaxis Verified 03/16/21 14:18 Physical Examination - Vital Signs Vital Signs: Vital Signs Temp Pulse Resp BP Pulse Ox 03/16/21 17:25 98 F 03/16/21 17:00 98 F 83 21 106/74 96 03/16/21 16:00 79 21 133/73 96 03/16/21 15:00 72 24 116/75 96 03/16/21 14:00 70 22 126/86 97 03/16/21 13:13 97.9 F 92 16 109/85 98 Intake and Output 03/16/21 03/16/21 03/16/21 06:59 14:59 22:59 Other: Weight 31.751 kg GENERAL: The patient appear older than her age, is small in size, lying in bed and is not in acute distress. CHEST: The heart rate is regular rate rhythm. No murmurs to auscultation. LUNG: Clear to auscultation bilaterally no wheezing noted throughout. Not labored breathing. ABDOMEN/GI: Bowel sounds present in all 4 quadrants. No tenderness to palpation throughout. NEUROLOGICAL: Higher mental function: The patient is awake, alert, oriented to self, place and time. Patient is following commands. No aphasia and no neglect. Cranial nerves: The pupils are round, equal and reactive to light and accommo dation. Visual leija are full to confrontation throughout. Extraocular movement is intact no nystagmus is noted. Facial sensation is normal to touch throughout. The facial strength is normal throughout. Hearing is normal bilaterally to hand rub. Tongue is midline and moved [id number] without any difficulty. No dysarthria is noted. Shoulder shrug is normal bilaterally. Motor: Gait is deferred. The strength is limited over the left upper extremity (has case) but was able to raise over gravity without difficulty. Otherwise strength is 5/5 throughout. Cerebellum: Normal finger to nose bilaterally. Sensation: Sensation is normal to touch throughout. Reflexes (right/left): 3+ throughout except left upper extremity could not assess because of cast. Plantars are mute bilaterally. 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 Loaded with the patient on Keppra 500mg once. I ordered a routine EEG. A stat is not needed. I recommend the patient to get MRI with and without and I recommend this to be done as an outpatient since we don't have any information regarding the patient history of the tumor. Placed the patient on seizure precaution and seizure pads. Recommend electrolytes correction defer the management to the primary team. The patient needs to follow-up with a neurologist as an outpatient within 1-2 weeks. The plan is discussed with the patient and her nurse. Thank you for the consultation. Dyllan Davis MD Neuro-Hospitalist Time with Patient: Greater than 30
[2021-03-16] MEDS: SODIUM CHLORIDE 0.9% 1,000 ML IV SCH (19:47)
[2021-03-16] MEDS: levETIRAcetam 250 MG TAB PO SCH (20:21)
[2021-03-16] MEDS: MAGNESIUM SULFATE-D5W PMX 1 GM in DEXTROSE/WATER 1 100ML.BAG IVPB SCH ×2 (20:22→21:42)
[2021-03-16 20:30] LABS: Appearance,Urine Clear (Clear); Bacteria,Urine Rare /hpf; Bilirubin,Urine Negative (Negative); Blood,Urine Negative (Negative); Color,Urine Yellow; Glucose,Urine (UA) Negative (Negative); Ketones,Urine 1+ (Negative); Leukocyte Esterase,Urine Moderate (Negative); Mucus,Urine Few /hpf; Nitrite,Urine Negative (Negative); Protein,Urine Trace (Negative); RBC,Urine 1 /hpf (0-5); Specific Gravity,Urine 1.034 (1.001-1.035); Squamous Epithelial Cell,Urine 5 /hpf (0-4); WBC,Urine 5 /hpf (0-5)
[2021-03-16] MEDS: traZODone HCL 100 MG TAB PO SCH (21:42)
[2021-03-17] MEDS: MONTELUKAST 10 MG TAB PO SCH (08:32)
[2021-03-17] MEDS: ACETAMINOPHEN TAB 325 MG TAB PO PRN ×2 (08:32→18:59)
[2021-03-17] MEDS: levETIRAcetam 250 MG TAB PO SCH (08:32)
[2021-03-17] MEDS: buPROPion 75 MG TAB PO SCH ×2 (08:32→20:02)
[2021-03-17] MEDS: busPIRone HCl 10 MG TAB PO SCH ×2 (08:32→20:02)
[2021-03-17] MEDS: allopurinoL 100 MG TAB PO SCH (08:32)
[2021-03-17] MEDS: FAMOTIDINE 20 MG TAB PO SCH ×2 (08:32→20:02)
--- NOTE | 2021-03-17 12:25 | P.PN ---
Subjective Progress Note Date: 03/17/21 The patient was seen at bedside and she stated that she is doing better compared to yesterday. She continues to have episode of jerking of the right lower extremity without lost of consciousness. Per the patient's nurse she has not witnessed any of these episodes. Objective - Vital Signs Vital signs: Vital Signs Temp 99.7 F H 03/17/21 08:00 Pulse 88 03/17/21 08:00 Resp 14 03/17/21 08:00 BP 93/52 03/17/21 08:00 Pulse Ox 96 03/17/21 08:00 Intake & Output 03/16/21 03/17/21 03/17/21 18:59 06:59 18:59 Intake Total 240 240 Output Total 400 450 Balance 240 -400 -210 Weight 31.751 kg 33.7 kg Intake: Oral 240 240 Output: Urine 400 450 - Exam GENERAL: The patient appear older than her age, is small in size, lying in bed and is not in acute distress. NEUROLOGICAL: Higher mental function: The patient is awake, alert, oriented to self, place and time. Patient is following commands. No aphasia and no neglect. Cranial nerves: The pupils are round, equal and reactive to light and accommodation. Visual leija are full to confrontation throughout. Extraocular movement is intact no nystagmus is noted. Facial sensation is normal to touch throughout. The facial strength is normal throughout. Hearing is normal bilaterally to hand rub. Tongue is midline and moved [id number] without any difficulty. No dysarthria is noted. Shoulder shrug is normal bilaterally. Motor: Gait is deferred. The strength is limited over the left upper extremity (has case) but was able to raise over gravity without difficulty. Otherwise strength is 5/5 throughout. Cerebellum: Normal finger to nose bilaterally. Sensation: Sensation is normal to touch throughout. Reflexes (right/left): 3+ throughout except left upper extremity could not ass ess because of cast. Plantars are mute bilaterally. 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 On Keppra 250mg 1 tab bid (low dose because of weight) and since continues to have these episode will increase Keppra to 500mg 1 tab bid. I ordered a routine EEG and likely to be done tomorrow. I recommend the patient to get MRI with and without and I recommend this to be done as an outpatient since we don't have any information regarding the patient history of the tumor. Placed the patient on seizure precaution and seizure pads. Recommend electrolytes correction defer the management to the primary team. The patient needs to follow-up with a neurologist as an outpatient within 1-2 weeks. The plan is discussed with the patient and her nurse. Dr. White will take over the neurology coverage tomorrow AM. Dyllan Davis MD Neuro-Hospitalist Time with Patient: Less than 30
[2021-03-17] MEDS: SODIUM CHLORIDE 0.9% 1,000 ML IV SCH (17:27)
--- NOTE | 2021-03-17 19:13 | HP ---
HISTORY AND PHYSICAL CHIEF COMPLAINT: Possible seizure. HISTORY OF PRESENT ILLNESS: This is another admission for this 35-year-old female with developmental disabilities and small stature. She apparently started to have muscle spasms and twitching in the right upper leg. This was not associated with any aura, change in vision or hearing, difficulty speaking, incontinence, etc. She has never had seizures before. REVIEW OF SYSTEMS: Otherwise unremarkable. She has had no fever and a cough, abdominal pain, etc. Past medical history, family history, personal and social histories are otherwise unremarkable and noncontributory. PHYSICAL EXAMINATION: Blood pressure 107/71 with a pulse of 84, respirations of 18, and temperature are 99.7. Head, ears, eyes, nose, mouth and throat are normal. Neck is supple. Chest is clear. Cardiac exam is normal. No murmurs or extra sounds. Abdomen is soft, nontender. Extremities revealed poor development and clubfoot deformities. Neurological: There were no spasms or twitching in the lower extremity at this time, nor any other signs or symptoms, seizure activity. IMPRESSION: 1. Muscle spasms in the right lower extremity. 2. Possible seizure disorder. 3. Fever, undetermined etiology. 4. Developmental musculoskeletal findings. PLAN: 1. Bedrest. 2. IV fluids. 3. Seizure precautions. 4. Neurology consult. MMODL / IJN: [id number] /
--- NOTE | 2021-03-17 19:13 | PN ---
PROGRESS NOTE DATE OF SERVICE: 03/17/2021. CHIEF COMPLAINT: 1. Twitching and muscle spasm in the right lower extremity. 2. Seizure. HISTORY OF PRESENT ILLNESS: This lady is doing fairly well. She has had no headaches, neurologic problems, or any further twitching or muscle spasm in the right leg. She does have a low-grade fever. PHYSICAL EXAMINATION: Chest is clear. Cardiac exam is normal. Abdomen is soft, nontender. Neurologically she seemed to be intact. IMPRESSION: 1. Muscle spasms and twitching in the right lower extremity. 2. Fever, undetermined etiology. PLAN: 1. Continue to monitor neurologically. 2. Neurology evaluation. 3. Look for etiology of fever. MMODL / IJN: [id number] /
[2021-03-17] MEDS: traZODone HCL 100 MG TAB PO SCH (20:02)
[2021-03-17] MEDS: levETIRAcetam 500 MG TAB PO SCH (20:02)
[2021-03-18 08:21] VITALS: RESP 16
[2021-03-18] MEDS: FAMOTIDINE 20 MG TAB PO SCH (08:21)
[2021-03-18] MEDS: allopurinoL 100 MG TAB PO SCH (08:21)
[2021-03-18] MEDS: levETIRAcetam 500 MG TAB PO SCH (08:21)
[2021-03-18] MEDS: MONTELUKAST 10 MG TAB PO SCH (08:21)
[2021-03-18] MEDS: busPIRone HCl 10 MG TAB PO SCH (08:21)
[2021-03-18] MEDS: buPROPion 75 MG TAB PO SCH (08:22)
[2021-03-18 11:20] VITALS: BP 101/60; PULSE 71; TEMP 98.8
[2021-03-18] MEDS: SODIUM CHLORIDE 0.9% 1,000 ML IV SCH (14:28)
--- NOTE | 2021-03-18 14:42 | EEG ---
ELECTROENCEPHALOGRAM REPORT DATE OF SERVICE: 03/18/2021 PREAMBLE: This is a 35-year-old female who has right leg jerking. This study is performed to evaluate for any epileptiform activity. The patient has periodic right leg jerking noted throughout most of the study. EEG FINDINGS: This is a 21 channel routine EEG recording in a patient utilizing 10/20 international system with referential and bipolar montages. The background consists of well developed, well regulated, moderate voltage activity in 12 hertz alpha. Background is posterior dominant and reactive to eye opening and closing. Photic driving response was seen with some flash frequencies. Hyperventilation reveals some disorganization of the background of no clinical significance. The patient has a post hyperventilation frequent right leg jerking, which was associated with only myogenic artifact seen mainly in the occipital leads, with no electrographic correlate. No epileptiform activity was seen in the entire study. IMPRESSION: This is a normal awake and drowsy EEG. No focal, lateralized, or epileptiform activity was seen. Numerous instances of right leg jerking were noted during the study, in which only myogenic artifacts were seen with no electrographic correlate. These spells are most likely non-epileptic in origin. Clinical correlation recommended. MMODL / IJN: [id number] /
--- NOTE | 2021-03-18 17:15 | XR ---
EXAMINATION TYPE: XR chest 2V DATE OF EXAM: 03/18/2021 CLINICAL HISTORY: fever. TECHNIQUE: Frontal and lateral view of the chest. COMPARISON: 08/06/2019 chest radiograph FINDINGS: Sternotomy wires. Redemonstrated dextroscoliotic curvature. Low lung volumes. The cardiome diastinal silhouette is not significantly changed and within normal limits for size. Pulmonary vascul ature is normal. Haziness at the left lung base likely due to overlapping soft tissue. No pleural eff usion or pneumothorax. IMPRESSION: Haziness at the left lung base is likely due to overlapping soft tissue. No definitive f ocal airspace opacity.
[2021-03-18 17:41] LABS: C Reactive Protein <0.5 mg/dL (<1.0); LDH 338 U/L (313-618)
[2021-03-18] MEDS ORDERED: CEPHALEXIN 500 MG CAP PO SCH (18:00)
--- NOTE | 2021-03-18 19:06 | PN ---
PROGRESS NOTE DATE OF SERVICE: 03/18/2021 CHIEF COMPLAINT: Muscle spasm in the right leg and possible seizure disorder. HISTORY OF PRESENT ILLNESS: This lady is doing well. She has had no further pain, muscle spasms, etc. PHYSICAL EXAMINATION: Her chest is clear. Cardiac exam is normal. Abdomen is soft and nontender. IMPRESSION: 1. Muscle spasms or tremors in the right lower extremity; etiology unknown. 2. Possible seizure disorder. PLAN: Await further recommendations and evaluation by Neurology. MMODL / DORISN: [id number] /
--- NOTE | 2021-03-18 22:45 | CONS ---
CONSULTATION DATE OF SERVICE: 03/18/2021 REASON FOR CONSULTATION: Fever unknown origin. HISTORY OF PRESENT ILLNESS: The patient is a 35-year-old female with a past medical history significant for brain tumor status post resection as a child who did have developmental disability and heart valve replaced. The patient presented to [facility] ER 2 days ago on March 16 for evaluation of right leg shaking. The patient states she woke up 6 in the morning and noticed to be feeling dizzy and noticed having mild episodes of right leg shaking episode that she could not stop. The patient did not loose consciousness and did not have bowel or urinary incontinence. The patient did not recall similar episodes in the past. With these symptoms, the patient was evaluated by the ER physician. On arrival to the ER, the patient was afebrile. However, she did have a low-grade fever of 99.7 on March 17 and no fever has been recorded since then. The patient is not tachycardic and did not have any hypoxemia. The patient did have mild elevated white count 11.7 on admission and has not been repeated since then. The patient did have a normal creatinine. ALT was mildly elevated at 39. Urine shows moderate leukocyte esterases, only 5 WBC. Escamilla PCR was negative. The patient did have a CT of the brain that was negative for any bleed. Infectious Disease was consulted today for fever of unknown origin. The patient did mention she is overall feeling better and no further episodes of shaking of the leg. REVIEW OF SYSTEMS: Positive points have been mentioned in HPI. Rest of the systems are negative. PAST MEDICAL HISTORY: History of brain tumor as a child status post resection. Did have developmental disability, ADHD, anxiety. PAST SURGICAL HISTORY: Right foot surgery, open-heart surgery, valve replaced, excision of a brain tumor, hiatal hernia repair and right atrium repair. SOCIAL HISTORY: Patient current everyday smoker. No drinking or drug use. FAMILY HISTORY: No pertinent findings noticed. ALLERGIES: VENOM, HONEY BEE. MEDICATIONS: The patient is currently on Tylenol, Zyloprim, Wellbutrin, vitamin D2, Pepcid, Keppra, Ativan, Singulair, Narcan, Desyrel. PHYSICAL EXAMINATION: Blood pressure 101/60 with a pulse of 71, temperature 98.8. She is 100% on room air. General description: The patient is a middle-aged female lying in bed in no distress. No tachypnea or accessory muscles of respiration use. HEENT: Examination shows no pallor or scleral icterus. Oral mucous membranes dry. NECK: Trachea central. No thyromegaly. LUNGS unlabored breathing. Clear to auscultation anterior with no wheeze or crackles. HEART S1, S2. Regular rate and rhythm. ABDOMEN: Soft, no tenderness. No guarding. No rigidity EXTREMITIES are no edema of the feet. NEUROLOGICAL examination: Patient is awake, alert, oriented times three. Mood and affect normal. LABS: Hemoglobin 16, white count 11.7, BUN of 13, creatinine 0.64. Moderate leukocyte Estrace. Only 5 WBC. DIAGNOSTIC IMPRESSION AND PLAN: The patient admitted to the hospital with shakiness of the right leg with concern for possible seizure activity. This patient did have a low-grade fever of 99.9 yesterday. No fever has been recorded since then. The patient is currently feeling fine and does not have any obvious focus of infection. PLAN: 1. We will obtain chest x-ray. Obtain blood cultures. Repeat CBC and inflammatory markers to complete the workup. 2. Empirically add Rocephin 1 g daily while waiting for the culture to finalize. 3. We will follow on clinical condition to further adjust medication if needed. Thank you for this consultation. Will follow this patient along with you. MMODL / IJN: [id number] /
[2021-03-19] MEDS ORDERED: FLUOXETINE HCL 90 MG PO SCH (09:00)
[2021-03-19] MEDS ORDERED: ERGOCALCIFEROL 1,250 MCG (50,000 IU) CAPSULE PO SCH (09:00)
--- NOTE | 2021-03-19 09:10 | P.PN ---
Subjective Progress Note Date: 03/18/21 Patient was seen for a follow-up. Patient initially seen by Dr. Dyllan Davis in consultation. Please refer to his note for details. Patient had episodes of right leg movement. EEG was performed, which revealed no epileptiform activity. Patient at present is alert and awake, sitting in the bed, wants to go home. Offers no complaints. Patient states that she does not get any seizures as long as she is taking seizure medications, although patient is not on any seizure medication at home, as per her home medication list. Telemetry monitoring showing sinus rhythm. No arrhythmia. Objective - Vital Signs Vital signs: Vital Signs Temp 98.8 F 03/18/21 11:20 Pulse 71 03/18/21 11:20 Resp 16 03/18/21 11:20 BP 101/60 03/18/21 11:20 Pulse Ox 100 03/18/21 11:20 Intake & Output 03/18/21 03/18/21 03/19/21 06:59 18:59 06:59 Intake Total 80 480 Output Total 600 Balance 80 -120 Weight 33.4 kg Intake: Intake, IV Titration 80 Amount Sodium Chloride 0.9% 1, 80 000 ml @ 20 mls/hr IV . Q24H [facility] Rx#:[id number] Oral 480 Output: Urine 600 Other: Voiding Method Bedside Commode Bedside Commode # Bowel Movements 1 - Exam Patient is alert and awake, in no distress. Patient appears older than her stated age. Speech and language functions are normal. Patient is well oriented. No aphasia. Detailed testing deferred. 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 No focal, lateralized or epileptiform activity was seen. Numerous instances of right leg jerking were noted during the study, in which only myogenic artifact were seen, with no electrographic correlate. These spells are most likely nonepileptic in origin. Clinical correlation recommended. May consider discontinuing Keppra, as these events does not appear seizures. Consider stopping Wellbutrin, as it can lower seizure threshold. The patient needs to follow-up with a neurologist as an outpatient within 1-2 weeks.
--- NOTE | 2021-03-19 21:42 | DS ---
DISCHARGE SUMMARY CHIEF COMPLAINT: Weakness and spasms in the right leg. HISTORY OF PRESENT ILLNESS AND PHYSICAL EXAMINATION: Details of this lady's history and physical can be found in the initial workup. LABORATORY STUDIES: While she was in the hospital, she had laboratory studies, details of which can be found in the laboratory section of her chart. COURSE IN THE HOSPITAL: After admission, she was placed on bedrest and started on intravenous fluids and frequent monitoring of her neurologic status and vital signs. It was thought that this could have represented a seizure disorder and possibly a central nervous system problem. She was seen, evaluated by Neurology, who felt that this was not seizure activity or a neurologic issue. She was doing well and had no further muscle spasms or cramping of legs and strength was normal. It was felt she could go home on usual activity, diet, medication, and she will follow up in the office. FINAL DIAGNOSES: Muscle spasm and muscle twitching in the right lower extremity. OPERATIONS: None. CONSULTATION: Neurology. She is improved. MMSOHAIL / DORISN: [id number] /
[2021-03-20 15:24] LABS: Ferritin 25.7 ng/mL (10.0-291.0)
== END 2021-03-18 18:12 | disposition home or self-care (01) | DRG 556 ==
LOC: EC 13:08 → 3SCARD 15:29 → OBSVTOIN 03-18 13:53
PROVIDERS: ADMIT Family Medicine; ATTEND Family Medicine
DX: M62.838 Other muscle spasm (principal); F17.210 Nicotine dependence, cigarettes, uncomplicated; I50.9 Heart failure, unspecified; Z79.899 Other long term (current) drug therapy; Z95.2 Presence of prosthetic heart valve; R25.3 Fasciculation; F41.9 Anxiety disorder, unspecified; F90.9 Attention-deficit hyperactivity disorder, unspecified type; R50.9 Fever, unspecified; Z91.030 Bee allergy status; Z20.822 Contact with and (suspected) exposure to COVID-19
CPT/HCPCS: 36415; 70450; 71046; 80053; 81001; 82728; 83615; 83735; 84145; 85025; 85379; 86140; 87040; 87635; 93005; 95816; 96374; 99285

== ENCOUNTER 2021-03-22 12:07 | Emergency (ER) | payer MEDICARE, OTHER ==
[2021-03-22 12:18] VITALS: RESP 18; TEMP 98.3
[2021-03-22] MEDS ORDERED: SODIUM CHLORIDE 0.9% 500 ML 500 ML IV STA (12:41)
[2021-03-22] MEDS ORDERED: MECLIZINE 12.5 MG TAB PO STA (12:41)
[2021-03-22] MEDS ORDERED: METOCLOPRAMIDE 5 MG/ML 2 ML VIAL IVP STA (12:42)
--- NOTE | 2021-03-22 12:46 | ED ---
General Adult HPI - General Chief complaint: Dizziness Stated complaint: Dizziness Time Seen by Provider: 03/22/21 12:20 Source: patient, RN notes reviewed Mode of arrival: EMS Limitations: no limitations - History of Present Illness Initial comments: Patient is a pleasant 35 over female presenting to the emergency Department with complaints of dizziness. Patient was recently in the hospital with right leg shaking. This did improve however still occurring occasionally. Patient denies any weakness of her leg. Patient states today when she woke up she felt dizzy. Dizziness increases greatly with head movement and position changes. No history of previous dizziness. No headache. No weakness or confusion. Patient has mild nausea. No vomiting. - Related Data Home Medications Medication Instructions Recorded Confirmed FLUoxetine HCL [PROzac Weekly] 90 mg PO TU 08/27/17 03/22/21 traZODone HCL 200 mg PO HS 10/12/18 03/22/21 Famotidine [Pepcid] 20 mg PO BID 06/28/20 03/22/21 Montelukast [Singulair] 10 mg PO HS 06/28/20 03/22/21 Allopurinol [Zyloprim] 100 mg PO HS 03/16/21 03/22/21 Ergocalciferol [Vitamin D2 (1250 1,250 mcg PO Q30D 03/16/21 03/22/21 Mcg = 00527 Iu)] buPROPion [Wellbutrin] 75 mg PO BID 03/16/21 03/22/21 busPIRone HCl [Buspar] 10 mg PO BID 03/16/21 03/22/21 Loratadine [Claritin] 10 mg PO HS 03/22/21 03/22/21 Previous Rx's Medication Instructions Recorded Cephalexin [Keflex] 500 mg PO QID #30 cap 03/18/21 Allergies Allergy/AdvReac Type Severity Reaction Status Date / Time venom-honey bee Allergy Anaphylaxis Verified 03/22/21 12:55 Review of Systems ROS Statement: Those systems with pertinent positive or pertinent negative responses have been documented in the HPI. ROS Other: All systems not noted in ROS Statement are negative. Constitutional: Denies: fever Eyes: Denies: eye pain ENT: Denies: ear pain Respiratory: Denies: cough, dyspnea Cardiovascular: Denies: chest pain Endocrine: Denies: fatigue Gastrointestinal: Denies: abdominal pain Genitourinary: Denies: dysuria Musculoskeletal: Denies: back pain Skin: Denies: rash Neurological: Reports: as per HPI, vertigo. Denies: headache, weakness, confusion Past Medical History Past Medical History: Heart Failure, GI Bleed Additional Past Medical History / Comment(s): HEART VALVE REPLACEMENT. HX GI PROB FOR YEARS, HIATAL HERNIA. 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 DEVELOPMENTAL DISABILITY. colitis History of Any Multi-Drug Resistant Organisms: None Reported Past Surgical History: Ear Surgery, Hernia Repair, Orthopedic Surgery Additional Past Surgical History / Comment(s): RT Foot Surgery; Open Heart Surg @ 3 YRS OLD, VALVE REPLACED. EXC BRAIN TUMOR. HIATAL HERNIA REPAIR. RT EARDRUM REPAIRED. Past Anesthesia/Blood Transfusion Reactions: No Reported Reaction Past Psychological History: ADD/ADHD, Anxiety Smoking Status: Current every day smoker Past Alcohol Use History: None Reported Past Drug Use History: None Reported - Past Family History Father Family Medical History: No Reported History Additional Family Medical History / Comment(s): Mother Family Medical History: No Reported History Additional Family Medical History / Comment(s): General Exam Limitations: no limitations General appearance: alert, in no apparent distress Head exam: Present: normocephalic Eye exam: Present: normal appearance, PERRL, EOMI. Absent: nystagmus ENT exam: Present: normal oropharynx, TM's normal bilaterally Neck exam: Present: normal inspection Respiratory exam: Present: normal lung sounds bilaterally Cardiovascular Exam: Present: regular rate, normal rhythm GI/Abdominal exam: Present: soft. Absent: tenderness Extremities exam: Present: normal inspection Neurological exam: Present: alert, CN II-XII intact. Absent: motor sensory deficit Expanded Neurological exam: Present: protecting the airway Speech: Present: fluid speech Cranial nerves: EOM's Intact: Normal Motor strength exam: RUE: 5, LUE: 5, RLE: 5, LLE: 5 Eye Response: (4) open spontaneously Motor Response: (6) obeys commands Verbal Response: (5) oriented Psychiatric exam: Present: normal affect, normal mood Skin exam: Present: normal color Course Vital Signs 03/22/21 03/22/21 12:16 13:30 Temperature 98.3 F Pulse Rate 79 74 Respiratory 18 18 Rate Blood Pressure 119/71 122/73 O2 Sat by Pulse 97 98 Oximetry EKG Findings - EKG Comments: EKG Findings:: Normal sinus rhythm with a rate of 77. Sinus arrhythmia. [place] 1 60 mL per QRS 84. QT 406. QTc 49. Normal axis. Normal QRS. Nonspecific T waves. Medical Decision Making - Medical Decision Making Patient requesting discharge home. Patient reevaluated and symptom-free. Patient was able to ambulate without difficulty. - Lab Data Result diagrams: 03/22/21 12:51 03/22/21 12:51 Lab Results 03/22/21 03/22/21 Range/Units 12:51 12:51 WBC 7.7 (3.8-10.6) k/uL RBC 4.71 (3.80-5.40) m/uL Hgb 14.2 (11.4-16.0) gm/dL Hct 39.5 (34.0-46.0) % MCV 84.0 (80.0-100.0) fL MCH 30.2 (25.0-35.0) pg MCHC 36.0 (31.0-37.0) g/dL RDW 12.7 (11.5-15.5) % Plt Count 185 (150-450) k/uL MPV 7.5 Neutrophils % 70 % Lymphocytes % 15 % Monocytes % 11 % Eosinophils % 1 % Basophils % 0 % Neutrophils # 5.4 (1.3-7.7) k/uL Lymphocytes # 1.2 (1.0-4.8) k/uL Monocytes # 0.9 (0-1.0) k/uL Eosinophils # 0.1 (0-0.7) k/uL Basophils # 0.0 (0-0.2) k/uL Sodium 134 L (137-145) mmol/L Potassium 4.1 (3.5-5.1) mmol/L Chloride 102 (98-107) mmol/L Carbon Dioxide 23 (22-30) mmol/L Anion Gap 9 mmol/L BUN 5 L (7-17) mg/dL Creatinine 0.49 L (0.52-1.04) mg/dL Est GFR (CKD-EPI)AfAm >90 (>60 ml/min/1.73 sqM) Est GFR (CKD-EPI)NonAf >90 (>60 ml/min/1.73 sqM) Glucose 98 (74-99) mg/dL Calcium 8.9 (8.4-10.2) mg/dL Total Bilirubin 0.5 (0.2-1.3) mg/dL AST 27 (14-36) U/L ALT 33 (4-34) U/L Alkaline Phosphatase 72 (38-126) U/L Total Protein 6.4 (6.3-8.2) g/dL Albumin 3.9 (3.5-5.0) g/dL Disposition Clinical Impression: Vertigo Disposition: HOME SELF-CARE Condition: Stable Instructions (If sedation given, give patient instructions): Dizziness (ED) Additional Instructions: [id number] Antivert if needed. Please follow-up with primary care physician in the next day or 2 for recheck. Return for dizziness, unable to walk, weakness or confusion, worsening or change in symptoms or other concerns. Is patient prescribed a controlled substance at d/c from ED?: No Referrals: Eduardo Montoya MD [Primary Care Provider] - 1-2 days Time of Disposition: 14:28
[2021-03-22 13:15] LABS: ALT 33 U/L (4-34); AST 27 U/L (14-36); African American GFR (CKD) >90 (>60 ml/min/1.73 sqM); Albumin 3.9 g/dL (3.5-5.0); Alkaline Phosphatase 72 U/L (38-126); Anion Gap 9 mmol/L; Blood Urea Nitrogen 5 mg/dL (7-17); Calcium 8.9 mg/dL (8.4-10.2); Carbon Dioxide 23 mmol/L (22-30); Chloride 102 mmol/L (98-107); Glucose 98 mg/dL (74-99); Non-African American GFR(CKD) >90 (>60 ml/min/1.73 sqM); Potassium 4.1 mmol/L (3.5-5.1); Sodium 134 mmol/L (137-145); Total Bilirubin 0.5 mg/dL (0.2-1.3); Total Protein 6.4 g/dL (6.3-8.2)
[2021-03-22 13:25] LABS: Basophils % (A) 0 %; Eosinophils # (A) 0.1 k/uL (0-0.7); Eosinophils % (A) 1 %; HCT 39.5 % (34.0-46.0); HGB 14.2 gm/dL (11.4-16.0); Lymphocytes # (A) 1.2 k/uL (1.0-4.8); Lymphocytes % (A) 15 %; MCH 30.2 pg (25.0-35.0); Mean Platelet Volume 7.5; Monocytes # (A) 0.9 k/uL (0-1.0); Monocytes % (A) 11 %; Neutrophils # (A) 5.4 k/uL (1.3-7.7); Neutrophils % (A) 70 %; Platelet Count 185 k/uL (150-450); RBC 4.71 m/uL (3.80-5.40); RDW 12.7 % (11.5-15.5); WBC 7.7 k/uL (3.8-10.6)
[2021-03-22 13:33] VITALS: BP 122/73; PULSE 74
== END 2021-03-22 14:34 | disposition home or self-care (01) ==
LOC: EC 12:07
DX: R42 Dizziness and giddiness (principal); R11.0 Nausea; I50.9 Heart failure, unspecified; F41.9 Anxiety disorder, unspecified; F90.9 Attention-deficit hyperactivity disorder, unspecified type; F17.200 Nicotine dependence, unspecified, uncomplicated; Z95.2 Presence of prosthetic heart valve
CPT/HCPCS: 36415; 93005; 80053; 85025; 99284; 96374; 96361 ×2; J2765

== ENCOUNTER 2021-04-11 13:16 | Emergency (ER) | payer MEDICARE, OTHER ==
[2021-04-11 13:30] VITALS: RESP 18; TEMP 98.6
--- NOTE | 2021-04-11 13:55 | ED ---
General Adult HPI - General Chief complaint: Seizure Stated complaint: Seizure Time Seen by Provider: 04/11/21 13:20 Source: patient, EMS, RN notes reviewed, old records reviewed Mode of arrival: EMS Limitations: no limitations - History of Present Illness Initial comments: This is a 35-year-old female who presents emergency Department with developmenta l delay and a history of seizures. Patient states yesterday she had a seizure that lasted less than a minute and her leg was shaking and again today she had a seizure where her leg was shaking and it lasted a minute. Patient states she was not unconscious and according to EMS there was no postictal state. Patient denies any recent fever chills or cough per patient denies any chest pain palpitations difficulty breathing or shortness of breath. Patient denies any abdominal pain patient denies nausea vomiting diarrhea. Patient denies any recent injury or trauma. Patient denies any dysuria hematuria urinary frequency. Patient states she's on Keppra and takes it daily. He states are getting with her cousin is what made seizure come on. - Related Data Home Medications Medication Instructions Recorded Confirmed FLUoxetine HCL [PROzac Weekly] 90 mg PO TU 08/27/17 03/22/21 traZODone HCL 200 mg PO HS 10/12/18 03/22/21 Famotidine [Pepcid] 20 mg PO BID 06/28/20 03/22/21 Montelukast [Singulair] 10 mg PO HS 06/28/20 03/22/21 Allopurinol [Zyloprim] 100 mg PO HS 03/16/21 03/22/21 Ergocalciferol [Vitamin D2 (1250 1,250 mcg PO Q30D 03/16/21 03/22/21 Mcg = 76226 Iu)] buPROPion [Wellbutrin] 75 mg PO BID 03/16/21 03/22/21 busPIRone HCl [Buspar] 10 mg PO BID 03/16/21 03/22/21 Loratadine [Claritin] 10 mg PO HS 03/22/21 03/22/21 Previous Rx's Medication Instructions Recorded Cephalexin [Keflex] 500 mg PO QID #30 cap 03/18/21 Allergies Allergy/AdvReac Type Severity Reaction Status Date / Time venom-honey bee Allergy Anaphylaxis Verified 03/22/21 12:55 Review of Systems ROS Statement: Those systems with pertinent positive or pertinent negative responses have been documented in the HPI. ROS Other: All systems not noted in ROS Statement are negative. Past Medical History Past Medical History: Heart Failure, GI Bleed Additional Past Medical History / Comment(s): HEART VALVE REPLACEMENT. HX GI PROB FOR YEARS, HIATAL HERNIA. 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 DEVELOPMENTAL DISABILITY. colitis History of Any Multi-Drug Resistant Organisms: None Reported Past Surgical History: Ear Surgery, Hernia Repair, Orthopedic Surgery Additional Past Surgical History / Comment(s): RT Foot Surgery; Open Heart Surg @ 3 YRS OLD, VALVE REPLACED. EXC BRAIN TUMOR. HIATAL HERNIA REPAIR. RT EARDRUM REPAIRED. Past Anesthesia/Blood Transfusion Reactions: No Reported Reaction Past Psychological History: ADD/ADHD, Anxiety Smoking Status: Current every day smoker Past Alcohol Use History: None Reported Past Drug Use History: None Reported - Past Family History Father Family Medical History: No Reported History Additional Family Medical History / Comment(s): Mother Family Medical History: No Reported History Additional Family Medical History / Comment(s): General Exam - General Exam Comments Initial Comments: GENERAL: Patient is well-developed and well-nourished. Patient is nontoxic and well- hydrated and is in no acute distress. ENT: Neck is soft and supple. No significant lymphadenopathy is noted. Oropharynx is clear. Moist mucous membranes. Neck has full range of motion without eliciting any pain. EYES: The sclera were anicteric and conjunctiva were pink and moist. Extraocular movements were intact and pupils were equal round and reactive to light. Eyelids were unremarkable. PULMONARY: Unlabored respirations. Good breath sounds bilaterally. No audible rales rhonchi or wheezing was noted. CARDIOVASCULAR: There is a regular rate and rhythm without any murmurs gallops or rubs. ABDOMEN: Soft and nontender with normal bowel sounds. SKIN: Skin is clear with no lesions or rashes and otherwise unremarkable. NEUROLOGIC: Patient is alert and oriented 2. Cranial nerves II through XII are grossly intact. Motor and sensory are also intact. Normal speech, volume and content. Symmetrical smile. MUSCULOSKELETAL: Normal extremities with adequate strength and full range of motion. No lower extremity swelling or edema. No calf tenderness. LYMPHATICS: No significant lymphadenopathy is noted PSYCHIATRIC: Normal psychiatric evaluation. Limitations: no limitations Course Vital Signs 04/11/21 13:21 Temperature 98.6 F Pulse Rate 89 Respiratory 18 Rate Blood Pressure 111/63 O2 Sat by Pulse 97 Oximetry Medical Decision Making - Medical Decision Making Patient will follow-up with her primary medical care doctor. She was seizure free while in the emergency department. It's difficult to assess whether patient actually had a seizure because she states she was always awake and it only occurred because her cousin upset her it only nourished leg was shaking. Patient states she was not confused at all after the seizure she described everything that was going on during the seizure. - Lab Data Result diagrams: 04/11/21 14:06 04/11/21 14:06 Lab Results 04/11/21 04/11/21 Range/Units 14:06 14:06 WBC 6.2 (3.8-10.6) k/uL RBC 4.46 (3.80-5.40) m/uL Hgb 13.3 (11.4-16.0) gm/dL Hct 38.0 (34.0-46.0) % MCV 85.4 (80.0-100.0) fL MCH 29.9 (25.0-35.0) pg MCHC 35.0 (31.0-37.0) g/dL RDW 13.1 (11.5-15.5) % Plt Count 200 (150-450) k/uL MPV 7.7 Neutrophils % 65 % Lymphocytes % 22 % Monocytes % 9 % Eosinophils % 1 % Basophils % 1 % Neutrophils # 4.0 (1.3-7.7) k/uL Lymphocytes # 1.4 (1.0-4.8) k/uL Monocytes # 0.6 (0-1.0) k/uL Eosinophils # 0.1 (0-0.7) k/uL Basophils # 0.1 (0-0.2) k/uL Sodium 140 (137-145) mmol/L Potassium 4.1 (3.5-5.1) mmol/L Chloride 109 H (98-107) mmol/L Carbon Dioxide 25 (22-30) mmol/L Anion Gap 6 mmol/L BUN 7 (7-17) mg/dL Creatinine 0.63 (0.52-1.04) mg/dL Est GFR (CKD-EPI)AfAm >90 (>60 ml/min/1.73 sqM) Est GFR (CKD-EPI)NonAf >90 (>60 ml/min/1.73 sqM) Glucose 100 H (74-99) mg/dL Calcium 9.1 (8.4-10.2) mg/dL Total Bilirubin 0.3 (0.2-1.3) mg/dL AST 28 (14-36) U/L ALT 33 (4-34) U/L Alkaline Phosphatase 65 (38-126) U/L Total Protein 6.1 L (6.3-8.2) g/dL Albumin 3.7 (3.5-5.0) g/dL Disposition Clinical Impression: Pseudoseizure Disposition: HOME SELF-CARE Condition: Good Instructions (If sedation given, give patient instructions): Recurrent Seizures in Adults (ED) Is patient prescribed a controlled substance at d/c from ED?: No Referrals: Eduardo Montoya MD [Primary Care Provider] - 1-2 days Time of Disposition: 14:37
[2021-04-11 14:20] LABS: Basophils # (A) 0.1 k/uL (0-0.2); Basophils % (A) 1 %; Eosinophils # (A) 0.1 k/uL (0-0.7); Eosinophils % (A) 1 %; HGB 13.3 gm/dL (11.4-16.0); Lymphocytes # (A) 1.4 k/uL (1.0-4.8); Lymphocytes % (A) 22 %; MCH 29.9 pg (25.0-35.0); MCV 85.4 fL (80.0-100.0); Mean Platelet Volume 7.7; Monocytes # (A) 0.6 k/uL (0-1.0); Monocytes % (A) 9 %; Neutrophils % (A) 65 %; Platelet Count 200 k/uL (150-450); RBC 4.46 m/uL (3.80-5.40); RDW 13.1 % (11.5-15.5); WBC 6.2 k/uL (3.8-10.6)
[2021-04-11 14:30] LABS: ALT 33 U/L (4-34); AST 28 U/L (14-36); African American GFR (CKD) >90 (>60 ml/min/1.73 sqM); Albumin 3.7 g/dL (3.5-5.0); Alkaline Phosphatase 65 U/L (38-126); Anion Gap 6 mmol/L; Blood Urea Nitrogen 7 mg/dL (7-17); Calcium 9.1 mg/dL (8.4-10.2); Carbon Dioxide 25 mmol/L (22-30); Chloride 109 mmol/L (98-107); Glucose 100 mg/dL (74-99); Non-African American GFR(CKD) >90 (>60 ml/min/1.73 sqM); Potassium 4.1 mmol/L (3.5-5.1); Sodium 140 mmol/L (137-145); Total Bilirubin 0.3 mg/dL (0.2-1.3); Total Protein 6.1 g/dL (6.3-8.2)
[2021-04-11 15:05] VITALS: BP 103/70; PULSE 72
== END 2021-04-11 15:07 | disposition home or self-care (01) ==
LOC: EC 13:16
DX: R56.9 Unspecified convulsions (principal); I50.9 Heart failure, unspecified; F41.9 Anxiety disorder, unspecified; F90.9 Attention-deficit hyperactivity disorder, unspecified type; F17.200 Nicotine dependence, unspecified, uncomplicated; Z95.2 Presence of prosthetic heart valve
CPT/HCPCS: 36415; 80053; 80177; 85025; 99285

== ENCOUNTER 2021-04-17 18:25 | Emergency (ER) | payer MEDICARE, OTHER ==
[2021-04-17 18:30] VITALS: RESP 18; TEMP 98.5
[2021-04-17] MEDS ORDERED: SODIUM CHLORIDE 0.9% 500 ML 500 ML IV STA (19:03)
[2021-04-17 19:29] LABS: Basophils # (A) 0.1 k/uL (0-0.2); Basophils % (A) 1 %; Eosinophils # (A) 0.1 k/uL (0-0.7); Eosinophils % (A) 1 %; HCT 36.7 % (34.0-46.0); HGB 13.1 gm/dL (11.4-16.0); Lymphocytes % (A) 27 %; MCH 30.4 pg (25.0-35.0); MCHC 35.6 g/dL (31.0-37.0); MCV 85.3 fL (80.0-100.0); Mean Platelet Volume 7.4; Monocytes # (A) 0.7 k/uL (0-1.0); Monocytes % (A) 9 %; Neutrophils # (A) 4.7 k/uL (1.3-7.7); Neutrophils % (A) 61 %; Platelet Count 204 k/uL (150-450); RDW 13.1 % (11.5-15.5); WBC 7.7 k/uL (3.8-10.6)
[2021-04-17 19:42] LABS: ALT 32 U/L (4-34); AST 32 U/L (14-36); African American GFR (CKD) >90 (>60 ml/min/1.73 sqM); Albumin 3.6 g/dL (3.5-5.0); Alcohol <10 mg/dL; Alkaline Phosphatase 78 U/L (38-126); Anion Gap 5 mmol/L; Blood Urea Nitrogen 7 mg/dL (7-17); Calcium 9.1 mg/dL (8.4-10.2); Carbon Dioxide 26 mmol/L (22-30); Chloride 107 mmol/L (98-107); Glucose 85 mg/dL (74-99); Non-African American GFR(CKD) >90 (>60 ml/min/1.73 sqM); Potassium 4.2 mmol/L (3.5-5.1); Sodium 138 mmol/L (137-145); Total Bilirubin 0.1 mg/dL (0.2-1.3); Total Protein 5.9 g/dL (6.3-8.2)
[2021-04-17 20:04] LABS: Appearance,Urine Cloudy (Clear); Bacteria,Urine Rare /hpf; Bilirubin,Urine Negative (Negative); Blood,Urine Negative (Negative); Budding Yeast,Urine Occasional /hpf; Color,Urine Light Yellow; Glucose,Urine (UA) Negative (Negative); Ketones,Urine Negative (Negative); Leukocyte Esterase,Urine Large (Negative); Nitrite,Urine Negative (Negative); PH, Urine 5.5 (5.0-8.0); Protein,Urine Negative (Negative); RBC,Urine 2 /hpf (0-5); Specific Gravity,Urine 1.007 (1.001-1.035); Squamous Epithelial Cell,Urine 4 /hpf (0-4); Urobilinogen,Urine <2.0 mg/dL (<2.0); WBC,Urine 12 /hpf (0-5)
[2021-04-17] MEDS ORDERED: cefTRIAXone IN SWFI 1,000 MG/10 ML SYRINGE IVP STA (20:42)
--- NOTE | 2021-04-17 20:45 | ED ---
Seizure HPI - General Chief Complaint: Seizure Stated Complaint: seizure Time Seen by Provider: 04/17/21 18:57 Source: patient, EMS Mode of arrival: EMS - History of Present Illness Initial Comments: 35 year-old female patient with developmental delay presents to the emergency department for evaluation of seizures. Patient states she had a seizure prior to coming in. States that it lasted about 4 minutes. Denies any loss of bowel or bladder control. States she was "unconscious". Is unable to describe the activity of the seizure. I was called into the room for patient having another seizure. Upon entry the patient's right leg was shaking. I was able to ask questions and obtain history. "Seizure activity" stopped while patient was talking and resumed when she was quiet. She denies any headache, dizziness, blurred, or double vision. Denies any nausea, vomiting, fever, or chills. Patient denies any recent rash, cough, shortness of breath, chest pain, abdominal pain, diarrhea, constipation, back pain, numbness, tingling, dizziness, weakness, headache, visual changes, or any other complaints. - Related Data Home Medications Medication Instructions Recorded Confirmed FLUoxetine HCL [PROzac Weekly] 90 mg PO TU 08/27/17 03/22/21 traZODone HCL 200 mg PO HS 10/12/18 03/22/21 Famotidine [Pepcid] 20 mg PO BID 06/28/20 03/22/21 Montelukast [Singulair] 10 mg PO HS 06/28/20 03/22/21 Allopurinol [Zyloprim] 100 mg PO HS 03/16/21 03/22/21 Ergocalciferol [Vitamin D2 (1250 1,250 mcg PO Q30D 03/16/21 03/22/21 Mcg = 38036 Iu)] buPROPion [Wellbutrin] 75 mg PO BID 03/16/21 03/22/21 busPIRone HCl [Buspar] 10 mg PO BID 03/16/21 03/22/21 Loratadine [Claritin] 10 mg PO HS 03/22/21 03/22/21 Previous Rx's Medication Instructions Recorded Cephalexin [Keflex] 500 mg PO QID #30 cap 03/18/21 Cephalexin [Keflex] 500 mg PO TID #21 cap 04/17/21 Allergies Allergy/AdvReac Type Severity Reaction Status Date / Time venom-honey bee Allergy Anaphylaxis Verified 03/22/21 12:55 Review of Systems ROS Statement: Those systems with pertinent positive or pertinent negative responses have been documented in the HPI. ROS Other: All systems not noted in ROS Statement are negative. Past Medical History Past Medical History: Heart Failure, GI Bleed Additional Past Medical History / Comment(s): HEART VALVE REPLACEMENT. HX GI PROB FOR YEARS, HIATAL HERNIA. 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 DEVELOPMENTAL DISABILITY. colitis History of Any Multi-Drug Resistant Organisms: None Reported Past Surgical History: Ear Surgery, Hernia Repair, Orthopedic Surgery Additional Past Surgical History / Comment(s): RT Foot Surgery; Open Heart Surg @ 3 YRS OLD, VALVE REPLACED. EXC BRAIN TUMOR. HIATAL HERNIA REPAIR. RT EARDRUM REPAIRED. Past Anesthesia/Blood Transfusion Reactions: No Reported Reaction Past Psychological History: ADD/ADHD, Anxiety Smoking Status: Current every day smoker Past Alcohol Use History: None Reported Past Drug Use History: None Reported - Past Family History Father Family Medical History: No Reported History Additional Family Medical History / Comment(s): Mother Family Medical History: No Reported History Additional Family Medical History / Comment(s): General Exam General appearance: alert, in no apparent distress Eye exam: Present: normal appearance, PERRL, EOMI. Absent: scleral icterus, conjunctival injection, nystagmus, periorbital swelling ENT exam: Present: normal exam, normal oropharynx, mucous membranes moist Respiratory exam: Present: normal lung sounds bilaterally. Absent: respiratory distress, wheezes, rales, rhonchi, stridor Cardiovascular Exam: Present: regular rate, normal rhythm, normal heart sounds. Absent: systolic murmur, diastolic murmur, rubs, gallop, clicks GI/Abdominal exam: Present: soft, normal bowel sounds. Absent: distended, tenderness, guarding, rebound, rigid Neurological exam: Present: alert, oriented X3, CN II-XII intact Expanded Speech: Present: fluid speech Cranial nerves: EOM's Intact: Normal, Nystagmus: Normal Eye Response: (4) open spontaneously Motor Response: (6) obeys commands Verbal Response: (5) oriented Psychiatric exam: Present: normal affect, normal mood Skin exam: Present: warm, dry, intact, normal color. Absent: rash Course Vital Signs 04/17/21 04/17/21 18:27 20:59 Temperature 98.5 F Pulse Rate 84 70 Respiratory 18 18 Rate Blood Pressure 112/77 110/62 O2 Sat by Pulse 98 97 Oximetry Medical Decision Making - Medical Decision Making 35-year-old female patient with development of delay history is seizures presents to the emergency department today for evaluation of seizures. States she had a 4 minute seizure at home. Has been taking Keppra did have an increase in the dosage yesterday. Physical examination is unremarkable. She is neurologically intact with no focal deficit. I was called into the room and informed patient was having a seizure upon my arrival her right leg was shaking. Right leg shaking did stop we are having a conversation and resumed when we were done. Labs unremarkable. There is evidence for urinary tract infection. She will be discharged with antibiotics. She is instructed to follow-up with the primary care physician and neurologist for further evaluation over the next 1-2 days. Return parameters were discussed in detail. She verbalizes underst anding and agrees with this plan. My attending is Dr. Trejo. - Lab Data Result diagrams: 04/17/21 19:15 04/17/21 19:15 Lab Results 04/17/21 04/17/21 04/17/21 Range/Units 19:15 19:15 19:15 WBC 7.7 (3.8-10.6) k/uL RBC 4.30 (3.80-5.40) m/uL Hgb 13.1 (11.4-16.0) gm/dL Hct 36.7 (34.0-46.0) % MCV 85.3 (80.0-100.0) fL MCH 30.4 (25.0-35.0) pg MCHC 35.6 (31.0-37.0) g/dL RDW 13.1 (11.5-15.5) % Plt Count 204 (150-450) k/uL MPV 7.4 Neutrophils % 61 % Lymphocytes % 27 % Monocytes % 9 % Eosinophils % 1 % Basophils % 1 % Neutrophils # 4.7 (1.3-7.7) k/uL Lymphocytes # 2.0 (1.0-4.8) k/uL Monocytes # 0.7 (0-1.0) k/uL Eosinophils # 0.1 (0-0.7) k/uL Basophils # 0.1 (0-0.2) k/uL Sodium 138 (137-145) mmol/L Potassium 4.2 (3.5-5.1) mmol/L Chloride 107 (98-107) mmol/L Carbon Dioxide 26 (22-30) mmol/L Anion Gap 5 mmol/L BUN 7 (7-17) mg/dL Creatinine 0.70 (0.52-1.04) mg/dL Est GFR (CKD-EPI)AfAm >90 (>60 ml/min/1.73 sqM) Est GFR (CKD-EPI)NonAf >90 (>60 ml/min/1.73 sqM) Glucose 85 (74-99) mg/dL Calcium 9.1 (8.4-10.2) mg/dL Total Bilirubin 0.1 L (0.2-1.3) mg/dL AST 32 (14-36) U/L ALT 32 (4-34) U/L Alkaline Phosphatase 78 (38-126) U/L Total Protein 5.9 L (6.3-8.2) g/dL Albumin 3.6 (3.5-5.0) g/dL Urine Color Light Yellow Urine Appearance Cloudy H (Clear) Urine pH 5.5 (5.0-8.0) Ur Specific [place] 1.007 (1.001-1.035) Urine Protein Negative (Negative) Urine Glucose (UA) Negative (Negative) Urine Ketones Negative (Negative) Urine Blood Negative (Negative) Urine Nitrite Negative (Negative) Urine Bilirubin Negative (Negative) Urine Urobilinogen <2.0 (<2.0) mg/dL Ur Leukocyte Esterase Large H (Negative) Urine RBC 2 (0-5) /hpf Urine WBC 12 H (0-5) /hpf Ur Squamous Epith Cells 4 (0-4) /hpf Urine Bacteria Rare H (None) /hpf Urine Yeast (Budding) Occasional H (None) /hpf Serum Alcohol <10 mg/dL - EKG Data -: EKG Interpreted by Me EKG Comments: EKG obtained in 192 shows normal sinus rhythm with a ventricular rate is 67, HI interval 198, QR holiness 82, QT 418, QTC 441. No evidence of ST elevation or depression. Disposition Clinical Impression: Seizure, UTI (urinary tract infection) Disposition: HOME SELF-CARE Condition: Good Instructions (If sedation given, give patient instructions): Urinary Tract Infection in Women (ED), Recurrent Seizures in Adults (ED) Additional Instructions: Take medications as directed. Follow up with your primary care physician for recheck in 1-2 days. Follow up with neurologist for further evaluation as soon as possible. Return for any new, worsening, or concerning symptoms Prescriptions: Cephalexin [Keflex] 500 mg PO TID #21 cap Is patient prescribed a controlled substance at d/c from ED?: No Referrals: Eduardo Montoya MD [Primary Care Provider] - 1-2 days Time of Disposition: 20:45
[2021-04-17 21:00] VITALS: BP 110/62; PULSE 70
== END 2021-04-17 21:01 | disposition home or self-care (01) ==
LOC: EC 18:25
DX: R56.9 Unspecified convulsions (principal); N39.0 Urinary tract infection, site not specified; I50.9 Heart failure, unspecified; F90.9 Attention-deficit hyperactivity disorder, unspecified type; F41.9 Anxiety disorder, unspecified; F17.200 Nicotine dependence, unspecified, uncomplicated; Z79.899 Other long term (current) drug therapy
CPT/HCPCS: 36415; 93005; 80053; 80177; 85025; 81001; 87086; 99285; 96374; 96361; G0480; J0696; 80320

== ENCOUNTER → 2021-05-02 | Outpatient (CLI) | payer MEDICARE, OTHER ==
--- NOTE | 2021-05-02 13:24 | MR ---
EXAMINATION TYPE: MR brain wo/w con DATE OF EXAM: 05/02/2021 COMPARISON: CT brain 03/16/2021 HISTORY: Seizures, patient unsure when they started. TECHNIQUE: Fast brain protocol was utilized due to patient's inability to cooperate with the exam Multiplanar, multisequence images of the brain and brainstem is performed without and with IV contras t, utilizing 3 mL intravenous Gadavist . FINDINGS: There is artifact on the exam. Diffusion weighted images demonstrate no evidence of a recen t infarct or other diffusion abnormality. There is similar crescentic CSF signal intensity focus pos terior to the cerebellar hemisphere right greater than left consistent with an arachnoid cyst. There is a focus of hyperintensity in the right frontal white matter, pericallosal location measuring 7 mm , axial image 19, some confluent hyperintensity present in the periventricular white matter and in th e recovery sequences, T2-weighted sequences. The ventricular system and cisternal spaces are normal i n size and appearance. The brain volume is age appropriate. Cerebellopontine angles are normal. No e vidence of mesial temporal sclerosis. Midline structures demonstrate normal morphology. The craniocervical junction appears within normal limits. Post contrast images demonstrate no abnormal enhancement. The dural venous sinuses appear pa tent. The visualized sinuses are clear and the globes are intact. IMPRESSION: Nonspecific white matter demyelination of questionable clinical significance. Limitations as described. Probable arachnoid cyst.
== END | disposition home or self-care (01) ==
LOC: RADMRIMAIN 10:36
PROVIDERS: ATTEND Psychiatry & Neurology Neurology
DX: R56.9 Unspecified convulsions (principal)
CPT/HCPCS: 70553; A9585

== ENCOUNTER 2021-05-16 18:24 | Emergency (ER) | payer MEDICARE, OTHER ==
[2021-05-16 19:07] VITALS: BP 143/85; PULSE 76; RESP 18; TEMP 98.8
[2021-05-16] MEDS ORDERED: ONDANSETRON 4 MG/2 ML VIAL IVP STA (19:40)
[2021-05-16] MEDS ORDERED: SODIUM CHLORIDE 0.9% 1,000 ML IV STA (19:40)
[2021-05-16 20:17] LABS: Basophils # (A) 0.1 k/uL (0-0.2); Basophils % (A) 1 %; Eosinophils # (A) 0.1 k/uL (0-0.7); Eosinophils % (A) 1 %; HCT 40.6 % (34.0-46.0); HGB 15.1 gm/dL (11.4-16.0); Hyperchromasia Slight; Lymphocytes # (A) 2.6 k/uL (1.0-4.8); Lymphocytes % (A) 27 %; MCH 30.7 pg (25.0-35.0); MCHC 37.2 g/dL (31.0-37.0); MCV 82.6 fL (80.0-100.0); Monocytes % (A) 11 %; Neutrophils # (A) 5.6 k/uL (1.3-7.7); Neutrophils % (A) 59 %; Platelet Count 229 k/uL (150-450); RBC 4.92 m/uL (3.80-5.40); RDW 12.5 % (11.5-15.5); WBC 9.6 k/uL (3.8-10.6)
--- NOTE | 2021-05-16 20:33 | ED ---
Abdominal Pain HPI - General Chief Complaint: Abdominal Pain Stated Complaint: Vomiting Time Seen by Provider: 05/16/21 19:26 Source: family, RN notes reviewed Mode of arrival: ambulatory Limitations: no limitations - History of Present Illness Initial Comments: Patient is a 35-year-old female that presents to the emergency room complaining of nausea and vomiting times past 6 days. She notes her primary care 100 come get evaluated for possible gastrointestinal fluid. Patient denied any abdominal pain or cramping. She notes that she is just concerned that she's been nauseous and vomiting several times a day over the last 6 days. She was in no apparent distress or pain while sitting up in bed in exam interview. She was well- appearing. She denied any chest pain shortness of breath headache diarrhea constipation fever fatigue chills hematemesis. - Related Data Home Medications Medication Instructions Recorded Confirmed FLUoxetine HCL [PROzac Weekly] 90 mg PO TU 08/27/17 03/22/21 traZODone HCL 200 mg PO HS 10/12/18 03/22/21 Famotidine [Pepcid] 20 mg PO BID 06/28/20 03/22/21 Montelukast [Singulair] 10 mg PO HS 06/28/20 03/22/21 Allopurinol [Zyloprim] 100 mg PO HS 03/16/21 03/22/21 Ergocalciferol [Vitamin D2 (1250 1,250 mcg PO Q30D 03/16/21 03/22/21 Mcg = 89188 Iu)] buPROPion [Wellbutrin] 75 mg PO BID 03/16/21 03/22/21 busPIRone HCl [Buspar] 10 mg PO BID 03/16/21 03/22/21 Loratadine [Claritin] 10 mg PO HS 03/22/21 03/22/21 Previous Rx's Medication Instructions Recorded Cephalexin [Keflex] 500 mg PO QID #30 cap 03/18/21 Cephalexin [Keflex] 500 mg PO TID #21 cap 04/17/21 Allergies Allergy/AdvReac Type Severity Reaction Status Date / Time venom-honey bee Allergy Anaphylaxis Verified 05/16/21 18:31 Review of Systems ROS Statement: Those systems with pertinent positive or pertinent negative responses have been documented in the HPI. ROS Other: All systems not noted in ROS Statement are negative. Past Medical History Past Medical History: Heart Failure, GI Bleed Additional Past Medical History / Comment(s): HEART VALVE REPLACEMENT. HX GI PROB FOR YEARS, HIATAL HERNIA. 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 DEVELOPMENTAL DISABILITY. colitis History of Any Multi-Drug Resistant Organisms: None Reported Past Surgical History: Ear Surgery, Hernia Repair, Orthopedic Surgery Additional Past Surgical History / Comment(s): RT Foot Surgery; Open Heart Surg @ 3 YRS OLD, VALVE REPLACED. EXC BRAIN TUMOR. HIATAL HERNIA REPAIR. RT EARDRUM REPAIRED. Past Anesthesia/Blood Transfusion Reactions: No Reported Reaction Past Psychological History: ADD/ADHD, Anxiety Smoking Status: Current every day smoker Past Alcohol Use History: None Reported Past Drug Use History: None Reported - Past Family History Father Family Medical History: No Reported History Additional Family Medical History / Comment(s): Mother Family Medical History: No Reported History Additional Family Medical History / Comment(s): General Exam Limitations: no limitations General appearance: alert, in no apparent distress Head exam: Present: atraumatic, normocephalic, normal inspection Eye exam: Present: normal appearance, PERRL, EOMI. Absent: scleral icterus, conjunctival injection, periorbital swelling Neck exam: Present: normal inspection Respiratory exam: Present: normal lung sounds bilaterally. Absent: respiratory distress, wheezes, rales, rhonchi, stridor Cardiovascular Exam: Present: regular rate, normal rhythm, normal heart sounds. Absent: systolic murmur, diastolic murmur, rubs, gallop, clicks GI/Abdominal exam: Present: soft, normal bowel sounds. Absent: distended, tenderness, guarding, rebound, rigid Extremities exam: Present: normal inspection, full ROM, normal capillary refill. Absent: tenderness, pedal edema, joint swelling, calf tenderness Neurological exam: Present: alert, oriented X3 Psychiatric exam: Present: normal affect, normal mood Skin exam: Present: warm, dry, intact, normal color. Absent: rash Course Vital Signs 05/16/21 18:28 Temperature 98.8 F Pulse Rate 76 Respiratory 18 Rate Blood Pressure 143/85 O2 Sat by Pulse 98 Oximetry Medical Decision Making - Medical Decision Making 35-year-old female complaining of nausea and vomiting 6 days. Labs, 1 L normal saline, 4 g of Zofran, KUB ordered. - Lab Data Result diagrams: 05/16/21 20:13 05/16/21 20:13 Lab Results 05/16/21 05/16/21 05/16/21 Range/Units 20:13 20:13 20:31 WBC 9.6 (3.8-10.6) k/uL RBC 4.92 (3.80-5.40) m/uL Hgb 15.1 (11.4-16.0) gm/dL Hct 40.6 (34.0-46.0) % MCV 82.6 (80.0-100.0) fL MCH 30.7 (25.0-35.0) pg MCHC 37.2 H (31.0-37.0) g/dL RDW 12.5 (11.5-15.5) % Plt Count 229 (150-450) k/uL MPV 7.0 Neutrophils % 59 % Lymphocytes % 27 % Monocytes % 11 % Eosinophils % 1 % Basophils % 1 % Neutrophils # 5.6 (1.3-7.7) k/uL Lymphocytes # 2.6 (1.0-4.8) k/uL Monocytes # 1.0 (0-1.0) k/uL Eosinophils # 0.1 (0-0.7) k/uL Basophils # 0.1 (0-0.2) k/uL Hyperchromasia Slight Sodium 135 L (137-145) mmol/L Potassium 3.4 L (3.5-5.1) mmol/L Chloride 99 (98-107) mmol/L Carbon Dioxide 24 (22-30) mmol/L Anion Gap 12 mmol/L BUN 4 L (7-17) mg/dL Creatinine 0.57 (0.52-1.04) mg/dL Est GFR (CKD-EPI)AfAm >90 (>60 ml/min/1.73 sqM) Est GFR (CKD-EPI)NonAf >90 (>60 ml/min/1.73 sqM) Glucose 104 H (74-99) mg/dL Calcium 9.3 (8.4-10.2) mg/dL Total Bilirubin 0.2 (0.2-1.3) mg/dL AST 22 (14-36) U/L ALT 16 (4-34) U/L Alkaline Phosphatase 78 (38-126) U/L Total Protein 6.3 (6.3-8.2) g/dL Albumin 4.0 (3.5-5.0) g/dL Amylase 46 (30-110) U/L Lipase 55 (23-300) U/L Urine Color Light Yellow Urine Appearance Cloudy H (Clear) Urine pH 6.5 (5.0-8.0) Ur Specific [place] 1.002 (1.001-1.035) Urine Protein Negative (Negative) Urine Glucose (UA) Negative (Negative) Urine Ketones Negative (Negative) Urine Blood Negative (Negative) Urine Nitrite Negative (Negative) Urine Bilirubin Negative (Negative) Urine Urobilinogen <2.0 (<2.0) mg/dL Ur Leukocyte Esterase Large H (Negative) Urine RBC 1 (0-5) /hpf Urine WBC 12 H (0-5) /hpf Ur Squamous Epith Cells 3 (0-4) /hpf Urine Bacteria Rare H (None) /hpf - Radiology Data Radiology results: report reviewed, image reviewed KUB: There is evidence for some mild large and small bowel ileus. No free air. I do not suspect a mechanical bowel obstruction. Disposition Clinical Impression: Abdominal pain, Nausea & vomiting, Gastritis Disposition: HOME SELF-CARE Condition: Stable Instructions (If sedation given, give patient instructions): Acute Nausea and V omiting (ED), Abdominal Pain (ED) Additional Instructions: Please return to the Emergency Department if symptoms worsen or any other concerns. Continue to take at home medications as prescribed. Increase oral fluids. Is patient prescribed a controlled substance at d/c from ED?: No Referrals: Eduardo Montoya MD [Primary Care Provider] - 1-2 days Time of Disposition: 21:26
[2021-05-16 20:35] LABS: ALT 16 U/L (4-34); AST 22 U/L (14-36); African American GFR (CKD) >90 (>60 ml/min/1.73 sqM); Alkaline Phosphatase 78 U/L (38-126); Amylase 46 U/L (30-110); Anion Gap 12 mmol/L; Blood Urea Nitrogen 4 mg/dL (7-17); Calcium 9.3 mg/dL (8.4-10.2); Carbon Dioxide 24 mmol/L (22-30); Chloride 99 mmol/L (98-107); Glucose 104 mg/dL (74-99); Lipase 55 U/L (23-300); Non-African American GFR(CKD) >90 (>60 ml/min/1.73 sqM); Potassium 3.4 mmol/L (3.5-5.1); Sodium 135 mmol/L (137-145); Total Bilirubin 0.2 mg/dL (0.2-1.3); Total Protein 6.3 g/dL (6.3-8.2)
[2021-05-16 21:01] LABS: Appearance,Urine Cloudy (Clear); Bacteria,Urine Rare /hpf; Bilirubin,Urine Negative (Negative); Blood,Urine Negative (Negative); Color,Urine Light Yellow; Glucose,Urine (UA) Negative (Negative); Ketones,Urine Negative (Negative); Leukocyte Esterase,Urine Large (Negative); Nitrite,Urine Negative (Negative); PH, Urine 6.5 (5.0-8.0); Protein,Urine Negative (Negative); RBC,Urine 1 /hpf (0-5); Specific Gravity,Urine 1.002 (1.001-1.035); Squamous Epithelial Cell,Urine 3 /hpf (0-4); Urobilinogen,Urine <2.0 mg/dL (<2.0); WBC,Urine 12 /hpf (0-5)
--- NOTE | 2021-05-16 21:19 | XR ---
EXAMINATION TYPE: XR KUB DATE OF EXAM: 05/16/2021 COMPARISON: 06/21/2012 HISTORY: Vomiting TECHNIQUE: Single view upright FINDINGS: There is some gas scattered in loops of large and small bowel. I see no evidence of free ai r. Lung bases are clear. There is no pathologic calcifications over the kidneys. IMPRESSION: There is evidence for some mild large and small bowel ileus. No free air. I do not suspec t a mechanical bowel obstruction.
== END 2021-05-16 21:42 | disposition home or self-care (01) ==
LOC: EC 18:24
DX: K29.70 Gastritis, unspecified, without bleeding (principal); I50.9 Heart failure, unspecified; F17.200 Nicotine dependence, unspecified, uncomplicated; F41.9 Anxiety disorder, unspecified
CPT/HCPCS: 36415; 80053; 82150; 83690; 85025; 81001; 87086; 74018; 99284; 96374; 96361; J2405; 96360

== ENCOUNTER → 2021-06-27 | Outpatient (CLI) | payer MEDICARE, OTHER ==
--- NOTE | 2021-06-27 14:52 | MR ---
EXAMINATION TYPE: MR hip LT wo con DATE OF EXAM: 06/27/2021 COMPARISON: KUB 05/16/2021 HISTORY: 36-year-old female M25.552, left hip pain TECHNIQUE: Multiplanar, multisequence images of the left hip were obtained without IV contrast. FINDINGS: No evidence for hip fracture or AVN. Mild patchy red marrow hyperplasia compatible with patient's relatively young age. No suspicious bon e marrow replacement. SI joints and sacrum appear symmetric and intact. 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 The left hip appears intact. There is physiologic joint fluid on both sides. No paralabral cyst. The rectus femoris and hamstrings origins as well as the iliopsoas and gluteal insertions appear inta ct. Symmetric course, caliber, and signal intensity of the sciatic nerves. The uterus is obliqued towards the right. No pelvic free fluid. IMPRESSION: 1. Incidental 1.6 cm left S1 sacral Tarlov cyst. These are generally incidental findings but uncommon ly may be symptomatic. Clinically correlate. 2. Otherwise, no specific MRI abnormality of the left hip.
== END | disposition home or self-care (01) ==
LOC: RADMRIMAIN 10:40
PROVIDERS: ATTEND Physician Assistant
DX: M25.552 Pain in left hip (principal); G96.191 Perineural cyst

== ENCOUNTER 2021-06-28 12:02 | Emergency (ER) | payer MEDICARE, OTHER ==
[2021-06-28 12:10] VITALS: BP 122/59; RESP 22; TEMP 98.1
[2021-06-28] MEDS ORDERED: ALBUTEROL NEBULIZED 2.5 MG/3 ML INHALATION STA (12:20)
[2021-06-28] MEDS ORDERED: IPRATROPIUM-ALBUTEROL 3 ML NEB INHALATION STA (12:20)
--- NOTE | 2021-06-28 12:27 | ED ---
General Adult HPI - General Chief complaint: Shortness of Breath Stated complaint: Cough,SOB Time Seen by Provider: 06/28/21 12:11 Source: patient, RN notes reviewed, old records reviewed Mode of arrival: ambulatory Limitations: no limitations - History of Present Illness Initial comments: 36-year-old female who had presented with nasal congestion, cough. She is a current smoker. She has had symptoms for the past 24 hours. No fever. She contacted her primary care physician with sent to the emergency department for evaluation with concern for pneumonia. She has had pneumonia in the past. No chest pain. No vomiting. - Related Data Home Medications Medication Instructions Recorded Confirmed FLUoxetine HCL [PROzac Weekly] 90 mg PO TU 08/27/17 03/22/21 traZODone HCL 200 mg PO HS 10/12/18 03/22/21 Famotidine [Pepcid] 20 mg PO BID 06/28/20 03/22/21 Montelukast [Singulair] 10 mg PO HS 06/28/20 03/22/21 Allopurinol [Zyloprim] 100 mg PO HS 03/16/21 03/22/21 Ergocalciferol [Vitamin D2 (1250 1,250 mcg PO Q30D 03/16/21 03/22/21 Mcg = 16263 Iu)] buPROPion [Wellbutrin] 75 mg PO BID 03/16/21 03/22/21 busPIRone HCl [Buspar] 10 mg PO BID 03/16/21 03/22/21 Loratadine [Claritin] 10 mg PO HS 03/22/21 03/22/21 Previous Rx's Medication Instructions Recorded Cephalexin [Keflex] 500 mg PO QID #30 cap 03/18/21 Cephalexin [Keflex] 500 mg PO TID #21 cap 04/17/21 Albuterol Inhaler [Ventolin Hfa 2 puff INHALATION RT-QID PRN #1 06/28/21 Inhaler] unit methylPREDNISolone Dose Pack 4 mg PO DIRECTED #21 package 06/28/21 [Medrol Dose Pack] Allergies Allergy/AdvReac Type Severity Reaction Status Date / Time venom-honey bee Allergy Anaphylaxis Verified 06/28/21 12:06 Review of Systems ROS Statement: Those systems with pertinent positive or pertinent negative responses have been documented in the HPI. ROS Other: All systems not noted in ROS Statement are negative. Past Medical History Past Medical History: Heart Failure, GI Bleed Additional Past Medical History / Comment(s): HEART VALVE REPLACEMENT. HX GI PROB FOR YEARS, HIATAL HERNIA. 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 DEVELOPMENTAL DISABILITY. colitis History of Any Multi-Drug Resistant Organisms: None Reported Past Surgical History: Ear Surgery, Hernia Repair, Orthopedic Surgery Additional Past Surgical History / Comment(s): RT Foot Surgery; Open Heart Surg @ 3 YRS OLD, VALVE REPLACED. EXC BRAIN TUMOR. HIATAL HERNIA REPAIR. RT EARDRUM REPAIRED. Past Anesthesia/Blood Transfusion Reactions: No Reported Reaction Past Psychological History: ADD/ADHD, Anxiety Smoking Status: Current every day smoker Past Alcohol Use History: None Reported Past Drug Use History: None Reported - Past Family History Father Family Medical History: No Reported History Additional Family Medical History / Comment(s): Mother Family Medical History: No Reported History Additional Family Medical History / Comment(s): General Exam Limitations: no limitations General appearance: alert, in no apparent distress Head exam: Present: atraumatic, normocephalic Eye exam: Present: normal appearance, PERRL ENT exam: Present: normal exam Neck exam: Present: normal inspection. Absent: tenderness, meningismus Respiratory exam: Present: wheezes, rhonchi, decreased breath sounds. Absent: respiratory distress, accessory muscle use Cardiovascular Exam: Present: regular rate, normal rhythm GI/Abdominal exam: Present: soft. Absent: distended, tenderness, guarding, rebound Extremities exam: Present: normal inspection. Absent: normal capillary refill, pedal edema Neurological exam: Present: alert. Absent: motor sensory deficit Psychiatric exam: Present: normal affect, normal mood Skin exam: Present: warm, dry, intact. Absent: cyanosis, diaphoretic Course Vital Signs 06/28/21 06/28/21 06/28/21 12:04 12:47 13:01 Temperature 98.1 F Pulse Rate 59 L 60 68 Respiratory 22 Rate Blood Pressure 122/59 O2 Sat by Pulse 95 Oximetry Medical Decision Making - Medical Decision Making 76-year-old female presenting for evaluation of runny nose, nasal congestion, cough. Patient was concerned that she may have developed a pneumonia. She does have a bilateral rhonchi. Otherwise good air entry. No respiratory distress. Chest x-ray is clear with no focal pneumonia or acute findings. Patient will will be prescribed albuterol, and short course of oral steroids. She will follow-up with her primary care physician regarding acute bronchitis. No antibiotics at this time. Disposition Clinical Impression: Acute bronchitis Disposition: HOME SELF-CARE Condition: Fair Instructions (If sedation given, give patient instructions): Acute Bronchitis (ED) Prescriptions: methylPREDNISolone Dose Pack [Medrol Dose Pack] 4 mg PO DIRECTED #21 package Albuterol Inhaler [Ventolin Hfa Inhaler] 2 puff INHALATION RT-QID PRN #1 unit PRN Reason: Cough Is patient prescribed a controlled substance at d/c from ED?: No Referrals: Eduardo Montoya MD [Primary Care Provider] - 1-2 days Time of Disposition: 13:12
--- NOTE | 2021-06-28 12:54 | XR ---
EXAMINATION TYPE: XR chest 2V DATE OF EXAM: 06/28/2021 COMPARISON: 03/18/2021 HISTORY: Chest pain TECHNIQUE: Frontal and lateral views of the chest are obtained. FINDINGS: There is no focal air space opacity. No evidence for pneumothorax. No pleural effusion. The cardiac silhouette size is within normal limits. Severe scoliosis thoracic spine convex to the right. IMPRESSION: 1. No acute cardiopulmonary process.
[2021-06-28 13:02] VITALS: PULSE 68
== END 2021-06-28 13:21 | disposition home or self-care (01) ==
LOC: EC 12:02
DX: J20.9 Acute bronchitis, unspecified (principal); R06.02 Shortness of breath; I50.9 Heart failure, unspecified; F41.9 Anxiety disorder, unspecified; F90.9 Attention-deficit hyperactivity disorder, unspecified type; F17.200 Nicotine dependence, unspecified, uncomplicated; Z79.899 Other long term (current) drug therapy; Z95.2 Presence of prosthetic heart valve
CPT/HCPCS: 71046; 99285

== ENCOUNTER 2021-07-16 16:34 | Emergency (ER) | payer MEDICARE, OTHER ==
[2021-07-16 17:05] VITALS: BP 103/67; PULSE 98; RESP 20; TEMP 98.5
--- NOTE | 2021-07-16 18:17 | XR ---
EXAMINATION TYPE: XR chest 2V DATE OF EXAM: 07/16/2021 COMPARISON: 06/28/2021 HISTORY: Cough TECHNIQUE: 2 views FINDINGS: Heart is normal. Lungs are clear of consolidation. There are no hilar masses. There is thor acic dextroscoliosis. There are sternal wires. Costophrenic angles are clear. Bony thorax is intact. IMPRESSION: No active cardiopulmonary disease. Scoliotic deformity. No change.
--- NOTE | 2021-07-16 18:31 | ED ---
General Adult HPI - General Chief complaint: Upper Respiratory Infection Stated complaint: Med Reaction Time Seen by Provider: 07/16/21 18:01 Source: patient Mode of arrival: ambulatory Limitations: no limitations - History of Present Illness Initial comments: 36-year-old female presenting to the emergency department with a chief complaint of a cough. Patient reports about one week ago she was diagnosed with acute pancreatitis from her primary care physician. States she was using antitussive medication with no significant improvement in symptoms. States now she is coughing up green sputum but denies any chest pain or shortness of breath. She does admit to smoking. She denies any fevers or chills. Denies any sore throat or rhinorrhea or otalgia. - Related Data Home Medications Medication Instructions Recorded Confirmed FLUoxetine HCL [PROzac Weekly] 90 mg PO TU 08/27/17 03/22/21 traZODone HCL 200 mg PO HS 10/12/18 03/22/21 Famotidine [Pepcid] 20 mg PO BID 06/28/20 03/22/21 Montelukast [Singulair] 10 mg PO HS 06/28/20 03/22/21 Allopurinol [Zyloprim] 100 mg PO HS 03/16/21 03/22/21 Ergocalciferol [Vitamin D2 (1250 1,250 mcg PO Q30D 03/16/21 03/22/21 Mcg = 74894 Iu)] buPROPion [Wellbutrin] 75 mg PO BID 03/16/21 03/22/21 busPIRone HCl [Buspar] 10 mg PO BID 03/16/21 03/22/21 Loratadine [Claritin] 10 mg PO HS 03/22/21 03/22/21 Previous Rx's Medication Instructions Recorded Cephalexin [Keflex] 500 mg PO QID #30 cap 03/18/21 Cephalexin [Keflex] 500 mg PO TID #21 cap 04/17/21 Albuterol Inhaler [Ventolin Hfa 2 puff INHALATION RT-QID PRN #1 06/28/21 Inhaler] unit methylPREDNISolone Dose Pack 4 mg PO DIRECTED #21 package 06/28/21 [Medrol Dose Pack] Azithromycin [Zithromax Z-pack (6 0 mg PO DIRECTED #1 pack 07/16/21 tabs)] Guaifenesin/Dextromethorphan 1 each PO BID #30 tab 07/16/21 [Mucinex Dm ER 1,200-60 mg Tab] Allergies Allergy/AdvReac Type Severity Reaction Status Date / Time venom-honey bee Allergy Anaphylaxis Verified 07/16/21 17:05 Review of Systems ROS Statement: Those systems with pertinent positive or pertinent negative responses have been documented in the HPI. ROS Other: All systems not noted in ROS Statement are negative. Past Medical History Past Medical History: Heart Failure, GI Bleed Additional Past Medical History / Comment(s): HEART VALVE REPLACEMENT. HX GI PROB FOR YEARS, HIATAL HERNIA. 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 DEVELOPMENTAL DISABILITY. colitis History of Any Multi-Drug Resistant Organisms: None Reported Past Surgical History: Ear Surgery, Hernia Repair, Orthopedic Surgery Additional Past Surgical History / Comment(s): RT Foot Surgery; Open Heart Surg @ 3 YRS OLD, VALVE REPLACED. EXC BRAIN TUMOR. HIATAL HERNIA REPAIR. RT EARDRUM REPAIRED. Past Anesthesia/Blood Transfusion Reactions: No Reported Reaction Past Psychological History: ADD/ADHD, Anxiety Smoking Status: Current every day smoker Past Alcohol Use History: None Reported Past Drug Use History: None Reported - Past Family History Father Family Medical History: No Reported History Additional Family Medical History / Comment(s): Mother Family Medical History: No Reported History Additional Family Medical History / Comment(s): General Exam Limitations: no limitations General appearance: alert, in no apparent distress Head exam: Present: atraumatic, normocephalic, normal inspection Eye exam: Present: normal appearance Pupils: Present: normal accommodation ENT exam: Present: normal exam, normal oropharynx, mucous membranes moist Neck exam: Present: normal inspection, full ROM. Absent: tenderness Respiratory exam: Present: normal lung sounds bilaterally. Absent: respiratory distress, wheezes, rales, rhonchi, stridor Cardiovascular Exam: Present: regular rate, normal rhythm, normal heart sounds. Absent: systolic murmur Extremities exam: Present: normal inspection, full ROM, normal capillary refill. Absent: tenderness, pedal edema, joint swelling Back exam: Present: normal inspection, full ROM. Absent: tenderness Neurological exam: Present: alert, oriented X3 Psychiatric exam: Present: normal affect, normal mood Skin exam: Present: warm, dry, intact, normal color Course Vital Signs 07/16/21 17:02 Temperature 98.5 F Pulse Rate 98 Respiratory 20 Rate Blood Pressure 103/67 O2 Sat by Pulse 98 Oximetry Medical Decision Making - Medical Decision Making 36-year-old female presents to emergency Department with a chief complaint of a cough. X-ray is unremarkable. I offered Covid testing, she declined. Considering the symptoms of an hour for approximately one week. I will treat with azithromycin. We'll also give Mucinex DM for symptomatic relief. Patient otherwise well appearing and feels comfortable going home. Return parameters were discussed with patient is an attending agreeable. Case discussed with Dr. Cuellar Disposition Clinical Impression: Acute bronchitis Disposition: HOME SELF-CARE Condition: Stable Instructions (If sedation given, give patient instructions): Acute Bronchitis (ED) Additional Instructions: Please return to the Emergency Department if symptoms worsen or any other concerns. Prescriptions: Guaifenesin/Dextromethorphan [Mucinex Dm ER 1,200-60 mg Tab] 1 each PO BID #30 tab Azithromycin [Zithromax Z-pack (6 tabs)] 0 mg PO DIRECTED #1 pack Is patient prescribed a controlled substance at d/c from ED?: No Referrals: Eduardo Montoya MD [Primary Care Provider] - 1-2 days Time of Disposition: 18:31
== END 2021-07-16 18:39 | disposition home or self-care (01) ==
LOC: EC 16:34
DX: J20.9 Acute bronchitis, unspecified (principal); I50.9 Heart failure, unspecified; F41.9 Anxiety disorder, unspecified; F90.9 Attention-deficit hyperactivity disorder, unspecified type; F17.200 Nicotine dependence, unspecified, uncomplicated; Z87.19 Personal history of other diseases of the digestive system; Z95.2 Presence of prosthetic heart valve
CPT/HCPCS: 71046; 99283

== ENCOUNTER 2021-08-12 09:52 | Emergency (ER) | payer MEDICARE, OTHER ==
[2021-08-12 10:01] VITALS: BP 100/63; PULSE 80; RESP 18; TEMP 98.4
--- NOTE | 2021-08-12 10:20 | ED ---
General Adult HPI - General Chief complaint: Recheck/Abnormal Lab/Rx Stated complaint: seizure Time Seen by Provider: 08/12/21 10:04 Source: EMS Mode of arrival: EMS Limitations: no limitations - History of Present Illness Initial comments: Patient is a 36-year-old female with history of developmental delay, seizure like activity, presenting to the emergency department stating that she feels like she may have had a seizure earlier this morning about 2 hours prior to arrival. She states "when she has a seizure her right leg shakes and she thought was shaking earlier." She states she's been without her medication for the past week because they were having pharmacy issues. They switched her pharmacy today and she will be getting her medication today. Patient states she feels fine otherwise, no headache, no blurry vision, no fevers or chills. No shortness of breath, no abdominal pain. She denies any nausea or vomiting. She states she feels like her normal self and wishes to go home. She has no further complaints at this time. Upon arrival to the ER, her vitals are stable. - Related Data Home Medications Medication Instructions Recorded Confirmed FLUoxetine HCL [PROzac Weekly] 90 mg PO TU 08/27/17 03/22/21 traZODone HCL 200 mg PO HS 10/12/18 03/22/21 Famotidine [Pepcid] 20 mg PO BID 06/28/20 03/22/21 Montelukast [Singulair] 10 mg PO HS 06/28/20 03/22/21 Allopurinol [Zyloprim] 100 mg PO HS 03/16/21 03/22/21 Ergocalciferol [Vitamin D2 (1250 1,250 mcg PO Q30D 03/16/21 03/22/21 Mcg = 66383 Iu)] buPROPion [Wellbutrin] 75 mg PO BID 03/16/21 03/22/21 busPIRone HCl [Buspar] 10 mg PO BID 03/16/21 03/22/21 Loratadine [Claritin] 10 mg PO HS 03/22/21 03/22/21 Previous Rx's Medication Instructions Recorded Cephalexin [Keflex] 500 mg PO QID #30 cap 03/18/21 Cephalexin [Keflex] 500 mg PO TID #21 cap 04/17/21 Albuterol Inhaler [Ventolin Hfa 2 puff INHALATION RT-QID PRN #1 06/28/21 Inhaler] unit methylPREDNISolone Dose Pack 4 mg PO DIRECTED #21 package 06/28/21 [Medrol Dose Pack] Azithromycin [Zithromax Z-pack (6 0 mg PO DIRECTED #1 pack 07/16/21 tabs)] Guaifenesin/Dextromethorphan 1 each PO BID #30 tab 07/16/21 [Mucinex Dm ER 1,200-60 mg Tab] Allergies Allergy/AdvReac Type Severity Reaction Status Date / Time venom-honey bee Allergy Anaphylaxis Verified 07/16/21 17:05 Review of Systems ROS Statement: Those systems with pertinent positive or pertinent negative responses have been documented in the HPI. ROS Other: All systems not noted in ROS Statement are negative. Past Medical History Past Medical History: Heart Failure, GI Bleed Additional Past Medical History / Comment(s): HEART VALVE REPLACEMENT. HX GI PROB FOR YEARS, HIATAL HERNIA. 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 DEVELOPMENTAL DISABILITY. colitis History of Any Multi-Drug Resistant Organisms: None Reported Past Surgical History: Ear Surgery, Hernia Repair, Orthopedic Surgery Additional Past Surgical History / Comment(s): RT Foot Surgery; Open Heart Surg @ 3 YRS OLD, VALVE REPLACED. EXC BRAIN TUMOR. HIATAL HERNIA REPAIR. RT EARDRUM REPAIRED. Past Anesthesia/Blood Transfusion Reactions: No Reported Reaction Past Psychological History: ADD/ADHD, Anxiety Smoking Status: Current every day smoker Past Alcohol Use History: None Reported Past Drug Use History: None Reported - Past Family History Father Family Medical History: No Reported History Additional Family Medical History / Comment(s): Mother Family Medical History: No Reported History Additional Family Medical History / Comment(s): General Exam - General Exam Comments Initial Comments: GENERAL: Patient is well-developed and well-nourished. Patient is nontoxic and in no acute distress. HEAD: Atraumatic, normocephalic. EYES: Pupils equal round and reactive to light, extraocular movements intact, sclera anicteric, conjunctiva are normal. Eyelids were unremarkable. ENT: Nares patent, oropharynx clear without exudates. Moist mucous membranes. NECK: Normal range of motion, supple without lymphadenopathy or JVD. LUNGS: Unlabored respirations. Breath sounds clear to auscultation bilaterally and equal. No wheezes rales or rhonchi. HEART: Regular rate and rhythm without murmurs, rubs or gallops. ABDOMEN: Soft, nontender, normoactive bowel sounds. No guarding, no rebound. No masses appreciated. : Deferred MUSCULOSKELETAL: Normal extremities with adequate strength and normal range of motion, no pitting or edema. No clubbing or cyanosis. NEUROLOGICAL: Patient is alert and oriented x 3. Motor and sensory are also intact. Cranial nerves II through XII grossly intact. Symmetrical smile. Normal speech, normal gait. PSYCH: Normal mood, normal affect. SKIN: Warm, Dry, normal turgor, no rashes or lesions noted. Limitations: no limitations Course Vital Signs 08/12/21 09:54 Temperature 98.4 F Pulse Rate 80 Respiratory 18 Rate Blood Pressure 100/63 O2 Sat by Pulse 98 Oximetry Medical Decision Making - Medical Decision Making Patient is a 36-year-old female with history of developmental delay, nonepileptic seizures, presenting as she felt like she may have had a seizure about 3 hours prior to arrival. She stakes her seizures are her right leg shaking, she states she felt like this was happening a few hours prior to arrival. She's has been without her medications for over a week secondary to pharmacy issues. She states she had her pharmacy switched today and she will be receiving all her medications today. Her exam is completely normal, no acute neuro deficits. She states she feels fine. Her vital signs are stable. I did offer blood work however patient declined stating she just wishes to go home. Patient is stable for discharge. Return parameters were discussed with the patient and she verbalized understanding. Case discussed with Dr. Reyes. Disposition Clinical Impression: Tremor Disposition: HOME SELF-CARE Condition: Stable Instructions (If sedation given, give patient instructions): Normal Exam (ED) Additional Instructions: Please return to the Emergency Department if symptoms worsen or any other concerns. Please take your medications as prescribed. Follow-up with your family doctor. Is patient prescribed a controlled substance at d/c from ED?: No Referrals: Eduardo Montoya MD [Primary Care Provider] - 1-2 days Time of Disposition: 10:33
== END 2021-08-12 10:50 | disposition home or self-care (01) ==
LOC: EC 09:52 → EEVIPCON 09:52 → EC 10:50
DX: R25.1 Tremor, unspecified (principal); I50.9 Heart failure, unspecified; F41.9 Anxiety disorder, unspecified; F90.9 Attention-deficit hyperactivity disorder, unspecified type; F17.200 Nicotine dependence, unspecified, uncomplicated
CPT/HCPCS: 99284

== ENCOUNTER 2021-08-18 19:27 | Emergency (ER) | payer MEDICARE, OTHER ==
[2021-08-18 19:35] VITALS: RESP 18; TEMP 97.8
--- NOTE | 2021-08-18 19:56 | ED ---
General Adult HPI - General Chief complaint: Chest Pain Stated complaint: Chest Pain Time Seen by Provider: 08/18/21 19:38 Source: patient, EMS Mode of arrival: EMS Limitations: no limitations - History of Present Illness Initial comments: Patient presents to the ED by ambulance for evaluation. Patient states that she was walking home a little over an hour ago when she developed chest pain that lasted for just a few seconds before spontaneously resolving. Patient states that she has not had any chest pain or any symptoms at all since then. Patient was given aspirin by EMS. Patient denies trauma or injury, fever or chills, headache, focal neuro deficit, radiation of her pain, neck/arm/jaw/back pain, pleuritic pain, cough or cold symptoms, dyspnea, palpitations, dizziness, nausea/vomiting/diaphoresis, abdominal pain, dysuria or urinary symptoms, leg or calf swelling or pain, or any other symptoms or complaints. Patient states that she is completely asymptomatic at this time. - Related Data Home Medications Medication Instructions Recorded Confirmed FLUoxetine HCL [PROzac Weekly] 90 mg PO TU 08/27/17 03/22/21 traZODone HCL 200 mg PO HS 10/12/18 03/22/21 Famotidine [Pepcid] 20 mg PO BID 06/28/20 03/22/21 Montelukast [Singulair] 10 mg PO HS 06/28/20 03/22/21 Allopurinol [Zyloprim] 100 mg PO HS 03/16/21 03/22/21 Ergocalciferol [Vitamin D2 (1250 1,250 mcg PO Q30D 03/16/21 03/22/21 Mcg = 03271 Iu)] buPROPion [Wellbutrin] 75 mg PO BID 03/16/21 03/22/21 busPIRone HCl [Buspar] 10 mg PO BID 03/16/21 03/22/21 Loratadine [Claritin] 10 mg PO HS 03/22/21 03/22/21 Previous Rx's Medication Instructions Recorded Cephalexin [Keflex] 500 mg PO QID #30 cap 03/18/21 Cephalexin [Keflex] 500 mg PO TID #21 cap 04/17/21 Albuterol Inhaler [Ventolin Hfa 2 puff INHALATION RT-QID PRN #1 06/28/21 Inhaler] unit methylPREDNISolone Dose Pack 4 mg PO DIRECTED #21 package 06/28/21 [Medrol Dose Pack] Azithromycin [Zithromax Z-pack (6 0 mg PO DIRECTED #1 pack 07/16/21 tabs)] Guaifenesin/Dextromethorphan 1 each PO BID #30 tab 07/16/21 [Mucinex Dm ER 1,200-60 mg Tab] Allergies Allergy/AdvReac Type Severity Reaction Status Date / Time venom-honey bee Allergy Anaphylaxis Verified 07/16/21 17:05 Review of Systems ROS Statement: Those systems with pertinent positive or pertinent negative responses have been documented in the HPI. ROS Other: All systems not noted in ROS Statement are negative. Past Medical History Past Medical History: Heart Failure, GI Bleed Additional Past Medical History / Comment(s): HEART VALVE REPLACEMENT. HX GI PROB FOR YEARS, HIATAL HERNIA. 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 DEVELOPMENTAL DISABILITY. colitis History of Any Multi-Drug Resistant Organisms: None Reported Past Surgical History: Ear Surgery, Hernia Repair, Orthopedic Surgery Additional Past Surgical History / Comment(s): RT Foot Surgery; Open Heart Surg @ 3 YRS OLD, VALVE REPLACED. EXC BRAIN TUMOR. HIATAL HERNIA REPAIR. RT EARDRUM REPAIRED. Past Anesthesia/Blood Transfusion Reactions: No Reported Reaction Past Psychological History: ADD/ADHD, Anxiety Smoking Status: Current every day smoker Past Alcohol Use History: None Reported Past Drug Use History: None Reported - Past Family History Father Family Medical History: No Reported History Additional Family Medical History / Comment(s): Mother Family Medical History: No Reported History Additional Family Medical History / Comment(s): General Exam Limitations: no limitations General appearance: alert, in no apparent distress Head exam: Present: atraumatic, normocephalic Eye exam: Present: normal appearance, EOMI ENT exam: Present: mucous membranes moist Neck exam: Present: other (Trachea is in midline) Respiratory exam: Present: normal lung sounds bilaterally. Absent: respiratory distress, wheezes, rales, rhonchi, stridor, chest wall tenderness Cardiovascular Exam: Present: regular rate, normal rhythm, normal heart sounds, other (normal radial pulses bilaterally ) GI/Abdominal exam: Present: soft. Absent: distended, tenderness, guarding Extremities exam: Present: other (Negative Homans sign bilaterally). Absent: tenderness, pedal edema, calf tenderness Neurological exam: Present: alert, oriented X3. Absent: motor sensory deficit Psychiatric exam: Present: normal affect, normal mood Skin exam: Present: warm, dry, intact, normal color Course Vital Signs 08/18/21 08/18/21 08/18/21 19:30 19:32 20:27 Temperature 97.8 F Pulse Rate 85 74 Pulse Rate [ 76 Storage Engineer ] Respiratory 18 18 18 Rate Blood Pressure 107/56 113/70 O2 Sat by Pulse 99 99 Oximetry - Reevaluation(s) Reevaluation #1: 08/18/21 21:22 Patient continues to deny having any chest pain or any symptoms at all while in the ED. Patient remains alert and breathing comfortably with a normal room air oxygen saturation. Patient is aware of her test results, and she feels comfortable being discharged home at this time. Patient was counseled about chest pain, and she was clearly explained return and follow-up instructions. Patient was instructed to have a low threshold for return to the emergency department should her symptoms worsen. Patient was also instructed to follow up closely with her primary care provider. Patient feels comfortable with this plan. EKG Findings - EKG Comments: EKG Findings:: Normal sinus rhythm, no ectopy, ventricular rate of 78 bpm, normal RI and QRS intervals, normal QT interval, anterior T-wave inversions, no significant change when compared to prior 04/17/2021 EKG Medical Decision Making - Medical Decision Making Patient reports having very brief atypical chest pain. Patient has been pain/symptom-free while in the ED. Patient's EKG is unchanged. Patient's chest x-ray is fairly unremarkable. Patient's labs are fairly unremarkable, including a negative troponin. I do not think that the patient's transient chest pain was from an emergent medical condition or cardiac in etiology. Will discharge patient home at this time. - Lab Data Result diagrams: 08/18/21 20:24 08/18/21 20:24 Lab Results 08/18/21 08/18/21 08/18/21 Range/Units 20:24 20:24 20:24 WBC 10.2 (3.8-10.6) k/uL RBC 4.58 (3.80-5.40) m/uL Hgb 14.0 (11.4-16.0) gm/dL Hct 39.3 (34.0-46.0) % MCV 85.7 (80.0-100.0) fL MCH 30.5 (25.0-35.0) pg MCHC 35.6 (31.0-37.0) g/dL RDW 13.3 (11.5-15.5) % Plt Count 204 (150-450) k/uL MPV 8.5 Neutrophils % 65 % Lymphocytes % 23 % Monocytes % 7 % Eosinophils % 1 % Basophils % 1 % Neutrophils # 6.6 (1.3-7.7) k/uL Lymphocytes # 2.4 (1.0-4.8) k/uL Monocytes # 0.8 (0-1.0) k/uL Eosinophils # 0.1 (0-0.7) k/uL Basophils # 0.1 (0-0.2) k/uL Sodium 137 (137-145) mmol/L Potassium 4.1 (3.5-5.1) mmol/L Chloride 107 (98-107) mmol/L Carbon Dioxide 20 L (22-30) mmol/L Anion Gap 10 mmol/L BUN 12 (7-17) mg/dL Creatinine 0.74 (0.52-1.04) mg/dL Est GFR (CKD-EPI)AfAm >90 (>60 ml/min/1.73 sqM) Est GFR (CKD-EPI)NonAf >90 (>60 ml/min/1.73 sqM) Glucose 107 H (74-99) mg/dL Calcium 9.3 (8.4-10.2) mg/dL Total Bilirubin 0.5 (0.2-1.3) mg/dL AST 24 (14-36) U/L ALT 17 (4-34) U/L Alkaline Phosphatase 51 (38-126) U/L Troponin I <0.012 (0.000-0.034) ng/mL Total Protein 6.2 L (6.3-8.2) g/dL Albumin 4.0 (3.5-5.0) g/dL HCG, Qual Not Detected - Radiology Data Radiology results: image reviewed (Chest x-ray: Sternotomy wires are present; no acute cardiopulmonary disease) Disposition Clinical Impression: Chest pain Disposition: HOME SELF-CARE Condition: Stable Instructions (If sedation given, give patient instructions): Chest Pain (ED) Additional Instructions: Return to the ER immediately should you develop new or worsening pain, shortness of breath, a fever, vomiting, feeling dizzy or faint, or new or worsening sympto ms. Follow up closely with your primary care provider. Is patient prescribed a controlled substance at d/c from ED?: No Referrals: Eduardo Montoya MD [Primary Care Provider] - 1-2 days Time of Disposition: 21:42
[2021-08-18 20:32] LABS: Basophils # (A) 0.1 k/uL (0-0.2); Basophils % (A) 1 %; Eosinophils # (A) 0.1 k/uL (0-0.7); Eosinophils % (A) 1 %; HCT 39.3 % (34.0-46.0); Lymphocytes # (A) 2.4 k/uL (1.0-4.8); Lymphocytes % (A) 23 %; MCH 30.5 pg (25.0-35.0); MCHC 35.6 g/dL (31.0-37.0); MCV 85.7 fL (80.0-100.0); Mean Platelet Volume 8.5; Monocytes # (A) 0.8 k/uL (0-1.0); Monocytes % (A) 7 %; Neutrophils # (A) 6.6 k/uL (1.3-7.7); Neutrophils % (A) 65 %; Platelet Count 204 k/uL (150-450); RBC 4.58 m/uL (3.80-5.40); RDW 13.3 % (11.5-15.5); WBC 10.2 k/uL (3.8-10.6)
[2021-08-18 20:49] LABS: Chloride 107 mmol/L (98-107); HCG,Qualitative Serum Not Detected
[2021-08-18 20:51] LABS: ALT 17 U/L (4-34); AST 24 U/L (14-36); African American GFR (CKD) >90 (>60 ml/min/1.73 sqM); Alkaline Phosphatase 51 U/L (38-126); Anion Gap 10 mmol/L; Blood Urea Nitrogen 12 mg/dL (7-17); Calcium 9.3 mg/dL (8.4-10.2); Carbon Dioxide 20 mmol/L (22-30); Glucose 107 mg/dL (74-99); Non-African American GFR(CKD) >90 (>60 ml/min/1.73 sqM); Potassium 4.1 mmol/L (3.5-5.1); Sodium 137 mmol/L (137-145); Total Bilirubin 0.5 mg/dL (0.2-1.3); Total Protein 6.2 g/dL (6.3-8.2)
--- NOTE | 2021-08-18 21:44 | XR ---
EXAMINATION TYPE: XR chest 2V DATE OF EXAM: 08/18/2021 COMPARISON: 07/16/2021 HISTORY: Chest pain TECHNIQUE: 2 views FINDINGS: Heart is normal. There is thoracic dextroscoliosis. There are sternal wires. Lungs are min r. There is no heart failure. There are no hilar masses. IMPRESSION: No active cardiopulmonary disease. No change.
[2021-08-18 21:45] VITALS: BP 101/69; PULSE 71
== END 2021-08-18 21:43 | disposition home or self-care (01) ==
LOC: EC 19:27
DX: R07.9 Chest pain, unspecified (principal); I50.9 Heart failure, unspecified; F17.200 Nicotine dependence, unspecified, uncomplicated; F90.9 Attention-deficit hyperactivity disorder, unspecified type; F41.9 Anxiety disorder, unspecified; Z95.2 Presence of prosthetic heart valve
CPT/HCPCS: 36415; 71046; 80053; 84484; 84703; 85025; 93005; 99285

== ENCOUNTER 2021-08-22 07:37 | Emergency (ER) | payer MEDICARE, OTHER ==
[2021-08-22 07:45] VITALS: RESP 18; TEMP 98
[2021-08-22] MEDS ORDERED: KETOROLAC 15 MG/ML 1 ML VIAL IM STA (08:06)
--- NOTE | 2021-08-22 08:34 | XR ---
Right wrist HISTORY: Trauma and pain 4 views the right wrist correlated prior exam 03/24/2018 There is no interval change. Bone mineralization, joint spaces and alignment are maintained. IMPRESSION: No fracture or dislocation.
--- NOTE | 2021-08-22 09:03 | ED ---
Upper Extremity HPI - General Chief Complaint: Extremity Injury, Upper Stated Complaint: Fall/wrist injury Time Seen by Provider: 08/22/21 07:47 Source: patient, RN notes reviewed Mode of arrival: ambulatory Limitations: no limitations - History of Present Illness Initial Comments: Patient is a 36-year-old female that presents to emergency department co mplaining of right wrist pain after falling off her porch yesterday she notes that approximately 3 steps. She notes that the echo slippery because it was wet. She notes she does have full range of motion and sensation in her right hand it is just tender and painful so she came to the emergency room to get evaluated. She was otherwise in no apparent distress or pain. She denied any chest pain shortness of breath headache nausea vomiting diarrhea constipation fever fatigue chills. - Related Data Home Medications Medication Instructions Recorded Confirmed FLUoxetine HCL [PROzac Weekly] 90 mg PO TU 08/27/17 03/22/21 traZODone HCL 200 mg PO HS 10/12/18 03/22/21 Famotidine [Pepcid] 20 mg PO BID 06/28/20 03/22/21 Montelukast [Singulair] 10 mg PO HS 06/28/20 03/22/21 Allopurinol [Zyloprim] 100 mg PO HS 03/16/21 03/22/21 Ergocalciferol [Vitamin D2 (1250 1,250 mcg PO Q30D 03/16/21 03/22/21 Mcg = 47881 Iu)] buPROPion [Wellbutrin] 75 mg PO BID 03/16/21 03/22/21 busPIRone HCl [Buspar] 10 mg PO BID 03/16/21 03/22/21 Loratadine [Claritin] 10 mg PO HS 03/22/21 03/22/21 Previous Rx's Medication Instructions Recorded Cephalexin [Keflex] 500 mg PO QID #30 cap 03/18/21 Cephalexin [Keflex] 500 mg PO TID #21 cap 04/17/21 Albuterol Inhaler [Ventolin Hfa 2 puff INHALATION RT-QID PRN #1 06/28/21 Inhaler] unit methylPREDNISolone Dose Pack 4 mg PO DIRECTED #21 package 06/28/21 [Medrol Dose Pack] Azithromycin [Zithromax Z-pack (6 0 mg PO DIRECTED #1 pack 07/16/21 tabs)] Guaifenesin/Dextromethorphan 1 each PO BID #30 tab 07/16/21 [Mucinex Dm ER 1,200-60 mg Tab] Allergies Allergy/AdvReac Type Severity Reaction Status Date / Time venom-honey bee Allergy Anaphylaxis Verified 08/22/21 07:39 Review of Systems ROS Statement: Those systems with pertinent positive or pertinent negative responses have been documented in the HPI. ROS Other: All systems not noted in ROS Statement are negative. Past Medical History Past Medical History: Heart Failure, GI Bleed Additional Past Medical History / Comment(s): HEART VALVE REPLACEMENT. HX GI PROB FOR YEARS, HIATAL HERNIA. 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 DEVELOPMENTAL DISABILITY. colitis History of Any Multi-Drug Resistant Organisms: None Reported Past Surgical History: Ear Surgery, Hernia Repair, Orthopedic Surgery Additional Past Surgical History / Comment(s): RT Foot Surgery; Open Heart Surg @ 3 YRS OLD, VALVE REPLACED. EXC BRAIN TUMOR. HIATAL HERNIA REPAIR. RT EARDRUM REPAIRED. Past Anesthesia/Blood Transfusion Reactions: No Reported Reaction Past Psychological History: ADD/ADHD, Anxiety Smoking Status: Current every day smoker Past Alcohol Use History: None Reported Past Drug Use History: None Reported - Past Family History Father Family Medical History: No Reported History Additional Family Medical History / Comment(s): Mother Family Medical History: No Reported History Additional Family Medical History / Comment(s): General Exam Limitations: no limitations General appearance: alert, in no apparent distress Head exam: Present: atraumatic, normocephalic, normal inspection Eye exam: Present: normal appearance, PERRL, EOMI. Absent: scleral icterus, conjunctival injection, periorbital swelling Neck exam: Present: normal inspection Respiratory exam: Present: normal lung sounds bilaterally. Absent: respiratory distress, wheezes, rales, rhonchi, stridor Cardiovascular Exam: Present: regular rate, normal rhythm, normal heart sounds. Absent: systolic murmur, diastolic murmur, rubs, gallop, clicks GI/Abdominal exam: Present: soft, normal bowel sounds. Absent: distended, tenderness, guarding, rebound, rigid Extremities exam: Present: normal inspection, tenderness, other (Positive Beatrice's test and what test right side) Neurological exam: Present: alert, oriented X3 Psychiatric exam: Present: normal affect, normal mood Skin exam: Present: warm, dry, intact, normal color. Absent: rash Course Vital Signs 08/22/21 07:40 Temperature 98 F Pulse Rate 83 Respiratory 18 Rate Blood Pressure 96/63 O2 Sat by Pulse 97 Oximetry Medical Decision Making - Medical Decision Making 36-year-old female complaining of right wrist pain after fall at night. X-ray of the right wrist, 15 mg of Toradol ordered. X-ray shows no acute fractures or dislocations. Given physical exam findings patient most likely has de Quervain's tenosynovitis. Case discussed with Dr. Cuellar, patient discharge home with follow-up primary care and orthopedics as needed. - Radiology Data Radiology results: report reviewed, image reviewed X-ray right wrist: No acute fractures or dislocations. Disposition Clinical Impression: De Quervain's tenosynovitis, right, Fall Disposition: HOME SELF-CARE Condition: Stable Instructions (If sedation given, give patient instructions): De Quervain Disease (ED) Additional Instructions: Please return to the Emergency Department if symptoms worsen or any other concerns. Follow-up with primary care in 1-2 days. Follow-up with orthopedics as needed. Rest ice compress elevate. Take Tylenol and Motrin as needed for pain and inflammation. Is patient prescribed a controlled substance at d/c from ED?: No Referrals: Eduardo Montoya MD [Primary Care Provider] - 1-2 days James Patel MD [STAFF PHYSICIAN] - 1-2 days Time of Disposition: 09:03
[2021-08-22 09:23] VITALS: BP 101/72; PULSE 82
== END 2021-08-22 09:22 | disposition home or self-care (01) ==
LOC: EC 07:37
DX: M65.4 Radial styloid tenosynovitis [de Quervain] (principal); I50.9 Heart failure, unspecified; F90.9 Attention-deficit hyperactivity disorder, unspecified type; F41.9 Anxiety disorder, unspecified; F17.200 Nicotine dependence, unspecified, uncomplicated
CPT/HCPCS: 96372; 99283

== ENCOUNTER 2021-08-23 14:59 | Emergency (ER) | payer MEDICARE, OTHER ==
[2021-08-23 15:18] VITALS: BP 112/71; PULSE 80; RESP 20; TEMP 97.9
--- NOTE | 2021-08-23 16:29 | ED ---
General Adult HPI - General Source: patient, RN notes reviewed, old records reviewed Mode of arrival: ambulatory Limitations: no limitations - History of Present Illness -: days(s) (5) Location: right, upper extremity (Wrist) Radiation: non-radiation Severity scale (1-10): 5 Quality: aching Consistency: constant Improves with: immobilization Worsens with: movement Associated Symptoms: denies other symptoms <Homer West - Last Filed: 08/24/21 00:43> <Agueda Reyes - Last Filed: 08/27/21 13:08> - General Chief complaint: Extremity Injury, Upper Stated complaint: R wrist pain Time Seen by Provider: 08/23/21 15:37 - History of Present Illness Initial comments: 36-year-old female, alert and oriented 4, presents to the emergency room with complaints of right wrist pain. She states that she seemed Dr. Montoya and had an x-ray done and it is negative he sent her to the emergency room for an [place] wrap. According to the patient's medical records she was seen in the emergency room yesterday x-ray negative directed to follow up with orthopedics. Patient states that she called orthopedics and they're closed for a week because of the weather Unable to get in. (Homer West) - Related Data Home Medications Medication Instructions Recorded Confirmed FLUoxetine HCL [PROzac Weekly] 90 mg PO TU 08/27/17 03/22/21 traZODone HCL 200 mg PO HS 10/12/18 03/22/21 Famotidine [Pepcid] 20 mg PO BID 06/28/20 03/22/21 Montelukast [Singulair] 10 mg PO HS 06/28/20 03/22/21 Allopurinol [Zyloprim] 100 mg PO HS 03/16/21 03/22/21 Ergocalciferol [Vitamin D2 (1250 1,250 mcg PO Q30D 03/16/21 03/22/21 Mcg = 75063 Iu)] buPROPion [Wellbutrin] 75 mg PO BID 03/16/21 03/22/21 busPIRone HCl [Buspar] 10 mg PO BID 03/16/21 03/22/21 Loratadine [Claritin] 10 mg PO HS 03/22/21 03/22/21 Previous Rx's Medication Instructions Recorded Cephalexin [Keflex] 500 mg PO QID #30 cap 03/18/21 Cephalexin [Keflex] 500 mg PO TID #21 cap 04/17/21 Albuterol Inhaler [Ventolin Hfa 2 puff INHALATION RT-QID PRN #1 06/28/21 Inhaler] unit methylPREDNISolone Dose Pack 4 mg PO DIRECTED #21 package 06/28/21 [Medrol Dose Pack] Azithromycin [Zithromax Z-pack (6 0 mg PO DIRECTED #1 pack 07/16/21 tabs)] Guaifenesin/Dextromethorphan 1 each PO BID #30 tab 07/16/21 [Mucinex Dm ER 1,200-60 mg Tab] Allergies Allergy/AdvReac Type Severity Reaction Status Date / Time venom-honey bee Allergy Anaphylaxis Verified 08/23/21 15:18 Review of Systems ROS Other: All systems not noted in ROS Statement are negative. <Homer West - Last Filed: 08/24/21 00:43> ROS Other: All systems not noted in ROS Statement are negative. <Agueda Reyes - Last Filed: 08/27/21 13:08> ROS Statement: Those systems with pertinent positive or pertinent negative responses have been documented in the HPI. Past Medical History Past Medical History: Heart Failure, GI Bleed Additional Past Medical History / Comment(s): HEART VALVE REPLACEMENT. HX GI PROB FOR YEARS, HIATAL HERNIA. 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 DEVELOPMENTAL DISABILITY. colitis History of Any Multi-Drug Resistant Organisms: None Reported Past Surgical History: Ear Surgery, Hernia Repair, Orthopedic Surgery Additional Past Surgical History / Comment(s): RT Foot Surgery; Open Heart Surg @ 3 YRS OLD, VALVE REPLACED. EXC BRAIN TUMOR. HIATAL HERNIA REPAIR. RT EARDRUM REPAIRED. Past Anesthesia/Blood Transfusion Reactions: No Reported Reaction Past Psychological History: ADD/ADHD, Anxiety Smoking Status: Current every day smoker Past Alcohol Use History: None Reported Past Drug Use History: None Reported - Past Family History Father Family Medical History: No Reported History Additional Family Medical History / Comment(s): Mother Family Medical History: No Reported History Additional Family Medical History / Comment(s): <Homer West - Last Filed: 08/24/21 00:43> General Exam Limitations: no limitations General appearance: alert, in no apparent distress Head exam: Present: atraumatic, normocephalic, normal inspection Eye exam: Present: normal appearance, EOMI. Absent: scleral icterus, conjunctival injection, periorbital swelling Neck exam: Present: normal inspection, full ROM. Absent: tenderness, meningismus, lymphadenopathy Respiratory exam: Present: normal lung sounds bilaterally. Absent: respiratory distress, wheezes, rales, rhonchi, stridor Cardiovascular Exam: Present: regular rate, normal rhythm, normal heart sounds. Absent: systolic murmur, diastolic murmur, rubs, gallop, clicks Right Hand Wrist exam: Present: full ROM, tenderness (Tenderness to palpation dorsal wrist). Absent: swelling, laceration, ecchymosis, deformity, crepitus, erythema Neurosensory exam: Present: 2-point discrimination Vascular: Present: normal capillary refill. Absent: vascular compromise Neurological exam: Present: alert, oriented X3, CN II-XII intact Psychiatric exam: Present: normal affect, normal mood Skin exam: Present: warm, dry, intact, normal color. Absent: rash <Homer West - Last Filed: 08/24/21 00:43> Course Vital Signs 08/23/21 15:14 Temperature 97.9 F Pulse Rate 80 Respiratory 20 Rate Blood Pressure 112/71 O2 Sat by Pulse 97 Oximetry Medical Decision Making <Homer West - Last Filed: 08/24/21 00:43> <Agueda Reyes - Last Filed: 08/27/21 13:08> - Medical Decision Making Patient was given an [place] wrap and directed to follow with orthopedics. She has full mobility of the wrist. She is neurovascularly intact. (Homer West) I was available for consultation in the emergency department. The history and physical exam were done by the midlevel provider. I was consulted for this patients care. I reviewed the case with the midlevel provider and based on their presentation of the patient, I agree with the assessment, medical decision making and plan of care as documented. Chart was dictated using [employer] dictation software. Attempts were made to c orrect any dictation errors however some typographical errors may persist. Patient was seen during a national state of emergency due to the Covid-19 pandemic. (Agueda Reyes) Disposition Is patient prescribed a controlled substance at d/c from ED?: No Time of Disposition: 16:30 <Homer West - Last Filed: 08/24/21 00:43> <Agueda Reyes - Last Filed: 08/27/21 13:08> Clinical Impression: Sprain and strain of wrist Disposition: HOME SELF-CARE Condition: Good Instructions (If sedation given, give patient instructions): Wrist Injury (ED) Additional Instructions: Take Tylenol and/or Motrin as needed for pain. Rest, ice, [place] wrap and elevate while at home. Follow-up with orthopedics next week Referrals: Eduardo Montoya MD [Primary Care Provider] - 1-2 days Bryan Fang MD [Medical Doctor] - 1-2 days
== END 2021-08-23 16:39 | disposition home or self-care (01) ==
LOC: EC 14:59
DX: S63.501A Unspecified sprain of right wrist, initial encounter (principal); I50.9 Heart failure, unspecified; F41.9 Anxiety disorder, unspecified; F17.200 Nicotine dependence, unspecified, uncomplicated; Z95.5 Presence of coronary angioplasty implant and graft; X58.XXXA Exposure to other specified factors, initial encounter
CPT/HCPCS: 99283

== ENCOUNTER 2021-09-04 19:28 | Emergency (ER) | payer MEDICARE, OTHER ==
[2021-09-04 19:53] VITALS: RESP 20
[2021-09-04] MEDS ORDERED: SODIUM CHLORIDE 0.9% 1,000 ML IV STA (20:04)
[2021-09-04 20:29] LABS: ALT 17 U/L (4-34); AST 31 U/L (14-36); African American GFR (CKD) >90 (>60 ml/min/1.73 sqM); Albumin 4.4 g/dL (3.5-5.0); Alkaline Phosphatase 65 U/L (38-126); Anion Gap 8 mmol/L; Basophils # (A) 0.1 k/uL (0-0.2); Basophils % (A) 1 %; Blood Urea Nitrogen 5 mg/dL (7-17); Calcium 9.3 mg/dL (8.4-10.2); Carbon Dioxide 21 mmol/L (22-30); Chloride 109 mmol/L (98-107); Eosinophils # (A) 0.1 k/uL (0-0.7); Eosinophils % (A) 1 %; Glucose 78 mg/dL (74-99); HCT 43.3 % (34.0-46.0); HGB 14.7 gm/dL (11.4-16.0); Hyperchromasia Slight; Lipase 50 U/L (23-300); Lymphocytes # (A) 2.6 k/uL (1.0-4.8); Lymphocytes % (A) 28 %; MCH 29.6 pg (25.0-35.0); MCV 86.9 fL (80.0-100.0); Mean Platelet Volume 8.2; Monocytes # (A) 0.8 k/uL (0-1.0); Monocytes % (A) 9 %; Neutrophils # (A) 5.6 k/uL (1.3-7.7); Neutrophils % (A) 60 %; Non-African American GFR(CKD) >90 (>60 ml/min/1.73 sqM); Platelet Count 233 k/uL (150-450); Potassium 4.6 mmol/L (3.5-5.1); RBC 4.98 m/uL (3.80-5.40); RDW 13.1 % (11.5-15.5); Sodium 138 mmol/L (137-145); Total Bilirubin 0.6 mg/dL (0.2-1.3); WBC 9.4 k/uL (3.8-10.6)
[2021-09-04] MEDS ORDERED: ONDANSETRON 4 MG/2 ML VIAL IVP STA (20:32)
--- NOTE | 2021-09-04 20:42 | ED ---
General Adult HPI - General Chief complaint: Neuro Symptoms/Deficit Stated complaint: Dizziness Time Seen by Provider: 09/04/21 19:48 Source: patient Mode of arrival: ambulatory Limitations: no limitations - History of Present Illness Initial comments: 36 year-old female patient presents to the emergency department for evaluation of dizziness and vomiting. Patient states both symptoms start this morning. Denies any diarrhea or abdominal pain. Eyes fever or chills. Denies headache, blurred vision, double vision. Denies any head injury. States she's had decreased food and fluid intake today. Denies numbness, tingling, weakness to the extremities. Denies chance of . Patient denies any recent rash, cough, shortness of breath, back pain, numbness, tingling, dizziness, weakness, headache, visual changes, or any other complaints. - Related Data Home Medications Medication Instructions Recorded Confirmed FLUoxetine HCL [PROzac Weekly] 90 mg PO TH 08/27/17 09/04/21 traZODone HCL 200 mg PO HS 10/12/18 09/04/21 Famotidine [Pepcid] 20 mg PO BID 06/28/20 09/04/21 Montelukast [Singulair] 10 mg PO DAILY 06/28/20 09/04/21 buPROPion [Wellbutrin] 75 mg PO BID 03/16/21 09/04/21 busPIRone HCl [Buspar] 10 mg PO BID 03/16/21 09/04/21 Loratadine [Claritin] 10 mg PO DAILY 03/22/21 09/04/21 Melatonin 5 mg PO HS 09/04/21 09/04/21 Nystatin [Nystop] 1 applic TOPICAL QID 09/04/21 09/04/21 levETIRAcetam [Keppra] 250 mg PO Q12HR 09/04/21 09/04/21 rOPINIRole HCL [Requip] 0.25 mg PO TID 09/04/21 09/04/21 risperiDONE [RisperDAL] 1 mg PO HS 09/04/21 09/04/21 Previous Rx's Medication Instructions Recorded Nitrofurantoin Monohyd/M-Cryst 100 mg PO Q12HR #14 cap 09/04/21 [Macrobid] Allergies Allergy/AdvReac Type Severity Reaction Status Date / Time venom-honey bee Allergy Anaphylaxis Verified 09/04/21 19:53 Review of Systems ROS Statement: Those systems with pertinent positive or pertinent negative responses have been documented in the HPI. ROS Other: All systems not noted in ROS Statement are negative. Past Medical History Past Medical History: Heart Failure, GI Bleed Additional Past Medical History / Comment(s): HEART VALVE REPLACEMENT. HX GI PROB FOR YEARS, HIATAL HERNIA. 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 DEVELOPMENTAL DISABILITY. colitis History of Any Multi-Drug Resistant Organisms: None Reported Past Surgical History: Ear Surgery, Hernia Repair, Orthopedic Surgery Additional Past Surgical History / Comment(s): RT Foot Surgery; Open Heart Surg @ 3 YRS OLD, VALVE REPLACED. EXC BRAIN TUMOR. HIATAL HERNIA REPAIR. RT EARDRUM REPAIRED. Past Anesthesia/Blood Transfusion Reactions: No Reported Reaction Past Psychological History: ADD/ADHD, Anxiety Smoking Status: Current every day smoker Past Alcohol Use History: None Reported Past Drug Use History: None Reported - Past Family History Father Family Medical History: No Reported History Additional Family Medical History / Comment(s): Mother Family Medical History: No Reported History Additional Family Medical History / Comment(s): General Exam Limitations: no limitations General appearance: alert, in no apparent distress, other Eye exam: Present: normal appearance, PERRL, EOMI. Absent: scleral icterus, conjunctival injection, nystagmus, periorbital swelling ENT exam: Present: normal exam, normal oropharynx, mucous membranes moist Respiratory exam: Present: normal lung sounds bilaterally. Absent: respiratory distress, wheezes, rales, rhonchi, stridor Cardiovascular Exam: Present: regular rate, normal rhythm, normal heart sounds. Absent: systolic murmur, diastolic murmur, rubs, gallop, clicks GI/Abdominal exam: Present: soft, normal bowel sounds. Absent: distended, tenderness, guarding, rebound, rigid Neurological exam: Present: alert, oriented X3, CN II-XII intact, other (Strength in all 4 extremities is 5/5) Psychiatric exam: Present: normal affect, normal mood Skin exam: Present: warm, dry, intact, normal color. Absent: rash Course Vital Signs 09/04/21 09/04/21 09/04/21 19:46 22:08 23:00 Temperature 98.2 F 98.7 F Pulse Rate 58 L 67 64 Respiratory 20 20 20 Rate Blood Pressure 86/59 102/70 106/77 O2 Sat by Pulse 97 98 98 Oximetry Medical Decision Making - Medical Decision Making 36-year-old female patient presents to the emergency department today for evaluation of dizziness and vomiting throughout the day today. Physical examination is unremarkable. She is neurologically intact with no focal deficits. Labs reviewed and are unremarkable. Urine did show evidence for mild infection. We gave her 1 L bolus. Blood pressure did improve while here. She'll be started on antibiotics for UTI. She is instructed to follow-up with her primary care physician for recheck in 1-2 days. Return parameters were discussed in detail. She verbalizes understanding and agrees with this plan. Case discussed with my attending Dr. Cuellar. - Lab Data Result diagrams: 09/04/21 20:06 09/04/21 20:06 Lab Results 09/04/21 09/04/21 09/04/21 Range/Units 20:06 20:06 20:06 WBC 9.4 (3.8-10.6) k/uL RBC 4.98 (3.80-5.40) m/uL Hgb 14.7 (11.4-16.0) gm/dL Hct 43.3 (34.0-46.0) % MCV 86.9 (80.0-100.0) fL MCH 29.6 (25.0-35.0) pg MCHC 34.0 (31.0-37.0) g/dL RDW 13.1 (11.5-15.5) % Plt Count 233 (150-450) k/uL MPV 8.2 Neutrophils % 60 % Lymphocytes % 28 % Monocytes % 9 % Eosinophils % 1 % Basophils % 1 % Neutrophils # 5.6 (1.3-7.7) k/uL Lymphocytes # 2.6 (1.0-4.8) k/uL Monocytes # 0.8 (0-1.0) k/uL Eosinophils # 0.1 (0-0.7) k/uL Basophils # 0.1 (0-0.2) k/uL Hyperchromasia Slight Sodium (137-145) mmol/L Potassium (3.5-5.1) mmol/L Chloride (98-107) mmol/L Carbon Dioxide (22-30) mmol/L Anion Gap mmol/L BUN (7-17) mg/dL Creatinine (0.52-1.04) mg/dL Est GFR (CKD-EPI)AfAm (>60 ml/min/1.73 sqM) Est GFR (CKD-EPI)NonAf (>60 ml/min/1.73 sqM) Glucose (74-99) mg/dL Plasma Lactic Acid Grant (0.7-2.0) mmol/L Calcium (8.4-10.2) mg/dL Total Bilirubin (0.2-1.3) mg/dL AST (14-36) U/L ALT (4-34) U/L Alkaline Phosphatase (38-126) U/L Total Protein (6.3-8.2) g/dL Albumin (3.5-5.0) g/dL Lipase (23-300) U/L Urine Color Light Yellow Urine Appearance Clear (Clear) Urine pH 6.0 (5.0-8.0) Ur Specific [place] 1.003 (1.001-1.035) Urine Protein Negative (Negative) Urine Glucose (UA) Negative (Negative) Urine Ketones Negative (Negative) Urine Blood Negative (Negative) Urine Nitrite Negative (Negative) Urine Bilirubin Negative (Negative) Urine Urobilinogen <2.0 (<2.0) mg/dL Ur Leukocyte Esterase Large H (Negative) Urine RBC 4 (0-5) /hpf Urine WBC 31 H (0-5) /hpf Ur Squamous Epith Cells 1 (0-4) /hpf Amorphous Sediment Rare H (None) /hpf Urine Bacteria Few H (None) /hpf Urine HCG, Qual Not Detected (Not Detectd) 09/04/21 09/04/21 Range/Units 20:06 20:06 WBC (3.8-10.6) k/uL RBC (3.80-5.40) m/uL Hgb (11.4-16.0) gm/dL Hct (34.0-46.0) % MCV (80.0-100.0) fL MCH (25.0-35.0) pg MCHC (31.0-37.0) g/dL RDW (11.5-15.5) % Plt Count (150-450) k/uL MPV Neutrophils % % Lymphocytes % % Monocytes % % Eosinophils % % Basophils % % Neutrophils # (1.3-7.7) k/uL Lymphocytes # (1.0-4.8) k/uL Monocytes # (0-1.0) k/uL Eosinophils # (0-0.7) k/uL Basophils # (0-0.2) k/uL Hyperchromasia Sodium 138 (137-145) mmol/L Potassium 4.6 (3.5-5.1) mmol/L Chloride 109 H (98-107) mmol/L Carbon Dioxide 21 L (22-30) mmol/L Anion Gap 8 mmol/L BUN 5 L (7-17) mg/dL Creatinine 0.52 (0.52-1.04) mg/dL Est GFR (CKD-EPI)AfAm >90 (>60 ml/min/1.73 sqM) Est GFR (CKD-EPI)NonAf >90 (>60 ml/min/1.73 sqM) Glucose 78 (74-99) mg/dL Plasma Lactic Acid Grant 1.5 (0.7-2.0) mmol/L Calcium 9.3 (8.4-10.2) mg/dL Total Bilirubin 0.6 (0.2-1.3) mg/dL AST 31 (14-36) U/L ALT 17 (4-34) U/L Alkaline Phosphatase 65 (38-126) U/L Total Protein 7.0 (6.3-8.2) g/dL Albumin 4.4 (3.5-5.0) g/dL Lipase 50 (23-300) U/L Urine Color Urine Appearance (Clear) Urine pH (5.0-8.0) Ur Specific [place] (1.001-1.035) Urine Protein (Negative) Urine Glucose (UA) (Negative) Urine Ketones (Negative) Urine Blood (Negative) Urine Nitrite (Negative) Urine Bilirubin (Negative) Urine Urobilinogen (<2.0) mg/dL Ur Leukocyte Esterase (Negative) Urine RBC (0-5) /hpf Urine WBC (0-5) /hpf Ur Squamous Epith Cells (0-4) /hpf Amorphous Sediment (None) /hpf Urine Bacteria (None) /hpf Urine HCG, Qual (Not Detectd) Disposition Clinical Impression: UTI (urinary tract infection), Dizziness, Vomiting Disposition: HOME SELF-CARE Condition: Good Instructions (If sedation given, give patient instructions): Urinary Tract Infection in Women (ED), Acute Nausea and Vomiting (ED), Dizziness (ED) Additional Instructions: Increase fluids. Rest. Complete antibiotic prescription in full even if you are feeling better. Follow-up with the primary care physician for recheck in 1- 2 days. Return for any new, worsening, or concerning symptoms. Prescriptions: Nitrofurantoin Monohyd/M-Cryst [Macrobid] 100 mg PO Q12HR #14 cap Is patient prescribed a controlled substance at d/c from ED?: No Referrals: Eduardo Montoya MD [Primary Care Provider] - 1-2 days Time of Disposition: 22:43
[2021-09-04 22:29] LABS: Amorphous Sediment,Urine Rare /hpf; Appearance,Urine Clear (Clear); Bacteria,Urine Few /hpf; Bilirubin,Urine Negative (Negative); Blood,Urine Negative (Negative); Color,Urine Light Yellow; Glucose,Urine (UA) Negative (Negative); Ketones,Urine Negative (Negative); Leukocyte Esterase,Urine Large (Negative); Nitrite,Urine Negative (Negative); Protein,Urine Negative (Negative); RBC,Urine 4 /hpf (0-5); Specific Gravity,Urine 1.003 (1.001-1.035); Squamous Epithelial Cell,Urine 1 /hpf (0-4); Urobilinogen,Urine <2.0 mg/dL (<2.0); WBC,Urine 31 /hpf (0-5)
[2021-09-04] MEDS ORDERED: NITROFURANTOIN MONOHYD/M-CRYST 100 MG CAP PO STA (22:41)
[2021-09-04 23:01] VITALS: BP 106/77; PULSE 64; TEMP 98.7
== END 2021-09-04 23:10 | disposition home or self-care (01) ==
LOC: EC 19:28
DX: R42 Dizziness and giddiness (principal); N39.0 Urinary tract infection, site not specified; I50.9 Heart failure, unspecified; F41.9 Anxiety disorder, unspecified; F17.200 Nicotine dependence, unspecified, uncomplicated; Z79.899 Other long term (current) drug therapy
CPT/HCPCS: 99284; 96374; 96361; 36415; 93005; 80053; 83605; 83690; 85025; 81001; 81025; 87086; J2405

== ENCOUNTER 2021-10-12 18:15 | Emergency (ER) | payer MEDICARE, OTHER ==
[2021-10-12 18:37] VITALS: BP 114/80; PULSE 85; RESP 16; TEMP 98.2
[2021-10-12] MEDS ORDERED: METOCLOPRAMIDE 5 MG/ML 2 ML VIAL IVP STA (19:42)
--- NOTE | 2021-10-12 19:44 | ED ---
General Adult HPI - General Chief complaint: Nausea/Vomiting/Diarrhea Stated complaint: Vomiting Time Seen by Provider: 10/12/21 19:29 Source: patient Mode of arrival: ambulatory Limitations: no limitations - History of Present Illness Initial comments: Dictation was produced using [employer] dictation software. please excuse any grammatical, word or spelling errors. Chief Complaint: 36-year-old female presents emergency department for nausea and vomiting History of Present Illness: Patient is 36-year-old female she has mental debili ty. She presents to emergency department for chief complaint of nausea and vomiting 1 day. She states she had some abdominal pain earlier today but does not have any abdominal pain now. She had 2 episodes of nonbilious nonbloody emesis. Has been seen in the emergency department on multiple occasions for nausea and vomiting. Denies any fevers. She denies any coughing. Denies any other constitutional symptoms. The ROS documented in this emergency department record has been reviewed and c onfirmed by me. Those systems with pertinent positive or negative responses have been documented in the HPI. All other systems are other negative and/or noncontributory. PHYSICAL EXAM: General Impression: Alert and oriented x3, not in acute distress HEENT: Normocephalic atraumatic, extra-ocular movements intact, pupils equal and reactive to light bilaterally, mucous membranes moist. Cardiovascular: Heart regular rate and rhythm Chest: Able to complete full sentences, no retractions, no tachypnea Abdomen: abdomen soft, non-tender, non-distended, no organomegaly, negative Lo sign, no pain in McBurney's point, no left lower quadrant tenderness Musculoskeletal: Pulses present and equal in all extremities, no peripheral edema Motor: no focal deficits noted Neurological: CN II-XII grossly intact, no focal motor or sensory deficits noted Skin: Intact with no visualized rashes Psych: Normal affect and mood ED course: 36-year-old well-appearing female presents emergency department for one day of nausea and vomiting. Vital signs upon arrival are within acceptable limits. Laboratory evaluation obtained. Mild leukocytosis 16.2. Metabolic panel is unremarkable. Urinalysis shows 6 white blood cells. Patient having urinary symptoms. Pending urine culture. Patient has a leukocytosis of unclear etiology. She is afebrile and is well-appearing at the bedside without any localizing symptoms. Patient will be discharged. She is told about her leukocytosis. Patient strongly advised follow-up with primary care doctor. Return parameters discussed. Patient otherwise will be discharged. She is in stable condition upon reevaluation at 8:51 PM. - Related Data Home Medications Medication Instructions Recorded Confirmed FLUoxetine HCL [PROzac Weekly] 90 mg PO TH 08/27/17 09/04/21 traZODone HCL 200 mg PO HS 10/12/18 09/04/21 Famotidine [Pepcid] 20 mg PO BID 06/28/20 09/04/21 Montelukast [Singulair] 10 mg PO DAILY 06/28/20 09/04/21 buPROPion [Wellbutrin] 75 mg PO BID 03/16/21 09/04/21 busPIRone HCl [Buspar] 10 mg PO BID 03/16/21 09/04/21 Loratadine [Claritin] 10 mg PO DAILY 03/22/21 09/04/21 Melatonin 5 mg PO HS 09/04/21 09/04/21 Nystatin [Nystop] 1 applic TOPICAL QID 09/04/21 09/04/21 levETIRAcetam [Keppra] 250 mg PO Q12HR 09/04/21 09/04/21 rOPINIRole HCL [Requip] 0.25 mg PO TID 09/04/21 09/04/21 risperiDONE [RisperDAL] 1 mg PO HS 09/04/21 09/04/21 Previous Rx's Medication Instructions Recorded Nitrofurantoin Monohyd/M-Cryst 100 mg PO Q12HR #14 cap 09/04/21 [Macrobid] Allergies Allergy/AdvReac Type Severity Reaction Status Date / Time venom-honey bee Allergy Anaphylaxis Verified 09/04/21 19:53 Review of Systems ROS Statement: Those systems with pertinent positive or pertinent negative responses have been documented in the HPI. ROS Other: All systems not noted in ROS Statement are negative. Past Medical History Past Medical History: Heart Failure, GI Bleed Additional Past Medical History / Comment(s): HEART VALVE REPLACEMENT. HX GI PROB FOR YEARS, HIATAL HERNIA. 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 DEVELOPMENTAL DISABILITY. colitis History of Any Multi-Drug Resistant Organisms: None Reported Past Surgical History: Ear Surgery, Hernia Repair, Orthopedic Surgery Additional Past Surgical History / Comment(s): RT Foot Surgery; Open Heart Surg @ 3 YRS OLD, VALVE REPLACED. EXC BRAIN TUMOR. HIATAL HERNIA REPAIR. RT EARDRUM REPAIRED. Past Anesthesia/Blood Transfusion Reactions: No Reported Reaction Past Psychological History: ADD/ADHD, Anxiety Smoking Status: Current every day smoker Past Alcohol Use History: None Reported Past Drug Use History: None Reported - Past Family History Father Family Medical History: No Reported History Additional Family Medical History / Comment(s): Mother Family Medical History: No Reported History Additional Family Medical History / Comment(s): General Exam Limitations: no limitations Course Vital Signs 10/12/21 18:34 Temperature 98.2 F Pulse Rate 85 Respiratory 16 Rate Blood Pressure 114/80 O2 Sat by Pulse 98 Oximetry Medical Decision Making - Lab Data Result diagrams: 10/12/21 19:56 10/12/21 19:56 Lab Results 10/12/21 10/12/21 10/12/21 Range/Units 19:56 19:56 19:56 WBC 16.2 H (3.8-10.6) k/uL RBC 4.87 (3.80-5.40) m/uL Hgb 14.7 (11.4-16.0) gm/dL Hct 41.0 (34.0-46.0) % MCV 84.2 (80.0-100.0) fL MCH 30.1 (25.0-35.0) pg MCHC 35.8 (31.0-37.0) g/dL RDW 12.7 (11.5-15.5) % Plt Count 269 (150-450) k/uL MPV 7.8 Neutrophils % 72 % Lymphocytes % 18 % Monocytes % 7 % Eosinophils % 1 % Basophils % 1 % Neutrophils # 11.7 H (1.3-7.7) k/uL Lymphocytes # 2.9 (1.0-4.8) k/uL Monocytes # 1.2 H (0-1.0) k/uL Eosinophils # 0.1 (0-0.7) k/uL Basophils # 0.1 (0-0.2) k/uL Hyperchromasia Moderate Sodium (137-145) mmol/L Potassium (3.5-5.1) mmol/L Chloride (98-107) mmol/L Carbon Dioxide (22-30) mmol/L Anion Gap mmol/L BUN (7-17) mg/dL Creatinine (0.52-1.04) mg/dL Est GFR (CKD-EPI)AfAm (>60 ml/min/1.73 sqM) Est GFR (CKD-EPI)NonAf (>60 ml/min/1.73 sqM) Glucose (74-99) mg/dL Calcium (8.4-10.2) mg/dL Urine Color Yellow Urine Appearance Clear (Clear) Urine pH 6.0 (5.0-8.0) Ur Specific [place] 1.006 (1.001-1.035) Urine Protein Negative (Negative) Urine Glucose (UA) Negative (Negative) Urine Ketones Negative (Negative) Urine Blood Negative (Negative) Urine Nitrite Negative (Negative) Urine Bilirubin Negative (Negative) Urine Urobilinogen <2.0 (<2.0) mg/dL Ur Leukocyte Esterase Moderate H (Negative) Urine RBC 2 (0-5) /hpf Urine WBC 6 H (0-5) /hpf Ur Squamous Epith Cells 2 (0-4) /hpf Urine Bacteria Rare H (None) /hpf Urine HCG, Qual Not Detected (Not Detectd) 10/12/21 Range/Units 19:56 WBC (3.8-10.6) k/uL RBC (3.80-5.40) m/uL Hgb (11.4-16.0) gm/dL Hct (34.0-46.0) % MCV (80.0-100.0) fL MCH (25.0-35.0) pg MCHC (31.0-37.0) g/dL RDW (11.5-15.5) % Plt Count (150-450) k/uL MPV Neutrophils % % Lymphocytes % % Monocytes % % Eosinophils % % Basophils % % Neutrophils # (1.3-7.7) k/uL Lymphocytes # (1.0-4.8) k/uL Monocytes # (0-1.0) k/uL Eosinophils # (0-0.7) k/uL Basophils # (0-0.2) k/uL Hyperchromasia Sodium 137 (137-145) mmol/L Potassium 3.6 (3.5-5.1) mmol/L Chloride 104 (98-107) mmol/L Carbon Dioxide 25 (22-30) mmol/L Anion Gap 8 mmol/L BUN 6 L (7-17) mg/dL Creatinine 0.51 L (0.52-1.04) mg/dL Est GFR (CKD-EPI)AfAm >90 (>60 ml/min/1.73 sqM) Est GFR (CKD-EPI)NonAf >90 (>60 ml/min/1.73 sqM) Glucose 92 (74-99) mg/dL Calcium 9.2 (8.4-10.2) mg/dL Urine Color Urine Appearance (Clear) Urine pH (5.0-8.0) Ur Specific [place] (1.001-1.035) Urine Protein (Negative) Urine Glucose (UA) (Negative) Urine Ketones (Negative) Urine Blood (Negative) Urine Nitrite (Negative) Urine Bilirubin (Negative) Urine Urobilinogen (<2.0) mg/dL Ur Leukocyte Esterase (Negative) Urine RBC (0-5) /hpf Urine WBC (0-5) /hpf Ur Squamous Epith Cells (0-4) /hpf Urine Bacteria (None) /hpf Urine HCG, Qual (Not Detectd) Disposition Clinical Impression: Leukocytosis, Nausea Disposition: HOME SELF-CARE Condition: Good Instructions (If sedation given, give patient instructions): Acute Nausea and Vomiting (ED) Is patient prescribed a controlled substance at d/c from ED?: No Referrals: Eduardo Montoya MD [Primary Care Provider] - 1-2 days
[2021-10-12 20:07] LABS: Basophils # (A) 0.1 k/uL (0-0.2); Basophils % (A) 1 %; Eosinophils # (A) 0.1 k/uL (0-0.7); Eosinophils % (A) 1 %; HGB 14.7 gm/dL (11.4-16.0); Hyperchromasia Moderate; Lymphocytes # (A) 2.9 k/uL (1.0-4.8); Lymphocytes % (A) 18 %; MCH 30.1 pg (25.0-35.0); MCHC 35.8 g/dL (31.0-37.0); MCV 84.2 fL (80.0-100.0); Mean Platelet Volume 7.8; Monocytes # (A) 1.2 k/uL (0-1.0); Monocytes % (A) 7 %; Neutrophils # (A) 11.7 k/uL (1.3-7.7); Neutrophils % (A) 72 %; Platelet Count 269 k/uL (150-450); RBC 4.87 m/uL (3.80-5.40); RDW 12.7 % (11.5-15.5); WBC 16.2 k/uL (3.8-10.6)
[2021-10-12 20:22] LABS: Appearance,Urine Clear (Clear); Bacteria,Urine Rare /hpf; Bilirubin,Urine Negative (Negative); Blood,Urine Negative (Negative); Color,Urine Yellow; Glucose,Urine (UA) Negative (Negative); Ketones,Urine Negative (Negative); Leukocyte Esterase,Urine Moderate (Negative); Nitrite,Urine Negative (Negative); Protein,Urine Negative (Negative); RBC,Urine 2 /hpf (0-5); Specific Gravity,Urine 1.006 (1.001-1.035); Squamous Epithelial Cell,Urine 2 /hpf (0-4); Urobilinogen,Urine <2.0 mg/dL (<2.0); WBC,Urine 6 /hpf (0-5)
[2021-10-12 20:42] LABS: African American GFR (CKD) >90 (>60 ml/min/1.73 sqM); Anion Gap 8 mmol/L; Blood Urea Nitrogen 6 mg/dL (7-17); Calcium 9.2 mg/dL (8.4-10.2); Carbon Dioxide 25 mmol/L (22-30); Chloride 104 mmol/L (98-107); Glucose 92 mg/dL (74-99); Non-African American GFR(CKD) >90 (>60 ml/min/1.73 sqM); Potassium 3.6 mmol/L (3.5-5.1); Sodium 137 mmol/L (137-145)
== END 2021-10-12 21:02 | disposition home or self-care (01) ==
LOC: EC 18:15
DX: D72.829 Elevated white blood cell count, unspecified (principal); R11.2 Nausea with vomiting, unspecified; I50.9 Heart failure, unspecified; F41.9 Anxiety disorder, unspecified; F17.200 Nicotine dependence, unspecified, uncomplicated; Z95.2 Presence of prosthetic heart valve; Z79.899 Other long term (current) drug therapy
CPT/HCPCS: 36415; 80048; 85025; 81001; 81025; 99284; 96374; J2765

== ENCOUNTER 2021-10-17 09:57 | Emergency (ER) | payer MEDICARE, OTHER ==
[2021-10-17 10:05] VITALS: BP 107/76; PULSE 55; RESP 18; TEMP 98
--- NOTE | 2021-10-17 11:05 | ED ---
General Adult HPI - General Chief complaint: Seizure Stated complaint: Seizures Time Seen by Provider: 10/17/21 10:22 Source: EMS Mode of arrival: EMS Limitations: no limitations - History of Present Illness Initial comments: 36-year-old female presents to the emergency room for a chief complaint of seizure. Patient has a history of seizures. Patient is at work today when she had a seizure. Patient states her work called an ambulance and they brought her in. Patient states she wants to go home. She denies any symptoms at this time. EMS reports she was awake or her seizure. Patient states she did take her medications today and has another scheduled dose tonight.Patient has no other complaints at this time including shortness of breath, chest pain, abdominal pain, nausea or vomiting, headache, or visual changes. - Related Data Home Medications Medication Instructions Recorded Confirmed FLUoxetine HCL [PROzac Weekly] 90 mg PO TH 08/27/17 09/04/21 traZODone HCL 200 mg PO HS 10/12/18 09/04/21 Famotidine [Pepcid] 20 mg PO BID 06/28/20 09/04/21 Montelukast [Singulair] 10 mg PO DAILY 06/28/20 09/04/21 buPROPion [Wellbutrin] 75 mg PO BID 03/16/21 09/04/21 busPIRone HCl [Buspar] 10 mg PO BID 03/16/21 09/04/21 Loratadine [Claritin] 10 mg PO DAILY 03/22/21 09/04/21 Melatonin 5 mg PO HS 09/04/21 09/04/21 Nystatin [Nystop] 1 applic TOPICAL QID 09/04/21 09/04/21 levETIRAcetam [Keppra] 250 mg PO Q12HR 09/04/21 09/04/21 rOPINIRole HCL [Requip] 0.25 mg PO TID 09/04/21 09/04/21 risperiDONE [RisperDAL] 1 mg PO HS 09/04/21 09/04/21 Previous Rx's Medication Instructions Recorded Nitrofurantoin Monohyd/M-Cryst 100 mg PO Q12HR #14 cap 09/04/21 [Macrobid] Allergies Allergy/AdvReac Type Severity Reaction Status Date / Time venom-honey bee Allergy Anaphylaxis Verified 10/17/21 10:05 Review of Systems ROS Statement: Those systems with pertinent positive or pertinent negative responses have been documented in the HPI. ROS Other: All systems not noted in ROS Statement are negative. Past Medical History Past Medical History: Heart Failure, GI Bleed Additional Past Medical History / Comment(s): HEART VALVE REPLACEMENT. HX GI PROB FOR YEARS, HIATAL HERNIA. 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 DEVELOPMENTAL DISABILITY. colitis History of Any Multi-Drug Resistant Organisms: None Reported Past Surgical History: Ear Surgery, Hernia Repair, Orthopedic Surgery Additional Past Surgical History / Comment(s): RT Foot Surgery; Open Heart Surg @ 3 YRS OLD, VALVE REPLACED. EXC BRAIN TUMOR. HIATAL HERNIA REPAIR. RT EARDRUM REPAIRED. Past Anesthesia/Blood Transfusion Reactions: No Reported Reaction Past Psychological History: ADD/ADHD, Anxiety Smoking Status: Current every day smoker Past Alcohol Use History: None Reported Past Drug Use History: None Reported - Past Family History Father Family Medical History: No Reported History Additional Family Medical History / Comment(s): Mother Family Medical History: No Reported History Additional Family Medical History / Comment(s): General Exam Limitations: no limitations General appearance: alert, in no apparent distress Head exam: Present: atraumatic Eye exam: Present: normal appearance, PERRL, EOMI. Absent: scleral icterus, conjunctival injection ENT exam: Present: normal exam, mucous membranes moist Neck exam: Present: normal inspection, full ROM. Absent: tenderness Respiratory exam: Present: normal lung sounds bilaterally. Absent: respiratory distress, wheezes Cardiovascular Exam: Present: regular rate, normal rhythm, normal heart sounds GI/Abdominal exam: Present: soft, normal bowel sounds. Absent: distended, tenderness Neurological exam: Present: alert, oriented X3, normal gait, other (GCS 15) Course Vital Signs 10/17/21 09:58 Temperature 98 F Pulse Rate 55 L Respiratory 18 Rate Blood Pressure 107/76 O2 Sat by Pulse 98 Oximetry Medical Decision Making - Medical Decision Making Vitals are stable. Patient is well-appearing. Patient has a history of seizures. Patient is requesting discharge. States she did not want 911 called and wants to go home. She did take her medications today. Patient is well- appearing, alert and oriented. Patient will follow up with her doctor. She will return here for any worsening symptoms. Disposition Clinical Impression: Recurrent seizures Disposition: HOME SELF-CARE Condition: Good Instructions (If sedation given, give patient instructions): Recurrent Seizures in Adults (ED) Additional Instructions: Please follow-up with your doctor in 1-2 days. Return to the emergency room for any worsening symptoms. Is patient prescribed a controlled substance at d/c from ED?: No Referrals: Eduardo Montoya MD [Primary Care Provider] - 1-2 days Time of Disposition: 11:03
== END 2021-10-17 11:27 | disposition home or self-care (01) ==
LOC: EC 09:57
DX: R56.9 Unspecified convulsions (principal); I50.9 Heart failure, unspecified; F90.9 Attention-deficit hyperactivity disorder, unspecified type; F41.9 Anxiety disorder, unspecified; F17.200 Nicotine dependence, unspecified, uncomplicated
CPT/HCPCS: 99284

== ENCOUNTER 2021-10-25 16:24 | Emergency (ER) | payer MEDICARE, OTHER ==
[2021-10-25] MEDS ORDERED: ASPIRIN 81 MG PO STA (17:22)
[2021-10-25] MEDS ORDERED: ALBUTEROL HFA INHALER INHALATION STA (17:22)
[2021-10-25] MEDS ORDERED: methylPREDNISolone SOD SUCCI 125 MG/2 ML VIAL IV STA (17:23)
[2021-10-25 17:48] LABS: Basophils # (A) 0.1 k/uL (0-0.2); Basophils % (A) 1 %; Eosinophils # (A) 0.1 k/uL (0-0.7); Eosinophils % (A) 1 %; HCT 38.3 % (34.0-46.0); HGB 13.7 gm/dL (11.4-16.0); Hyperchromasia Slight; Lymphocytes % (A) 20 %; MCH 29.7 pg (25.0-35.0); MCHC 35.8 g/dL (31.0-37.0); MCV 83.2 fL (80.0-100.0); Mean Platelet Volume 7.8; Monocytes # (A) 0.8 k/uL (0-1.0); Monocytes % (A) 8 %; Neutrophils # (A) 6.9 k/uL (1.3-7.7); Neutrophils % (A) 68 %; Platelet Count 180 k/uL (150-450); RDW 12.3 % (11.5-15.5); WBC 10.1 k/uL (3.8-10.6)
[2021-10-25 17:57] LABS: INR 1.2 (<1.2); Partial Thromboplastin Time 24.3 sec (22.0-30.0); Prothrombin Time 12.7 sec (9.0-12.0)
--- NOTE | 2021-10-25 18:05 | ED ---
General Adult HPI - General Chief complaint: Chest Pain Stated complaint: Chest Pain Time Seen by Provider: 10/25/21 16:59 Source: patient, EMS, RN notes reviewed, old records reviewed Mode of arrival: EMS Limitations: altered mental status, physical limitation - History of Present Illness Initial comments: Patient is a 36-year-old female who presents emergency Department complaining of chest pain. She was evaluated when she was placed in a room. She does have a prior cardiac history of heart failure and valvular repair. She does smoke tobacco and states she has a history of mild COPD as well. She presents emergency Department complaining of a one-day history of sternal chest pain. It is worse on palpation as well as with stretching and movement of the thorax. She also endorses a mildly productive cough. She endorses wheezing. Denies any fevers, chills, sick contacts. Denies any abdominal pain, nausea, vomiting. Denies any orthopnea, PND, lower extremity edema. She has no other acute complaint at this time. She states that the pain started approximate 4-5 hours prior to arrival in the department. She scribes the chest pain is sharp in achy located along the sternum and it does not radiate. It is primarily over the inferior aspect of the sternum. - Related Data Home Medications Medication Instructions Recorded Confirmed FLUoxetine HCL [PROzac Weekly] 90 mg PO TU 08/27/17 10/25/21 traZODone HCL 200 mg PO HS 10/12/18 10/25/21 Montelukast [Singulair] 10 mg PO DAILY 06/28/20 10/25/21 buPROPion [Wellbutrin] 75 mg PO BID 03/16/21 10/25/21 busPIRone HCl [Buspar] 10 mg PO BID 03/16/21 10/25/21 Loratadine [Claritin] 10 mg PO DAILY 03/22/21 10/25/21 Melatonin 5 mg PO HS 09/04/21 10/25/21 levETIRAcetam [Keppra] 250 mg PO Q12HR 09/04/21 10/25/21 rOPINIRole HCL [Requip] 0.25 mg PO TID 09/04/21 10/25/21 risperiDONE [RisperDAL] 1 mg PO HS 09/04/21 10/25/21 Albuterol Sulfate [Ventolin HFA] 2 puff INHALATION RT-Q6H PRN 10/25/21 10/25/21 Benzonatate [Tessalon Perles] 100 mg PO TID PRN 10/25/21 10/25/21 Ergocalciferol (Vitamin D2) 1,250 mcg PO TU 10/25/21 10/25/21 [Drisdol (50,000 Iu)] Fluticasone Nasal [place] [Flonase 1 spray EA NOSTRIL DAILY PRN 10/25/21 10/25/21 Nasal [place]] Sucralfate [Carafate] 1 gm PO BID 10/25/21 10/25/21 hydrOXYzine pamoate [Vistaril] 25 mg PO BID PRN 10/25/21 10/25/21 Previous Rx's Medication Instructions Recorded Albuterol Inhaler [Ventolin Hfa 1 puff INHALATION RT-QID #8 gm 10/25/21 Inhaler] Doxycycline Hyclate [Vibramycin] 100 mg PO BID 7 Days #14 cap 10/25/21 predniSONE [Deltasone] 40 mg PO DAILY 5 Days #10 tab 10/25/21 Allergies Allergy/AdvReac Type Severity Reaction Status Date / Time venom-honey bee Allergy Anaphylaxis Verified 10/25/21 17:37 codeine AdvReac Itching Verified 10/25/21 17:37 Review of Systems ROS Statement: Those systems with pertinent positive or pertinent negative responses have been documented in the HPI. Review of Systems: CONST: Denies fever EYES: Denies blurry vision ENT: Endorses cough C/V: Endorses chest pain RESP: Denies shortness of breath GI: Denies abdominal pain : Denies dysuria SKIN: Denies rash. MSK: Denies joint pain. NEURO: Denies headache ROS Other: All systems not noted in ROS Statement are negative. Past Medical History Past Medical History: Heart Failure, GI Bleed Additional Past Medical History / Comment(s): HEART VALVE REPLACEMENT. HX GI PROB FOR YEARS, HIATAL HERNIA. 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 DEVELOPMENTAL DISABILITY. colitis History of Any Multi-Drug Resistant Organisms: None Reported Past Surgical History: Ear Surgery, Hernia Repair, Orthopedic Surgery Additional Past Surgical History / Comment(s): RT Foot Surgery; Open Heart Surg @ 3 YRS OLD, VALVE REPLACED. EXC BRAIN TUMOR. HIATAL HERNIA REPAIR. RT EARDRUM REPAIRED. Past Anesthesia/Blood Transfusion Reactions: No Reported Reaction Past Psychological History: ADD/ADHD, Anxiety Smoking Status: Current every day smoker Past Alcohol Use History: None Reported Past Drug Use History: None Reported - Past Family History Father Family Medical History: No Reported History Additional Family Medical History / Comment(s): Mother Family Medical History: No Reported History Additional Family Medical History / Comment(s): General Exam - General Exam Comments Initial Comments: General: Appears in no acute distress. HEAD: Normal with no signs of head trauma. EYES: PERRLA, EOMI, conjunctiva normal, no discharge. ENT: Hearing grossly intact, normal oropharynx. RESPIRATORY: Mild end expiratory wheezing bilaterally. No increased work of breathing. No hypoxia. C/V: Regular rate and rhythm. S1 and S2 auscultated, no edema, peripheral pulses 2+ and intact throughout ABD: Abd is soft, nontender, nondistended EXT: Normal range of motion, no obvious deformity SKIN: No rashes or lesions observed on exposed skin. NEURO: Alert and oriented 4. No focal deficits. Limitations: altered mental status, physical limitation Course Vital Signs 10/25/21 10/25/21 10/25/21 16:40 18:47 19:32 Pulse Rate 60 61 72 Respiratory 18 16 19 Rate Blood Pressure 91/54 89/52 109/63 O2 Sat by Pulse 98 98 99 Oximetry Medical Decision Making - Medical Decision Making Based on the patient's presentation and physical exam, I'm concerned for possible cardiac etiology for her chest pain, however has strong suspicion that is likely chest wall pain and muscular skeletal in nature particularly because it is palpable. It started over 4 hours ago and therefore is single screening troponin addition to EKG, basic labs, chest x-ray will be obtained. We'll also obtain a COVID-19 swab. She'll be administered aspirin, albuterol, IV Solu- Medrol as well as 1 L fluid bolus. She was in agreement this plan. EKG shows no signs of acute ischemia. Chest x-ray shows no acute cardiop ulmonary process. Laboratory studies were remarkable for a negative troponin. Covid swab is negative. Otherwise laboratory studies are unremarkable. Sugar is slightly decreased and she was administered juice and crackers. Blood pressure was initially mildly decreased but improved with a 1 L fluid bolus. She chronically runs low SBP with systolics are 90- 110. On reevaluation, patient is feeling improved. She states the chest pain has resolved. I do believe it is safer to be discharged home. I do believe she is likely expressing about of bronchitis and she will be administered 1 time dose of doxycycline here in the department and given a prescription for it. She was in agreement this plan. I will provide the patient with a prescription for prednisone, albuterol inhal er, doxycycline. I instructed the patient to follow up with their PCP in the next 3 days. I explained that the patient should return to the emergency department if they experience any worsening symptoms. Strict return precautions were discussed with the patient. The patient expressed understanding of these instructions. I answered all questions that the patient had. The patient was discharged home in good condition with their prescriptions and follow up information. - Lab Data Result diagrams: 10/25/21 17:40 10/25/21 17:40 Lab Results 10/25/21 10/25/21 10/25/21 Range/Units 17:40 17:40 17:40 WBC 10.1 (3.8-10.6) k/uL RBC 4.60 (3.80-5.40) m/uL Hgb 13.7 (11.4-16.0) gm/dL Hct 38.3 (34.0-46.0) % MCV 83.2 (80.0-100.0) fL MCH 29.7 (25.0-35.0) pg MCHC 35.8 (31.0-37.0) g/dL RDW 12.3 (11.5-15.5) % Plt Count 180 (150-450) k/uL MPV 7.8 Neutrophils % 68 % Lymphocytes % 20 % Monocytes % 8 % Eosinophils % 1 % Basophils % 1 % Neutrophils # 6.9 (1.3-7.7) k/uL Lymphocytes # 2.0 (1.0-4.8) k/uL Monocytes # 0.8 (0-1.0) k/uL Eosinophils # 0.1 (0-0.7) k/uL Basophils # 0.1 (0-0.2) k/uL Hyperchromasia Slight PT 12.7 H (9.0-12.0) sec INR 1.2 H (<1.2) APTT 24.3 (22.0-30.0) sec Sodium 136 L (137-145) mmol/L Potassium 4.0 (3.5-5.1) mmol/L Chloride 104 (98-107) mmol/L Carbon Dioxide 27 (22-30) mmol/L Anion Gap 5 mmol/L BUN 6 L (7-17) mg/dL Creatinine 0.51 L (0.52-1.04) mg/dL Est GFR (CKD-EPI)AfAm >90 (>60 ml/min/1.73 sqM) Est GFR (CKD-EPI)NonAf >90 (>60 ml/min/1.73 sqM) Glucose 66 L (74-99) mg/dL Calcium 8.6 (8.4-10.2) mg/dL Magnesium 1.6 (1.6-2.3) mg/dL Total Bilirubin 0.2 (0.2-1.3) mg/dL AST 40 H (14-36) U/L ALT 53 H (4-34) U/L Alkaline Phosphatase 66 (38-126) U/L Troponin I (0.000-0.034) ng/mL Total Protein 6.0 L (6.3-8.2) g/dL Albumin 3.5 (3.5-5.0) g/dL Coronavirus (PCR) (Not Detectd) 10/25/21 10/25/21 Range/Units 17:40 17:40 WBC (3.8-10.6) k/uL RBC (3.80-5.40) m/uL Hgb (11.4-16.0) gm/dL Hct (34.0-46.0) % MCV (80.0-100.0) fL MCH (25.0-35.0) pg MCHC (31.0-37.0) g/dL RDW (11.5-15.5) % Plt Count (150-450) k/uL MPV Neutrophils % % Lymphocytes % % Monocytes % % Eosinophils % % Basophils % % Neutrophils # (1.3-7.7) k/uL Lymphocytes # (1.0-4.8) k/uL Monocytes # (0-1.0) k/uL Eosinophils # (0-0.7) k/uL Basophils # (0-0.2) k/uL Hyperchromasia PT (9.0-12.0) sec INR (<1.2) APTT (22.0-30.0) sec Sodium (137-145) mmol/L Potassium (3.5-5.1) mmol/L Chloride (98-107) mmol/L Carbon Dioxide (22-30) mmol/L Anion Gap mmol/L BUN (7-17) mg/dL Creatinine (0.52-1.04) mg/dL Est GFR (CKD-EPI)AfAm (>60 ml/min/1.73 sqM) Est GFR (CKD-EPI)NonAf (>60 ml/min/1.73 sqM) Glucose (74-99) mg/dL Calcium (8.4-10.2) mg/dL Magnesium (1.6-2.3) mg/dL Total Bilirubin (0.2-1.3) mg/dL AST (14-36) U/L ALT (4-34) U/L Alkaline Phosphatase (38-126) U/L Troponin I <0.012 (0.000-0.034) ng/mL Total Protein (6.3-8.2) g/dL Albumin (3.5-5.0) g/dL Coronavirus (PCR) Not Detected (Not Detectd) - EKG Data -: EKG Interpreted by Me EKG Comments: 12-lead Electrocardiogram Interpretation Note EKG was reviewed and interpreted by myself. 12-lead ECG performed at 1644 is interpreted by me as revealing sinus bradycardia at a rate of 58 beats per minute. [place] is normal. [place] interval is 188 ms, QRS duration is 82 ms, QTc is 441 ms.. There were no ST or T wave abnormalities to suggest myocardial ischemia or injury. R wave progression across the precordium was satisfactory. By my interpretation this EKG is non-diagnostic for acute ischemia. On comparison to prior EKGs, there is no acute change. Disposition Clinical Impression: Chest wall pain, Bronchitis Disposition: HOME SELF-CARE Condition: Good Instructions (If sedation given, give patient instructions): Costochondritis (ED), Acute Bronchitis (ED) Prescriptions: predniSONE [Deltasone] 40 mg PO DAILY 5 Days #10 tab Albuterol Inhaler [Ventolin Hfa Inhaler] 1 puff INHALATION RT-QID #8 gm Doxycycline Hyclate [Vibramycin] 100 mg PO BID 7 Days #14 cap Is patient prescribed a controlled substance at d/c from ED?: No Referrals: Eduardo Montoya MD [Primary Care Provider] - 1-2 days
[2021-10-25 18:07] LABS: ALT 53 U/L (4-34); AST 40 U/L (14-36); African American GFR (CKD) >90 (>60 ml/min/1.73 sqM); Albumin 3.5 g/dL (3.5-5.0); Alkaline Phosphatase 66 U/L (38-126); Anion Gap 5 mmol/L; Blood Urea Nitrogen 6 mg/dL (7-17); Calcium 8.6 mg/dL (8.4-10.2); Carbon Dioxide 27 mmol/L (22-30); Chloride 104 mmol/L (98-107); Glucose 66 mg/dL (74-99); Magnesium 1.6 mg/dL (1.6-2.3); Non-African American GFR(CKD) >90 (>60 ml/min/1.73 sqM); Sodium 136 mmol/L (137-145); Total Bilirubin 0.2 mg/dL (0.2-1.3)
--- NOTE | 2021-10-25 18:08 | XR ---
EXAMINATION TYPE: XR chest 2V DATE OF EXAM: 10/25/2021 COMPARISON: 08/18/2021 HISTORY: Chest pain TECHNIQUE: 2 views FINDINGS: There is thoracic dextroscoliosis. There are sternal wires. There are chest leads. Costophr enic angles are clear. Bony thorax is intact. IMPRESSION: No active cardiopulmonary disease. Normal heart. Thoracic scoliotic deformity. No change.
[2021-10-25] MEDS ORDERED: SODIUM CHLORIDE 0.9% 1,000 ML IV ONE (19:10)
[2021-10-25] MEDS ORDERED: DOXYCYCLINE 100 MG CAP PO STA (19:24)
[2021-10-25 19:38] VITALS: BP 109/63; PULSE 72; RESP 19
== END 2021-10-25 19:33 | disposition home or self-care (01) ==
LOC: EC 16:24
DX: J40 Bronchitis, not specified as acute or chronic (principal); Z20.822 Contact with and (suspected) exposure to COVID-19; I50.9 Heart failure, unspecified; F41.9 Anxiety disorder, unspecified; F90.9 Attention-deficit hyperactivity disorder, unspecified type; F17.200 Nicotine dependence, unspecified, uncomplicated; Z79.51 Long term (current) use of inhaled steroids; Z79.899 Other long term (current) drug therapy
CPT/HCPCS: 99285; 96374; 36415; 94640; 93005; 80053; 83735; 84484; 85025; 85610; 85730; 87635; 71046; J2930

== ENCOUNTER 2021-11-12 15:31 | Emergency (ER) | payer MEDICARE, OTHER ==
[2021-11-12 17:21] VITALS: BP 110/74; PULSE 91; RESP 18; TEMP 98
[2021-11-12] MEDS ORDERED: ACETAMINOPHEN TAB 325 MG TAB PO STA (18:16)
--- NOTE | 2021-11-12 18:21 | ED ---
General Adult HPI - General Chief complaint: Shortness of Breath Stated complaint: Back pain,Asthma Time Seen by Provider: 11/12/21 18:10 Source: patient, RN notes reviewed, old records reviewed Mode of arrival: ambulatory Limitations: no limitations - History of Present Illness Initial comments: Well-appearing 36-year-old female presents to the emergency room ambulatory with complaints of neck pain. Patient states that she seen her primary care doctor today and after the visit she had an asthma attack which she resolved with her albuterol inhaler. She states that she leaned back and hurt her neck when she used her inhaler. She states that she took a Motrin with no relief and she is here for pain control. -: hour(s) (4) Location: neck Severity scale (1-10): 10 Quality: aching Consistency: constant Improves with: none Worsens with: other (palpation) Associated Symptoms: denies other symptoms Treatments Prior to Arrival: NSAID (motrin) - Related Data Home Medications Medication Instructions Recorded Confirmed FLUoxetine HCL [PROzac Weekly] 90 mg PO TU 08/27/17 10/25/21 traZODone HCL 200 mg PO 10/12/18 10/25/21 Montelukast [Singulair] 10 mg PO DAILY 06/28/20 10/25/21 buPROPion [Wellbutrin] 75 mg PO BID 03/16/21 10/25/21 busPIRone HCl [Buspar] 10 mg PO BID 03/16/21 10/25/21 Loratadine [Claritin] 10 mg PO DAILY 03/22/21 10/25/21 Melatonin 5 mg PO HS 09/04/21 10/25/21 levETIRAcetam [Keppra] 250 mg PO Q12HR 09/04/21 10/25/21 rOPINIRole HCL [Requip] 0.25 mg PO TID 09/04/21 10/25/21 risperiDONE [RisperDAL] 1 mg PO HS 09/04/21 10/25/21 Albuterol Sulfate [Ventolin HFA] 2 puff INHALATION RT-Q6H PRN 10/25/21 10/25/21 Benzonatate [Tessalon Perles] 100 mg PO TID PRN 10/25/21 10/25/21 Ergocalciferol (Vitamin D2) 1,250 mcg PO TU 10/25/21 10/25/21 [Drisdol (50,000 Iu)] Fluticasone Nasal [place] [Flonase 1 spray EA NOSTRIL DAILY PRN 10/25/21 10/25/21 Nasal [place]] Sucralfate [Carafate] 1 gm PO BID 10/25/21 10/25/21 hydrOXYzine pamoate [Vistaril] 25 mg PO BID PRN 10/25/21 10/25/21 Previous Rx's Medication Instructions Recorded Albuterol Inhaler [Ventolin Hfa 1 puff INHALATION RT-QID #8 gm 10/25/21 Inhaler] Doxycycline Hyclate [Vibramycin] 100 mg PO BID 7 Days #14 cap 10/25/21 predniSONE [Deltasone] 40 mg PO DAILY 5 Days #10 tab 10/25/21 Allergies Allergy/AdvReac Type Severity Reaction Status Date / Time venom-honey bee Allergy Anaphylaxis Verified 11/12/21 17:21 codeine AdvReac Itching Verified 11/12/21 17:21 Review of Systems ROS Statement: Those systems with pertinent positive or pertinent negative responses have been documented in the HPI. ROS Other: All systems not noted in ROS Statement are negative. Past Medical History Past Medical History: Heart Failure, GI Bleed Additional Past Medical History / Comment(s): HEART VALVE REPLACEMENT. HX GI PROB FOR YEARS, HIATAL HERNIA. 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 DEVELOPMENTAL DISABILITY. colitis History of Any Multi-Drug Resistant Organisms: None Reported Past Surgical History: Ear Surgery, Hernia Repair, Orthopedic Surgery Additional Past Surgical History / Comment(s): RT Foot Surgery; Open Heart Surg @ 3 YRS OLD, VALVE REPLACED. EXC BRAIN TUMOR. HIATAL HERNIA REPAIR. RT EAR DRUM REPAIRED. Past Anesthesia/Blood Transfusion Reactions: No Reported Reaction Past Psychological History: ADD/ADHD, Anxiety Smoking Status: Current every day smoker Past Alcohol Use History: None Reported Past Drug Use History: None Reported - Past Family History Father Family Medical History: No Reported History Additional Family Medical History / Comment(s): Mother Family Medical History: No Reported History Additional Family Medical History / Comment(s): General Exam Limitations: no limitations General appearance: alert, in no apparent distress Head exam: Present: atraumatic, normocephalic, normal inspection Eye exam: Present: normal appearance, EOMI Neck exam: Present: normal inspection, tenderness (paraspinal cspine), full ROM. Absent: meningismus, lymphadenopathy, thyromegaly Respiratory exam: Present: normal lung sounds bilaterally. Absent: respiratory distress, wheezes, rales, rhonchi, stridor Cardiovascular Exam: Present: regular rate, normal rhythm, normal heart sounds. Absent: systolic murmur, diastolic murmur, rubs, gallop, clicks Back exam: Absent: tenderness Neurological exam: Present: alert, oriented X3, normal gait Psychiatric exam: Present: normal affect, normal mood Skin exam: Present: warm, dry, intact, normal color. Absent: rash, cyanosis, diaphoretic Course Vital Signs 11/12/21 17:18 Temperature 98.0 F Pulse Rate 91 Respiratory 18 Rate Blood Pressure 110/74 O2 Sat by Pulse 96 Oximetry Medical Decision Making - Medical Decision Making Well-appearing 36-year-old female presents to the emergency room with complaints of neck pain. She states that she hurt her neck when she was using her inhaler, took Motrin at home with no relief and came in for pain control. She dies any blunt injury or falls. She denies any fevers, nausea, vomiting, or diarrhea. She was agreeable to getting Tylenol being discharged home to follow up with her primary care doctor as needed. She is ambulatory with a steady gait. Case was discussed with Dr. Swift. Disposition Clinical Impression: Neck pain Disposition: HOME SELF-CARE Condition: Good Instructions (If sedation given, give patient instructions): Neck Pain (ED) Additional Instructions: Continue Tylenol and or Motrin as needed for pain. Follow-up with your doctor next week as needed. You can also use [id number] topical pain relievers like icy hot. Is patient prescribed a controlled substance at d/c from ED?: No Referrals: Eduardo Montoya MD [Primary Care Provider] - 1-2 days Time of Disposition: 18:25
== END 2021-11-12 18:37 | disposition home or self-care (01) ==
LOC: EC 15:31
DX: M54.2 Cervicalgia (principal); R06.02 Shortness of breath; F17.200 Nicotine dependence, unspecified, uncomplicated; I50.9 Heart failure, unspecified; Z88.5 Allergy status to narcotic agent; Z91.030 Bee allergy status
CPT/HCPCS: 99284

== ENCOUNTER 2021-11-25 10:39 | Emergency (ER) | payer MEDICARE, OTHER ==
[2021-11-25 11:05] VITALS: BP 95/65; PULSE 107; RESP 18; TEMP 98.2
--- NOTE | 2021-11-25 11:59 | ED ---
General Adult HPI - General Chief complaint: Back Pain/Injury Stated complaint: fall, tailbone Time Seen by Provider: 11/25/21 11:25 Source: patient, RN notes reviewed Mode of arrival: ambulatory Limitations: no limitations - History of Present Illness Initial comments: This is a 36-year-old female presents emergency Department with chief complaint of slip and fall. She states that she slipped on some ice yesterday falling onto her buttocks region. She states she has buttocks pain denies any head injury no loss conscious. Denies a bowel bladder incontinence or retention. No saddle anesthesias. Patient states she has no upper back pain no extremity injury no symptoms into her extremities. - Related Data Home Medications Medication Instructions Recorded Confirmed FLUoxetine HCL [PROzac Weekly] 90 mg PO TU 08/27/17 10/25/21 traZODone HCL 200 mg PO HS 10/12/18 10/25/21 Montelukast [Singulair] 10 mg PO DAILY 06/28/20 10/25/21 buPROPion [Wellbutrin] 75 mg PO BID 03/16/21 10/25/21 busPIRone HCl [Buspar] 10 mg PO BID 03/16/21 10/25/21 Loratadine [Claritin] 10 mg PO DAILY 03/22/21 10/25/21 Melatonin 5 mg PO HS 09/04/21 10/25/21 levETIRAcetam [Keppra] 250 mg PO Q12HR 09/04/21 10/25/21 rOPINIRole HCL [Requip] 0.25 mg PO TID 09/04/21 10/25/21 risperiDONE [RisperDAL] 1 mg PO HS 09/04/21 10/25/21 Albuterol Sulfate [Ventolin HFA] 2 puff INHALATION RT-Q6H PRN 10/25/21 10/25/21 Benzonatate [Tessalon Perles] 100 mg PO TID PRN 10/25/21 10/25/21 Ergocalciferol (Vitamin D2) 1,250 mcg PO TU 10/25/21 10/25/21 [Drisdol (50,000 Iu)] Fluticasone Nasal [place] [Flonase 1 spray EA NOSTRIL DAILY PRN 10/25/21 10/25/21 Nasal [place]] Sucralfate [Carafate] 1 gm PO BID 10/25/21 10/25/21 hydrOXYzine pamoate [Vistaril] 25 mg PO BID PRN 10/25/21 10/25/21 Previous Rx's Medication Instructions Recorded Albuterol Inhaler [Ventolin Hfa 1 puff INHALATION RT-QID #8 gm 10/25/21 Inhaler] Doxycycline Hyclate [Vibramycin] 100 mg PO BID 7 Days #14 cap 10/25/21 predniSONE [Deltasone] 40 mg PO DAILY 5 Days #10 tab 10/25/21 Allergies Allergy/AdvReac Type Severity Reaction Status Date / Time venom-honey bee Allergy Anaphylaxis Verified 11/25/21 11:04 codeine AdvReac Itching Verified 11/25/21 11:04 Review of Systems ROS Statement: Those systems with pertinent positive or pertinent negative responses have been documented in the HPI. ROS Other: All systems not noted in ROS Statement are negative. Past Medical History Past Medical History: Heart Failure, GI Bleed Additional Past Medical History / Comment(s): HEART VALVE REPLACEMENT. HX GI PROB FOR YEARS, HIATAL HERNIA. 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 DEVELOPMENTAL DISABILITY. colitis History of Any Multi-Drug Resistant Organisms: None Reported Past Surgical History: Ear Surgery, Hernia Repair, Orthopedic Surgery Additional Past Surgical History / Comment(s): RT Foot Surgery; Open Heart Surg @ 3 YRS OLD, VALVE REPLACED. EXC BRAIN TUMOR. HIATAL HERNIA REPAIR. RT EARDRUM REPAIRED. Past Anesthesia/Blood Transfusion Reactions: No Reported Reaction Past Psychological History: ADD/ADHD, Anxiety Smoking Status: Current every day smoker Past Alcohol Use History: None Reported Past Drug Use History: None Reported - Past Family History Father Family Medical History: No Reported History Additional Family Medical History / Comment(s): Mother Family Medical History: No Reported History Additional Family Medical History / Comment(s): General Exam Limitations: no limitations General appearance: alert, in no apparent distress Head exam: Present: atraumatic, normocephalic, normal inspection Eye exam: Present: normal appearance, PERRL, EOMI. Absent: scleral icterus, conjunctival injection, periorbital swelling Neck exam: Present: normal inspection, full ROM. Absent: tenderness, meningismus, lymphadenopathy Respiratory exam: Present: normal lung sounds bilaterally. Absent: respiratory distress, wheezes, rales, rhonchi, stridor Cardiovascular Exam: Present: regular rate, normal rhythm, normal heart sounds. Absent: systolic murmur, diastolic murmur, rubs, gallop, clicks GI/Abdominal exam: Present: soft, normal bowel sounds. Absent: distended, tenderness, guarding, rebound, rigid Back exam: Present: normal inspection, full ROM, tenderness (Sacral region), vertebral tenderness. Absent: paraspinal tenderness Neurological exam: Present: alert, oriented X3, CN II-XII intact, reflexes normal. Absent: motor sensory deficit Skin exam: Present: warm, dry, intact, normal color. Absent: rash Course Vital Signs 11/25/21 11:01 Temperature 98.2 F Pulse Rate 107 H Respiratory 18 Rate Blood Pressure 95/65 O2 Sat by Pulse 96 Oximetry Medical Decision Making - Medical Decision Making X-rays are negative for acute obvious fracture. Patient discharged in stable condition. Return parameters were discussed. Disposition Clinical Impression: Fall, Sacral contusion Disposition: HOME SELF-CARE Condition: Stable Instructions (If sedation given, give patient instructions): Back Pain (ED) Additional Instructions: Please return to the Emergency Department if symptoms worsen or any other concerns. Is patient prescribed a controlled substance at d/c from ED?: No Referrals: Eduardo Montoya MD [Primary Care Provider] - 1-2 days Time of Disposition: 12:18
--- NOTE | 2021-11-25 12:10 | XR ---
EXAMINATION TYPE: XR pelvis AP view DATE OF EXAM: 11/25/2021 CLINICAL HISTORY: pain TECHNIQUE: Single view the pelvis is submitted. FINDINGS: No evidence for fracture, dislocation or bony lesion. Joint spaces are well-preserved. S I joints appear symmetric. IMPRESSION: 1. No acute fracture or dislocation seen. ICD 10 NO FRACTURE, INITIAL EVALUATION
--- NOTE | 2021-11-25 12:11 | XR ---
EXAMINATION TYPE: XR lumbosacral spine min 4V DATE OF EXAM: 11/25/2021 CLINICAL HISTORY: pain COMPARISON: NONE TECHNIQUE: Frontal, lateral, and oblique images of the lumbar spine are obtained. FINDINGS: There are 5 lumbar type vertebral bodies identified. The lumbar spine shows satisfactory alignment without evidence of acute fracture or dislocation. Vertebral body heights are within normal limits. Disc spaces are well preserved. The overlying soft tissue appears unremarkable. IMPRESSION: No acute fracture or dislocation is seen in the lumbar spine.ICD 10 NO FRACTURE, INITIAL EVALUATION
== END 2021-11-25 12:30 | disposition home or self-care (01) ==
LOC: EC 10:39
DX: S30.0XXA Contusion of lower back and pelvis, initial encounter (principal); I50.9 Heart failure, unspecified; F90.9 Attention-deficit hyperactivity disorder, unspecified type; F41.9 Anxiety disorder, unspecified; F17.200 Nicotine dependence, unspecified, uncomplicated; Z88.5 Allergy status to narcotic agent; W01.0XXA Fall on same level from slipping, tripping and stumbling without subsequent striking against object, initial encounter
CPT/HCPCS: 72110; 72170; 99283

== ENCOUNTER → 2021-12-18 | Outpatient (CLI) | payer MEDICARE, OTHER ==
--- NOTE | 2021-12-19 07:32 | MR ---
MRI CERVICAL SPINE: CLINICAL HISTORY: Headaches, neck pain, myoclonic jerking. TECHNIQUE: Multiplanar, multisequence imaging of the cervical spine is performed without IV contrast. COMPARISON: CT cervical spine February 04, 2021. FINDINGS: There is persistent prominent dextroconvex scoliosis centered in the thoracic spine. Sagitt al images of the cervical spine show the craniocervical junction to appear within normal limits. The cervical and upper thoracic spinal cord is normal in caliber and signal. There is reversal of normal cervical curvature centered at C5-C6 level redemonstrated on sagittal images. The vertebral body an d intravertebral disk heights remain normal. The bone marrow signal intensity is within normal limit s. Axial images show C2-C3 and C3-C4 levels to appear within normal limits. Axial images at C4-C5 level shows small right paracentral disc protrusion mildly effacing the anterio r thecal sac, bilateral neural foramina are patent. Axial images at C5-C6 levels show more prominent focal right paracentral disc protrusion effacing the anterior thecal sac nearly up to ventral cervical spinal cord, patent bilateral neural foramina. Axial images at C6-C7 and C7-T1 levels appear within normal limits. IMPRESSION: Scoliosis and reversal of normal cervical curvature redemonstrated. Small disc herniation s noted in the mid cervical spine.
== END | disposition home or self-care (01) ==
LOC: RADMRIMAIN 10:26
PROVIDERS: ATTEND Psychiatry & Neurology Neurology
DX: G25.3 Myoclonus (principal); M50.222 Other cervical disc displacement at C5-C6 level; M41.82 Other forms of scoliosis, cervical region
CPT/HCPCS: 72141

== ENCOUNTER 2021-12-24 18:08 | Emergency (ER) | payer MEDICARE, OTHER ==
[2021-12-24 18:49] VITALS: BP 111/73
--- NOTE | 2021-12-24 19:27 | XR ---
EXAMINATION TYPE: XR chest 2V DATE OF EXAM: 12/24/2021 7:02 PM COMPARISON: 10/25/2021 TECHNIQUE: Frontal view of the chest. CLINICAL INDICATION:Female, 36 years old with history of cough, possible covid ; FINDINGS: Lungs/Pleura: There is no evidence of pleural effusion, focal consolidation, or pneumothorax. Pulmonary vascularity: Unremarkable. Heart/mediastinum: Cardiomediastinal silhouette is unremarkable. Musculoskeletal:No acute osseous pathology. Midline sternotomy wires are noted and stable. Scoliosis changes of the spine. IMPRESSION: No acute cardiopulmonary disease/process or significant change from prior..
[2021-12-24 21:37] VITALS: PULSE 82; TEMP 98.2
[2021-12-24 21:38] VITALS: RESP 19
--- NOTE | 2021-12-24 22:09 | ED ---
General Adult HPI - General Chief complaint: Upper Respiratory Infection Stated complaint: Covid symptoms Time Seen by Provider: 12/24/21 21:43 Source: patient Mode of arrival: ambulatory Limitations: no limitations - History of Present Illness Initial comments: This 36-year-old female with past medical history of developmental delay, heart valve replacement, heart failure presents to the emergency department to test for COVID-19. She states her roommate is positive for COVID-19 so she came here to be tested. Patient states she has had a mild cough for the last couple of days. She states she also has intermittent dull headaches which she takes Motrin which takes away her headaches. She states she is still eating and drinking as normal. Patient denies any chest pain, shortness of breath, abdominal pain, nausea, vomiting, change in appetite, hemoptysis, change in bowel or bladder, change in vision, back pain. - Related Data Home Medications Medication Instructions Recorded Confirmed FLUoxetine HCL [PROzac Weekly] 90 mg PO TU 08/27/17 10/25/21 traZODone HCL 200 mg PO HS 10/12/18 10/25/21 Montelukast [Singulair] 10 mg PO DAILY 06/28/20 10/25/21 buPROPion [Wellbutrin] 75 mg PO BID 03/16/21 10/25/21 busPIRone HCl [Buspar] 10 mg PO BID 03/16/21 10/25/21 Loratadine [Claritin] 10 mg PO DAILY 03/22/21 10/25/21 Melatonin 5 mg PO HS 09/04/21 10/25/21 levETIRAcetam [Keppra] 250 mg PO Q12HR 09/04/21 10/25/21 rOPINIRole HCL [Requip] 0.25 mg PO TID 09/04/21 10/25/21 risperiDONE [RisperDAL] 1 mg PO HS 09/04/21 10/25/21 Albuterol Sulfate [Ventolin HFA] 2 puff INHALATION RT-Q6H PRN 10/25/21 10/25/21 Benzonatate [Tessalon Perles] 100 mg PO TID PRN 10/25/21 10/25/21 Ergocalciferol (Vitamin D2) 1,250 mcg PO TU 10/25/21 10/25/21 [Drisdol (50,000 Iu)] Fluticasone Nasal [place] [Flonase 1 spray EA NOSTRIL DAILY PRN 10/25/21 10/25/21 Nasal [place]] Sucralfate [Carafate] 1 gm PO BID 10/25/21 10/25/21 hydrOXYzine pamoate [Vistaril] 25 mg PO BID PRN 10/25/21 10/25/21 Previous Rx's Medication Instructions Recorded Albuterol Inhaler [Ventolin Hfa 1 puff INHALATION RT-QID #8 gm 10/25/21 Inhaler] Doxycycline Hyclate [Vibramycin] 100 mg PO BID 7 Days #14 cap 10/25/21 predniSONE [Deltasone] 40 mg PO DAILY 5 Days #10 tab 10/25/21 Allergies Allergy/AdvReac Type Severity Reaction Status Date / Time venom-honey bee Allergy Anaphylaxis Verified 12/24/21 18:49 codeine AdvReac Itching Verified 12/24/21 18:49 Review of Systems ROS Statement: Those systems with pertinent positive or pertinent negative responses have been documented in the HPI. ROS Other: All systems not noted in ROS Statement are negative. Past Medical History Past Medical History: Heart Failure, GI Bleed Additional Past Medical History / Comment(s): HEART VALVE REPLACEMENT. HX GI PROB FOR YEARS, HIATAL HERNIA. 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 DEVELOPMENTAL DISABILITY. colitis History of Any Multi-Drug Resistant Organisms: None Reported Past Surgical History: Ear Surgery, Hernia Repair, Orthopedic Surgery Additional Past Surgical History / Comment(s): RT Foot Surgery; Open Heart Surg @ 3 YRS OLD, VALVE REPLACED. EXC BRAIN TUMOR. HIATAL HERNIA REPAIR. RT EARDRUM REPAIRED. Past Anesthesia/Blood Transfusion Reactions: No Reported Reaction Past Psychological History: ADD/ADHD, Anxiety Smoking Status: Current every day smoker Past Alcohol Use History: None Reported Past Drug Use History: None Reported - Past Family History Father Family Medical History: No Reported History Additional Family Medical History / Comment(s): Mother Family Medical History: No Reported History Additional Family Medical History / Comment(s): General Exam Limitations: no limitations General appearance: alert, in no apparent distress Head exam: Present: atraumatic, normocephalic, normal inspection Eye exam: Present: EOMI ENT exam: Present: mucous membranes moist Neck exam: Present: full ROM. Absent: tenderness, meningismus Respiratory exam: Present: normal lung sounds bilaterally. Absent: respiratory distress, wheezes, rales, rhonchi, stridor Cardiovascular Exam: Present: regular rate, normal rhythm, normal heart sounds. Absent: systolic murmur, diastolic murmur, rubs, gallop, clicks GI/Abdominal exam: Present: soft, normal bowel sounds. Absent: distended, tenderness, guarding, rebound, rigid Extremities exam: Present: full ROM Back exam: Present: normal inspection. Absent: CVA tenderness (R), CVA tenderness (L) Neurological exam: Present: alert, oriented X3, CN II-XII intact Psychiatric exam: Present: normal affect, normal mood Skin exam: Present: warm, dry, intact, normal color. Absent: rash Course Vital Signs 12/24/21 12/24/21 12/24/21 18:46 21:36 21:37 Temperature 98.5 F 98.2 F Pulse Rate 96 82 Respiratory 20 20 19 Rate Blood Pressure 111/73 111/73 O2 Sat by Pulse 97 97 Oximetry Medical Decision Making - Medical Decision Making This 36-year-old female presents to the emergency department with a cough 2 days. Patient has a positive for COVID-19. Patient does qualify COVID-19 antibody infusion which was explained to patient and highly recommended due to her past medical history, however, patient refused and states she just wants to go home and rest. Chest x-ray impression: No acute cardiopulmonary disease/process or significant change from prior. Strict return precautions were discussed with the patient. Patient advised to follow up with primary care provider in next 24-48 hours. Patient verbally agreed to plan. Insertive therapy was discussed. Patient advised to get pulse oximeter from [facility] and return if oxygen drops below 90%. Patient sent home in stable condition. Discussed with the attending, . - Lab Data Lab Results 12/24/21 Range/Units 18:49 Coronavirus (PCR) Detected A (Not Detectd) Disposition Clinical Impression: COVID-19 Disposition: HOME SELF-CARE Condition: Stable Instructions (If sedation given, give patient instructions): Coronavirus Disease 2019 (COVID-19) Additional Instructions: Return to the emergency department with any concerning, new, or worsening symptoms. Please follow up with primary care provider in next 24-48 hours. Can take zinc, vitamin C, vitamin D. Advised to get pulse oximeter from [facility] and return to the emergency department if she drops below 90%. Is patient prescribed a controlled substance at d/c from ED?: No Referrals: Eduardo Montoya MD [Primary Care Provider] - 1-2 days Time of Disposition: 22:09
== END 2021-12-24 22:20 | disposition home or self-care (01) ==
LOC: EC 18:08
DX: U07.1 COVID-19 (principal); I50.9 Heart failure, unspecified; F17.200 Nicotine dependence, unspecified, uncomplicated; F41.9 Anxiety disorder, unspecified; F90.9 Attention-deficit hyperactivity disorder, unspecified type; Z79.51 Long term (current) use of inhaled steroids; Z79.52 Long term (current) use of systemic steroids; Z79.899 Other long term (current) drug therapy
CPT/HCPCS: 71046; 87635; 99284

== ENCOUNTER 2022-03-10 22:26 | Emergency (ER) | payer MEDICARE, OTHER ==
[2022-03-10 23:42] VITALS: RESP 16
--- NOTE | 2022-03-11 01:54 | ED ---
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 Since tonight after taking 2 edible marijuana gummies. Patient states she then started feeling strange. Patient states she felt "wacky." She denies any pain. No hallucinations. No current anxiety. Patient states she feels well at this time. Voicing that she is asymptomatic. No headache, no fever or chills, no changes in vision or hearing, no sore throat or difficulty with speech, no neck pain, no chest pain or shortness of breath, no abdominal pain, no nausea or vomiting, no changes in urination or bowel movements, no numbness or tingling, no extremity pain, no skin rashes or lesions. - Related Data Home Medications Medication Instructions Recorded Confirmed FLUoxetine HCL [PROzac Weekly] 90 mg PO TU 08/27/17 10/25/21 traZODone HCL 200 mg PO HS 10/12/18 10/25/21 Montelukast [Singulair] 10 mg PO DAILY 06/28/20 10/25/21 buPROPion [Wellbutrin] 75 mg PO BID 03/16/21 10/25/21 busPIRone HCl [Buspar] 10 mg PO BID 03/16/21 10/25/21 Loratadine [Claritin] 10 mg PO DAILY 03/22/21 10/25/21 Melatonin 5 mg PO HS 09/04/21 10/25/21 levETIRAcetam [Keppra] 250 mg PO Q12HR 09/04/21 10/25/21 rOPINIRole HCL [Requip] 0.25 mg PO TID 09/04/21 10/25/21 risperiDONE [RisperDAL] 1 mg PO HS 09/04/21 10/25/21 Albuterol Sulfate [Ventolin HFA] 2 puff INHALATION RT-Q6H PRN 10/25/21 10/25/21 Benzonatate [Tessalon Perles] 100 mg PO TID PRN 10/25/21 10/25/21 Ergocalciferol (Vitamin D2) 1,250 mcg PO TU 10/25/21 10/25/21 [Drisdol (50,000 Iu)] Fluticasone Nasal [place] [Flonase 1 spray EA NOSTRIL DAILY PRN 10/25/21 10/25/21 Nasal [place]] Sucralfate [Carafate] 1 gm PO BID 10/25/21 10/25/21 hydrOXYzine pamoate [Vistaril] 25 mg PO BID PRN 10/25/21 10/25/21 Previous Rx's Medication Instructions Recorded Albuterol Inhaler [Ventolin Hfa 1 puff INHALATION RT-QID #8 gm 10/25/21 Inhaler] Doxycycline Hyclate [Vibramycin] 100 mg PO BID 7 Days #14 cap 10/25/21 predniSONE [Deltasone] 40 mg PO DAILY 5 Days #10 tab 10/25/21 Allergies Allergy/AdvReac Type Severity Reaction Status Date / Time venom-honey bee Allergy Anaphylaxis Verified 03/10/22 23:42 codeine AdvReac Itching Verified 03/10/22 23:42 Review of Systems ROS Statement: Those systems with pertinent positive or pertinent negative responses have been documented in the HPI. ROS Other: All systems not noted in ROS Statement are negative. Past Medical History Past Medical History: Heart Failure, GI Bleed Additional Past Medical History / Comment(s): HEART VALVE REPLACEMENT. HX GI PROB FOR YEARS, HIATAL HERNIA. 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 DEVELOPMENTAL DISABILITY. colitis History of Any Multi-Drug Resistant Organisms: None Reported Past Surgical History: Ear Surgery, Hernia Repair, Orthopedic Surgery Additional Past Surgical History / Comment(s): RT Foot Surgery; Open Heart Surg @ 3 YRS OLD, VALVE REPLACED. EXC BRAIN TUMOR. HIATAL HERNIA REPAIR. RT EARDRUM REPAIRED. Past Anesthesia/Blood Transfusion Reactions: No Reported Reaction Past Psychological History: ADD/ADHD, Anxiety Smoking Status: Current every day smoker Past Alcohol Use History: None Reported Past Drug Use History: None Reported - Past Family History Father Family Medical History: No Reported History Additional Family Medical History / Comment(s): Mother Family Medical History: No Reported History Additional Family Medical History / Comment(s): General Exam - General Exam Comments Initial Comments: Patient no distress. Vital signs reviewed. Does not appear to be ill or toxic. Cranial nerves II through XII are intact. Alert and oriented. Limitations: no limitations General appearance: alert, in no apparent distress Head exam: Present: atraumatic, normocephalic, normal inspection Eye exam: Present: normal appearance, PERRL, EOMI. Absent: scleral icterus, conjunctival injection, periorbital swelling ENT exam: Present: normal exam, normal oropharynx, mucous membranes moist Neck exam: Present: normal inspection, full ROM. Absent: tenderness, meningismus, lymphadenopathy Respiratory exam: Present: normal lung sounds bilaterally. Absent: respiratory distress, wheezes, rales, rhonchi, stridor Cardiovascular Exam: Present: regular rate, normal rhythm, normal heart sounds. Absent: systolic murmur, diastolic murmur, rubs, gallop, clicks GI/Abdominal exam: Present: soft, normal bowel sounds. Absent: distended, tenderness, guarding, rebound, rigid Extremities exam: Present: normal inspection, full ROM, normal capillary refill. Absent: tenderness, pedal edema, joint swelling, calf tenderness Back exam: Present: normal inspection Neurological exam: Present: alert, oriented X3, CN II-XII intact, normal gait, motor sensory deficit Psychiatric exam: Present: normal affect, normal mood Skin exam: Present: warm, dry, intact, normal color. Absent: rash Course Vital Signs 03/10/22 23:40 Temperature 96.9 F L Pulse Rate 76 Respiratory 16 Rate Blood Pressure 97/62 O2 Sat by Pulse 97 Oximetry Medical Decision Making - Medical Decision Making Patient counseled on avoidance of marijuana. To take her normal medications at home. Patient was discharged in no distress. Patient concurs with this treatment plan. Symptomatic at discharge. The case was discussed in detail with ED attending physician. Presentation, findings, treatment plan discussed in detail. Patient was told to return to the ER for any signs or symptoms worsen. Told to return immediately if any other problems arise. All questions answered. Treatment plan discussed. Patient in agreement Every effort has been made to ensure accuracy of this dictation. However, due to the limitations of electronic medical records and dictation devices, errors in charting still occur. Disposition Clinical Impression: Marijuana use, Medication side effect Narrative: Edible marijuana side effect Disposition: HOME SELF-CARE Condition: Good Instructions (If sedation given, give patient instructions): Cannabis Abuse (ED) Additional Instructions: Follow-up with your regular physician as directed. Return to the ER immediately if any symptoms worsen, new symptoms arise, or any other problems develop. Is patient prescribed a controlled substance at d/c from ED?: No Referrals: Eduardo Montoya MD [Primary Care Provider] - 1-2 days Time of Disposition: 01:54
[2022-03-11 02:07] VITALS: BP 107/68; PULSE 75; TEMP 98.1
== END 2022-03-11 02:19 | disposition home or self-care (01) ==
LOC: EC 22:26
DX: F12.90 Cannabis use, unspecified, uncomplicated (principal); T50.905A Adverse effect of unspecified drugs, medicaments and biological substances, initial encounter; I50.9 Heart failure, unspecified; F41.9 Anxiety disorder, unspecified; F90.9 Attention-deficit hyperactivity disorder, unspecified type; F17.200 Nicotine dependence, unspecified, uncomplicated; Z79.51 Long term (current) use of inhaled steroids; Z79.899 Other long term (current) drug therapy
CPT/HCPCS: 99283

== ENCOUNTER 2022-04-08 17:50 | Emergency (ER) | payer MEDICARE, OTHER ==
[2022-04-08 19:00] VITALS: BP 111/70; PULSE 78; RESP 14; TEMP 98
--- NOTE | 2022-04-08 19:16 | ED ---
Extremity Problem HPI - General Chief complaint: Extremity Problem,Nontraumatic Stated complaint: R foot swelling Time Seen by Provider: 04/08/22 19:00 Source: patient Mode of arrival: wheelchair Limitations: no limitations - History of Present Illness Initial comments: 36-year-old female with past medical history of clubfoot presents to the emergency department with right leg swelling. States that she awoke this morning and noted that her right leg was swollen. She has been wearing a knee immobilizer because she fell one week ago. [facility] She was told by Michell that she had to wear the brace for 1 week more. Denies that the brace is too tight. She does admit to some mild foot discomfort. No new injuries. Denies history of DVT or PE. She is not on any blood thinners. No other alleviating, precipitating or modifying factors - Related Data Home Medications Medication Instructions Recorded Confirmed FLUoxetine HCL [PROzac Weekly] 90 mg PO TU 08/27/17 10/25/21 traZODone HCL 200 mg PO HS 10/12/18 10/25/21 Montelukast [Singulair] 10 mg PO DAILY 06/28/20 10/25/21 buPROPion [Wellbutrin] 75 mg PO BID 03/16/21 10/25/21 busPIRone HCl [Buspar] 10 mg PO BID 03/16/21 10/25/21 Loratadine [Claritin] 10 mg PO DAILY 03/22/21 10/25/21 Melatonin 5 mg PO HS 09/04/21 10/25/21 levETIRAcetam [Keppra] 250 mg PO Q12HR 09/04/21 10/25/21 rOPINIRole HCL [Requip] 0.25 mg PO TID 09/04/21 10/25/21 risperiDONE [RisperDAL] 1 mg PO HS 09/04/21 10/25/21 Albuterol Sulfate [Ventolin HFA] 2 puff INHALATION RT-Q6H PRN 10/25/21 10/25/21 Benzonatate [Tessalon Perles] 100 mg PO TID PRN 10/25/21 10/25/21 Ergocalciferol (Vitamin D2) 1,250 mcg PO TU 10/25/21 10/25/21 [Drisdol (50,000 Iu)] Fluticasone Nasal [place] [Flonase 1 spray EA NOSTRIL DAILY PRN 10/25/21 10/25/21 Nasal [place]] Sucralfate [Carafate] 1 gm PO BID 10/25/21 10/25/21 hydrOXYzine pamoate [Vistaril] 25 mg PO BID PRN 10/25/21 10/25/21 Previous Rx's Medication Instructions Recorded Albuterol Inhaler [Ventolin Hfa 1 puff INHALATION RT-QID #8 gm 10/25/21 Inhaler] Doxycycline Hyclate [Vibramycin] 100 mg PO BID 7 Days #14 cap 10/25/21 predniSONE [Deltasone] 40 mg PO DAILY 5 Days #10 tab 10/25/21 Ibuprofen [Motrin] 400 mg PO BID #20 tab 04/06/22 Allergies Allergy/AdvReac Type Severity Reaction Status Date / Time venom-honey bee Allergy Anaphylaxis Verified 04/08/22 19:00 codeine AdvReac Itching Verified 04/08/22 19:00 Review of Systems ROS Statement: Those systems with pertinent positive or pertinent negative responses have been documented in the HPI. ROS Other: All systems not noted in ROS Statement are negative. Past Medical History Past Medical History: Heart Failure, GI Bleed Additional Past Medical History / Comment(s): HEART VALVE REPLACEMENT. HX GI PROB FOR YEARS, HIATAL HERNIA. 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 DEVELOPMENTAL DISABILITY. colitis History of Any Multi-Drug Resistant Organisms: None Reported Past Surgical History: Ear Surgery, Hernia Repair, Orthopedic Surgery Additional Past Surgical History / Comment(s): RT Foot Surgery; Open Heart Surg @ 3 YRS OLD, VALVE REPLACED. EXC BRAIN TUMOR. HIATAL HERNIA REPAIR. RT EARDRUM REPAIRED. Past Anesthesia/Blood Transfusion Reactions: No Reported Reaction Past Psychological History: ADD/ADHD, Anxiety Smoking Status: Current every day smoker Past Alcohol Use History: None Reported Past Drug Use History: None Reported - Past Family History Father Family Medical History: No Reported History Additional Family Medical History / Comment(s): Mother Family Medical History: No Reported History Additional Family Medical History / Comment(s): General Exam Limitations: no limitations General appearance: alert, in no apparent distress Head exam: Present: atraumatic, normocephalic, normal inspection Eye exam: Present: normal appearance, PERRL, EOMI. Absent: scleral icterus, conjunctival injection, periorbital swelling ENT exam: Present: normal exam, mucous membranes moist Neck exam: Present: normal inspection. Absent: tenderness, meningismus, lymphadenopathy Respiratory exam: Present: normal lung sounds bilaterally. Absent: respiratory distress, wheezes, rales, rhonchi, stridor Cardiovascular Exam: Present: regular rate, normal rhythm, normal heart sounds. Absent: systolic murmur, diastolic murmur, rubs, gallop, clicks GI/Abdominal exam: Present: soft, normal bowel sounds. Absent: distended, tenderness, guarding, rebound, rigid Extremities exam: Present: full ROM, normal capillary refill, pedal edema (right calf and dorsal foot. No redness. No open wounds. no calf tenderness. nails are trimmed. 2+ DP and PT pulses. ). Absent: tenderness, joint swelling, calf tenderness Back exam: Present: normal inspection Neurological exam: Present: alert, oriented X3, CN II-XII intact Psychiatric exam: Present: normal affect, normal mood Skin exam: Present: warm, dry, intact, normal color. Absent: rash Course Vital Signs 04/08/22 18:56 Temperature 98.0 F Pulse Rate 78 Respiratory 14 Rate Blood Pressure 111/70 O2 Sat by Pulse 97 Oximetry Medical Decision Making - Medical Decision Making Upon arrival patient's is taken for ultrasound which demonstrates no acute DVT. Results are discussed the patient. Swelling is likely secondary to brace wear. She is instructed to ice and elevate the extremity. [facility] as directed. Return for any new or worsening symptoms. Patient agreed to plan she is discharged home in stable condition Disposition Clinical Impression: Right leg swelling Disposition: HOME SELF-CARE Condition: Stable Instructions (If sedation given, give patient instructions): Leg Edema (ED) Additional Instructions: Wear your brace as directed by the orthopedic doctors. Follow up with them as directed. Return for any new or worsening symptoms Is patient prescribed a controlled substance at d/c from ED?: No [facility]2 days Jcae Lo MD [STAFF PHYSICIAN] - 1-2 days Time of Disposition: 20:10
--- NOTE | 2022-04-08 19:40 | US ---
EXAMINATION TYPE: US venous doppler duplex LE RT DATE OF EXAM: 04/08/2022 7:12 PM COMPARISON: NONE CLINICAL HISTORY: leg swelling. Right ankle pain SIDE PERFORMED: Right TECHNIQUE: The lower extremity deep venous system is examined utilizing real time linear array sonog randy with graded compression, doppler sonography and color-flow sonography. VESSELS IMAGED: Common Femoral Vein Deep Femoral Vein Greater Saphenous Vein * Femoral Vein Popliteal Vein Small Saphenous Vein * Proximal Calf Veins (* superficial vessels) Right Leg: Negative for DVT IMPRESSION: No evidence of deep vein thrombosis in the right leg.
== END 2022-04-08 20:28 | disposition home or self-care (01) ==
LOC: EC 17:50
DX: M79.89 Other specified soft tissue disorders (principal); I50.9 Heart failure, unspecified; F17.200 Nicotine dependence, unspecified, uncomplicated; Z91.030 Bee allergy status; Z88.5 Allergy status to narcotic agent; Z79.899 Other long term (current) drug therapy
CPT/HCPCS: 99283

== ENCOUNTER 2022-04-23 19:40 | Emergency (ER) | payer MEDICARE, OTHER ==
[2022-04-23 21:18] LABS: Glucose,Whole Blood 109 mg/dL (75-99)
[2022-04-23 21:22] VITALS: BP 120/74; PULSE 75; RESP 20; TEMP 98.3
== END 2022-04-23 21:06 | disposition left against medical advice (07) ==
LOC: EC 19:40
DX: Z53.21 Procedure and treatment not carried out due to patient leaving prior to being seen by health care provider (principal)
CPT/HCPCS: 36415; 99499

== ENCOUNTER 2022-05-12 10:52 | Emergency (ER) | payer MEDICARE, OTHER ==
[2022-05-12 11:44] VITALS: BP 116/68; PULSE 64; RESP 20; TEMP 98.2
[2022-05-12] MEDS ORDERED: SODIUM CHLORIDE 0.9% 1,000 ML IV STA (13:06)
[2022-05-12] MEDS ORDERED: MECLIZINE 12.5 MG TAB PO STA (13:06)
--- NOTE | 2022-05-12 13:56 | ED ---
General Adult HPI - General Chief complaint: Dizziness Stated complaint: dizziness Time Seen by Provider: 05/12/22 12:28 Source: patient Mode of arrival: ambulatory Limitations: no limitations - History of Present Illness Initial comments: 36-year-old female with past mental history of GI bleed, heart failure, seizure disorder, mental disability presents to the emergency department with several complaints. Patient states that she has not felt well since Thursday. She has had room spinning sensation, nausea, generalized weakness. Admits chills, lack of appetite, vomiting and headache. States that the headache is not the worse headache of her life. She states that she laid on the couch all day and did not take her medications due to feeling so tired. She denies any sick contacts. No changes in her bowel or bladder habits. Denies any visual changes. No chest pain or shortness of breath. No abdominal pain. No other alleviating, precip itating or modifying factors - Related Data Home Medications Medication Instructions Recorded Confirmed FLUoxetine HCL [PROzac Weekly] 90 mg PO TU 08/27/17 10/25/21 traZODone HCL 200 mg PO HS 10/12/18 10/25/21 Montelukast [Singulair] 10 mg PO DAILY 06/28/20 10/25/21 buPROPion [Wellbutrin] 75 mg PO BID 03/16/21 10/25/21 busPIRone HCl [Buspar] 10 mg PO BID 03/16/21 10/25/21 Loratadine [Claritin] 10 mg PO DAILY 03/22/21 10/25/21 Melatonin 5 mg PO HS 09/04/21 10/25/21 levETIRAcetam [Keppra] 250 mg PO Q12HR 09/04/21 10/25/21 rOPINIRole HCL [Requip] 0.25 mg PO TID 09/04/21 10/25/21 risperiDONE [RisperDAL] 1 mg PO HS 09/04/21 10/25/21 Albuterol Sulfate [Ventolin HFA] 2 puff INHALATION RT-Q6H PRN 10/25/21 10/25/21 Benzonatate [Tessalon Perles] 100 mg PO TID PRN 10/25/21 10/25/21 Ergocalciferol (Vitamin D2) 1,250 mcg PO TU 10/25/21 10/25/21 [Drisdol (50,000 Iu)] Fluticasone Nasal [place] [Flonase 1 spray EA NOSTRIL DAILY PRN 10/25/21 10/25/21 Nasal [place]] Sucralfate [Carafate] 1 gm PO BID 10/25/21 10/25/21 hydrOXYzine pamoate [Vistaril] 25 mg PO BID PRN 10/25/21 10/25/21 Previous Rx's Medication Instructions Recorded Albuterol Inhaler [Ventolin Hfa 1 puff INHALATION RT-QID #8 gm 10/25/21 Inhaler] Doxycycline Hyclate [Vibramycin] 100 mg PO BID 7 Days #14 cap 10/25/21 predniSONE [Deltasone] 40 mg PO DAILY 5 Days #10 tab 10/25/21 Ibuprofen [Motrin] 400 mg PO BID #20 tab 04/06/22 Cephalexin [Keflex] 500 mg PO BID #14 cap 05/12/22 Meclizine [Antivert] 25 mg PO TID PRN #20 tab 05/12/22 Allergies Allergy/AdvReac Type Severity Reaction Status Date / Time venom-honey bee Allergy Anaphylaxis Verified 05/12/22 11:44 codeine AdvReac Itching Verified 05/12/22 11:44 Review of Systems ROS Statement: Those systems with pertinent positive or pertinent negative responses have been documented in the HPI. ROS Other: All systems not noted in ROS Statement are negative. Past Medical History Past Medical History: Heart Failure, GI Bleed, Seizure Disorder Additional Past Medical History / Comment(s): HEART VALVE REPLACEMENT. HX GI PROB FOR YEARS, HIATAL HERNIA. 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 DEVELOPMENTAL DISABILITY. colitis History of Any Multi-Drug Resistant Organisms: None Reported Past Surgical History: Ear Surgery, Hernia Repair, Orthopedic Surgery Additional Past Surgical History / Comment(s): RT Foot Surgery; Open Heart Surg @ 3 YRS OLD, VALVE REPLACED. EXC BRAIN TUMOR. HIATAL HERNIA REPAIR. RT EARDRUM REPAIRED. Past Anesthesia/Blood Transfusion Reactions: No Reported Reaction Past Psychological History: ADD/ADHD, Anxiety Smoking Status: Current every day smoker Past Alcohol Use History: None Reported Past Drug Use History: None Reported - Past Family History Father Family Medical History: No Reported History Additional Family Medical History / Comment(s): Mother Family Medical History: No Reported History Additional Family Medical History / Comment(s): General Exam Limitations: no limitations Course Vital Signs 05/12/22 11:39 Temperature 98.2 F Pulse Rate 64 Respiratory 20 Rate Blood Pressure 116/68 O2 Sat by Pulse 97 Oximetry Medical Decision Making - Medical Decision Making Upon arrival patient is placed into all 11. A thorough history and physical e xam was performed. IV access is established and laboratory studies are conducted. Patient was given a liter bolus of normal saline and 25 mg of Antivert. Laboratory studies are reviewed. White count 14.3. Urinalysis demonstrates positive nitrites and moderate leukocyte esterase with 71 white bl ood cells and few bacteria. Covid is not detected. Chest x-ray demonstrates no acute process. CT of the brain demonstrates no acute intracranial abnormality or gross space-occupying lesion. Cerebellar volume loss changes more than expected for the patient's age which was appreciated previously. The patient is reevaluated and states that her dizziness is improved however still has some. She was additionally given a dose of Valium and Rocephin. Patient evaluated reports to improvement in her symptoms at this time and feels comfortable with discharge home. I will give her a prescription for meclizine and Keflex. Take the medications as directed and follow up with her doctor within 2-4 days. Return for any new or worsening symptoms. Patient agrees to treatment plan she was discharged home in stable condition - Lab Data Result diagrams: 05/12/22 13:50 05/12/22 13:50 Lab Results 05/12/22 05/12/22 05/12/22 Range/Units 13:50 13:50 13:50 WBC 14.3 H (3.8-10.6) k/uL RBC 5.53 H (3.80-5.40) m/uL Hgb 15.4 (11.4-16.0) gm/dL Hct 47.2 H (34.0-46.0) % MCV 85.3 (80.0-100.0) fL MCH 27.9 (25.0-35.0) pg MCHC 32.7 (31.0-37.0) g/dL RDW 13.9 (11.5-15.5) % Plt Count 261 (150-450) k/uL MPV 8.9 Neutrophils % 74 % Lymphocytes % 16 % Monocytes % 8 % Eosinophils % 0 % Basophils % 1 % Neutrophils # 10.6 H (1.3-7.7) k/uL Lymphocytes # 2.2 (1.0-4.8) k/uL Monocytes # 1.1 H (0-1.0) k/uL Eosinophils # 0.1 (0-0.7) k/uL Basophils # 0.1 (0-0.2) k/uL PT 12.8 H (9.0-12.0) sec INR 1.2 H (<1.2) Sodium 140 (137-145) mmol/L Potassium 4.9 (3.5-5.1) mmol/L Chloride 106 (98-107) mmol/L Carbon Dioxide 21 L (22-30) mmol/L Anion Gap 13 mmol/L BUN 12 (7-17) mg/dL Creatinine 0.55 (0.52-1.04) mg/dL Est GFR (CKD-EPI)AfAm >90 (>60 ml/min/1.73 sqM) Est GFR (CKD-EPI)NonAf >90 (>60 ml/min/1.73 sqM) Glucose 81 (74-99) mg/dL Plasma Lactic Acid [place] (0.7-2.0) mmol/L Calcium 9.5 (8.4-10.2) mg/dL Total Bilirubin 0.5 (0.2-1.3) mg/dL AST 21 (14-36) U/L ALT 14 (4-34) U/L Alkaline Phosphatase 90 (38-126) U/L Troponin I (0.000-0.034) ng/mL Total Protein 7.5 (6.3-8.2) g/dL Albumin 4.8 (3.5-5.0) g/dL Urine Color Urine Appearance (Clear) Urine pH (5.0-8.0) Ur Specific [place] (1.001-1.035) Urine Protein (Negative) Urine Glucose (UA) (Negative) Urine Ketones (Negative) Urine Blood (Negative) Urine Nitrite (Negative) Urine Bilirubin (Negative) Urine Urobilinogen (<2.0) mg/dL Ur Leukocyte Esterase (Negative) Urine RBC (0-5) /hpf Urine WBC (0-5) /hpf Ur Squamous Epith Cells (0-4) /hpf Urine Bacteria (None) /hpf Urine HCG, Qual (Not Detectd) Coronavirus (PCR) (Not Detectd) 05/12/22 05/12/22 05/12/22 Range/Units 13:50 13:50 13:50 WBC (3.8-10.6) k/uL RBC (3.80-5.40) m/uL Hgb (11.4-16.0) gm/dL Hct (34.0-46.0) % MCV (80.0-100.0) fL MCH (25.0-35.0) pg MCHC (31.0-37.0) g/dL RDW (11.5-15.5) % Plt Count (150-450) k/uL MPV Neutrophils % % Lymphocytes % % Monocytes % % Eosinophils % % Basophils % % Neutrophils # (1.3-7.7) k/uL Lymphocytes # (1.0-4.8) k/uL Monocytes # (0-1.0) k/uL Eosinophils # (0-0.7) k/uL Basophils # (0-0.2) k/uL PT (9.0-12.0) sec INR (<1.2) Sodium (137-145) mmol/L Potassium (3.5-5.1) mmol/L Chloride (98-107) mmol/L Carbon Dioxide (22-30) mmol/L Anion Gap mmol/L BUN (7-17) mg/dL Creatinine (0.52-1.04) mg/dL Est GFR (CKD-EPI)AfAm (>60 ml/min/1.73 sqM) Est GFR (CKD-EPI)NonAf (>60 ml/min/1.73 sqM) Glucose (74-99) mg/dL Plasma Lactic Acid [place] 1.2 (0.7-2.0) mmol/L Calcium (8.4-10.2) mg/dL Total Bilirubin (0.2-1.3) mg/dL AST (14-36) U/L ALT (4-34) U/L Alkaline Phosphatase (38-126) U/L Troponin I <0.012 (0.000-0.034) ng/mL Total Protein (6.3-8.2) g/dL Albumin (3.5-5.0) g/dL Urine Color Yellow Urine Appearance Cloudy H (Clear) Urine pH 6.0 (5.0-8.0) Ur Specific [place] 1.011 (1.001-1.035) Urine Protein Negative (Negative) Urine Glucose (UA) Negative (Negative) Urine Ketones 1+ H (Negative) Urine Blood Small H (Negative) Urine Nitrite Positive H (Negative) Urine Bilirubin Negative (Negative) Urine Urobilinogen <2.0 (<2.0) mg/dL Ur Leukocyte Esterase Moderate H (Negative) Urine RBC 3 (0-5) /hpf Urine WBC 71 H (0-5) /hpf Ur Squamous Epith Cells 3 (0-4) /hpf Urine Bacteria Few H (None) /hpf Urine HCG, Qual (Not Detectd) Coronavirus (PCR) (Not Detectd) 05/12/22 05/12/22 Range/Units 13:50 13:50 WBC (3.8-10.6) k/uL RBC (3.80-5.40) m/uL Hgb (11.4-16.0) gm/dL Hct (34.0-46.0) % MCV (80.0-100.0) fL MCH (25.0-35.0) pg MCHC (31.0-37.0) g/dL RDW (11.5-15.5) % Plt Count (150-450) k/uL MPV Neutrophils % % Lymphocytes % % Monocytes % % Eosinophils % % Basophils % % Neutrophils # (1.3-7.7) k/uL Lymphocytes # (1.0-4.8) k/uL Monocytes # (0-1.0) k/uL Eosinophils # (0-0.7) k/uL Basophils # (0-0.2) k/uL PT (9.0-12.0) sec INR (<1.2) Sodium (137-145) mmol/L Potassium (3.5-5.1) mmol/L Chloride (98-107) mmol/L Carbon Dioxide (22-30) mmol/L Anion Gap mmol/L BUN (7-17) mg/dL Creatinine (0.52-1.04) mg/dL Est GFR (CKD-EPI)AfAm (>60 ml/min/1.73 sqM) Est GFR (CKD-EPI)NonAf (>60 ml/min/1.73 sqM) Glucose (74-99) mg/dL Plasma Lactic Acid [place] (0.7-2.0) mmol/L Calcium (8.4-10.2) mg/dL Total Bilirubin (0.2-1.3) mg/dL AST (14-36) U/L ALT (4-34) U/L Alkaline Phosphatase (38-126) U/L Troponin I (0.000-0.034) ng/mL Total Protein (6.3-8.2) g/dL Albumin (3.5-5.0) g/dL Urine Color Urine Appearance (Clear) Urine pH (5.0-8.0) Ur Specific [place] (1.001-1.035) Urine Protein (Negative) Urine Glucose (UA) (Negative) Urine Ketones (Negative) Urine Blood (Negative) Urine Nitrite (Negative) Urine Bilirubin (Negative) Urine Urobilinogen (<2.0) mg/dL Ur Leukocyte Esterase (Negative) Urine RBC (0-5) /hpf Urine WBC (0-5) /hpf Ur Squamous Epith Cells (0-4) /hpf Urine Bacteria (None) /hpf Urine HCG, Qual Not Detected (Not Detectd) Coronavirus (PCR) Not Detected (Not Detectd) Disposition Clinical Impression: Vertigo, UTI (urinary tract infection) Disposition: HOME SELF-CARE Condition: Stable Instructions (If sedation given, give patient instructions): Urinary Tract Infection in Women (DC), Vertigo (DC) Additional Instructions: Please take the antibiotics and vertigo medication as directed. Follow up with your doctor in 2-4 days. Return for any new or worsening symptoms Prescriptions: Meclizine [Antivert] 25 mg PO TID PRN #20 tab PRN Reason: Vertigo Cephalexin [Keflex] 500 mg PO BID #14 cap Is patient prescribed a controlled substance at d/c from ED?: No [facility] - 1-2 days Time of Disposition: 15:16
[2022-05-12 14:12] LABS: Appearance,Urine Cloudy (Clear); Bacteria,Urine Few /hpf; Bilirubin,Urine Negative (Negative); Blood,Urine Small (Negative); Color,Urine Yellow; Glucose,Urine (UA) Negative (Negative); Ketones,Urine 1+ (Negative); Leukocyte Esterase,Urine Moderate (Negative); Nitrite,Urine Positive (Negative); Protein,Urine Negative (Negative); RBC,Urine 3 /hpf (0-5); Specific Gravity,Urine 1.011 (1.001-1.035); Squamous Epithelial Cell,Urine 3 /hpf (0-4); Urobilinogen,Urine <2.0 mg/dL (<2.0); WBC,Urine 71 /hpf (0-5)
[2022-05-12 14:14] LABS: ALT 14 U/L (4-34); AST 21 U/L (14-36); African American GFR (CKD) >90 (>60 ml/min/1.73 sqM); Albumin 4.8 g/dL (3.5-5.0); Alkaline Phosphatase 90 U/L (38-126); Anion Gap 13 mmol/L; Blood Urea Nitrogen 12 mg/dL (7-17); Calcium 9.5 mg/dL (8.4-10.2); Carbon Dioxide 21 mmol/L (22-30); Chloride 106 mmol/L (98-107); Glucose 81 mg/dL (74-99); INR 1.2 (<1.2); Non-African American GFR(CKD) >90 (>60 ml/min/1.73 sqM); Potassium 4.9 mmol/L (3.5-5.1); Prothrombin Time 12.8 sec (9.0-12.0); Sodium 140 mmol/L (137-145); Total Bilirubin 0.5 mg/dL (0.2-1.3); Total Protein 7.5 g/dL (6.3-8.2)
[2022-05-12 14:23] LABS: Basophils # (A) 0.1 k/uL (0-0.2); Basophils % (A) 1 %; Eosinophils # (A) 0.1 k/uL (0-0.7); Eosinophils % (A) 0 %; HCT 47.2 % (34.0-46.0); HGB 15.4 gm/dL (11.4-16.0); Lymphocytes # (A) 2.2 k/uL (1.0-4.8); Lymphocytes % (A) 16 %; MCH 27.9 pg (25.0-35.0); MCHC 32.7 g/dL (31.0-37.0); MCV 85.3 fL (80.0-100.0); Mean Platelet Volume 8.9; Monocytes # (A) 1.1 k/uL (0-1.0); Monocytes % (A) 8 %; Neutrophils # (A) 10.6 k/uL (1.3-7.7); Neutrophils % (A) 74 %; Platelet Count 261 k/uL (150-450); RBC 5.53 m/uL (3.80-5.40); RDW 13.9 % (11.5-15.5); WBC 14.3 k/uL (3.8-10.6)
--- NOTE | 2022-05-12 14:35 | XR ---
EXAMINATION TYPE: XR chest 2V DATE OF EXAM: 05/12/2022 COMPARISON: NONE HISTORY: Cough/pain TECHNIQUE: Frontal and lateral views of the chest are obtained. FINDINGS: There is no focal air space opacity, pleural effusion, or pneumothorax seen. The cardiac silhouette size is within normal limits. The osseous structures are intact. Moderately severe thora cic scoliosis. IMPRESSION: No acute cardiopulmonary process.
--- NOTE | 2022-05-12 14:38 | CT ---
EXAMINATION TYPE: CT brain wo con DATE OF EXAM: 05/12/2022 COMPARISON: CT dated 03/16/2021 HISTORY: Dizziness and headache CT DLP: 1039 mGycm Automated exposure control for dose reduction was used. TECHNIQUE: CT scan of the brain is performed without IV contrast administration. FINDINGS: Cerebellar volume loss changes, more than expected for the patient's age, appreciated previously. No acute intracranial hemorrhage. No gross acute cortical infarct. No midline shift, herniation or ventr iculomegaly. Unremarkable sella and CP angles. No gross space-occupying lesion, vasogenic edema or mass effect. Unremarkable orbits. Clear visualized paranasal sinuses and mastoid air cells. Unremarkable calvarial bones. IMPRESSION: No acute intracranial abnormality or gross space-occupying lesion by this nonenhanced CT scan. Cerebellar volume loss changes, more than expected for the patient's age, appreciated previously.
[2022-05-12] MEDS ORDERED: DIAZEPAM 5 MG/ML 2 ML INJ IVP STA (14:44)
[2022-05-12] MEDS ORDERED: cefTRIAXone IN SWFI 1,000 MG/10 ML SYRINGE IVP STA (14:46)
== END 2022-05-12 15:57 | disposition home or self-care (01) ==
LOC: SUPCPDRO 10:52 → EC 10:52
DX: R42 Dizziness and giddiness (principal); N39.0 Urinary tract infection, site not specified; Z20.822 Contact with and (suspected) exposure to COVID-19; I50.9 Heart failure, unspecified; G40.909 Epilepsy, unspecified, not intractable, without status epilepticus; F41.9 Anxiety disorder, unspecified; F90.9 Attention-deficit hyperactivity disorder, unspecified type; F17.200 Nicotine dependence, unspecified, uncomplicated; Z79.51 Long term (current) use of inhaled steroids; Z79.899 Other long term (current) drug therapy
CPT/HCPCS: 36415; 80053; 83605; 84484; 85025; 85610; 81001; 81025; 87086; 87635; 71046; 70450; 99285; 96374; 96375; 96361 ×2; J3360; J0696

== ENCOUNTER 2022-05-20 11:59 | Emergency (ER) | payer MEDICARE, OTHER ==
[2022-05-20 12:12] VITALS: BP 105/67; PULSE 72; RESP 16; TEMP 97.4
[2022-05-20] MEDS ORDERED: FAMOTIDINE 20 MG TAB PO STA (12:17)
[2022-05-20] MEDS ORDERED: DEXAMETHASONE SOD PHOSPHATE 4 MG/ML 1 ML VIAL IM STA (12:17)
[2022-05-20] MEDS ORDERED: diphenhydrAMINE 25 MG CAP PO STA (12:17)
--- NOTE | 2022-05-20 13:02 | ED ---
Skin/Abscess/FB HPI - General Chief complaint: Skin/Abscess/Foreign Body Stated complaint: Bee Sting Time Seen by Provider: 05/20/22 12:04 Source: patient, EMS Mode of arrival: EMS Limitations: no limitations - History of Present Illness Initial comments: Patient states that she was stung on the hand by a bee. She has some local swelling. She has no tongue or lip swelling. She has no trouble breathing. She has been using. She has no edema. - Related Data Home Medications Medication Instructions Recorded Confirmed FLUoxetine HCL [PROzac Weekly] 90 mg PO TU 08/27/17 10/25/21 traZODone HCL 200 mg PO HS 10/12/18 10/25/21 Montelukast [Singulair] 10 mg PO DAILY 06/28/20 10/25/21 buPROPion [Wellbutrin] 75 mg PO BID 03/16/21 10/25/21 busPIRone HCl [Buspar] 10 mg PO BID 03/16/21 10/25/21 Loratadine [Claritin] 10 mg PO DAILY 03/22/21 10/25/21 Melatonin 5 mg PO HS 09/04/21 10/25/21 levETIRAcetam [Keppra] 250 mg PO Q12HR 09/04/21 10/25/21 rOPINIRole HCL [Requip] 0.25 mg PO TID 09/04/21 10/25/21 risperiDONE [RisperDAL] 1 mg PO HS 09/04/21 10/25/21 Albuterol Sulfate [Ventolin HFA] 2 puff INHALATION RT-Q6H PRN 10/25/21 10/25/21 Benzonatate [Tessalon Perles] 100 mg PO TID PRN 10/25/21 10/25/21 Ergocalciferol (Vitamin D2) 1,250 mcg PO TU 10/25/21 10/25/21 [Drisdol (50,000 Iu)] Fluticasone Nasal [place] [Flonase 1 spray EA NOSTRIL DAILY PRN 10/25/21 10/25/21 Nasal [place]] Sucralfate [Carafate] 1 gm PO BID 10/25/21 10/25/21 hydrOXYzine pamoate [Vistaril] 25 mg PO BID PRN 10/25/21 10/25/21 Previous Rx's Medication Instructions Recorded Albuterol Inhaler [Ventolin Hfa 1 puff INHALATION RT-QID #8 gm 10/25/21 Inhaler] Doxycycline Hyclate [Vibramycin] 100 mg PO BID 7 Days #14 cap 10/25/21 predniSONE [Deltasone] 40 mg PO DAILY 5 Days #10 tab 10/25/21 Ibuprofen [Motrin] 400 mg PO BID #20 tab 04/06/22 Cephalexin [Keflex] 500 mg PO BID #14 cap 05/12/22 Meclizine [Antivert] 25 mg PO TID PRN #20 tab 05/12/22 Allergies Allergy/AdvReac Type Severity Reaction Status Date / Time venom-honey bee Allergy Anaphylaxis Verified 05/20/22 12:04 codeine AdvReac Itching Verified 05/20/22 12:04 Review of Systems ROS Statement: Those systems with pertinent positive or pertinent negative responses have been documented in the HPI. ROS Other: All systems not noted in ROS Statement are negative. Past Medical History Past Medical History: Heart Failure, GI Bleed, Seizure Disorder Additional Past Medical History / Comment(s): HEART VALVE REPLACEMENT. HX GI PROB FOR YEARS, HIATAL HERNIA. 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 DEVELOPMENTAL DISABILITY. colitis History of Any Multi-Drug Resistant Organisms: None Reported Past Surgical History: Ear Surgery, Hernia Repair, Orthopedic Surgery Additional Past Surgical History / Comment(s): RT Foot Surgery; Open Heart Surg @ 3 YRS OLD, VALVE REPLACED. EXC BRAIN TUMOR. HIATAL HERNIA REPAIR. RT EARDRUM REPAIRED. Past Anesthesia/Blood Transfusion Reactions: No Reported Reaction Past Psychological History: ADD/ADHD, Anxiety Smoking Status: Current every day smoker Past Alcohol Use History: None Reported Past Drug Use History: None Reported - Past Family History Father Family Medical History: No Reported History Additional Family Medical History / Comment(s): Mother Family Medical History: No Reported History Additional Family Medical History / Comment(s): General Exam Limitations: no limitations General appearance: alert, in no apparent distress Head exam: Present: atraumatic, normocephalic, normal inspection Eye exam: Present: normal appearance, PERRL, EOMI. Absent: scleral icterus, conjunctival injection, periorbital swelling ENT exam: Present: normal exam, mucous membranes moist Neck exam: Present: normal inspection. Absent: tenderness, meningismus, lymphadenopathy Respiratory exam: Present: normal lung sounds bilaterally. Absent: respiratory distress, wheezes, rales, rhonchi, stridor Cardiovascular Exam: Present: regular rate, normal rhythm, normal heart sounds. Absent: systolic murmur, diastolic murmur, rubs, gallop, clicks GI/Abdominal exam: Present: soft, normal bowel sounds. Absent: distended, tenderness, guarding, rebound, rigid Extremities exam: Present: normal inspection, full ROM, normal capillary refill. Absent: tenderness, pedal edema, joint swelling, calf tenderness Back exam: Present: normal inspection Neurological exam: Present: alert, oriented X3, CN II-XII intact Psychiatric exam: Present: normal affect, normal mood Skin exam: Present: warm, dry, intact, normal color. Absent: rash Course Vital Signs 05/20/22 12:01 Temperature 97.4 F L Pulse Rate 72 Respiratory 16 Rate Blood Pressure 105/67 O2 Sat by Pulse 98 Oximetry Medical Decision Making - Medical Decision Making Patient presents with an ALLERGIC bee sting ALLERGY. She is given Benadryl and Pepcid by mouth as well as IM Decadron. Her symptoms are resolving at the local level, and she never developed any systemic symptoms at all. She is stable for discharge. Disposition Clinical Impression: Bee sting allergy Disposition: HOME SELF-CARE Condition: Good Instructions (If sedation given, give patient instructions): Insect Bite or Sting (ED) Is patient prescribed a controlled substance at d/c from ED?: No Referrals: None,Stated [Primary Care Provider] - 1-2 days
== END 2022-05-20 13:10 | disposition home or self-care (01) ==
LOC: EC 11:59
DX: T63.441A Toxic effect of venom of bees, accidental (unintentional), initial encounter (principal); I50.20 Unspecified systolic (congestive) heart failure; F17.210 Nicotine dependence, cigarettes, uncomplicated; Z91.030 Bee allergy status; Z88.5 Allergy status to narcotic agent
CPT/HCPCS: 99283; 96372 ×2; J1100

== ENCOUNTER 2022-05-25 14:30 | Emergency (ER) | payer MEDICARE, OTHER ==
[2022-05-25 14:34] VITALS: BP 105/67; PULSE 87; RESP 16; TEMP 97.4
[2022-05-25] MEDS ORDERED: levETIRAcetam 500 MG TAB PO STA (14:52)
[2022-05-25] MEDS ORDERED: hydrOXYzine pamoate 25 MG CAP PO STA (14:53)
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
== END 2022-05-25 15:42 | disposition home or self-care (01) ==
LOC: EC 14:30
DX: Z76.0 Encounter for issue of repeat prescription (principal); F17.200 Nicotine dependence, unspecified, uncomplicated; Z91.030 Bee allergy status; Z88.5 Allergy status to narcotic agent
CPT/HCPCS: 99284

== ENCOUNTER 2022-05-28 21:29 | Emergency (ER) | payer MEDICARE, OTHER ==
[2022-05-28 21:40] VITALS: RESP 16; TEMP 97.7
[2022-05-28] MEDS ORDERED: SODIUM CHLORIDE 0.9% 500 ML 500 ML IV STA (21:43)
[2022-05-28] MEDS ORDERED: METOCLOPRAMIDE 5 MG/ML 2 ML VIAL IVP STA (21:44)
[2022-05-28] MEDS ORDERED: ONDANSETRON 4 MG/2 ML VIAL IVP STA (21:44)
--- NOTE | 2022-05-28 21:46 | ED ---
Recheck HPI - General Chief Complaint: Seizure Stated Complaint: Seizure Time Seen by Provider: 05/28/22 21:36 Source: patient, RN notes reviewed, old records reviewed Mode of arrival: EMS Limitations: no limitations - History of Present Illness Initial Comments: This is a 36-year-old female presenting is mildly poor strain given medical history history is at.. Patient apparently a seizure earlier today. History of seizures. Been taking all medications as prescribed. Patient also complaining of does not phyla was further by goes some nausea mainly a history of Crohn's disease per the patient. MD Complaint: other (Recurrent seizure with abdominal pain nausea) -: hour(s) Returns Today for: Called Because of Abnormal Lab/Test, persistent/worsening pain related to initial visit Symptoms Since Prior Visit: no new symptoms Associated Symptoms: nausea - Related Data Home Medications Medication Instructions Recorded Confirmed FLUoxetine HCL [PROzac Weekly] 90 mg PO TU 08/27/17 10/25/21 traZODone HCL 200 mg PO HS 10/12/18 10/25/21 Montelukast [Singulair] 10 mg PO DAILY 06/28/20 10/25/21 buPROPion [Wellbutrin] 75 mg PO BID 03/16/21 10/25/21 busPIRone HCl [Buspar] 10 mg PO BID 03/16/21 10/25/21 Loratadine [Claritin] 10 mg PO DAILY 03/22/21 10/25/21 Melatonin 5 mg PO HS 09/04/21 10/25/21 levETIRAcetam [Keppra] 250 mg PO Q12HR 09/04/21 10/25/21 rOPINIRole HCL [Requip] 0.25 mg PO TID 09/04/21 10/25/21 risperiDONE [RisperDAL] 1 mg PO HS 09/04/21 10/25/21 Albuterol Sulfate [Ventolin HFA] 2 puff INHALATION RT-Q6H PRN 10/25/21 10/25/21 Benzonatate [Tessalon Perles] 100 mg PO TID PRN 10/25/21 10/25/21 Ergocalciferol (Vitamin D2) 1,250 mcg PO TU 10/25/21 10/25/21 [Drisdol (50,000 Iu)] Fluticasone Nasal [place] [Flonase 1 spray EA NOSTRIL DAILY PRN 10/25/21 10/25/21 Nasal [place]] Sucralfate [Carafate] 1 gm PO BID 10/25/21 10/25/21 hydrOXYzine pamoate [Vistaril] 25 mg PO BID PRN 10/25/21 10/25/21 Previous Rx's Medication Instructions Recorded Albuterol Inhaler [Ventolin Hfa 1 puff INHALATION RT-QID #8 gm 10/25/21 Inhaler] Doxycycline Hyclate [Vibramycin] 100 mg PO BID 7 Days #14 cap 10/25/21 predniSONE [Deltasone] 40 mg PO DAILY 5 Days #10 tab 10/25/21 Ibuprofen [Motrin] 400 mg PO BID #20 tab 04/06/22 Cephalexin [Keflex] 500 mg PO BID #14 cap 05/12/22 Meclizine [Antivert] 25 mg PO TID PRN #20 tab 05/12/22 levETIRAcetam [Keppra] 250 mg PO Q12HR 30 Days #60 tab 05/25/22 Allergies Allergy/AdvReac Type Severity Reaction Status Date / Time venom-honey bee Allergy Anaphylaxis Verified 05/20/22 12:04 codeine AdvReac Itching Verified 05/20/22 12:04 Review of Systems ROS Statement: Those systems with pertinent positive or pertinent negative responses have been documented in the HPI. ROS Other: All systems not noted in ROS Statement are negative. Past Medical History Past Medical History: Heart Failure, GI Bleed, Seizure Disorder Additional Past Medical History / Comment(s): HEART VALVE REPLACEMENT. HX GI PROB FOR YEARS, HIATAL HERNIA. 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 DEVELOPMENTAL DISABILITY. colitis History of Any Multi-Drug Resistant Organisms: None Reported Past Surgical History: Ear Surgery, Hernia Repair, Orthopedic Surgery Additional Past Surgical History / Comment(s): RT Foot Surgery; Open Heart Surg @ 3 YRS OLD, VALVE REPLACED. EXC BRAIN TUMOR. HIATAL HERNIA REPAIR. RT EARDRUM REPAIRED. Past Anesthesia/Blood Transfusion Reactions: No Reported Reaction Past Psychological History: ADD/ADHD, Anxiety Smoking Status: Current every day smoker Past Alcohol Use History: None Reported Past Drug Use History: None Reported - Past Family History Father Family Medical History: No Reported History Additional Family Medical History / Comment(s): Mother Family Medical History: No Reported History Additional Family Medical History / Comment(s): General Exam Limitations: no limitations General appearance: alert, in no apparent distress Head exam: Present: atraumatic, normocephalic, normal inspection Eye exam: Present: normal appearance, PERRL, EOMI. Absent: scleral icterus, conjunctival injection, periorbital swelling ENT exam: Present: normal exam, mucous membranes moist Neck exam: Present: normal inspection. Absent: tenderness, meningismus, lymphadenopathy Respiratory exam: Present: normal lung sounds bilaterally. Absent: respiratory distress, wheezes, rales, rhonchi, stridor Cardiovascular Exam: Present: regular rate, normal rhythm, normal heart sounds. Absent: systolic murmur, diastolic murmur, rubs, gallop, clicks GI/Abdominal exam: Present: soft, normal bowel sounds. Absent: distended, tenderness, guarding, rebound, rigid Extremities exam: Present: normal inspection, full ROM, normal capillary refill. Absent: tenderness, pedal edema, joint swelling, calf tenderness Back exam: Present: normal inspection Neurological exam: Present: alert, oriented X3, CN II-XII intact Psychiatric exam: Present: normal affect, normal mood Skin exam: Present: warm, dry, intact, normal color. Absent: rash Course Vital Signs 05/28/22 21:36 Temperature 97.7 F Pulse Rate 64 Respiratory 16 Rate Blood Pressure 108/59 O2 Sat by Pulse 97 Oximetry - Reevaluation(s) Reevaluation #1: 05/29/22 00:06 Medical record is reviewed Reevaluation #2: 05/29/22 00:06 Shunt has no significant symptoms here in the emergency department, nausea vomi ting are improved Reevaluation #3: 05/29/22 00:06 Patient informed results and questions are answered Medical Decision Making - Medical Decision Making 36 female to the emergency department for evaluation. Patient presents today for nausea vomiting abdominal pain not feeling well. At this time patient will be discharged home - Lab Data Result diagrams: 05/28/22 21:50 05/28/22 21:50 Lab Results 05/28/22 05/28/22 Range/Units 21:50 21:50 WBC 9.3 (3.8-10.6) k/uL RBC 4.22 (3.80-5.40) m/uL Hgb 12.0 D (11.4-16.0) gm/dL Hct 36.5 (34.0-46.0) % MCV 86.6 (80.0-100.0) fL MCH 28.5 (25.0-35.0) pg MCHC 32.9 (31.0-37.0) g/dL RDW 13.7 (11.5-15.5) % Plt Count 207 (150-450) k/uL MPV 8.0 Neutrophils % 62 % Lymphocytes % 24 % Monocytes % 10 % Eosinophils % 1 % Basophils % 1 % Neutrophils # 5.7 (1.3-7.7) k/uL Lymphocytes # 2.2 (1.0-4.8) k/uL Monocytes # 0.9 (0-1.0) k/uL Eosinophils # 0.1 (0-0.7) k/uL Basophils # 0.1 (0-0.2) k/uL Sodium 137 (137-145) mmol/L Potassium 4.2 (3.5-5.1) mmol/L Chloride 110 H (98-107) mmol/L Carbon Dioxide 23 (22-30) mmol/L Anion Gap 4 mmol/L BUN 9 (7-17) mg/dL Creatinine 0.57 (0.52-1.04) mg/dL Est GFR (CKD-EPI)AfAm >90 (>60 ml/min/1.73 sqM) Est GFR (CKD-EPI)NonAf >90 (>60 ml/min/1.73 sqM) Glucose 110 H (74-99) mg/dL Calcium 8.5 (8.4-10.2) mg/dL Magnesium 1.6 (1.6-2.3) mg/dL Total Bilirubin <0.1 L (0.2-1.3) mg/dL AST 20 (14-36) U/L ALT 20 (4-34) U/L Alkaline Phosphatase 76 (38-126) U/L Total Protein 5.5 L (6.3-8.2) g/dL Albumin 3.4 L (3.5-5.0) g/dL Lipase 91 (23-300) U/L Salicylates <1.0 mg/dL Acetaminophen <10.0 ug/mL Phenytoin <3.0 ug/mL Valproic Acid <10.0 ug/mL Carbamazepine <3.0 ug/mL Serum Alcohol <10 mg/dL - EKG Data -: EKG Interpreted by Me (EKG sinus rhythm 62 SD 180 QRS 85 QTC 4:30 or) - Radiology Data Radiology results: report reviewed (Chest x-ray x-ray KUB are negative for acute disease), image reviewed Disposition Clinical Impression: Epileptic seizure, generalized, Abdominal pain, Nausea & vomiting, Colitis Disposition: HOME SELF-CARE Condition: Fair Instructions (If sedation given, give patient instructions): Seizure/Epilepsy Discharge Instructions & Follow-Up Is patient prescribed a controlled substance at d/c from ED?: No Referrals: None,Stated [Primary Care Provider] - 1-2 days
[2022-05-28 21:57] LABS: Basophils # (A) 0.1 k/uL (0-0.2); Basophils % (A) 1 %; Eosinophils # (A) 0.1 k/uL (0-0.7); Eosinophils % (A) 1 %; HCT 36.5 % (34.0-46.0); Lymphocytes # (A) 2.2 k/uL (1.0-4.8); Lymphocytes % (A) 24 %; MCH 28.5 pg (25.0-35.0); MCHC 32.9 g/dL (31.0-37.0); MCV 86.6 fL (80.0-100.0); Monocytes # (A) 0.9 k/uL (0-1.0); Monocytes % (A) 10 %; Neutrophils # (A) 5.7 k/uL (1.3-7.7); Neutrophils % (A) 62 %; Platelet Count 207 k/uL (150-450); RBC 4.22 m/uL (3.80-5.40); RDW 13.7 % (11.5-15.5); WBC 9.3 k/uL (3.8-10.6)
--- NOTE | 2022-05-28 22:18 | XR ---
EXAMINATION TYPE: XR chest 1V portable DATE OF EXAM: 05/28/2022 COMPARISON: 05/12/2022 HISTORY: Weakness TECHNIQUE: Single view FINDINGS: Heart is normal. Lungs are clear of consolidation. There are sternal wires. There is thorac ic dextroscoliosis. There are no hilar masses. Diaphragm is normal. IMPRESSION: No active cardiopulmonary disease. No change.
--- NOTE | 2022-05-28 22:21 | XR ---
EXAMINATION TYPE: XR KUB portable DATE OF EXAM: 05/28/2022 COMPARISON: 05/16/2021 HISTORY: Vomiting. Pain TECHNIQUE: Single view FINDINGS: Supine view shows no sign of intestinal obstruction or pneumoperitoneum. Fecal pattern is n ormal. No evidence of a mass. There are no pathologic calcifications over the kidneys lung bases are clear. No evidence of constipation. Bony structures are intact. IMPRESSION: Nonacute abdomen. No adverse change.
[2022-05-28 22:22] LABS: AST 20 U/L (14-36); African American GFR (CKD) >90 (>60 ml/min/1.73 sqM); Albumin 3.4 g/dL (3.5-5.0); Alkaline Phosphatase 76 U/L (38-126); Anion Gap 4 mmol/L; Carbamazepine (Tegretol) <3.0 ug/mL; Carbon Dioxide 23 mmol/L (22-30); Chloride 110 mmol/L (98-107); Non-African American GFR(CKD) >90 (>60 ml/min/1.73 sqM); Phenytoin (Dilantin) <3.0 ug/mL; Sodium 137 mmol/L (137-145); Total Bilirubin <0.1 mg/dL (0.2-1.3); Total Protein 5.5 g/dL (6.3-8.2)
[2022-05-28 22:26] LABS: Valproic Acid (Depakene) <10.0 ug/mL
[2022-05-28 22:35] LABS: ALT 20 U/L (4-34); Acetaminophen <10.0 ug/mL; Alcohol <10 mg/dL; Blood Urea Nitrogen 9 mg/dL (7-17); Calcium 8.5 mg/dL (8.4-10.2); Glucose 110 mg/dL (74-99); Lipase 91 U/L (23-300); Magnesium 1.6 mg/dL (1.6-2.3); Potassium 4.2 mmol/L (3.5-5.1); Salicylate <1.0 mg/dL
[2022-05-29 01:33] VITALS: BP 98/58; PULSE 70
== END 2022-05-29 00:52 | disposition home or self-care (01) ==
LOC: EC 21:29
DX: G40.409 Other generalized epilepsy and epileptic syndromes, not intractable, without status epilepticus (principal); K52.9 Noninfective gastroenteritis and colitis, unspecified; F17.200 Nicotine dependence, unspecified, uncomplicated; I50.9 Heart failure, unspecified; Z79.899 Other long term (current) drug therapy; Z91.030 Bee allergy status; Z88.5 Allergy status to narcotic agent
CPT/HCPCS: 36415; 93005; 80156; 80164; 80053; 80185; 83690; 83735; 85025; 80143; 80179; 71045; 74018; 96374; 99284; G0480; J2405; 80320

== ENCOUNTER 2022-05-31 20:51 | Emergency (ER) | payer MEDICARE, OTHER ==
[2022-05-31 21:01] VITALS: RESP 18; TEMP 97.8
[2022-05-31] MEDS ORDERED: PHENAZOPYRIDINE 100 MG TAB PO STA (22:54)
[2022-05-31] MEDS ORDERED: NITROFURANTOIN MONOHYD/M-CRYST 100 MG CAP PO STA (22:54)
--- NOTE | 2022-05-31 23:01 | ED ---
Female Urogenital HPI - General Chief complaint: Urogenital Stated complaint: UTI Time Seen by Provider: 05/31/22 22:36 Source: EMS Mode of arrival: EMS Limitations: no limitations - History of Present Illness MD Complaint: dysuria Onset/Timin -: hour(s) Location: suprapubic Radiation: non-radiating Severity: moderate Quality: burning Consistency: intermittent Improves with: none Worsens with: urination Patient : No Associated Symptoms: denies other symptoms - Related Data Home Medications Medication Instructions Recorded Confirmed FLUoxetine HCL [PROzac Weekly] 90 mg PO TU 08/27/17 10/25/21 traZODone HCL 200 mg PO HS 10/12/18 10/25/21 Montelukast [Singulair] 10 mg PO DAILY 06/28/20 10/25/21 buPROPion [Wellbutrin] 75 mg PO BID 03/16/21 10/25/21 busPIRone HCl [Buspar] 10 mg PO BID 03/16/21 10/25/21 Loratadine [Claritin] 10 mg PO DAILY 03/22/21 10/25/21 Melatonin 5 mg PO HS 09/04/21 10/25/21 levETIRAcetam [Keppra] 250 mg PO Q12HR 09/04/21 10/25/21 rOPINIRole HCL [Requip] 0.25 mg PO TID 09/04/21 10/25/21 risperiDONE [RisperDAL] 1 mg PO HS 09/04/21 10/25/21 Albuterol Sulfate [Ventolin HFA] 2 puff INHALATION RT-Q6H PRN 10/25/21 10/25/21 Benzonatate [Tessalon Perles] 100 mg PO TID PRN 10/25/21 10/25/21 Ergocalciferol (Vitamin D2) 1,250 mcg PO TU 10/25/21 10/25/21 [Drisdol (50,000 Iu)] Fluticasone Nasal [place] [Flonase 1 spray EA NOSTRIL DAILY PRN 10/25/21 10/25/21 Nasal [place]] Sucralfate [Carafate] 1 gm PO BID 10/25/21 10/25/21 hydrOXYzine pamoate [Vistaril] 25 mg PO BID PRN 10/25/21 10/25/21 Previous Rx's Medication Instructions Recorded Albuterol Inhaler [Ventolin Hfa 1 puff INHALATION RT-QID #8 gm 10/25/21 Inhaler] Doxycycline Hyclate [Vibramycin] 100 mg PO BID 7 Days #14 cap 10/25/21 predniSONE [Deltasone] 40 mg PO DAILY 5 Days #10 tab 10/25/21 Ibuprofen [Motrin] 400 mg PO BID #20 tab 04/06/22 Cephalexin [Keflex] 500 mg PO BID #14 cap 05/12/22 Meclizine [Antivert] 25 mg PO TID PRN #20 tab 05/12/22 levETIRAcetam [Keppra] 250 mg PO Q12HR 30 Days #60 tab 05/25/22 Nitrofurantoin Monohyd/M-Cryst 100 mg PO Q12HR #6 cap 05/31/22 [Macrobid] Phenazopyridine [Pyridium] 100 mg PO TID #6 tablet 05/31/22 Allergies Allergy/AdvReac Type Severity Reaction Status Date / Time venom-honey bee Allergy Anaphylaxis Verified 05/31/22 21:01 codeine AdvReac Itching Verified 05/31/22 21:01 Review of Systems ROS Statement: Those systems with pertinent positive or pertinent negative responses have been documented in the HPI. ROS Other: All systems not noted in ROS Statement are negative. Constitutional: Denies: fever, chills Respiratory: Denies: cough, dyspnea Cardiovascular: Denies: chest pain, palpitations, edema Gastrointestinal: Denies: abdominal pain, nausea, vomiting, diarrhea Genitourinary: Reports: dysuria, frequency. Denies: hematuria, discharge, abnormal menses Musculoskeletal: Denies: back pain Skin: Denies: rash Past Medical History Past Medical History: Heart Failure, GI Bleed, Seizure Disorder Additional Past Medical History / Comment(s): HEART VALVE REPLACEMENT. HX GI PROB FOR YEARS, HIATAL HERNIA. 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 DEVELOPMENTAL DISABILITY. colitis History of Any Multi-Drug Resistant Organisms: None Reported Past Surgical History: Ear Surgery, Hernia Repair, Orthopedic Surgery Additional Past Surgical History / Comment(s): RT Foot Surgery; Open Heart Surg @ 3 YRS OLD, VALVE REPLACED. EXC BRAIN TUMOR. HIATAL HERNIA REPAIR. RT EARDRUM REPAIRED. Past Anesthesia/Blood Transfusion Reactions: No Reported Reaction Past Psychological History: ADD/ADHD, Anxiety Smoking Status: Current every day smoker Past Alcohol Use History: None Reported Past Drug Use History: None Reported - Past Family History Father Family Medical History: No Reported History Additional Family Medical History / Comment(s): Mother Family Medical History: No Reported History Additional Family Medical History / Comment(s): General Exam Limitations: no limitations General appearance: alert, in no apparent distress Head exam: Present: atraumatic, normocephalic Eye exam: Present: normal appearance Respiratory exam: Present: normal lung sounds bilaterally. Absent: respiratory distress, wheezes, rales, rhonchi, stridor Cardiovascular Exam: Present: regular rate, normal rhythm, normal heart sounds. Absent: systolic murmur, diastolic murmur, rubs, gallop GI/Abdominal exam: Present: soft. Absent: distended, tenderness, guarding, rebound, rigid, mass Back exam: Present: normal inspection. Absent: CVA tenderness (R), CVA tenderness (L) Neurological exam: Present: alert Skin exam: Present: warm, dry, intact, normal color. Absent: rash Course Vital Signs 05/31/22 05/31/22 20:59 23:00 Temperature 97.8 F Pulse Rate 81 71 Respiratory 18 18 Rate Blood Pressure 110/67 105/61 O2 Sat by Pulse 95 96 Oximetry Medical Decision Making - Lab Data Lab Results 05/31/22 05/31/22 Range/Units 22:57 22:57 Urine Color Light Yellow Urine Appearance Cloudy H (Clear) Urine pH 5.5 (5.0-8.0) Ur Specific [place] 1.011 (1.001-1.035) Urine Protein 1+ H (Negative) Urine Glucose (UA) Negative (Negative) Urine Ketones Negative (Negative) Urine Blood Large H (Negative) Urine Nitrite Negative (Negative) Urine Bilirubin Negative (Negative) Urine Urobilinogen <2.0 (<2.0) mg/dL Ur Leukocyte Esterase Large H (Negative) Urine RBC >182 H (0-5) /hpf Urine WBC >182 H (0-5) /hpf Ur Squamous Epith Cells 4 (0-4) /hpf Urine Bacteria Occasional H (None) /hpf Urine Mucus Many H (None) /hpf Urine HCG, Qual Not Detected (Not Detectd) Disposition Clinical Impression: Urinary tract infection Disposition: HOME SELF-CARE Condition: Good Instructions (If sedation given, give patient instructions): Urinary Tract Infection in Women (ED) Prescriptions: Nitrofurantoin Monohyd/M-Cryst [Macrobid] 100 mg PO Q12HR #6 cap Phenazopyridine [Pyridium] 100 mg PO TID #6 tablet Is patient prescribed a controlled substance at d/c from ED?: No Referrals: [facility] [Primary Care Provider] - 1-2 days Time of Disposition: 23:45
[2022-05-31 23:02] VITALS: BP 105/61; PULSE 71
[2022-05-31 23:38] LABS: Appearance,Urine Cloudy (Clear); Bacteria,Urine Occasional /hpf; Bilirubin,Urine Negative (Negative); Blood,Urine Large (Negative); Color,Urine Light Yellow; Glucose,Urine (UA) Negative (Negative); Ketones,Urine Negative (Negative); Leukocyte Esterase,Urine Large (Negative); Mucus,Urine Many /hpf; Nitrite,Urine Negative (Negative); PH, Urine 5.5 (5.0-8.0); Protein,Urine 1+ (Negative); RBC,Urine >182 /hpf (0-5); Specific Gravity,Urine 1.011 (1.001-1.035); Squamous Epithelial Cell,Urine 4 /hpf (0-4); Urobilinogen,Urine <2.0 mg/dL (<2.0); WBC,Urine >182 /hpf (0-5)
== END 2022-06-01 00:07 | disposition home or self-care (01) ==
LOC: EC 20:51
DX: N39.0 Urinary tract infection, site not specified (principal); F17.200 Nicotine dependence, unspecified, uncomplicated; Z91.030 Bee allergy status; Z88.5 Allergy status to narcotic agent
CPT/HCPCS: 81001; 81025; 87077; 87086; 87186; 99283

== ENCOUNTER 2022-06-14 20:14 | Emergency (ER) | payer MEDICARE, OTHER ==
[2022-06-14 20:46] VITALS: PULSE 75; RESP 22; TEMP 98.1
--- NOTE | 2022-06-14 21:04 | XR ---
EXAMINATION TYPE: XR shoulder complete RT DATE OF EXAM: 06/14/2022 COMPARISON: NONE HISTORY: Shoulder pain TECHNIQUE: 3 views FINDINGS: There is no sign of fracture nor dislocation. Joint spaces are normal. No pathologic calcif ication. IMPRESSION: Negative right shoulder exam.
--- NOTE | 2022-06-15 00:10 | ED ---
Upper Extremity HPI - General Chief Complaint: Extremity Injury, Upper Stated Complaint: Rt Shoulder/Fell down stairs Time Seen by Provider: 06/14/22 23:37 Source: patient Mode of arrival: ambulatory Limitations: no limitations - Related Data Home Medications Medication Instructions Recorded Confirmed FLUoxetine HCL [PROzac Weekly] 90 mg PO TU 08/27/17 10/25/21 traZODone HCL 200 mg PO HS 10/12/18 10/25/21 Montelukast [Singulair] 10 mg PO DAILY 06/28/20 10/25/21 buPROPion [Wellbutrin] 75 mg PO BID 03/16/21 10/25/21 busPIRone HCl [Buspar] 10 mg PO BID 03/16/21 10/25/21 Loratadine [Claritin] 10 mg PO DAILY 03/22/21 10/25/21 Melatonin 5 mg PO HS 09/04/21 10/25/21 levETIRAcetam [Keppra] 250 mg PO Q12HR 09/04/21 10/25/21 rOPINIRole HCL [Requip] 0.25 mg PO TID 09/04/21 10/25/21 risperiDONE [RisperDAL] 1 mg PO HS 09/04/21 10/25/21 Albuterol Sulfate [Ventolin HFA] 2 puff INHALATION RT-Q6H PRN 10/25/21 10/25/21 Benzonatate [Tessalon Perles] 100 mg PO TID PRN 10/25/21 10/25/21 Ergocalciferol (Vitamin D2) 1,250 mcg PO TU 10/25/21 10/25/21 [Drisdol (50,000 Iu)] Fluticasone Nasal [place] [Flonase 1 spray EA NOSTRIL DAILY PRN 10/25/21 10/25/21 Nasal [place]] Sucralfate [Carafate] 1 gm PO BID 10/25/21 10/25/21 hydrOXYzine pamoate [Vistaril] 25 mg PO BID PRN 10/25/21 10/25/21 Previous Rx's Medication Instructions Recorded Albuterol Inhaler [Ventolin Hfa 1 puff INHALATION RT-QID #8 gm 10/25/21 Inhaler] Doxycycline Hyclate [Vibramycin] 100 mg PO BID 7 Days #14 cap 10/25/21 predniSONE [Deltasone] 40 mg PO DAILY 5 Days #10 tab 10/25/21 Ibuprofen [Motrin] 400 mg PO BID #20 tab 04/06/22 Cephalexin [Keflex] 500 mg PO BID #14 cap 05/12/22 Meclizine [Antivert] 25 mg PO TID PRN #20 tab 05/12/22 levETIRAcetam [Keppra] 250 mg PO Q12HR 30 Days #60 tab 05/25/22 Nitrofurantoin Monohyd/M-Cryst 100 mg PO Q12HR #6 cap 05/31/22 [Macrobid] Phenazopyridine [Pyridium] 100 mg PO TID #6 tablet 05/31/22 Allergies Allergy/AdvReac Type Severity Reaction Status Date / Time venom-honey bee Allergy Anaphylaxis Verified 06/14/22 20:45 codeine AdvReac Itching Verified 06/14/22 20:45 Review of Systems ROS Statement: Those systems with pertinent positive or pertinent negative responses have been documented in the HPI. ROS Other: All systems not noted in ROS Statement are negative. Past Medical History Past Medical History: Heart Failure, GI Bleed, Seizure Disorder Additional Past Medical History / Comment(s): HEART VALVE REPLACEMENT. HX GI PROB FOR YEARS, HIATAL HERNIA. 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 DEVELOPMENTAL DISABILITY. colitis History of Any Multi-Drug Resistant Organisms: ESBL Date of last positivie culture/infection: 05/31/22 MDRO Source:: ESBL URINE Past Surgical History: Ear Surgery, Hernia Repair, Orthopedic Surgery Additional Past Surgical History / Comment(s): RT Foot Surgery; Open Heart Surg @ 3 YRS OLD, VALVE REPLACED. EXC BRAIN TUMOR. HIATAL HERNIA REPAIR. RT EARDRUM REPAIRED. Past Anesthesia/Blood Transfusion Reactions: No Reported Reaction Past Psychological History: ADD/ADHD, Anxiety Smoking Status: Current every day smoker Past Alcohol Use History: None Reported Past Drug Use History: None Reported - Past Family History Father Family Medical History: No Reported History Additional Family Medical History / Comment(s): Mother Family Medical History: No Reported History Additional Family Medical History / Comment(s): General Exam Limitations: no limitations Course Vital Signs 06/14/22 20:43 Temperature 98.1 F Pulse Rate 75 Respiratory 22 Rate O2 Sat by Pulse 95 Oximetry Disposition Clinical Impression: Fall, Strain of shoulder Disposition: HOME SELF-CARE Condition: Good Instructions (If sedation given, give patient instructions): Shoulder Sprain (ED) Is patient prescribed a controlled substance at d/c from ED?: No Referrals: [facility] [Primary Care Provider] - 1-2 days
== END 2022-06-15 01:08 | disposition home or self-care (01) ==
LOC: EC 20:14
DX: S46.911A Strain of unspecified muscle, fascia and tendon at shoulder and upper arm level, right arm, initial encounter (principal); F17.200 Nicotine dependence, unspecified, uncomplicated; I50.9 Heart failure, unspecified; Z88.5 Allergy status to narcotic agent; Z79.899 Other long term (current) drug therapy; Z91.030 Bee allergy status; W10.9XXA Fall (on) (from) unspecified stairs and steps, initial encounter
CPT/HCPCS: 99283

== ENCOUNTER 2022-07-17 15:21 | Emergency (ER) | payer MEDICARE, OTHER ==
[2022-07-17 15:26] VITALS: BP 118/79; PULSE 100; RESP 20; TEMP 97.6
--- NOTE | 2022-07-17 15:29 | ED ---
Skin/Abscess/FB HPI - General Chief complaint: Skin/Abscess/Foreign Body Stated complaint: Rash Time Seen by Provider: 07/17/22 15:28 Source: patient Mode of arrival: ambulatory Limitations: no limitations - History of Present Illness Initial comments: Patient is a 37 year old female presents the emergency room with complaints of diffuse maculopapular rash covering her torso legs and upper extremities. Her neck and face are spared. She reports that she changed detergents recently and still the rash earlier today. She denies any difficulty in breathing or cough. Patient is well-known to the emergency department. She has a past medical history significant for congestive heart failure, developmental delay, colitis, seizures, GERD, anxiety, and ADHD. - Related Data Home Medications Medication Instructions Recorded Confirmed FLUoxetine HCL [PROzac Weekly] 90 mg PO TU 08/27/17 10/25/21 traZODone HCL 200 mg PO HS 10/12/18 10/25/21 Montelukast [Singulair] 10 mg PO DAILY 06/28/20 10/25/21 buPROPion [Wellbutrin] 75 mg PO BID 03/16/21 10/25/21 busPIRone HCl [Buspar] 10 mg PO BID 03/16/21 10/25/21 Loratadine [Claritin] 10 mg PO DAILY 03/22/21 10/25/21 Melatonin 5 mg PO HS 09/04/21 10/25/21 levETIRAcetam [Keppra] 250 mg PO Q12HR 09/04/21 10/25/21 rOPINIRole HCL [Requip] 0.25 mg PO TID 09/04/21 10/25/21 risperiDONE [RisperDAL] 1 mg PO HS 09/04/21 10/25/21 Albuterol Sulfate [Ventolin HFA] 2 puff INHALATION RT-Q6H PRN 10/25/21 10/25/21 Benzonatate [Tessalon Perles] 100 mg PO TID PRN 10/25/21 10/25/21 Ergocalciferol (Vitamin D2) 1,250 mcg PO TU 10/25/21 10/25/21 [Drisdol (50,000 Iu)] Fluticasone Nasal [place] [Flonase 1 spray EA NOSTRIL DAILY PRN 10/25/21 10/25/21 Nasal [place]] Sucralfate [Carafate] 1 gm PO BID 10/25/21 10/25/21 hydrOXYzine pamoate [Vistaril] 25 mg PO BID PRN 10/25/21 10/25/21 Previous Rx's Medication Instructions Recorded Albuterol Inhaler [Ventolin Hfa 1 puff INHALATION RT-QID #8 gm 10/25/21 Inhaler] Doxycycline Hyclate [Vibramycin] 100 mg PO BID 7 Days #14 cap 10/25/21 predniSONE [Deltasone] 40 mg PO DAILY 5 Days #10 tab 10/25/21 Ibuprofen [Motrin] 400 mg PO BID #20 tab 04/06/22 Cephalexin [Keflex] 500 mg PO BID #14 cap 05/12/22 Meclizine [Antivert] 25 mg PO TID PRN #20 tab 05/12/22 levETIRAcetam [Keppra] 250 mg PO Q12HR 30 Days #60 tab 05/25/22 Nitrofurantoin Monohyd/M-Cryst 100 mg PO Q12HR #6 cap 05/31/22 [Macrobid] Phenazopyridine [Pyridium] 100 mg PO TID #6 tablet 05/31/22 methylPREDNISolone Dose Pack 4 mg PO DIRECTED #21 tab 07/17/22 [Medrol Dose Pack] Allergies Allergy/AdvReac Type Severity Reaction Status Date / Time venom-honey bee Allergy Anaphylaxis Verified 07/17/22 15:26 codeine AdvReac Itching Verified 07/17/22 15:26 Review of Systems ROS Statement: Those systems with pertinent positive or pertinent negative responses have been documented in the HPI. ROS Other: All systems not noted in ROS Statement are negative. Past Medical History Past Medical History: Heart Failure, GI Bleed, Seizure Disorder Additional Past Medical History / Comment(s): HEART VALVE REPLACEMENT. HX GI PROB FOR YEARS, HIATAL HERNIA. 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 DEVELOPMENTAL DISABILITY. colitis History of Any Multi-Drug Resistant Organisms: ESBL Date of last positivie culture/infection: 05/31/22 MDRO Source:: ESBL URINE Past Surgical History: Ear Surgery, Hernia Repair, Orthopedic Surgery Additional Past Surgical History / Comment(s): RT Foot Surgery; Open Heart Surg @ 3 YRS OLD, VALVE REPLACED. EXC BRAIN TUMOR. HIATAL HERNIA REPAIR. RT EARDRUM REPAIRED. Past Anesthesia/Blood Transfusion Reactions: No Reported Reaction Past Psychological History: ADD/ADHD, Anxiety Smoking Status: Current every day smoker Past Alcohol Use History: None Reported Past Drug Use History: None Reported - Past Family History Father Family Medical History: No Reported History Additional Family Medical History / Comment(s): Mother Family Medical History: No Reported History Additional Family Medical History / Comment(s): General Exam Limitations: physical limitation General appearance: alert, in no apparent distress Head exam: Present: atraumatic, normocephalic, normal inspection Eye exam: Present: normal appearance, PERRL, EOMI. Absent: scleral icterus, conjunctival injection, periorbital swelling ENT exam: Present: normal exam, mucous membranes moist Neck exam: Present: normal inspection, full ROM, lymphadenopathy. Absent: tenderness Respiratory exam: Present: normal lung sounds bilaterally. Absent: respiratory distress, wheezes, rales, rhonchi, stridor Cardiovascular Exam: Present: regular rate, normal rhythm, normal heart sounds. Absent: systolic murmur, diastolic murmur, rubs, gallop, clicks GI/Abdominal exam: Present: soft, normal bowel sounds. Absent: distended, tenderness, guarding, rebound, rigid Extremities exam: Present: normal inspection. Absent: pedal edema, joint swelling Back exam: Present: normal inspection Neurological exam: Present: alert, oriented X3, CN II-XII intact Psychiatric exam: Present: normal affect, normal mood Skin exam: Present: rash (Diffuse macular papular rash no evidence of cellulitis), urticaria Course Vital Signs 07/17/22 15:23 Temperature 97.6 F Pulse Rate 100 Respiratory 20 Rate Blood Pressure 118/79 O2 Sat by Pulse 96 Oximetry Medical Decision Making - Medical Decision Making 37-year-old female presenting to the emergency room with complaints of diffuse maculopapular rash that began earlier today after changing detergents. She denies any difficulty in breathing and items not covered by clothing are spared including her hands and face. No indication for diagnostic imaging or laboratory studies. Will give IM Solu-Medrol place on a Medrol Dosepak. Advised avoidance of detergents that cause ALLERGIC reactions. Avoid soaps and lotions with fragrances were. Patient also requesting dose of Keppra for bedtime tonight as she is staying in the hospital with her significant other. Will provide dose. Case discussed with Dr. Sevilla. Disposition Clinical Impression: Allergic contact dermatitis due to detergent Disposition: HOME SELF-CARE Condition: Stable Additional Instructions: Please return to the Emergency Department if symptoms worsen or any other concerns. Please complete Medrol Dosepak as prescribed. Avoid scratching rash. Avoid use of detergents or other soaps or lotions that contain any diarrhea or fragrance. Prescriptions: methylPREDNISolone Dose Pack [Medrol Dose Pack] 4 mg PO DIRECTED #21 tab Is patient prescribed a controlled substance at d/c from ED?: No Referrals: Eduardo Montoya MD [Primary Care Provider] - 1-2 days Time of Disposition: 16:12
[2022-07-17] MEDS ORDERED: methylPREDNISolone SOD SUCCI 125 MG/2 ML VIAL IM ONE (15:37)
[2022-07-17] MEDS ORDERED: levETIRAcetam 500 MG TAB PO STA (16:13)
== END 2022-07-17 16:22 | disposition home or self-care (01) ==
LOC: EC 15:21
DX: L23.9 Allergic contact dermatitis, unspecified cause (principal); F17.200 Nicotine dependence, unspecified, uncomplicated; Z91.030 Bee allergy status; Z88.6 Allergy status to analgesic agent
CPT/HCPCS: 99282; 96372; J2930

== ENCOUNTER 2022-08-17 21:34 | Emergency (ER) | payer MEDICARE, OTHER ==
[2022-08-17 22:50] VITALS: TEMP 98
[2022-08-17 23:40] VITALS: RESP 16
--- NOTE | 2022-08-17 23:48 | ED ---
General Adult HPI - General Chief complaint: Upper Respiratory Infection Stated complaint: chest pain, cough Time Seen by Provider: 08/17/22 23:46 Source: patient Mode of arrival: ambulatory Limitations: no limitations - History of Present Illness Initial comments: Patient presents to the ED complaining of having a productive cough, congestion and chest tightness for the past week or so. Patient states that she is Covid- vaccinated. Patient denies trauma or injury, fever or chills, headache, focal neuro deficit, dyspnea, hemoptysis, palpitations, dizziness, abdominal pain, nausea/vomiting/diarrhea, dysuria or urinary symptoms, leg or calf swelling or pain, or any other symptoms or complaints. Patient states that she lives with a housemate, and she denies any known sick contacts. - Related Data Home Medications Medication Instructions Recorded Confirmed FLUoxetine HCL [PROzac Weekly] 90 mg PO TU 08/27/17 10/25/21 traZODone HCL 200 mg PO HS 10/12/18 10/25/21 Montelukast [Singulair] 10 mg PO DAILY 06/28/20 10/25/21 buPROPion [Wellbutrin] 75 mg PO BID 03/16/21 10/25/21 busPIRone HCl [Buspar] 10 mg PO BID 03/16/21 10/25/21 Loratadine [Claritin] 10 mg PO DAILY 03/22/21 10/25/21 Melatonin 5 mg PO HS 09/04/21 10/25/21 levETIRAcetam [Keppra] 250 mg PO Q12HR 09/04/21 10/25/21 rOPINIRole HCL [Requip] 0.25 mg PO TID 09/04/21 10/25/21 risperiDONE [RisperDAL] 1 mg PO HS 09/04/21 10/25/21 Albuterol Sulfate [Ventolin HFA] 2 puff INHALATION RT-Q6H PRN 10/25/21 10/25/21 Benzonatate [Tessalon Perles] 100 mg PO TID PRN 10/25/21 10/25/21 Ergocalciferol (Vitamin D2) 1,250 mcg PO TU 10/25/21 10/25/21 [Drisdol (50,000 Iu)] Fluticasone Nasal [place] [Flonase 1 spray EA NOSTRIL DAILY PRN 10/25/21 10/25/21 Nasal [place]] Sucralfate [Carafate] 1 gm PO BID 10/25/21 10/25/21 hydrOXYzine pamoate [Vistaril] 25 mg PO BID PRN 10/25/21 10/25/21 Previous Rx's Medication Instructions Recorded Albuterol Inhaler [Ventolin Hfa 1 puff INHALATION RT-QID #8 gm 10/25/21 Inhaler] Doxycycline Hyclate [Vibramycin] 100 mg PO BID 7 Days #14 cap 10/25/21 predniSONE [Deltasone] 40 mg PO DAILY 5 Days #10 tab 10/25/21 Ibuprofen [Motrin] 400 mg PO BID #20 tab 04/06/22 Cephalexin [Keflex] 500 mg PO BID #14 cap 05/12/22 Meclizine [Antivert] 25 mg PO TID PRN #20 tab 05/12/22 levETIRAcetam [Keppra] 250 mg PO Q12HR 30 Days #60 tab 05/25/22 Nitrofurantoin Monohyd/M-Cryst 100 mg PO Q12HR #6 cap 05/31/22 [Macrobid] Phenazopyridine [Pyridium] 100 mg PO TID #6 tablet 05/31/22 methylPREDNISolone Dose Pack 4 mg PO DIRECTED #21 tab 07/17/22 [Medrol Dose Pack] Allergies Allergy/AdvReac Type Severity Reaction Status Date / Time venom-honey bee Allergy Anaphylaxis Verified 08/17/22 22:50 codeine AdvReac Itching Verified 08/17/22 22:50 Review of Systems ROS Statement: Those systems with pertinent positive or pertinent negative responses have been documented in the HPI. ROS Other: All systems not noted in ROS Statement are negative. Past Medical History Past Medical History: Heart Failure, GI Bleed, Seizure Disorder Additional Past Medical History / Comment(s): HEART VALVE REPLACEMENT. HX GI PROB FOR YEARS, HIATAL HERNIA. 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 DEVELOPMENTAL DISABILITY. colitis History of Any Multi-Drug Resistant Organisms: ESBL Date of last positivie culture/infection: 05/31/22 MDRO Source:: ESBL URINE Past Surgical History: Ear Surgery, Hernia Repair, Orthopedic Surgery Additional Past Surgical History / Comment(s): RT Foot Surgery; Open Heart Surg @ 3 YRS OLD, VALVE REPLACED. EXC BRAIN TUMOR. HIATAL HERNIA REPAIR. RT EARDRUM REPAIRED. Past Anesthesia/Blood Transfusion Reactions: No Reported Reaction Past Psychological History: ADD/ADHD, Anxiety Smoking Status: Current every day smoker Past Alcohol Use History: None Reported Past Drug Use History: None Reported - Past Family History Father Family Medical History: No Reported History Additional Family Medical History / Comment(s): Mother Family Medical History: No Reported History Additional Family Medical History / Comment(s): General Exam Limitations: no limitations General appearance: alert, in no apparent distress Head exam: Present: atraumatic Eye exam: Present: normal appearance, EOMI ENT exam: Present: normal oropharynx, mucous membranes moist Neck exam: Present: other (Trachea is in midline) Respiratory exam: Present: normal lung sounds bilaterally. Absent: respiratory distress, wheezes, rales, rhonchi, stridor, chest wall tenderness Cardiovascular Exam: Present: regular rate, normal rhythm, normal heart sounds, other (Normal radial pulses bilaterally) GI/Abdominal exam: Present: soft. Absent: distended, tenderness, guarding Extremities exam: Absent: tenderness, pedal edema, calf tenderness Neurological exam: Present: alert, oriented X3. Absent: motor sensory deficit Psychiatric exam: Present: normal affect, normal mood Skin exam: Present: warm, dry, intact, normal color Course Vital Signs 08/17/22 08/17/22 22:48 23:40 Temperature 98.0 F Pulse Rate 75 Respiratory 20 16 Rate Blood Pressure 105/64 O2 Sat by Pulse 96 Oximetry - Reevaluation(s) Reevaluation #1: 08/18/22 01:35 Patient remains alert and breathing comfortably with a normal room air oxygen saturation. Patient is aware of her test results, and she feels comfortable being discharged home at this time. Patient was counseled about upper respiratory infections, and she was clearly explained return and follow-up instructions. Patient was instructed to follow up closely with her primary care provider. Patient feels comfortable with this plan. Medical Decision Making - Medical Decision Making Patient's symptoms are suggestive of upper respiratory infection. Patient's chest x-ray is negative. Patient's viral studies are all negative. I suspect that the patient likely has a viral upper respiratory infection. Will discharge patient home at this time. Patient was given clear return and follow-up instructions. Patient feels comfortable with this plan. - Radiology Data Chest x-ray: No active cardiopulmonary disease. No change. Disposition Clinical Impression: Upper respiratory tract infection Disposition: HOME SELF-CARE Condition: Stable Instructions (If sedation given, give patient instructions): Upper Respiratory Infection (ED) Additional Instructions: Return to the ER immediately should you develop new or worsening pain, a high fever, shortness of breath, feeling dizzy or faint, or new or worsening symptoms. Follow up closely with your primary care provider. Is patient prescribed a controlled substance at d/c from ED?: No Referrals: None,Stated [Primary Care Provider] - 1-2 days Lorenzo Mijares DO [STAFF PHYSICIAN] - 1-2 days Time of Disposition: 01:37
--- NOTE | 2022-08-17 23:54 | XR ---
EXAMINATION TYPE: XR chest 2V DATE OF EXAM: 08/17/2022 COMPARISON: 05/28/2022 HISTORY: Short of breath TECHNIQUE: 2 views FINDINGS: There is thoracic dextroscoliosis. Heart size is normal. No heart failure. There are sterna l wires. Lungs are clear of infiltrate. No pleural effusion. IMPRESSION: No active cardiopulmonary disease. No change.
[2022-08-18 01:44] VITALS: BP 132/76; PULSE 78
== END 2022-08-18 01:43 | disposition home or self-care (01) ==
LOC: EC 21:34
DX: J06.9 Acute upper respiratory infection, unspecified (principal); F17.200 Nicotine dependence, unspecified, uncomplicated; Z20.822 Contact with and (suspected) exposure to COVID-19; Z91.030 Bee allergy status; Z88.3 Allergy status to other anti-infective agents
CPT/HCPCS: 71046; 87636; 99285

== ENCOUNTER 2022-08-27 18:40 | Emergency (ER) | payer MEDICARE, OTHER ==
[2022-08-27 19:36] VITALS: BP 111/64; PULSE 67; RESP 16; TEMP 97.5
[2022-08-27] MEDS ORDERED: ACETAMINOPHEN TAB 500 MG TAB PO STA (20:56)
[2022-08-27] MEDS ORDERED: NEOMYCIN-POLYMYXIN-HC (3.5-10,000-10 MG) OTIC DROPS 10 ML BTL BOTH EARS STA (20:56)
--- NOTE | 2022-08-27 21:04 | ED ---
ENT HPI - General Chief complaint: ENT Stated complaint: Ear ache Time Seen by Provider: 08/27/22 20:48 Source: patient, RN notes reviewed Mode of arrival: ambulatory Limitations: no limitations - History of Present Illness Initial comments: This is a pleasant 37-year-old female who presents to the right side complaint bilateral ear discomfort. Patient states it feels a pressure that started earlier today. She also states it hurts when she moves her external ear. Denying any sore throat. No vision changes. No hearing changes. No fever. Patient does have seasonal ALLERGIES and does take Claritin. Patient has tried ibuprofen at home. Pain is relatively mild at this time. No headache, no fever or chills, no changes in vision or hearing, no sore throat or difficulty with speech, no neck pain, no chest pain or shortness of breath, no abdominal pain, no nausea or vomiting, no changes in urination or bowel movements, no numbness or tingling, no extremity pain, no skin rashes or lesions. Past medical, surgical, social, and family history reviewed. - Related Data Home Medications Medication Instructions Recorded Confirmed FLUoxetine HCL [PROzac Weekly] 90 mg PO TU 08/27/17 10/25/21 traZODone HCL 200 mg PO HS 10/12/18 10/25/21 Montelukast [Singulair] 10 mg PO DAILY 06/28/20 10/25/21 buPROPion [Wellbutrin] 75 mg PO BID 03/16/21 10/25/21 busPIRone HCl [Buspar] 10 mg PO BID 03/16/21 10/25/21 Loratadine [Claritin] 10 mg PO DAILY 03/22/21 10/25/21 Melatonin 5 mg PO HS 09/04/21 10/25/21 levETIRAcetam [Keppra] 250 mg PO Q12HR 09/04/21 10/25/21 rOPINIRole HCL [Requip] 0.25 mg PO TID 09/04/21 10/25/21 risperiDONE [RisperDAL] 1 mg PO HS 09/04/21 10/25/21 Albuterol Sulfate [Ventolin HFA] 2 puff INHALATION RT-Q6H PRN 10/25/21 10/25/21 Benzonatate [Tessalon Perles] 100 mg PO TID PRN 10/25/21 10/25/21 Ergocalciferol (Vitamin D2) 1,250 mcg PO TU 10/25/21 10/25/21 [Drisdol (50,000 Iu)] Fluticasone Nasal [place] [Flonase 1 spray EA NOSTRIL DAILY PRN 10/25/21 10/25/21 Nasal [place]] Sucralfate [Carafate] 1 gm PO BID 10/25/21 10/25/21 hydrOXYzine pamoate [Vistaril] 25 mg PO BID PRN 10/25/21 10/25/21 Previous Rx's Medication Instructions Recorded Albuterol Inhaler [Ventolin Hfa 1 puff INHALATION RT-QID #8 gm 10/25/21 Inhaler] Doxycycline Hyclate [Vibramycin] 100 mg PO BID 7 Days #14 cap 10/25/21 predniSONE [Deltasone] 40 mg PO DAILY 5 Days #10 tab 10/25/21 Ibuprofen [Motrin] 400 mg PO BID #20 tab 04/06/22 Cephalexin [Keflex] 500 mg PO BID #14 cap 05/12/22 Meclizine [Antivert] 25 mg PO TID PRN #20 tab 05/12/22 levETIRAcetam [Keppra] 250 mg PO Q12HR 30 Days #60 tab 05/25/22 Nitrofurantoin Monohyd/M-Cryst 100 mg PO Q12HR #6 cap 05/31/22 [Macrobid] Phenazopyridine [Pyridium] 100 mg PO TID #6 tablet 05/31/22 methylPREDNISolone Dose Pack 4 mg PO DIRECTED #21 tab 07/17/22 [Medrol Dose Pack] Acetaminophen Oral Susp [Tylenol] 320 mg PO Q4-6H #240 ml 08/27/22 Allergies Allergy/AdvReac Type Severity Reaction Status Date / Time venom-honey bee Allergy Anaphylaxis Verified 08/27/22 19:32 codeine AdvReac Itching Verified 08/27/22 19:32 Review of Systems ROS Statement: Those systems with pertinent positive or pertinent negative responses have been documented in the HPI. ROS Other: All systems not noted in ROS Statement are negative. Past Medical History Past Medical History: Heart Failure, GI Bleed, Seizure Disorder Additional Past Medical History / Comment(s): HEART VALVE REPLACEMENT. HX GI PROB FOR YEARS, HIATAL HERNIA. 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 DEVELOPMENTAL DISABILITY. colitis History of Any Multi-Drug Resistant Organisms: ESBL Date of last positivie culture/infection: 05/31/22 MDRO Source:: ESBL URINE Past Surgical History: Ear Surgery, Hernia Repair, Orthopedic Surgery Additional Past Surgical History / Comment(s): RT Foot Surgery; Open Heart Surg @ 3 YRS OLD, VALVE REPLACED. EXC BRAIN TUMOR. HIATAL HERNIA REPAIR. RT EARDRUM REPAIRED. Past Anesthesia/Blood Transfusion Reactions: No Reported Reaction Past Psychological History: ADD/ADHD, Anxiety Smoking Status: Current every day smoker Past Alcohol Use History: None Reported Past Drug Use History: None Reported - Past Family History Father Family Medical History: No Reported History Additional Family Medical History / Comment(s): Mother Family Medical History: No Reported History Additional Family Medical History / Comment(s): General Exam - General Exam Comments Initial Comments: Frail-appearing 37-year-old female does not appear to be ill or toxic. Vital signs reviewed. Limitations: no limitations General appearance: alert, in no apparent distress Head exam: Present: atraumatic, normocephalic, normal inspection Eye exam: Present: normal appearance, PERRL, EOMI. Absent: scleral icterus, conjunctival injection, periorbital swelling ENT exam: Present: normal oropharynx, TM's normal bilaterally (TMs pearly parker bilaterally. Good light reflex noted. Partial cerumen obstruction of right EAC), other (Partial cerumen obstruction of the right EAC. No definitive inflammation however the patient does have tenderness with movement of the external ear and pressure over the tragus.). Absent: mucous membranes dry, normal external ear exam (Discomfort with speculum examination and movement of the external ear. No evidence of cellulitis) Neck exam: Present: normal inspection. Absent: tenderness, meningismus, lymphadenopathy Respiratory exam: Present: normal lung sounds bilaterally. Absent: respiratory distress, wheezes, rales, rhonchi, stridor Cardiovascular Exam: Present: regular rate, normal rhythm, normal heart sounds. Absent: systolic murmur, diastolic murmur, rubs, gallop, clicks GI/Abdominal exam: Present: soft, normal bowel sounds. Absent: distended, tenderness, guarding, rebound, rigid Extremities exam: Present: normal inspection Back exam: Present: normal inspection Neurological exam: Present: alert, oriented X3, CN II-XII intact. Absent: motor sensory deficit Psychiatric exam: Present: normal affect, normal mood Skin exam: Present: warm, dry, intact, normal color. Absent: rash Course Vital Signs 08/27/22 19:32 Temperature 97.5 F L Pulse Rate 67 Respiratory 16 Rate Blood Pressure 111/64 O2 Sat by Pulse 98 Oximetry Medical Decision Making - Medical Decision Making Nontoxic appearing female presents with symptomology consistent with possible early external otitis as she has some tenderness over the external ear and speculum examination. There was no definitive exudate. Going to treat with topical Cortisporin 3 times a day. Patient should also continue her antihistamine as some of this could be related to seasonal ALLERGIES. Patient was told to return to the ER for any signs or symptoms worsen. Told to return immediately if any other problems arise. All questions answered. Treatment plan discussed. Patient in agreement Every effort has been made to ensure accuracy of this dictation. However, due to the limitations of electronic medical records and dictation devices, errors in charting still occur. Button Inspector Dr. Reyes Disposition Clinical Impression: Earache symptoms in both ears, External otitis Narrative: Bilateral otitis externa Disposition: HOME SELF-CARE Condition: Good Additional Instructions: Cortisporin ear drops, 4 drops to each ear 3 times a day for 7 days. [id number] acetaminophen and/or ibuprofen as directed for discomfort. Continue your antihistamine. Follow-up with your regular physician as directed. Return to the ER immediately if any symptoms worsen, new symptoms arise, or any other problems develop. Is patient prescribed a controlled substance at d/c from ED?: No Referrals: Eduardo Montoya MD [Primary Care Provider] - 09/02/22 Time of Disposition: 21:03
== END 2022-08-27 21:17 | disposition home or self-care (01) ==
LOC: EC 18:40
DX: H60.93 Unspecified otitis externa, bilateral (principal); I50.9 Heart failure, unspecified; F41.9 Anxiety disorder, unspecified; F17.200 Nicotine dependence, unspecified, uncomplicated; Z91.030 Bee allergy status; Z88.5 Allergy status to narcotic agent; Z79.51 Long term (current) use of inhaled steroids; Z79.899 Other long term (current) drug therapy
CPT/HCPCS: 99282

== ENCOUNTER 2022-08-29 19:34 | Emergency (ER) | payer MEDICARE, OTHER ==
[2022-08-29] MEDS ORDERED: SODIUM CHLORIDE 0.9% 1,000 ML IV STA (19:50)
[2022-08-29 19:52] VITALS: BP 103/56; RESP 16; TEMP 98.8
[2022-08-29 20:28] LABS: Basophils # (A) 0.1 k/uL (0-0.2); Basophils % (A) 1 %; Eosinophils # (A) 0.1 k/uL (0-0.7); Eosinophils % (A) 1 %; HCT 37.2 % (34.0-46.0); HGB 12.7 gm/dL (11.4-16.0); Lymphocytes # (A) 2.2 k/uL (1.0-4.8); Lymphocytes % (A) 21 %; MCH 28.2 pg (25.0-35.0); MCHC 34.2 g/dL (31.0-37.0); MCV 82.5 fL (80.0-100.0); Mean Platelet Volume 8.7; Monocytes # (A) 0.9 k/uL (0-1.0); Monocytes % (A) 9 %; Neutrophils % (A) 67 %; Platelet Count 216 k/uL (150-450); RDW 14.7 % (11.5-15.5); WBC 10.4 k/uL (3.8-10.6)
[2022-08-29 20:36] LABS: INR 1.1 (<1.2); Partial Thromboplastin Time 23.5 sec (22.0-30.0); Prothrombin Time 12.1 sec (9.0-12.0)
[2022-08-29 20:38] LABS: ALT 13 U/L (4-34); AST 18 U/L (14-36); African American GFR (CKD) >90 (>60 ml/min/1.73 sqM); Albumin 3.8 g/dL (3.5-5.0); Alkaline Phosphatase 69 U/L (38-126); Anion Gap 10 mmol/L; Blood Urea Nitrogen 10 mg/dL (7-17); Calcium 8.6 mg/dL (8.4-10.2); Carbon Dioxide 22 mmol/L (22-30); Chloride 106 mmol/L (98-107); Glucose 90 mg/dL (74-99); Magnesium 1.5 mg/dL (1.6-2.3); Non-African American GFR(CKD) >90 (>60 ml/min/1.73 sqM); Potassium 4.3 mmol/L (3.5-5.1); Sodium 138 mmol/L (137-145); Total Bilirubin 0.2 mg/dL (0.2-1.3); Total Protein 6.2 g/dL (6.3-8.2)
--- NOTE | 2022-08-29 20:41 | ED ---
SOB HPI - General Chief Complaint: Shortness of Breath Stated Complaint: cough, SOB Time Seen by Provider: 08/29/22 19:40 Source: patient, EMS Mode of arrival: EMS Limitations: no limitations - History of Present Illness Initial Comments: 37-year-old female with past medical history of seizure disorder, valvular disease who presents to the emergency department with shortness of breath and nonproductive cough. States that she's had the symptoms for the past 2 weeks. She did test positive for Covid 2 weeks ago and has not had any medications for her symptoms. She does have a nebulizer at home and has been using her breathing treatments every 4 hours without any improvement in her symptoms. Patient longer has any fevers. No nausea, vomiting, abdominal pain, diarrhea. No earache or sore throat. Is not currently on any antibiotics or steroids. No other alleviating, precipitating or modifying factors - Related Data Home Medications Medication Instructions Recorded Confirmed FLUoxetine HCL [PROzac Weekly] 90 mg PO TU 08/27/17 10/25/21 traZODone HCL 200 mg PO HS 10/12/18 10/25/21 Montelukast [Singulair] 10 mg PO DAILY 06/28/20 10/25/21 buPROPion [Wellbutrin] 75 mg PO BID 03/16/21 10/25/21 busPIRone HCl [Buspar] 10 mg PO BID 03/16/21 10/25/21 Loratadine [Claritin] 10 mg PO DAILY 03/22/21 10/25/21 Melatonin 5 mg PO HS 09/04/21 10/25/21 levETIRAcetam [Keppra] 250 mg PO Q12HR 09/04/21 10/25/21 rOPINIRole HCL [Requip] 0.25 mg PO TID 09/04/21 10/25/21 risperiDONE [RisperDAL] 1 mg PO HS 09/04/21 10/25/21 Albuterol Sulfate [Ventolin HFA] 2 puff INHALATION RT-Q6H PRN 10/25/21 10/25/21 Benzonatate [Tessalon Perles] 100 mg PO TID PRN 10/25/21 10/25/21 Ergocalciferol (Vitamin D2) 1,250 mcg PO TU 10/25/21 10/25/21 [Drisdol (50,000 Iu)] Fluticasone Nasal [place] [Flonase 1 spray EA NOSTRIL DAILY PRN 10/25/21 10/25/21 Nasal [place]] Sucralfate [Carafate] 1 gm PO BID 10/25/21 10/25/21 hydrOXYzine pamoate [Vistaril] 25 mg PO BID PRN 10/25/21 10/25/21 Previous Rx's Medication Instructions Recorded Albuterol Inhaler [Ventolin Hfa 1 puff INHALATION RT-QID #8 gm 10/25/21 Inhaler] Doxycycline Hyclate [Vibramycin] 100 mg PO BID 7 Days #14 cap 10/25/21 predniSONE [Deltasone] 40 mg PO DAILY 5 Days #10 tab 10/25/21 Ibuprofen [Motrin] 400 mg PO BID #20 tab 04/06/22 Cephalexin [Keflex] 500 mg PO BID #14 cap 05/12/22 Meclizine [Antivert] 25 mg PO TID PRN #20 tab 05/12/22 levETIRAcetam [Keppra] 250 mg PO Q12HR 30 Days #60 tab 05/25/22 Nitrofurantoin Monohyd/M-Cryst 100 mg PO Q12HR #6 cap 05/31/22 [Macrobid] Phenazopyridine [Pyridium] 100 mg PO TID #6 tablet 05/31/22 methylPREDNISolone Dose Pack 4 mg PO DIRECTED #21 tab 07/17/22 [Medrol Dose Pack] Acetaminophen Oral Susp [Tylenol] 320 mg PO Q4-6H #240 ml 08/27/22 Albuterol Nebulized [Ventolin 2.5 mg INHALATION Q4H #150 ml 08/29/22 Nebulized] predniSONE [Deltasone] 20 mg PO BID #10 tab 08/29/22 Allergies Allergy/AdvReac Type Severity Reaction Status Date / Time venom-honey bee Allergy Anaphylaxis Verified 08/27/22 19:32 codeine AdvReac Itching Verified 08/27/22 19:32 Review of Systems ROS Statement: Those systems with pertinent positive or pertinent negative responses have been documented in the HPI. ROS Other: All systems not noted in ROS Statement are negative. Past Medical History Past Medical History: Heart Failure, GI Bleed, Seizure Disorder Additional Past Medical History / Comment(s): HEART VALVE REPLACEMENT. HX GI PROB FOR YEARS, HIATAL HERNIA. 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 DEVELOPMENTAL DISABILITY. colitis History of Any Multi-Drug Resistant Organisms: ESBL Date of last positivie culture/infection: 05/31/22 MDRO Source:: ESBL URINE Past Surgical History: Ear Surgery, Hernia Repair, Orthopedic Surgery Additional Past Surgical History / Comment(s): RT Foot Surgery; Open Heart Surg @ 3 YRS OLD, VALVE REPLACED. EXC BRAIN TUMOR. HIATAL HERNIA REPAIR. RT EARDRUM REPAIRED. Past Anesthesia/Blood Transfusion Reactions: No Reported Reaction Past Psychological History: ADD/ADHD, Anxiety Smoking Status: Current every day smoker Past Alcohol Use History: None Reported Past Drug Use History: None Reported - Past Family History Father Family Medical History: No Reported History Additional Family Medical History / Comment(s): Mother Family Medical History: No Reported History Additional Family Medical History / Comment(s): General Exam Limitations: no limitations General appearance: alert, in no apparent distress Head exam: Present: atraumatic, normocephalic, normal inspection Eye exam: Present: normal appearance, PERRL, EOMI. Absent: scleral icterus, conjunctival injection, periorbital swelling ENT exam: Present: normal exam, mucous membranes moist Neck exam: Present: normal inspection. Absent: tenderness, meningismus, lymphadenopathy Respiratory exam: Present: wheezes, other (Bronchospasm). Absent: respiratory distress, rales, rhonchi, stridor Cardiovascular Exam: Present: regular rate, normal rhythm, normal heart sounds. Absent: systolic murmur, diastolic murmur, rubs, gallop, clicks GI/Abdominal exam: Present: soft, normal bowel sounds. Absent: distended, tenderness, guarding, rebound, rigid Extremities exam: Present: normal inspection, full ROM, normal capillary refill. Absent: tenderness, pedal edema, joint swelling, calf tenderness Back exam: Present: normal inspection Neurological exam: Present: alert, oriented X3, CN II-XII intact Psychiatric exam: Present: normal affect, normal mood Skin exam: Present: warm, dry, intact, normal color. Absent: rash Course Vital Signs 08/29/22 08/29/22 08/29/22 19:36 19:44 21:14 Temperature 98.8 F Pulse Rate 84 64 Respiratory 16 16 Rate Blood Pressure 103/56 O2 Sat by Pulse 100 Oximetry 08/29/22 08/29/22 21:22 22:13 Temperature Pulse Rate 62 Respiratory Rate Blood Pressure O2 Sat by Pulse 98 Oximetry Medical Decision Making - Medical Decision Making Upon arrival patient is placed into room 2. There are history and physical exam was performed. Patient does have bilateral wheeze but no signs of rest for distress. Breathing treatment ordered. Patient given a dose of magnesium and Solu-Medrol. Laboratory studies are conducted. Patient is swabbed for Covid and is negative. Chest x-ray, traits no acute process. Patient reevaluated and has improvement in her wheeze. She'll be discharged home on antibiotics. Albuterol is refilled. Instructed follow up with primary care doctor in 2-4 days and return for any new or worsening symptoms. Patient agreeable and discharged home in stable condition - Lab Data Result diagrams: 08/29/22 20:11 08/29/22 20:11 Lab Results 08/29/22 08/29/22 08/29/22 Range/Units 20:11 20:11 20:11 WBC 10.4 (3.8-10.6) k/uL RBC 4.50 (3.80-5.40) m/uL Hgb 12.7 (11.4-16.0) gm/dL Hct 37.2 (34.0-46.0) % MCV 82.5 (80.0-100.0) fL MCH 28.2 (25.0-35.0) pg MCHC 34.2 (31.0-37.0) g/dL RDW 14.7 (11.5-15.5) % Plt Count 216 (150-450) k/uL MPV 8.7 Neutrophils % 67 % Lymphocytes % 21 % Monocytes % 9 % Eosinophils % 1 % Basophils % 1 % Neutrophils # 7.0 (1.3-7.7) k/uL Lymphocytes # 2.2 (1.0-4.8) k/uL Monocytes # 0.9 (0-1.0) k/uL Eosinophils # 0.1 (0-0.7) k/uL Basophils # 0.1 (0-0.2) k/uL PT 12.1 H (9.0-12.0) sec INR 1.1 (<1.2) APTT 23.5 (22.0-30.0) sec Sodium 138 (137-145) mmol/L Potassium 4.3 (3.5-5.1) mmol/L Chloride 106 (98-107) mmol/L Carbon Dioxide 22 (22-30) mmol/L Anion Gap 10 mmol/L BUN 10 (7-17) mg/dL Creatinine 0.51 L (0.52-1.04) mg/dL Est GFR (CKD-EPI)AfAm >90 (>60 ml/min/1.73 sqM) Est GFR (CKD-EPI)NonAf >90 (>60 ml/min/1.73 sqM) Glucose 90 (74-99) mg/dL Plasma Lactic Acid [place] (0.7-2.0) mmol/L Calcium 8.6 (8.4-10.2) mg/dL Magnesium 1.5 L (1.6-2.3) mg/dL Total Bilirubin 0.2 (0.2-1.3) mg/dL AST 18 (14-36) U/L ALT 13 (4-34) U/L Alkaline Phosphatase 69 (38-126) U/L NT-Pro-B Natriuret Pep pg/mL Total Protein 6.2 L (6.3-8.2) g/dL Albumin 3.8 (3.5-5.0) g/dL Urine Color Urine Appearance (Clear) Urine pH (5.0-8.0) Ur Specific [place] (1.001-1.035) Urine Protein (Negative) Urine Glucose (UA) (Negative) Urine Ketones (Negative) Urine Blood (Negative) Urine Nitrite (Negative) Urine Bilirubin (Negative) Urine Urobilinogen (<2.0) mg/dL Ur Leukocyte Esterase (Negative) Urine HCG, Qual (Not Detectd) Coronavirus (PCR) (Not Detectd) 08/29/22 08/29/22 08/29/22 Range/Units 20:11 20:12 20:35 WBC (3.8-10.6) k/uL RBC (3.80-5.40) m/uL Hgb (11.4-16.0) gm/dL Hct (34.0-46.0) % MCV (80.0-100.0) fL MCH (25.0-35.0) pg MCHC (31.0-37.0) g/dL RDW (11.5-15.5) % Plt Count (150-450) k/uL MPV Neutrophils % % Lymphocytes % % Monocytes % % Eosinophils % % Basophils % % Neutrophils # (1.3-7.7) k/uL Lymphocytes # (1.0-4.8) k/uL Monocytes # (0-1.0) k/uL Eosinophils # (0-0.7) k/uL Basophils # (0-0.2) k/uL PT (9.0-12.0) sec INR (<1.2) APTT (22.0-30.0) sec Sodium (137-145) mmol/L Potassium (3.5-5.1) mmol/L Chloride (98-107) mmol/L Carbon Dioxide (22-30) mmol/L Anion Gap mmol/L BUN (7-17) mg/dL Creatinine (0.52-1.04) mg/dL Est GFR (CKD-EPI)AfAm (>60 ml/min/1.73 sqM) Est GFR (CKD-EPI)NonAf (>60 ml/min/1.73 sqM) Glucose (74-99) mg/dL Plasma Lactic Acid [place] 0.8 (0.7-2.0) mmol/L Calcium (8.4-10.2) mg/dL Magnesium (1.6-2.3) mg/dL Total Bilirubin (0.2-1.3) mg/dL AST (14-36) U/L ALT (4-34) U/L Alkaline Phosphatase (38-126) U/L NT-Pro-B Natriuret Pep 163 pg/mL Total Protein (6.3-8.2) g/dL Albumin (3.5-5.0) g/dL Urine Color Colorless Urine Appearance Clear (Clear) Urine pH 6.5 (5.0-8.0) Ur Specific [place] 1.001 (1.001-1.035) Urine Protein Negative (Negative) Urine Glucose (UA) Negative (Negative) Urine Ketones Negative (Negative) Urine Blood Negative (Negative) Urine Nitrite Negative (Negative) Urine Bilirubin Negative (Negative) Urine Urobilinogen <2.0 (<2.0) mg/dL Ur Leukocyte Esterase Negative (Negative) Urine HCG, Qual (Not Detectd) Coronavirus (PCR) (Not Detectd) 08/29/22 08/29/22 Range/Units 20:35 20:48 WBC (3.8-10.6) k/uL RBC (3.80-5.40) m/uL Hgb (11.4-16.0) gm/dL Hct (34.0-46.0) % MCV (80.0-100.0) fL MCH (25.0-35.0) pg MCHC (31.0-37.0) g/dL RDW (11.5-15.5) % Plt Count (150-450) k/uL MPV Neutrophils % % Lymphocytes % % Monocytes % % Eosinophils % % Basophils % % Neutrophils # (1.3-7.7) k/uL Lymphocytes # (1.0-4.8) k/uL Monocytes # (0-1.0) k/uL Eosinophils # (0-0.7) k/uL Basophils # (0-0.2) k/uL PT (9.0-12.0) sec INR (<1.2) APTT (22.0-30.0) sec Sodium (137-145) mmol/L Potassium (3.5-5.1) mmol/L Chloride (98-107) mmol/L Carbon Dioxide (22-30) mmol/L Anion Gap mmol/L BUN (7-17) mg/dL Creatinine (0.52-1.04) mg/dL Est GFR (CKD-EPI)AfAm (>60 ml/min/1.73 sqM) Est GFR (CKD-EPI)NonAf (>60 ml/min/1.73 sqM) Glucose (74-99) mg/dL Plasma Lactic Acid [place] (0.7-2.0) mmol/L Calcium (8.4-10.2) mg/dL Magnesium (1.6-2.3) mg/dL Total Bilirubin (0.2-1.3) mg/dL AST (14-36) U/L ALT (4-34) U/L Alkaline Phosphatase (38-126) U/L NT-Pro-B Natriuret Pep pg/mL Total Protein (6.3-8.2) g/dL Albumin (3.5-5.0) g/dL Urine Color Urine Appearance (Clear) Urine pH (5.0-8.0) Ur Specific [place] (1.001-1.035) Urine Protein (Negative) Urine Glucose (UA) (Negative) Urine Ketones (Negative) Urine Blood (Negative) Urine Nitrite (Negative) Urine Bilirubin (Negative) Urine Urobilinogen (<2.0) mg/dL Ur Leukocyte Esterase (Negative) Urine HCG, Qual Not Detected (Not Detectd) Coronavirus (PCR) Not Detected (Not Detectd) - EKG Data EKG Comments: EKG demonstrates sinus rhythm with a rate of 66. FL interval 221. QRS 90. QTC of 416. Inverted T waves with ST depression in lead V2. No acutest segment elevations Disposition Clinical Impression: Cough, Acute bronchospasm Disposition: HOME SELF-CARE Condition: Stable Instructions (If sedation given, give patient instructions): Bronchospasm (ED) Additional Instructions: Take the steroids as directed starting tomorrow. Follow-up with your doctor in 2-4 days. Return for any new or worsening symptoms Prescriptions: predniSONE [Deltasone] 20 mg PO BID #10 tab Albuterol Nebulized [Ventolin Nebulized] 2.5 mg INHALATION Q4H #150 ml Is patient prescribed a controlled substance at d/c from ED?: No Referrals: Eduardo Montoya MD [Primary Care Provider] - 1-2 days Time of Disposition: 21:56
[2022-08-29 20:46] LABS: Appearance,Urine Clear (Clear); Bilirubin,Urine Negative (Negative); Blood,Urine Negative (Negative); Color,Urine Colorless; Glucose,Urine (UA) Negative (Negative); Ketones,Urine Negative (Negative); Leukocyte Esterase,Urine Negative (Negative); Nitrite,Urine Negative (Negative); PH, Urine 6.5 (5.0-8.0); Protein,Urine Negative (Negative); Specific Gravity,Urine 1.001 (1.001-1.035); Urobilinogen,Urine <2.0 mg/dL (<2.0)
[2022-08-29] MEDS ORDERED: MAGNESIUM SULFATE-D5W PMX 1 GM in DEXTROSE/WATER 1 100ML.BAG IVPB ONE (20:47)
[2022-08-29] MEDS ORDERED: methylPREDNISolone SOD SUCCI 125 MG/2 ML VIAL IV STA (20:47)
[2022-08-29] MEDS ORDERED: IPRATROPIUM-ALBUTEROL 3 ML NEB INHALATION STA (20:47)
--- NOTE | 2022-08-29 21:07 | XR ---
EXAMINATION TYPE: XR chest 2V DATE OF EXAM: 08/29/2022 COMPARISON: 08/17/2022 HISTORY: Short of breath TECHNIQUE: 3 views FINDINGS: There are sternal wires. There is a mild thoracic dextroscoliosis. Heart size is normal. No heart failure. Costophrenic angles are clear. IMPRESSION: No active cardiopulmonary disease. No change.
[2022-08-29 21:22] VITALS: PULSE 62
== END 2022-08-29 22:13 | disposition home or self-care (01) ==
LOC: EC 19:34
DX: J98.01 Acute bronchospasm (principal); I50.9 Heart failure, unspecified; F41.9 Anxiety disorder, unspecified; F17.200 Nicotine dependence, unspecified, uncomplicated; Z91.030 Bee allergy status; Z88.5 Allergy status to narcotic agent; Z79.51 Long term (current) use of inhaled steroids; Z79.899 Other long term (current) drug therapy; Z20.822 Contact with and (suspected) exposure to COVID-19
CPT/HCPCS: 36415; 94640; 93005; 83880; 80053; 83605; 83735; 85025; 85610; 85730; 81003; 81025; 87635; 71046; 99285; 96365; 96375; 96361; J2930; J3475

== ENCOUNTER 2022-08-31 11:58 | Emergency (ER) | payer MEDICARE, OTHER ==
[2022-08-31 12:26] VITALS: BP 121/76; PULSE 76; RESP 20; TEMP 97.5
[2022-08-31] MEDS ORDERED: ONDANSETRON 4 MG/2 ML VIAL IVP STA (12:30)
[2022-08-31] MEDS ORDERED: SODIUM CHLORIDE 0.9% 1,000 ML IV STA (12:30)
[2022-08-31 13:52] LABS: Basophils % (A) 0 %; Eosinophils % (A) 0 %; HCT 41.2 % (34.0-46.0); HGB 13.5 gm/dL (11.4-16.0); Lymphocytes # (A) 1.2 k/uL (1.0-4.8); Lymphocytes % (A) 8 %; MCH 27.6 pg (25.0-35.0); MCHC 32.8 g/dL (31.0-37.0); MCV 84.2 fL (80.0-100.0); Mean Platelet Volume 8.6; Monocytes # (A) 0.8 k/uL (0-1.0); Monocytes % (A) 5 %; Neutrophils # (A) 13.6 k/uL (1.3-7.7); Neutrophils % (A) 86 %; Platelet Count 256 k/uL (150-450); RBC 4.89 m/uL (3.80-5.40); WBC 15.7 k/uL (3.8-10.6)
[2022-08-31 13:59] LABS: ALT 18 U/L (4-34); AST 19 U/L (14-36); African American GFR (CKD) >90 (>60 ml/min/1.73 sqM); Albumin 4.1 g/dL (3.5-5.0); Alkaline Phosphatase 75 U/L (38-126); Anion Gap 9 mmol/L; Blood Urea Nitrogen 12 mg/dL (7-17); Calcium 9.4 mg/dL (8.4-10.2); Carbon Dioxide 27 mmol/L (22-30); Chloride 102 mmol/L (98-107); Glucose 105 mg/dL (74-99); Lipase 37 U/L (23-300); Non-African American GFR(CKD) >90 (>60 ml/min/1.73 sqM); Potassium 5.2 mmol/L (3.5-5.1); Sodium 138 mmol/L (137-145); Total Bilirubin 0.2 mg/dL (0.2-1.3); Total Protein 6.6 g/dL (6.3-8.2)
[2022-08-31 14:13] LABS: Appearance,Urine Cloudy (Clear); Bacteria,Urine Few /hpf; Bilirubin,Urine Negative (Negative); Blood,Urine Negative (Negative); Color,Urine Colorless; Glucose,Urine (UA) Negative (Negative); Ketones,Urine Negative (Negative); Leukocyte Esterase,Urine Negative (Negative); Mucus,Urine Rare /hpf; Nitrite,Urine Negative (Negative); PH, Urine 6.5 (5.0-8.0); Protein,Urine Negative (Negative); RBC,Urine <1 /hpf (0-5); Specific Gravity,Urine 1.008 (1.001-1.035); Squamous Epithelial Cell,Urine 9 /hpf (0-4); Urobilinogen,Urine <2.0 mg/dL (<2.0); WBC,Urine 3 /hpf (0-5)
[2022-08-31] MEDS ORDERED: ONDANSETRON 4 MG ODT STARTER PACK 2 TAB BTL PO STA (15:03)
--- NOTE | 2022-08-31 15:05 | ED ---
General Adult HPI - General Chief complaint: Nausea/Vomiting/Diarrhea Stated complaint: Nausea Time Seen by Provider: 08/31/22 12:29 Source: patient Mode of arrival: ambulatory Limitations: no limitations - History of Present Illness Initial comments: 37-year-old female presents emergency department with nausea and vomiting. States that she started vomiting last night and has been unable to hold down any food or drink. She denies eating any tainted foods. No sick contacts or recent travel. No fevers. Denies chest pain or shortness of breath. No cough. Denies any abdominal pain. No diarrhea. She did not take any medications at home for her symptoms. No other alleviating, precipitating or modifying factors - Related Data Home Medications Medication Instructions Recorded Confirmed FLUoxetine HCL [PROzac Weekly] 90 mg PO TU 08/27/17 10/25/21 traZODone HCL 200 mg PO 10/12/18 10/25/21 Montelukast [Singulair] 10 mg PO DAILY 06/28/20 10/25/21 buPROPion [Wellbutrin] 75 mg PO BID 03/16/21 10/25/21 busPIRone HCl [Buspar] 10 mg PO BID 03/16/21 10/25/21 Loratadine [Claritin] 10 mg PO DAILY 03/22/21 10/25/21 Melatonin 5 mg PO HS 09/04/21 10/25/21 levETIRAcetam [Keppra] 250 mg PO Q12HR 09/04/21 10/25/21 rOPINIRole HCL [Requip] 0.25 mg PO TID 09/04/21 10/25/21 risperiDONE [RisperDAL] 1 mg PO HS 09/04/21 10/25/21 Albuterol Sulfate [Ventolin HFA] 2 puff INHALATION RT-Q6H PRN 10/25/21 10/25/21 Benzonatate [Tessalon Perles] 100 mg PO TID PRN 10/25/21 10/25/21 Ergocalciferol (Vitamin D2) 1,250 mcg PO TU 10/25/21 10/25/21 [Drisdol (50,000 Iu)] Fluticasone Nasal [place] [Flonase 1 spray EA NOSTRIL DAILY PRN 10/25/21 10/25/21 Nasal [place]] Sucralfate [Carafate] 1 gm PO BID 10/25/21 10/25/21 hydrOXYzine pamoate [Vistaril] 25 mg PO BID PRN 10/25/21 10/25/21 Previous Rx's Medication Instructions Recorded Albuterol Inhaler [Ventolin Hfa 1 puff INHALATION RT-QID #8 gm 10/25/21 Inhaler] Doxycycline Hyclate [Vibramycin] 100 mg PO BID 7 Days #14 cap 10/25/21 predniSONE [Deltasone] 40 mg PO DAILY 5 Days #10 tab 10/25/21 Ibuprofen [Motrin] 400 mg PO BID #20 tab 04/06/22 Cephalexin [Keflex] 500 mg PO BID #14 cap 05/12/22 Meclizine [Antivert] 25 mg PO TID PRN #20 tab 05/12/22 levETIRAcetam [Keppra] 250 mg PO Q12HR 30 Days #60 tab 05/25/22 Nitrofurantoin Monohyd/M-Cryst 100 mg PO Q12HR #6 cap 05/31/22 [Macrobid] Phenazopyridine [Pyridium] 100 mg PO TID #6 tablet 05/31/22 methylPREDNISolone Dose Pack 4 mg PO DIRECTED #21 tab 07/17/22 [Medrol Dose Pack] Acetaminophen Oral Susp [Tylenol] 320 mg PO Q4-6H #240 ml 08/27/22 Albuterol Nebulized [Ventolin 2.5 mg INHALATION Q4H #150 ml 08/29/22 Nebulized] predniSONE [Deltasone] 20 mg PO BID #10 tab 08/29/22 Ondansetron Odt [Zofran Odt] 4 mg PO Q8HR PRN #20 tab 08/31/22 Allergies Allergy/AdvReac Type Severity Reaction Status Date / Time venom-honey bee Allergy Anaphylaxis Verified 08/31/22 12:25 codeine AdvReac Itching Verified 08/31/22 12:25 Review of Systems ROS Statement: Those systems with pertinent positive or pertinent negative responses have been documented in the HPI. ROS Other: All systems not noted in ROS Statement are negative. Past Medical History Past Medical History: Heart Failure, GI Bleed, Seizure Disorder Additional Past Medical History / Comment(s): HEART VALVE REPLACEMENT. HX GI PROB FOR YEARS, HIATAL HERNIA. 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 DEVELOPMENTAL DISABILITY. colitis History of Any Multi-Drug Resistant Organisms: ESBL Date of last positivie culture/infection: 05/31/22 MDRO Source:: ESBL URINE Past Surgical History: Ear Surgery, Hernia Repair, Orthopedic Surgery Additional Past Surgical History / Comment(s): RT Foot Surgery; Open Heart Surg @ 3 YRS OLD, VALVE REPLACED. EXC BRAIN TUMOR. HIATAL HERNIA REPAIR. RT EARDRUM REPAIRED. Past Anesthesia/Blood Transfusion Reactions: No Reported Reaction Past Psychological History: ADD/ADHD, Anxiety Smoking Status: Current every day smoker Past Alcohol Use History: None Reported Past Drug Use History: None Reported - Past Family History Father Family Medical History: No Reported History Additional Family Medical History / Comment(s): Mother Family Medical History: No Reported History Additional Family Medical History / Comment(s): General Exam Limitations: no limitations General appearance: alert, in no apparent distress Head exam: Present: atraumatic, normocephalic, normal inspection Eye exam: Present: normal appearance, PERRL, EOMI. Absent: scleral icterus, conjunctival injection, periorbital swelling ENT exam: Present: normal exam, mucous membranes moist Neck exam: Present: normal inspection. Absent: tenderness, meningismus, lymphadenopathy Respiratory exam: Present: normal lung sounds bilaterally. Absent: respiratory distress, wheezes, rales, rhonchi, stridor Cardiovascular Exam: Present: regular rate, normal rhythm, normal heart sounds. Absent: systolic murmur, diastolic murmur, rubs, gallop, clicks GI/Abdominal exam: Present: soft, normal bowel sounds. Absent: distended, tenderness, guarding, rebound, rigid Extremities exam: Present: normal inspection, full ROM, normal capillary refill. Absent: tenderness, pedal edema, joint swelling, calf tenderness Back exam: Present: normal inspection Neurological exam: Present: alert, oriented X3, CN II-XII intact Psychiatric exam: Present: normal affect, normal mood Skin exam: Present: warm, dry, intact, normal color. Absent: rash Course Vital Signs 08/31/22 12:24 Temperature 97.5 F L Pulse Rate 76 Respiratory 20 Rate Blood Pressure 121/76 O2 Sat by Pulse 96 Oximetry Medical Decision Making - Medical Decision Making Upon arrival patient was placed in room 9. Thorough history and physical exam was performed. IV access is established and laboratory studies are conducted. Patient does have mild leukocytosis of 15.7. She was given a liter bolus of normal saline and a dose of Zofran. Patient is able to eat a putting. Patient requesting to go home at this time patient will be discharged home and is in structed to follow-up with her primary care. Will be given a Zofran starter pack. Additional Zofran is sent to the pharmacy. She is instructed to return for any new or worsening symptoms. Patient was agreeable and discharged home in stable condition - Lab Data Result diagrams: 08/31/22 13:27 08/31/22 13:27 Lab Results 08/31/22 08/31/22 08/31/22 Range/Units 13:27 13: 13:55 WBC 15.7 H (3.8-10.6) k/uL RBC 4.89 (3.80-5.40) m/uL Hgb 13.5 (11.4-16.0) gm/dL Hct 41.2 (34.0-46.0) % MCV 84.2 (80.0-100.0) fL MCH 27.6 (25.0-35.0) pg MCHC 32.8 (31.0-37.0) g/dL RDW 15.0 (11.5-15.5) % Plt Count 256 (150-450) k/uL MPV 8.6 Neutrophils % 86 % Lymphocytes % 8 % Monocytes % 5 % Eosinophils % 0 % Basophils % 0 % Neutrophils # 13.6 H (1.3-7.7) k/uL Lymphocytes # 1.2 (1.0-4.8) k/uL Monocytes # 0.8 (0-1.0) k/uL Eosinophils # 0.0 (0-0.7) k/uL Basophils # 0.0 (0-0.2) k/uL Sodium 138 (137-145) mmol/L Potassium 5.2 H (3.5-5.1) mmol/L Chloride 102 (98-107) mmol/L Carbon Dioxide 27 (22-30) mmol/L Anion Gap 9 mmol/L BUN 12 (7-17) mg/dL Creatinine 0.55 (0.52-1.04) mg/dL Est GFR (CKD-EPI)AfAm >90 (>60 ml/min/1.73 sqM) Est GFR (CKD-EPI)NonAf >90 (>60 ml/min/1.73 sqM) Glucose 105 H (74-99) mg/dL Calcium 9.4 (8.4-10.2) mg/dL Total Bilirubin 0.2 (0.2-1.3) mg/dL AST 19 (14-36) U/L ALT 18 (4-34) U/L Alkaline Phosphatase 75 (38-126) U/L Total Protein 6.6 (6.3-8.2) g/dL Albumin 4.1 (3.5-5.0) g/dL Lipase 37 (23-300) U/L Urine Color Colorless Urine Appearance Cloudy H (Clear) Urine pH 6.5 (5.0-8.0) Ur Specific [place] 1.008 (1.001-1.035) Urine Protein Negative (Negative) Urine Glucose (UA) Negative (Negative) Urine Ketones Negative (Negative) Urine Blood Negative (Negative) Urine Nitrite Negative (Negative) Urine Bilirubin Negative (Negative) Urine Urobilinogen <2.0 (<2.0) mg/dL Ur Leukocyte Esterase Negative (Negative) Urine RBC <1 (0-5) /hpf Urine WBC 3 (0-5) /hpf Ur Squamous Epith Cells 9 H (0-4) /hpf Urine Bacteria Few H (None) /hpf Urine Mucus Rare H (None) /hpf Disposition Clinical Impression: Nausea and vomiting Disposition: HOME SELF-CARE Condition: Stable Instructions (If sedation given, give patient instructions): Acute Nausea and Vomiting (ED) Additional Instructions: Please take the Zofran every 8 hours as needed for nausea. Return to the emergency room for any new or worsening symptoms Prescriptions: Ondansetron Odt [Zofran Odt] 4 mg PO Q8HR PRN #20 tab PRN Reason: Nausea Is patient prescribed a controlled substance at d/c from ED?: No Referrals: Eduardo Montoya MD [Primary Care Provider] - 1-2 days Time of Disposition: 15:05
== END 2022-08-31 15:15 | disposition home or self-care (01) ==
LOC: EC 11:58
DX: R11.2 Nausea with vomiting, unspecified (principal); I50.9 Heart failure, unspecified; F17.200 Nicotine dependence, unspecified, uncomplicated; Z88.5 Allergy status to narcotic agent; Z91.030 Bee allergy status
CPT/HCPCS: 96374; 96361; 99284; 36415; 80053; 83690; 85025; 81001; J2405; 99283

== ENCOUNTER → 2022-10-13 | Outpatient (CLI) | payer MEDICARE, OTHER ==
--- NOTE | 2022-10-13 22:40 | MR ---
EXAMINATION TYPE: MR brain wo/w con DATE OF EXAM: 10/13/2022 COMPARISON: Prior MRI brain May 02, 2021 HISTORY: Seizures TECHNIQUE: Multiplanar, multisequence images of the brain and brainstem is performed without and with IV contras t, utilizing 3.5 mL intravenous Gadavist . FINDINGS: Exam suboptimal as once again is degraded by patient motion Diffusion weighted images demon strate no evidence of a recent infarct or other diffusion abnormality. The ventricular system and cis ternal spaces are stable and normal in size and appearance. The brain volume is age appropriate. The re is nonspecific 6 mm T2 hyperintense focus high right frontal lobe axial image 15 redemonstrated. T 2 coronal weighted images show hippocampal gyri appear grossly symmetric and felt within normal limit s. T2 Star weighted images are degraded by motion without definitive intraparenchymal blood product. Midline structures redemonstrate normal morphology. The craniocervical junction appears within analia l limits. Post contrast images demonstrate no abnormal enhancement or enhancing masses. The dural ve nous sinuses appear patent. The visualized sinuses are clear and the globes are intact. IMPRESSION: Suboptimal study. No suspicious new mass or significant change from prior MRI.
== END | disposition home or self-care (01) ==
LOC: RADMRIMAIN 09:33
PROVIDERS: ATTEND Psychiatry & Neurology Neurology
DX: G25.3 Myoclonus (principal); F44.5 Conversion disorder with seizures or convulsions
CPT/HCPCS: 70553; A9585

== ENCOUNTER 2022-11-26 16:43 | Emergency (ER) | payer MEDICARE, OTHER ==
[2022-11-26 17:11] VITALS: RESP 16
--- NOTE | 2022-11-26 19:02 | ED ---
Seizure HPI - General Chief Complaint: Seizure Stated Complaint: seizure activity Time Seen by Provider: 11/26/22 18:58 Source: patient, EMS, RN notes reviewed Mode of arrival: wheelchair Limitations: no limitations - History of Present Illness Initial Comments: Patient is a 37-year-old female well known to the emergency department presenting to the emergency room via EMS after a witnessed seizure by her roommate. She has a known history of seizure activity. Upon arrival to the emergency room she has RD back to her baseline mental status which is all alert and orientated 3 with a childlike affect. She reports that she is out of her seizure medication of Keppra which is why she reports having a seizure. She is also complaining of some pain in her right shoulder with mild numbness that began just prior to having her seizure as well. Due to the seizure activity she is unsure if she hit her right arm. She has no range of motion impairment but the range of motion is painful at times. She denies any other complaints or concerns at this time. She denies any focal neurological deficits, weakness, abdominal pain, chest pain, shortness of breath, fevers or chills. In addition to her seizure history she has past medical history significant for developmental delay with guardian, congenital heart abnormalities with CHF, heart valve replacement, GI bleed, hiatal hernia and clubfoot. - Related Data Home Medications Medication Instructions Recorded Confirmed FLUoxetine HCL [PROzac Weekly] 90 mg PO TU 08/27/17 10/25/21 traZODone HCL 200 mg PO HS 10/12/18 10/25/21 Montelukast [Singulair] 10 mg PO DAILY 06/28/20 10/25/21 buPROPion [Wellbutrin] 75 mg PO BID 03/16/21 10/25/21 busPIRone HCl [Buspar] 10 mg PO BID 03/16/21 10/25/21 Loratadine [Claritin] 10 mg PO DAILY 03/22/21 10/25/21 Melatonin 5 mg PO HS 09/04/21 10/25/21 levETIRAcetam [Keppra] 250 mg PO Q12HR 09/04/21 10/25/21 rOPINIRole HCL [Requip] 0.25 mg PO TID 09/04/21 10/25/21 risperiDONE [RisperDAL] 1 mg PO HS 09/04/21 10/25/21 Albuterol Sulfate [Ventolin HFA] 2 puff INHALATION RT-Q6H PRN 10/25/21 10/25/21 Benzonatate [Tessalon Perles] 100 mg PO TID PRN 10/25/21 10/25/21 Ergocalciferol (Vitamin D2) 1,250 mcg PO TU 10/25/21 10/25/21 [Drisdol (50,000 Iu)] Fluticasone Nasal [place] [Flonase 1 spray EA NOSTRIL DAILY PRN 10/25/21 10/25/21 Nasal [place]] Sucralfate [Carafate] 1 gm PO BID 10/25/21 10/25/21 hydrOXYzine pamoate [Vistaril] 25 mg PO BID PRN 10/25/21 10/25/21 Previous Rx's Medication Instructions Recorded Albuterol Inhaler [Ventolin Hfa 1 puff INHALATION RT-QID #8 gm 10/25/21 Inhaler] Doxycycline Hyclate [Vibramycin] 100 mg PO BID 7 Days #14 cap 10/25/21 predniSONE [Deltasone] 40 mg PO DAILY 5 Days #10 tab 10/25/21 Ibuprofen [Motrin] 400 mg PO BID #20 tab 04/06/22 Cephalexin [Keflex] 500 mg PO BID #14 cap 05/12/22 Meclizine [Antivert] 25 mg PO TID PRN #20 tab 05/12/22 levETIRAcetam [Keppra] 250 mg PO Q12HR 30 Days #60 tab 05/25/22 Nitrofurantoin Monohyd/M-Cryst 100 mg PO Q12HR #6 cap 05/31/22 [Macrobid] Phenazopyridine [Pyridium] 100 mg PO TID #6 tablet 05/31/22 methylPREDNISolone Dose Pack 4 mg PO DIRECTED #21 tab 07/17/22 [Medrol Dose Pack] Acetaminophen Oral Susp [Tylenol] 320 mg PO Q4-6H #240 ml 08/27/22 Albuterol Nebulized [Ventolin 2.5 mg INHALATION Q4H #150 ml 08/29/22 Nebulized] predniSONE [Deltasone] 20 mg PO BID #10 tab 08/29/22 Ondansetron Odt [Zofran Odt] 4 mg PO Q8HR PRN #20 tab 08/31/22 levETIRAcetam [Keppra] 250 mg PO Q12HR 7 Days #14 tablet 11/26/22 Allergies Allergy/AdvReac Type Severity Reaction Status Date / Time venom-honey bee Allergy Anaphylaxis Verified 11/26/22 17:11 codeine AdvReac Itching Verified 11/26/22 17:11 Review of Systems ROS Statement: Those systems with pertinent positive or pertinent negative responses have been documented in the HPI. ROS Other: All systems not noted in ROS Statement are negative. Past Medical History Past Medical History: Heart Failure, GI Bleed, Seizure Disorder Additional Past Medical History / Comment(s): HEART VALVE REPLACEMENT. HX GI PROB FOR YEARS, HIATAL HERNIA. 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 DEVELOPMENTAL DISABILITY. colitis History of Any Multi-Drug Resistant Organisms: ESBL Date of last positivie culture/infection: 05/31/22 MDRO Source:: ESBL URINE Past Surgical History: Ear Surgery, Hernia Repair, Orthopedic Surgery Additional Past Surgical History / Comment(s): RT Foot Surgery; Open Heart Surg @ 3 YRS OLD, VALVE REPLACED. EXC BRAIN TUMOR. HIATAL HERNIA REPAIR. RT EARDRUM REPAIRED. Past Anesthesia/Blood Transfusion Reactions: No Reported Reaction Past Psychological History: ADD/ADHD, Anxiety Smoking Status: Current every day smoker Past Alcohol Use History: None Reported Past Drug Use History: None Reported - Past Family History Father Family Medical History: No Reported History Additional Family Medical History / Comment(s): Mother Family Medical History: No Reported History Additional Family Medical History / Comment(s): General Exam - General Exam Comments Initial Comments: GENERAL: No acute distress, well developed, well nourished. HEENT: Normocephalic, atraumatic. Pupils equal, round, reactive to light. Full range of motion of neck. LUNGS: Clear to auscultation, no adventitious sounds, no use of accessory muscles. HEART: Regular rate and rhythm without murmur, rub, or gallop. ABDOMEN: Normal bowel sounds. Soft, non-tender, non-distended. DERMATOLOGIC: Skin intact, without rashes or lesions noted. EXTREMITIES: Right shoulder tenderness with full range of motion. Neurovascularly intact. NEUROLOGIC: Alert & oriented x 3. CN II-XII grossly intact. PSYCHIATRIC: Childlike affect with developmental delay noted. Limitations: altered mental status (Childlike affect with developmental delay) Course Vital Signs 11/26/22 11/26/22 17:07 19:42 Temperature 98 F 98.6 F Pulse Rate 88 80 Respiratory 16 16 Rate Blood Pressure 111/77 116/72 O2 Sat by Pulse 97 98 Oximetry Medical Decision Making - Medical Decision Making Was pt. sent in by a medical professional or institution? @ No Did you speak to anyone other than the patient for history? @ No Did you review nursing and triage notes? @ Yes reviewed; symptoms consistent with nursing and triage note. Were old charts reviewed? @ -Previous ER record and EMS records. Differential Diagnosis? @ -Differential Seizure: Recurrent seizure disorder, febrile seizure, alcohol withdrawal, stimulants, meningitis, encephalitis, intercranial hemorrhage, intracranial tumor, stroke, eclampsia, thyrotoxicosis, hypocalcemia, hyponatremia, hypernatremia, hypomagnesemia, psychogenic, this is not meant to be an all-inclusive list. EKG interpreted by me (3pts min.)? @ -Demonstrates normal sinus rhythm with sinus arrhythmia ventricular rate 67 bpm, AK interval 184 ms, QRS duration 76 ms, QT/QTC 414/437 ms, P RT axes 47, 69, 42 X-rays interpreted by me (1pt min.)? @ -X-ray right shoulder complete demonstrates no acute osseous pathology. CT interpreted by me (1pt min.)? @ -None U/S interpreted by me (1pt. min.)? @ -None What testing was considered but not performed? (CT, X-rays, U/S, labs)? Why? @ CT of the brain considered however deferred previous history of seizure activity with known missed dosage of antiepileptics without head trauma during seizure event and return to baseline mental status. What meds were considered but not given? Why? @ -None Did you discuss the management of the patient with other professionals? @ - No Did you reconcile home meds? @ - Home medication of Mark reviewed Was smoking cessation discussed for >3mins.? @ -Not applicable Was critical care preformed (if so, how long)? @ - No Were there social determinants of health that impacted care today? How? (Homelessness, low income, unemployed, alcoholism, drug addiction, transportation, low edu. Level, literacy, decrease access to med. care, custodial, rehab)? @ -Guardian and developmental delay Was there de-escalation of care discussed even if they declined? (Discuss DNR or withdrawal of care, Hospice)? @ -No What co-morbidities impacted this encounter? (DM, HTN, Smoking, COPD, CAD, Cancer, CVA, Hep., AIDS, mental health diagnosis, sleep apnea, morbid obesity)? @ -Seizure history Was patient admitted / discharged? @ -Patient is a 37-year-old female well known to the emergency department presenting to the emergency room after a witnessed seizure by her roommate earlier today. Patient has returned to baseline mental status upon evaluation in the emergency room. Patient reports not having her antiseizure med ication of Keppra available to her consequently she missed doses of her medication increasing her risk for seizure activity. She is also complaining of pain in her right shoulder without any known trauma with full range of motion despite tenderness with range of motion. Will obtain x-ray of the right shoulder to evaluate pain given unknown, with seizure activity. No indication for computed tomography scan of the brain. Will obtain CBC, CMP, magnesium and Keppra levels for laboratory studies. Shoulder x-ray without abnormalities. EKG sinus rhythm with sinus arrhythmia. CBC with mild thrombocytopenia and leukocytosis without significant concerns for infection or bleeding. CMP reveals mildly elevated AST at 43 slightly elevated chloride level at 111 otherwise no significant abnormalities. Keppra level pending however in the setting of lack of medication expected level to be well. 1 dose of oral Keppra given without consultation along with ibuprofen for pain. No indication for further diagnostic imaging or laboratory studies. Will discharge home in stable condition with a prescription of Keppra to continue her anticonvulsant regimen. Encouraged follow-up with primary care provider and/or neurologist. Undiagnosed new problem with uncertain prognosis? @ -None Drug Therapy requiring intensive monitoring for toxicity (Heparin, Nitro, Insulin, Cardizem)? @ -No Were any procedures done? @ -No Diagnosis/symptom? @ -Epilepsy Acute, or Chronic, or Acute on Chronic? @ -Chronic Uncomplicated (without systemic symptoms) or Complicated (systemic symptoms)? @ -Uncomplicated Side effects of treatment? @ -None Exacerbation, Progression, or Severe Exacerbation] @ -Exacerbation with presenting seizure due to lack of antiepileptic medication administration. Poses a threat to life or bodily function? @ -No Diagnosis/symptom? @ - Right shoulder pain Acute, or Chronic, or Acute on Chronic? @ -Acute Uncomplicated (without systemic symptoms) or Complicated (systemic symptoms)? @ -Uncomplicated Side effects of treatment? @ -None Exacerbation, Progression, or Severe Exacerbation] @ -No Poses a threat to life or bodily function? @ -No Case discussed with Dr. Araiza. - Lab Data Result diagrams: 11/26/22 19:00 11/26/22 19:00 Lab Results 11/26/22 11/26/22 Range/Units 19:00 19:00 WBC 11.1 H (3.8-10.6) k/uL RBC 4.51 (3.80-5.40) m/uL Hgb 12.8 (11.4-16.0) gm/dL Hct 37.5 (34.0-46.0) % MCV 83.3 (80.0-100.0) fL MCH 28.3 (25.0-35.0) pg MCHC 34.0 (31.0-37.0) g/dL RDW 13.3 (11.5-15.5) % Plt Count 142 L (150-450) k/uL MPV 9.0 Neutrophils % 62 % Lymphocytes % 25 % Monocytes % 9 % Eosinophils % 1 % Basophils % 1 % Neutrophils # 6.9 (1.3-7.7) k/uL Lymphocytes # 2.7 (1.0-4.8) k/uL Monocytes # 1.0 (0-1.0) k/uL Eosinophils # 0.2 (0-0.7) k/uL Basophils # 0.1 (0-0.2) k/uL Sodium 137 (137-145) mmol/L Potassium 5.1 (3.5-5.1) mmol/L Chloride 111 H (98-107) mmol/L Carbon Dioxide 24 (22-30) mmol/L Anion Gap 2 mmol/L BUN 15 (7-17) mg/dL Creatinine 0.41 L (0.52-1.04) mg/dL Est GFR (CKD-EPI)AfAm >90 (>60 ml/min/1.73 sqM) Est GFR (CKD-EPI)NonAf >90 (>60 ml/min/1.73 sqM) Glucose 92 (74-99) mg/dL Calcium 8.8 (8.4-10.2) mg/dL Magnesium 1.9 (1.6-2.3) mg/dL Total Bilirubin 0.7 (0.2-1.3) mg/dL AST 43 H (14-36) U/L ALT 18 (4-34) U/L Alkaline Phosphatase 81 (38-126) U/L Total Protein 6.5 (6.3-8.2) g/dL Albumin 3.7 (3.5-5.0) g/dL - Radiology Data Radiology results: report reviewed, image reviewed Disposition Clinical Impression: Epileptic seizure, generalized, Right shoulder pain Disposition: HOME SELF-CARE Condition: Stable Instructions (If sedation given, give patient instructions): Seizure/Epilepsy Discharge Instructions & Follow-Up Additional Instructions: Please take your seizure medication as prescribed a new prescription with a seven-day supply of your Keppra was sent to your pharmacy. Please follow-up with your primary care provider and/or your neurologist. Please utilize ibuprofen as needed [id number] or Tylenol [id number] as needed for right shoulder pain. Range of motion as tolerated encouraged. Please return to the Emergency Department if symptoms worsen or any other concerns. Prescriptions: levETIRAcetam [Keppra] 250 mg PO Q12HR 7 Days #14 tablet Is patient prescribed a controlled substance at d/c from ED?: No Referrals: Eduardo Montoya MD [Primary Care Provider] - 1-2 days Time of Disposition: 20:08
--- NOTE | 2022-11-26 19:31 | XR ---
EXAMINATION TYPE: XR shoulder complete RT DATE OF EXAM: 11/26/2022 7:16 PM INDICATION: Patient age:Female; 37 years old; Reason for study: pain; COMPARISON: 06/14/2022 TECHNIQUE: The right shoulder was examined in AP, internally rotated and scapular Y projections. . FINDINGS: No evidence of acute osseous pathology, joint dislocation, or soft tissue swelling. The remaining por tions of the visualized chest are unremarkable. IMPRESSION: No acute osseous pathology. No change from prior
[2022-11-26 19:35] LABS: Basophils # (A) 0.1 k/uL (0-0.2); Basophils % (A) 1 %; Eosinophils # (A) 0.2 k/uL (0-0.7); Eosinophils % (A) 1 %; HCT 37.5 % (34.0-46.0); HGB 12.8 gm/dL (11.4-16.0); Lymphocytes # (A) 2.7 k/uL (1.0-4.8); Lymphocytes % (A) 25 %; MCH 28.3 pg (25.0-35.0); MCV 83.3 fL (80.0-100.0); Monocytes % (A) 9 %; Neutrophils # (A) 6.9 k/uL (1.3-7.7); Neutrophils % (A) 62 %; Platelet Count 142 k/uL (150-450); RBC 4.51 m/uL (3.80-5.40); RDW 13.3 % (11.5-15.5); WBC 11.1 k/uL (3.8-10.6)
[2022-11-26 19:44] LABS: ALT 18 U/L (4-34); African American GFR (CKD) >90 (>60 ml/min/1.73 sqM); Anion Gap 2 mmol/L; Blood Urea Nitrogen 15 mg/dL (7-17); Calcium 8.8 mg/dL (8.4-10.2); Carbon Dioxide 24 mmol/L (22-30); Chloride 111 mmol/L (98-107); Glucose 92 mg/dL (74-99); Non-African American GFR(CKD) >90 (>60 ml/min/1.73 sqM); Sodium 137 mmol/L (137-145); Total Protein 6.5 g/dL (6.3-8.2)
[2022-11-26 19:47] LABS: AST 43 U/L (14-36); Albumin 3.7 g/dL (3.5-5.0); Magnesium 1.9 mg/dL (1.6-2.3); Potassium 5.1 mmol/L (3.5-5.1); Total Bilirubin 0.7 mg/dL (0.2-1.3)
[2022-11-26 19:48] LABS: Alkaline Phosphatase 81 U/L (38-126)
[2022-11-26] MEDS ORDERED: levETIRAcetam 500 MG TAB PO STA (20:00)
[2022-11-26] MEDS ORDERED: IBUPROFEN 400 MG TAB PO STA (20:06)
[2022-11-26 20:20] VITALS: BP 122/74; PULSE 79; TEMP 98.2
== END 2022-11-26 20:25 | disposition home or self-care (01) ==
LOC: EC 16:43
DX: G40.509 Epileptic seizures related to external causes, not intractable, without status epilepticus (principal); M25.511 Pain in right shoulder; I50.9 Heart failure, unspecified; F90.9 Attention-deficit hyperactivity disorder, unspecified type; F41.9 Anxiety disorder, unspecified; F17.200 Nicotine dependence, unspecified, uncomplicated; Z79.899 Other long term (current) drug therapy; Z88.5 Allergy status to narcotic agent; Z91.030 Bee allergy status
CPT/HCPCS: 36415; 80053; 80177; 83735; 85025; 99284

== ENCOUNTER 2023-02-05 19:51 | Emergency (ER) | payer MEDICARE, OTHER ==
[2023-02-05 20:02] VITALS: TEMP 97.7
[2023-02-05] MEDS ORDERED: ONDANSETRON 4 MG/2 ML VIAL IVP STA (20:09)
[2023-02-05] MEDS ORDERED: SODIUM CHLORIDE 0.9% 500 ML 500 ML IV STA (20:09)
--- NOTE | 2023-02-05 20:42 | ED ---
General Adult HPI - General Chief complaint: Nausea/Vomiting/Diarrhea Stated complaint: Nausea Time Seen by Provider: 02/05/23 20:03 Source: patient Mode of arrival: EMS Limitations: no limitations - History of Present Illness Initial comments: Patient is a 37-year-old female presenting with chief complaint of "I don't feel so good". Patient states that today she was experiencing nausea with one episode of vomiting. She admits to diffuse abdominal discomfort. She admits to cough, congestion, and sore throat, that started yesterday. No fevers or c hills. No hematochezia, melena, dysuria, flank pain. Patient states that "I thought I was going to have a seizure" because her left leg was twitching which is normally a precursor for her. No chest pain, difficulty breathing, headache, vision or hearing changes. - Related Data Home Medications Medication Instructions Recorded Confirmed FLUoxetine HCL [PROzac Weekly] 90 mg PO TU 08/27/17 10/25/21 traZODone HCL 200 mg PO HS 10/12/18 10/25/21 Montelukast [Singulair] 10 mg PO DAILY 06/28/20 10/25/21 buPROPion [Wellbutrin] 75 mg PO BID 03/16/21 10/25/21 busPIRone HCl [Buspar] 10 mg PO BID 03/16/21 10/25/21 Loratadine [Claritin] 10 mg PO DAILY 03/22/21 10/25/21 Melatonin 5 mg PO HS 09/04/21 10/25/21 levETIRAcetam [Keppra] 250 mg PO Q12HR 09/04/21 10/25/21 rOPINIRole HCL [Requip] 0.25 mg PO TID 09/04/21 10/25/21 risperiDONE [RisperDAL] 1 mg PO HS 09/04/21 10/25/21 Albuterol Sulfate [Ventolin HFA] 2 puff INHALATION RT-Q6H PRN 10/25/21 10/25/21 Benzonatate [Tessalon Perles] 100 mg PO TID PRN 10/25/21 10/25/21 Ergocalciferol (Vitamin D2) 1,250 mcg PO TU 10/25/21 10/25/21 [Drisdol (50,000 Iu)] Fluticasone Nasal [place] [Flonase 1 spray EA NOSTRIL DAILY PRN 10/25/21 10/25/21 Nasal [place]] Sucralfate [Carafate] 1 gm PO BID 10/25/21 10/25/21 hydrOXYzine pamoate [Vistaril] 25 mg PO BID PRN 10/25/21 10/25/21 Previous Rx's Medication Instructions Recorded Albuterol Inhaler [Ventolin Hfa 1 puff INHALATION RT-QID #8 gm 10/25/21 Inhaler] Doxycycline Hyclate [Vibramycin] 100 mg PO BID 7 Days #14 cap 10/25/21 predniSONE [Deltasone] 40 mg PO DAILY 5 Days #10 tab 10/25/21 Ibuprofen [Motrin] 400 mg PO BID #20 tab 04/06/22 Cephalexin [Keflex] 500 mg PO BID #14 cap 05/12/22 Meclizine [Antivert] 25 mg PO TID PRN #20 tab 05/12/22 levETIRAcetam [Keppra] 250 mg PO Q12HR 30 Days #60 tab 05/25/22 Nitrofurantoin Monohyd/M-Cryst 100 mg PO Q12HR #6 cap 05/31/22 [Macrobid] Phenazopyridine [Pyridium] 100 mg PO TID #6 tablet 05/31/22 methylPREDNISolone Dose Pack 4 mg PO DIRECTED #21 tab 07/17/22 [Medrol Dose Pack] Acetaminophen Oral Susp [Tylenol] 320 mg PO Q4-6H #240 ml 08/27/22 Albuterol Nebulized [Ventolin 2.5 mg INHALATION Q4H #150 ml 08/29/22 Nebulized] predniSONE [Deltasone] 20 mg PO BID #10 tab 08/29/22 Ondansetron Odt [Zofran Odt] 4 mg PO Q8HR PRN #20 tab 08/31/22 levETIRAcetam [Keppra] 250 mg PO Q12HR 7 Days #14 tablet 11/26/22 Ondansetron Odt [Zofran Odt] 4 mg PO Q8HR PRN #20 tab 02/05/23 Allergies Allergy/AdvReac Type Severity Reaction Status Date / Time venom-honey bee Allergy Anaphylaxis Verified 02/05/23 19:55 codeine AdvReac Itching Verified 02/05/23 19:55 Review of Systems ROS Statement: Those systems with pertinent positive or pertinent negative responses have been documented in the HPI. ROS Other: All systems not noted in ROS Statement are negative. Past Medical History Past Medical History: Heart Failure, GI Bleed, Seizure Disorder Additional Past Medical History / Comment(s): HEART VALVE REPLACEMENT. HX GI PROB FOR YEARS, HIATAL HERNIA. 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 DEVELOPMENTAL DISABILITY. colitis History of Any Multi-Drug Resistant Organisms: ESBL Date of last positivie culture/infection: 05/31/22 MDRO Source:: ESBL URINE Past Surgical History: Ear Surgery, Hernia Repair, Orthopedic Surgery Additional Past Surgical History / Comment(s): RT Foot Surgery; Open Heart Surg @ 3 YRS OLD, VALVE REPLACED. EXC BRAIN TUMOR. HIATAL HERNIA REPAIR. RT EARDRUM REPAIRED. Past Anesthesia/Blood Transfusion Reactions: No Reported Reaction Past Psychological History: ADD/ADHD, Anxiety Smoking Status: Current every day smoker Past Alcohol Use History: None Reported Past Drug Use History: None Reported - Past Family History Father Family Medical History: No Reported History Additional Family Medical History / Comment(s): Mother Family Medical History: No Reported History Additional Family Medical History / Comment(s): General Exam Limitations: no limitations General appearance: alert, in no apparent distress Head exam: Present: atraumatic, normocephalic, normal inspection Eye exam: Present: normal appearance Neck exam: Present: normal inspection Respiratory exam: Present: normal lung sounds bilaterally. Absent: respiratory distress, wheezes, rales, rhonchi, stridor Cardiovascular Exam: Present: regular rate, normal rhythm, normal heart sounds. Absent: systolic murmur, diastolic murmur, rubs, gallop, clicks GI/Abdominal exam: Present: soft, tenderness. Absent: distended, guarding, rebound, rigid Neurological exam: Present: alert, oriented X3, CN II-XII intact Psychiatric exam: Present: normal affect, normal mood Skin exam: Present: warm, dry, intact, normal color. Absent: rash Course Vital Signs 02/05/23 02/05/23 02/05/23 19:55 22:01 22:30 Temperature 97.7 F Pulse Rate 84 82 78 Respiratory 16 16 18 Rate Blood Pressure 120/72 120/61 128/78 O2 Sat by Pulse 98 94 L 95 Oximetry Medical Decision Making - Medical Decision Making Was pt. sent in by a medical professional or institution ([facility], POOL NURSE, urgent care, hospital, or retirement...) When possible be specific @ -No Did you speak to anyone other than the patient for history (EMS, parent, family, police, friend...)? What history was obtained from this source @ -No Did you review nursing and triage notes (agree or disagree)? Why? @ -I reviewed and agree with nursing and triage notes Were old charts reviewed (outside hosp., previous admission, EMS record, old EKG, old radiological studies, urgent care reports/EKG's, retirement records)? Report findings @ -No old charts were reviewed Differential Diagnosis (chest pain, altered mental status, abdominal pain women, abdominal pain men, vaginal bleeding, weakness, fever, dyspnea, syncope, headache, dizziness, GI bleed, back pain, seizure, CVA, palpatations, mental health, musculoskeletal)? @ -MDM Differential Abdominal Pain Women: Appendicitis, Cholecystitis, diverticulosis, ischemic bowel, pancreatitis, hepatitis, UTI, gastroenteritis, AAA, incarcerated hernia, bowel obstruction, constipation, inflammatory bowel, hepatitis, peptic ulcer disease, splenic infarction, perforated viscus, vulvitis, ovarian torsion, PID, kidney stone, placenta abruption... This is not meant to be an all-inclusive list EKG interpreted by me (3pts min.). @ -As above X-rays interpreted by me (1pt min.). @ -Chest x-ray shows no acute process CT interpreted by me (1pt min.). @ -None done U/S interpreted by me (1pt. min.). @ -None done What testing was considered but not performed or refused? (CT, X-rays, U/S, labs)? Why? @ -None What meds were considered but not given or refused? Why? @ -None Did you discuss the management of the patient with other professionals (professionals i.e. MARL[facility] Green, POOL NURSE, lab, RT, psych nurse, transition social worker, powerhouse electrician, teacher, chief sustainability officer, caser in)? Give summary @ -No Was smoking cessation discussed for >3mins.? @ -No Was critical care preformed (if so, how long)? @ -No Were there social determinants of health that impacted care today? How? (Homelessness, low income, unemployed, alcoholism, drug addiction, tr ansportation, low edu. Level, literacy, decrease access to med. care, detention, rehab)? @ -No Was there de-escalation of care discussed even if they declined (Discuss DNR or withdrawal of care, Hospice)? DNR status @ -No What co-morbidities impacted this encounter? (DM, HTN, Smoking, COPD, CAD, Cancer, CVA, ARF, Chemo, Hep., AIDS, mental health diagnosis, sleep apnea, morbid obesity)? @ -None Was patient admitted / discharged? Hospital course, mention meds given and route, prescriptions, significant lab abnormalities, going to OR and other pertinent info. @ -Patient is a 37-year-old female presenting with chief complaint of nausea and vomiting as well as URI like symptoms that started yesterday. On physical examination heart and lungs are clear to auscultation abdomen is soft, nontender, nondistended. Lab work shows no leukocytosis or anemia. CMP is essentially unremarkable. Amylase is mildly elevated at 132. HCG is negative. Urine shows no infectious process. Patient is negative for influenza, RSV, and Covid. Chest x-ray shows no acute process. Symptoms are likely viral in nature. I educated patient on these findings on supportive treatment at home. Patient passed by mouth challenge performed by nurse.Follow-up with PCP. Report back to ER with any new or worsening symptoms. Discussed return parameters and answered all questions. Patient conveyed verbal understanding and agreed to the plan. I discussed this case in detail with my attending Dr. Reyes Undiagnosed new problem with uncertain prognosis? @ -No Drug Therapy requiring intensive monitoring for toxicity (Heparin, Nitro, Insulin, Cardizem)? @ -No Were any procedures done? @ -No Diagnosis/symptom? @ -Nausea and vomiting Acute, or Chronic, or Acute on Chronic? @ -Acute Uncomplicated (without systemic symptoms) or Complicated (systemic symptoms)? @ -Uncomplicated Side effects of treatment? @ -No Exacerbation, Progression, or Severe Exacerbation? @ -No Poses a threat to life or bodily function? How? (Chest pain, USA, NC, pneumonia, PE, COPD, DKA, ARF, appy, cholecystitis, CVA, Diverticulitis, Homicidal, Suicidal, threat to staff... and all critical care pts) @ -No - Lab Data Result diagrams: 02/05/23 20:20 02/05/23 20:20 Lab Results 02/05/23 02/05/23 02/05/23 Range/Units 20:20 20:20 20:20 WBC 10.1 (3.8-10.6) k/uL RBC 4.78 (3.80-5.40) m/uL Hgb 13.0 (11.4-16.0) gm/dL Hct 39.8 (34.0-46.0) % MCV 83.1 (80.0-100.0) fL MCH 27.2 (25.0-35.0) pg MCHC 32.7 (31.0-37.0) g/dL RDW 13.7 (11.5-15.5) % Plt Count 220 (150-450) k/uL MPV 8.2 Neutrophils % 89 % Lymphocytes % 8 % Monocytes % 2 % Eosinophils % 0 % Basophils % 0 % Neutrophils # 9.0 H (1.3-7.7) k/uL Lymphocytes # 0.8 L (1.0-4.8) k/uL Monocytes # 0.2 (0-1.0) k/uL Eosinophils # 0.0 (0-0.7) k/uL Basophils # 0.0 (0-0.2) k/uL Sodium 142 (137-145) mmol/L Potassium 4.3 (3.5-5.1) mmol/L Chloride 110 H (98-107) mmol/L Carbon Dioxide 23 (22-30) mmol/L Anion Gap 9 mmol/L BUN 9 (7-17) mg/dL Creatinine 0.46 L (0.52-1.04) mg/dL Est GFR (CKD-EPI)AfAm >90 (>60 ml/min/1.73 sqM) Est GFR (CKD-EPI)NonAf >90 (>60 ml/min/1.73 sqM) Glucose 118 H (74-99) mg/dL Calcium 8.4 (8.4-10.2) mg/dL Total Bilirubin 0.2 (0.2-1.3) mg/dL AST 17 (14-36) U/L ALT 19 (4-34) U/L Alkaline Phosphatase 83 (38-126) U/L Total Protein 6.8 (6.3-8.2) g/dL Albumin 4.0 (3.5-5.0) g/dL Amylase 132 H (30-110) U/L Lipase 52 (23-300) U/L HCG, Qual Not Detected Urine Color Colorless Urine Appearance Clear (Clear) Urine pH 5.0 (5.0-8.0) Ur Specific [place] 1.003 (1.001-1.035) Urine Protein Negative (Negative) Urine Glucose (UA) Negative (Negative) Urine Ketones Negative (Negative) Urine Blood Large H (Negative) Urine Nitrite Negative (Negative) Urine Bilirubin Negative (Negative) Urine Urobilinogen <2.0 (<2.0) mg/dL Ur Leukocyte Esterase Negative (Negative) Urine RBC 5 (0-5) /hpf Urine WBC 1 (0-5) /hpf Ur Squamous Epith Cells 1 (0-4) /hpf Influenza Type A (PCR) (Not Detectd) Influenza Type B (PCR) (Not Detectd) RSV (PCR) (Not Detectd) SARS-CoV-2 (PCR) (Not Detectd) 02/05/23 Range/Units 20:20 WBC (3.8-10.6) k/uL RBC (3.80-5.40) m/uL Hgb (11.4-16.0) gm/dL Hct (34.0-46.0) % MCV (80.0-100.0) fL MCH (25.0-35.0) pg MCHC (31.0-37.0) g/dL RDW (11.5-15.5) % Plt Count (150-450) k/uL MPV Neutrophils % % Lymphocytes % % Monocytes % % Eosinophils % % Basophils % % Neutrophils # (1.3-7.7) k/uL Lymphocytes # (1.0-4.8) k/uL Monocytes # (0-1.0) k/uL Eosinophils # (0-0.7) k/uL Basophils # (0-0.2) k/uL Sodium (137-145) mmol/L Potassium (3.5-5.1) mmol/L Chloride (98-107) mmol/L Carbon Dioxide (22-30) mmol/L Anion Gap mmol/L BUN (7-17) mg/dL Creatinine (0.52-1.04) mg/dL Est GFR (CKD-EPI)AfAm (>60 ml/min/1.73 sqM) Est GFR (CKD-EPI)NonAf (>60 ml/min/1.73 sqM) Glucose (74-99) mg/dL Calcium (8.4-10.2) mg/dL Total Bilirubin (0.2-1.3) mg/dL AST (14-36) U/L ALT (4-34) U/L Alkaline Phosphatase (38-126) U/L Total Protein (6.3-8.2) g/dL Albumin (3.5-5.0) g/dL Amylase (30-110) U/L Lipase (23-300) U/L HCG, Qual Urine Color Urine Appearance (Clear) Urine pH (5.0-8.0) Ur Specific [place] (1.001-1.035) Urine Protein (Negative) Urine Glucose (UA) (Negative) Urine Ketones (Negative) Urine Blood (Negative) Urine Nitrite (Negative) Urine Bilirubin (Negative) Urine Urobilinogen (<2.0) mg/dL Ur Leukocyte Esterase (Negative) Urine RBC (0-5) /hpf Urine WBC (0-5) /hpf Ur Squamous Epith Cells (0-4) /hpf Influenza Type A (PCR) Not Detected (Not Detectd) Influenza Type B (PCR) Not Detected (Not Detectd) RSV (PCR) Not Detected (Not Detectd) SARS-CoV-2 (PCR) Not Detected (Not Detectd) Disposition Clinical Impression: Nausea & vomiting, URI (upper respiratory infection) Disposition: HOME SELF-CARE Condition: Good Instructions (If sedation given, give patient instructions): Upper Respiratory Infection (ED), Gastroenteritis (ED), Acute Nausea and Vomiting (ED) Additional Instructions: Follow-up with PCP. Report back to ER with any new or worsening symptoms. Take medication as prescribed. Prescriptions: Ondansetron Odt [Zofran Odt] 4 mg PO Q8HR PRN #20 tab PRN Reason: Nausea Is patient prescribed a controlled substance at d/c from ED?: No Referrals: Eduardo Montoya MD [Primary Care Provider] - 1-2 days
[2023-02-05 20:44] LABS: Basophils % (A) 0 %; Eosinophils % (A) 0 %; HCT 39.8 % (34.0-46.0); Lymphocytes # (A) 0.8 k/uL (1.0-4.8); Lymphocytes % (A) 8 %; MCH 27.2 pg (25.0-35.0); MCHC 32.7 g/dL (31.0-37.0); MCV 83.1 fL (80.0-100.0); Mean Platelet Volume 8.2; Monocytes # (A) 0.2 k/uL (0-1.0); Monocytes % (A) 2 %; Neutrophils % (A) 89 %; Platelet Count 220 k/uL (150-450); RBC 4.78 m/uL (3.80-5.40); RDW 13.7 % (11.5-15.5); WBC 10.1 k/uL (3.8-10.6)
[2023-02-05 21:00] LABS: Appearance,Urine Clear (Clear); Bilirubin,Urine Negative (Negative); Blood,Urine Large (Negative); Color,Urine Colorless; Glucose,Urine (UA) Negative (Negative); Ketones,Urine Negative (Negative); Leukocyte Esterase,Urine Negative (Negative); Nitrite,Urine Negative (Negative); Protein,Urine Negative (Negative); RBC,Urine 5 /hpf (0-5); Specific Gravity,Urine 1.003 (1.001-1.035); Squamous Epithelial Cell,Urine 1 /hpf (0-4); Urobilinogen,Urine <2.0 mg/dL (<2.0); WBC,Urine 1 /hpf (0-5)
[2023-02-05 21:04] LABS: HCG,Qualitative Serum Not Detected
--- NOTE | 2023-02-05 21:16 | XR ---
EXAMINATION TYPE: XR chest 2V DATE OF EXAM: 02/05/2023 COMPARISON: NONE HISTORY: Short of breath TECHNIQUE: 2 views FINDINGS: Heart is normal. Lungs are clear of infiltrate. No heart failure. There is mild thoracic de xtroscoliosis. There are sternal wires. IMPRESSION: Thoracic dextroscoliosis. No active cardiopulmonary disease. No change.
[2023-02-05 21:27] LABS: ALT 19 U/L (4-34); AST 17 U/L (14-36); African American GFR (CKD) >90 (>60 ml/min/1.73 sqM); Alkaline Phosphatase 83 U/L (38-126); Amylase 132 U/L (30-110); Anion Gap 9 mmol/L; Blood Urea Nitrogen 9 mg/dL (7-17); Calcium 8.4 mg/dL (8.4-10.2); Carbon Dioxide 23 mmol/L (22-30); Chloride 110 mmol/L (98-107); Glucose 118 mg/dL (74-99); Lipase 52 U/L (23-300); Non-African American GFR(CKD) >90 (>60 ml/min/1.73 sqM); Potassium 4.3 mmol/L (3.5-5.1); Sodium 142 mmol/L (137-145); Total Bilirubin 0.2 mg/dL (0.2-1.3); Total Protein 6.8 g/dL (6.3-8.2)
[2023-02-05 23:41] VITALS: BP 128/78; PULSE 78; RESP 18
== END 2023-02-05 22:30 | disposition home or self-care (01) ==
LOC: EC 19:51
DX: J06.9 Acute upper respiratory infection, unspecified (principal); I50.9 Heart failure, unspecified; G40.909 Epilepsy, unspecified, not intractable, without status epilepticus; F41.9 Anxiety disorder, unspecified; F17.200 Nicotine dependence, unspecified, uncomplicated; Z20.822 Contact with and (suspected) exposure to COVID-19; Z79.899 Other long term (current) drug therapy; Z91.030 Bee allergy status; Z88.5 Allergy status to narcotic agent; Z95.2 Presence of prosthetic heart valve
CPT/HCPCS: 36415; 80053; 82150; 83690; 85025; 81001; 84703; 87636; 71046; 99285; 96374; J2405

== ENCOUNTER 2023-03-13 20:51 | Emergency (ER) | payer MEDICARE, OTHER ==
[2023-03-13 21:35] VITALS: TEMP 97.9
--- NOTE | 2023-03-13 22:01 | XR ---
EXAMINATION TYPE: XR chest 2V DATE OF EXAM: 03/13/2023 9:44 PM COMPARISON: Chest radiographs from 02/05/2023 TECHNIQUE: XR chest 2V Frontal and lateral views of the chest. CLINICAL INDICATION:Female, 37 years old with history of cough; FINDINGS: Lungs/Pleura: There is no evidence of pleural effusion, focal consolidation, or pneumothorax. Pulmonary vascularity: Unremarkable. Heart/mediastinum: Cardiomediastinal silhouette is unremarkable. Musculoskeletal: No acute osseous pathology. Scoliosis changes of the spine. Sternotomy wires are pre sent. IMPRESSION: No acute cardiopulmonary disease/process.
--- NOTE | 2023-03-13 23:11 | ED ---
URI HPI - General Chief Complaint: Upper Respiratory Infection Stated Complaint: Pneumonia, Coughing Time Seen by Provider: 03/13/23 22:29 Source: patient Mode of arrival: ambulatory Limitations: no limitations - History of Present Illness Initial Comments: Patient is a 37-year-old female well known to the emergency department presented to the emergency room advising that her primary care provider saw her earlier today advising her that she had an upper respiratory infection and pneumonia but was not given any antibiotic therapy. She is complaining of a cough and congestion ongoing for "quite some time". She denies any other associated symptoms including any chest pain, shortness of breath, abdominal pain, nausea, vomiting, fevers or chills. She has a past medical history significant for seizure disorders, developmental delay, valvular heart disease and GI bleed. - Related Data Home Medications Medication Instructions Recorded Confirmed FLUoxetine HCL [PROzac Weekly] 90 mg PO TU 08/27/17 10/25/21 traZODone HCL 200 mg PO HS 10/12/18 10/25/21 Montelukast [Singulair] 10 mg PO DAILY 06/28/20 10/25/21 buPROPion [Wellbutrin] 75 mg PO BID 03/16/21 10/25/21 busPIRone HCl [Buspar] 10 mg PO BID 03/16/21 10/25/21 Loratadine [Claritin] 10 mg PO DAILY 03/22/21 10/25/21 Melatonin 5 mg PO HS 09/04/21 10/25/21 levETIRAcetam [Keppra] 250 mg PO Q12HR 09/04/21 10/25/21 rOPINIRole HCL [Requip] 0.25 mg PO TID 09/04/21 10/25/21 risperiDONE [RisperDAL] 1 mg PO HS 09/04/21 10/25/21 Albuterol Sulfate [Ventolin HFA] 2 puff INHALATION RT-Q6H PRN 10/25/21 10/25/21 Benzonatate [Tessalon Perles] 100 mg PO TID PRN 10/25/21 10/25/21 Ergocalciferol (Vitamin D2) 1,250 mcg PO TU 10/25/21 10/25/21 [Drisdol (50,000 Iu)] Fluticasone Nasal [place] [Flonase 1 spray EA NOSTRIL DAILY PRN 10/25/21 10/25/21 Nasal [place]] Sucralfate [Carafate] 1 gm PO BID 10/25/21 10/25/21 hydrOXYzine pamoate [Vistaril] 25 mg PO BID PRN 10/25/21 10/25/21 Previous Rx's Medication Instructions Recorded Albuterol Inhaler [Ventolin Hfa 1 puff INHALATION RT-QID #8 gm 10/25/21 Inhaler] Doxycycline Hyclate [Vibramycin] 100 mg PO BID 7 Days #14 cap 10/25/21 predniSONE [Deltasone] 40 mg PO DAILY 5 Days #10 tab 10/25/21 Ibuprofen [Motrin] 400 mg PO BID #20 tab 04/06/22 Cephalexin [Keflex] 500 mg PO BID #14 cap 05/12/22 Meclizine [Antivert] 25 mg PO TID PRN #20 tab 05/12/22 levETIRAcetam [Keppra] 250 mg PO Q12HR 30 Days #60 tab 05/25/22 Nitrofurantoin Monohyd/M-Cryst 100 mg PO Q12HR #6 cap 05/31/22 [Macrobid] Phenazopyridine [Pyridium] 100 mg PO TID #6 tablet 05/31/22 methylPREDNISolone Dose Pack 4 mg PO DIRECTED #21 tab 07/17/22 [Medrol Dose Pack] Acetaminophen Oral Susp [Tylenol] 320 mg PO Q4-6H #240 ml 08/27/22 Albuterol Nebulized [Ventolin 2.5 mg INHALATION Q4H #150 ml 08/29/22 Nebulized] predniSONE [Deltasone] 20 mg PO BID #10 tab 08/29/22 Ondansetron Odt [Zofran Odt] 4 mg PO Q8HR PRN #20 tab 08/31/22 levETIRAcetam [Keppra] 250 mg PO Q12HR 7 Days #14 tablet 11/26/22 Ondansetron Odt [Zofran Odt] 4 mg PO Q8HR PRN #20 tab 02/05/23 Allergies Allergy/AdvReac Type Severity Reaction Status Date / Time venom-honey bee Allergy Anaphylaxis Verified 03/13/23 21:33 codeine AdvReac Itching Verified 03/13/23 21:33 Review of Systems ROS Statement: Those systems with pertinent positive or pertinent negative responses have been documented in the HPI. ROS Other: All systems not noted in ROS Statement are negative. Past Medical History Past Medical History: Heart Failure, GI Bleed, Seizure Disorder Additional Past Medical History / Comment(s): HEART VALVE REPLACEMENT. HX GI PROB FOR YEARS, HIATAL HERNIA. 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 DEVELOPMENTAL DISABILITY. colitis History of Any Multi-Drug Resistant Organisms: ESBL Date of last positivie culture/infection: 05/31/22 MDRO Source:: ESBL URINE Past Surgical History: Ear Surgery, Hernia Repair, Orthopedic Surgery Additional Past Surgical History / Comment(s): RT Foot Surgery; Open Heart Surg @ 3 YRS OLD, VALVE REPLACED. EXC BRAIN TUMOR. HIATAL HERNIA REPAIR. RT EARDRUM REPAIRED. Past Anesthesia/Blood Transfusion Reactions: No Reported Reaction Past Psychological History: ADD/ADHD, Anxiety Smoking Status: Current every day smoker Past Alcohol Use History: None Reported Past Drug Use History: None Reported - Past Family History Father Family Medical History: No Reported History Additional Family Medical History / Comment(s): Mother Family Medical History: No Reported History Additional Family Medical History / Comment(s): General Exam - General Exam Comments Initial Comments: GENERAL: No acute distress, well developed, well nourished. HEENT: Normocephalic, atraumatic. Pupils equal, round, reactive to light. Moist mucous membranes. LUNGS: No respiratory distress. Clear to auscultation, no adventitious sounds, no use of accessory muscles. HEART: Regular rate and rhythm without murmur, rub, or gallop. ABDOMEN: Normal bowel sounds. Soft, non-tender, non-distended. BACK: Normal inspection. EXTREMITIES: No edema. No tenderness. Moves all extremities. NEUROLOGIC: Alert & oriented x 3. CN II-XII grossly intact. PSYCHIATRIC: Normal affect and behavior. DERMATOLOGIC: Skin intact, without rashes or lesions noted. Limitations: no limitations Course Vital Signs 03/13/23 03/13/23 21:33 23:15 Temperature 97.9 F 97.9 F Pulse Rate 102 H 90 Respiratory 18 22 Rate Blood Pressure 117/72 106/80 O2 Sat by Pulse 96 96 Oximetry Medical Decision Making - Medical Decision Making Was pt. sent in by a medical professional or institution (Dr., PA, COMMERCIAL SUBCONTRACTOR, urgent care, hospital, or assisted...) When possible be specific @ -No Did you speak to anyone other than the patient for history (EMS, parent, family, police, friend...)? What history was obtained from this source @ -No Did you review nursing and triage notes (agree or disagree)? Why? @ -I reviewed and agree with nursing and triage notes Were old charts reviewed (outside hosp., previous admission, EMS record, old EKG, old radiological studies, urgent care reports/EKG's, assisted records)? Report findings @ -No old charts were reviewed Differential Diagnosis (chest pain, altered mental status, abdominal pain women, abdominal pain men, vaginal bleeding, weakness, fever, dyspnea, syncope, headache, dizziness, GI bleed, back pain, seizure, CVA, palpatations, mental health, musculoskeletal)? @ -Differential Dyspnea: Coronary syndrome, arrhythmia, tamponade, asthma, COPD, pulmonary embolism, pneumonia, pneumothorax, pulmonary effusion, anaphylaxis, diabetic ketoacidosis, flailed chest, pulmonary contusion, diaphragmatic rupture, anemia, neuromuscular, this is not meant to be an all-inclusive list. EKG interpreted by me (3pts min.). @ -None done X-rays interpreted by me (1pt min.). @ -Chest x-ray two-view: No acute cardiopulmonary disease. No consolidation, infiltration or pleural effusion. CT interpreted by me (1pt min.). @ -None done U/S interpreted by me (1pt. min.). @ -None done What testing was considered but not performed or refused? (CT, X-rays, U/S, labs)? Why? @ -None What meds were considered but not given or refused? Why? @ -None Did you discuss the management of the patient with other professionals (professionals i.e. MARLON Green, COMMERCIAL SUBCONTRACTOR, lab, RT, psych nurse, social service liaison, clay digger, teacher, business liaison officer, case aide)? Give summary @ -No Was smoking cessation discussed for >3mins.? @ -No Was critical care preformed (if so, how long)? @ -No Were there social determinants of health that impacted care today? How? (Homelessness, low income, unemployed, alcoholism, drug addiction, transportation, low edu. Level, literacy, decrease access to med. care, fci, rehab)? @ -No Was there de-escalation of care discussed even if they declined (Discuss DNR or withdrawal of care, Hospice)? DNR status @ -No What co-morbidities impacted this encounter? (DM, HTN, Smoking, COPD, CAD, Cancer, CVA, ARF, Chemo, Hep., AIDS, mental health diagnosis, sleep apnea, morbid obesity)? @ -None Was patient admitted / discharged? Hospital course, mention meds given and route, prescriptions, significant lab abnormalities, going to OR and other pertinent info. @ -37-year-old female presenting to the emergency room for "antibiotics for pneumonia" that she was advised by her primary care provider that she had but was not given any antibiotic therapy. She presents with complaints of cough and congestion. Chest x-ray ordered by triaging provider reviewed without any acute cardiopulmonary process. In the absence of other symptoms no indication for further diagnostic imaging or laboratory studies. Findings discussed with patient at length. Questions and concerns answered. Return parameters to the emergency room discussed. We'll discharge home and stable condition with [id number] treatment and symptomatic management of upper respiratory infection advising follow-up with primary care provider. Undiagnosed new problem with uncertain prognosis? @ -No Drug Therapy requiring intensive monitoring for toxicity (Heparin, Nitro, Insulin, Cardizem)? @ -No Were any procedures done? @ -No Diagnosis/symptom? @ -Upper respiratory infection Acute, or Chronic, or Acute on Chronic? @ -Acute Uncomplicated (without systemic symptoms) or Complicated (systemic symptoms)? @ -Uncomplicated Side effects of treatment? @ -No Exacerbation, Progression, or Severe Exacerbation? @ -No Poses a threat to life or bodily function? How? (Chest pain, [place], [place], pneumonia, PE, COPD, DKA, ARF, appy, cholecystitis, CVA, Diverticulitis, Homicidal, Suicidal, threat to staff... and all critical care pts) @ -No Case discussed with Dr. Reyes Disposition Clinical Impression: Upper respiratory tract infection Disposition: HOME SELF-CARE Condition: Stable Instructions (If sedation given, give patient instructions): Upper Respiratory Infection (ED) Additional Instructions: Utilize [id number] antihistamines as needed to reduce nasal secretions. Stay well hydrated. Please follow-up with your primary care provider. Please return to the Emergency Department if symptoms worsen or any other concerns. Is patient prescribed a controlled substance at d/c from ED?: No Referrals: Eduardo Montoya MD [Primary Care Provider] - 1-2 days Time of Disposition: 23:12
[2023-03-13 23:17] VITALS: BP 106/80; PULSE 90; RESP 22
== END 2023-03-13 23:17 | disposition home or self-care (01) ==
LOC: EC 20:51
DX: J06.9 Acute upper respiratory infection, unspecified (principal); I50.9 Heart failure, unspecified; F41.9 Anxiety disorder, unspecified; F17.200 Nicotine dependence, unspecified, uncomplicated; Z79.899 Other long term (current) drug therapy; Z88.5 Allergy status to narcotic agent; Z91.030 Bee allergy status
CPT/HCPCS: 71046; 99283

== ENCOUNTER 2023-06-05 17:21 | Emergency (ER) | payer MEDICARE, OTHER ==
[2023-06-05 17:51] VITALS: RESP 18; TEMP 97.9
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
[2023-06-05 21:55] LABS: Appearance,Urine Cloudy (Clear); Bacteria,Urine Occasional /hpf; Bilirubin,Urine Negative (Negative); Blood,Urine Negative (Negative); Color,Urine Colorless; Glucose,Urine (UA) Negative (Negative); Ketones,Urine Negative (Negative); Leukocyte Esterase,Urine Moderate (Negative); Nitrite,Urine Negative (Negative); Protein,Urine Negative (Negative); RBC,Urine <1 /hpf (0-5); Specific Gravity,Urine 1.002 (1.001-1.035); Squamous Epithelial Cell,Urine 1 /hpf (0-4); Urobilinogen,Urine <2.0 mg/dL (<2.0); WBC,Urine <1 /hpf (0-5)
[2023-06-05 22:10] VITALS: BP 129/65; PULSE 67
== END 2023-06-05 22:09 | disposition home or self-care (01) ==
LOC: EC 17:21
DX: S20.219A Contusion of unspecified front wall of thorax, initial encounter (principal); I50.9 Heart failure, unspecified; F41.9 Anxiety disorder, unspecified; F17.200 Nicotine dependence, unspecified, uncomplicated; Z79.899 Other long term (current) drug therapy; Z91.030 Bee allergy status; W50.1XXA Accidental kick by another person, initial encounter
CPT/HCPCS: 71046; 81001; 99284

== ENCOUNTER 2023-06-16 11:20 | Emergency (ER) | payer MEDICARE, OTHER ==
[2023-06-16 11:27] VITALS: BP 118/76; PULSE 87; RESP 18; TEMP 97.9
--- NOTE | 2023-06-16 11:30 | ED ---
Animal Bite HPI - General Chief Complaint: Animal Bite Stated Complaint: Dog Bite Time Seen by Provider: 06/16/23 11:27 Source: patient, RN notes reviewed Mode of arrival: ambulatory - History of Present Illness Initial Comments: This is a 38-year-old female who presents to the emergency department for a dog bite to the left arm. [facility] when a pit bull bit her in the left arm near the elbow. Her guardian states that this was a service dog in the courthouse. Unsure what may have triggered this attack. Her tool programmer is unsure whose dog this was, or if it is up-to-date on its immunizations. However, given that it was a service dog and allowed into the [facility], they believe that to be the case. She is up-to-date on her tetanus vaccine. A police report has been filed. Denies any fevers, chills, sore throat, cough, dyspnea, chest pain, palpitations, abdominal pain, nausea, vomiting, diarrhea, back pain, or headache sGillian OLIVARES Complaint: animal bite Left: Elbow, Forearm - Related Data Home Medications Medication Instructions Recorded Confirmed FLUoxetine HCL [PROzac Weekly] 90 mg PO TU 08/27/17 10/25/21 traZODone HCL 200 mg PO HS 10/12/18 10/25/21 Montelukast [Singulair] 10 mg PO DAILY 06/28/20 10/25/21 buPROPion [Wellbutrin] 75 mg PO BID 03/16/21 10/25/21 busPIRone HCl [Buspar] 10 mg PO BID 03/16/21 10/25/21 Loratadine [Claritin] 10 mg PO DAILY 03/22/21 10/25/21 Melatonin 5 mg PO HS 09/04/21 10/25/21 levETIRAcetam [Keppra] 250 mg PO Q12HR 09/04/21 10/25/21 rOPINIRole HCL [Requip] 0.25 mg PO TID 09/04/21 10/25/21 risperiDONE [RisperDAL] 1 mg PO HS 09/04/21 10/25/21 Albuterol Sulfate [Ventolin HFA] 2 puff INHALATION RT-Q6H PRN 10/25/21 10/25/21 Benzonatate [Tessalon Perles] 100 mg PO TID PRN 10/25/21 10/25/21 Ergocalciferol (Vitamin D2) 1,250 mcg PO TU 10/25/21 10/25/21 [Drisdol (50,000 Iu)] Fluticasone Nasal [place] [Flonase 1 spray EA NOSTRIL DAILY PRN 10/25/21 10/25/21 Nasal [place]] Sucralfate [Carafate] 1 gm PO BID 10/25/21 10/25/21 hydrOXYzine pamoate [Vistaril] 25 mg PO BID PRN 10/25/21 10/25/21 Previous Rx's Medication Instructions Recorded Albuterol Inhaler [Ventolin Hfa 1 puff INHALATION RT-QID #8 gm 10/25/21 Inhaler] Doxycycline Hyclate [Vibramycin] 100 mg PO BID 7 Days #14 cap 10/25/21 predniSONE [Deltasone] 40 mg PO DAILY 5 Days #10 tab 10/25/21 Ibuprofen [Motrin] 400 mg PO BID #20 tab 04/06/22 Cephalexin [Keflex] 500 mg PO BID #14 cap 05/12/22 Meclizine [Antivert] 25 mg PO TID PRN #20 tab 05/12/22 levETIRAcetam [Keppra] 250 mg PO Q12HR 30 Days #60 tab 05/25/22 Nitrofurantoin Monohyd/M-Cryst 100 mg PO Q12HR #6 cap 05/31/22 [Macrobid] Phenazopyridine [Pyridium] 100 mg PO TID #6 tablet 05/31/22 methylPREDNISolone Dose Pack 4 mg PO DIRECTED #21 tab 07/17/22 [Medrol Dose Pack] Acetaminophen Oral Susp [Tylenol] 320 mg PO Q4-6H #240 ml 08/27/22 Albuterol Nebulized [Ventolin 2.5 mg INHALATION Q4H #150 ml 08/29/22 Nebulized] predniSONE [Deltasone] 20 mg PO BID #10 tab 08/29/22 Ondansetron Odt [Zofran Odt] 4 mg PO Q8HR PRN #20 tab 08/31/22 levETIRAcetam [Keppra] 250 mg PO Q12HR 7 Days #14 tablet 11/26/22 Ondansetron Odt [Zofran Odt] 4 mg PO Q8HR PRN #20 tab 02/05/23 Amoxic-Pot Clav 875-125Mg 1 tab PO Q12HR 10 Days #20 tab 06/16/23 [Augmentin 875-125] Allergies Allergy/AdvReac Type Severity Reaction Status Date / Time venom-honey bee Allergy Anaphylaxis Verified 06/16/23 11:27 codeine AdvReac Itching Verified 06/16/23 11:27 Review of Systems ROS Statement: Those systems with pertinent positive or pertinent negative responses have been documented in the HPI. ROS Other: All systems not noted in ROS Statement are negative. Past Medical History Past Medical History: Heart Failure, GI Bleed, Seizure Disorder Additional Past Medical History / Comment(s): HEART VALVE REPLACEMENT. HX GI PROB FOR YEARS, HIATAL HERNIA. 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 DEVELOPMENTAL DISABILITY. colitis History of Any Multi-Drug Resistant Organisms: ESBL Date of last positivie culture/infection: 05/31/22 MDRO Source:: ESBL URINE Past Surgical History: Ear Surgery, Hernia Repair, Orthopedic Surgery Additional Past Surgical History / Comment(s): RT Foot Surgery; Open Heart Surg @ 3 YRS OLD, VALVE REPLACED. EXC BRAIN TUMOR. HIATAL HERNIA REPAIR. RT EARDRUM REPAIRED. Past Anesthesia/Blood Transfusion Reactions: No Reported Reaction Past Psychological History: ADD/ADHD, Anxiety Smoking Status: Current every day smoker Past Alcohol Use History: None Reported Past Drug Use History: None Reported - Past Family History Father Family Medical History: No Reported History Additional Family Medical History / Comment(s): Mother Family Medical History: No Reported History Additional Family Medical History / Comment(s): General Exam Limitations: no limitations General appearance: alert, in no apparent distress Head exam: Present: atraumatic, normocephalic, normal inspection Respiratory exam: Present: normal lung sounds bilaterally. Absent: respiratory distress, wheezes, rales, rhonchi, stridor Cardiovascular Exam: Present: regular rate, normal rhythm, normal heart sounds. Absent: systolic murmur, diastolic murmur, rubs, gallop, clicks Neurological exam: Present: alert, oriented X3, CN II-XII intact Psychiatric exam: Present: normal affect, normal mood Skin exam: Present: other (3 puncture wounds and one 4 cm laceration near the left antecubital fossa. No active bleeding. Visible subcutaneous tissue in the laceration and from the puncture wound just superior to the laceration.) Course Vital Signs 06/16/23 11:23 Temperature 97.9 F Pulse Rate 87 Respiratory 18 Rate Blood Pressure 118/76 O2 Sat by Pulse 97 Oximetry Procedures - Laceration Laceration #1 Consent Obtained: verbal consent Indication: laceration Site: upper extremity (left arm) Size (cm): 4 Description: linear Depth: simple, single layer Anesthetic Used: lidocaine 1% Anesthesia Technique: local infiltration Amount (mls): 4 Pre-repair: wound explored, irrigated extensively Type of Sutures: nylon Size of Sutures: 5-0 Number of Sutures: 2 Technique: simple, interrupted Laceration #2 Consent Obtained: verbal consent Indication: laceration Site: upper extremity (left arm) Size (cm): 1 Description: linear Depth: simple, single layer Anesthetic Used: lidocaine 1% Anesthesia Technique: local infiltration Amount (mls): 1 Pre-repair: wound explored, irrigated extensively Type of Sutures: nylon Size of Sutures: 5-0 Number of Sutures: 1 Technique: simple, interrupted Medical Decision Making - Medical Decision Making This is a 38-year-old female who presents to the emergency department for a dog bite. Was pt. sent in by a medical professional or institution? @ -No Did you speak to anyone other than the patient for history? @ -Her caregiver provided almost all of the information, aside from the patient saying that it was painful and her tetanus vaccine was up-to-date. Did you review nursing and triage notes? @ -Yes, and I agree, it is accurate with regards to the patient's symptoms. Were old charts reviewed? @ -No Differential Diagnosis? @ -Not applicable EKG interpreted by me (3pts min.)? @ -Not obtained X-rays interpreted by me (1pt min.)? @ -Not obtained CT interpreted by me (1pt min.)? @ -Not obtained U/S interpreted by me (1pt. min.)? @ -Not obtained What testing was considered but not performed? (CT, X-rays, U/S, labs)? Why? @ -None What meds were considered but not given? Why? @ -None Did you discuss the management of the patient with other professionals? @ -No Did you reconcile home meds? @ -No Was smoking cessation discussed for >3mins.? @ -No Was critical care preformed (if so, how long)? @ -No Were there social determinants of health that impacted care today? How? (Homelessness, low income, unemployed, alcoholism, drug addiction, transportation, low edu. Level, literacy, decrease access to med. care, [facility], rehab)? @ -No Was there de-escalation of care discussed even if they declined? (Discuss DNR or withdrawal of care, Hospice)? @ -No What co-morbidities impacted this encounter? (DM, HTN, Smoking, COPD, CAD, Cancer, CVA, Hep., AIDS, mental health diagnosis, sleep apnea, morbid obesity)? @ -None Was patient admitted / discharged? @ -Discharged. The patient's arm was thoroughly cleansed under running water. Tetanus vaccine is up-to-date. The laceration and one of the puncture wounds was fairly deep revealing subcutaneous tissue, and repair with sutures was re quired. These were kept somewhat loose to avoid sealing in an infection. Prescription for Augmentin provided with dosing instructions reviewed. Initial dose administered in the emergency department. Advised avoiding topical antibiotic ointment, as this can also seal in an infection. She is advised to alternate with ibuprofen and Tylenol as needed for pain relief and return in 7- 10 days for suture removal. She opted to avoid the rabies vaccines at this time, as she does believe the dog is vaccinated. Advised that if she changes her mind, she can return to the emergency department or discuss this with her primary care provider. Undiagnosed new problem with uncertain prognosis? @ -None Drug Therapy requiring intensive monitoring for toxicity (Heparin, Nitro, Insulin, Cardizem)? @ -None Were any procedures done? @ -Laceration repair with sutures Diagnosis/symptom? @ -Dog bite Acute, or Chronic, or Acute on Chronic? @ -Acute Uncomplicated (without systemic symptoms) or Complicated (systemic symptoms)? @ -Uncomplicated Side effects of treatment? @ -None Exacerbation, Progression, or Severe Exacerbation] @ -Not applicable Poses a threat to life or bodily function? @ -No Return precautions reviewed in depth, the patient is instructed to return to the emergency department with any new, worsening, or concerning symptoms. Patient and her caregiver verbalized understanding. This case was discussed in detail with the attending ED physician, Dr. Helmreich. Presentation, findings, and treatment plan discussed in detail as well. Disposition Clinical Impression: Dog bite Disposition: HOME SELF-CARE Instructions (If sedation given, give patient instructions): Animal Bite (ED) Additional Instructions: Return to the emergency department with any new, worsening, or concerning symptoms and in 7-10 days for removal of the stitches. Take the antibiotic as prescribed for 10 days. Alternate with ibuprofen and Tylenol as needed for pain relief. Do not apply any topical antibiotic ointments. Be aware that this is at high risk for infection, and if she develops fevers, increasing pain, redness, or drainage, she should return to the emergency department for further evaluation. Follow up with your primary care provider in 1-2 days. Prescriptions: Amoxic-Pot Clav 875-125Mg [Augmentin 875-125] 1 tab PO Q12HR 10 Days #20 tab Is patient prescribed a controlled substance at d/c from ED?: No Referrals: Eduardo Montoya MD [Primary Care Provider] - 1-2 days
[2023-06-16] MEDS ORDERED: IBUPROFEN 400 MG TAB PO STA (11:35)
[2023-06-16] MEDS ORDERED: LIDOCAINE 1% INJ 10MG/ML (20 ML MDV) SQ ONE (11:35)
[2023-06-16] MEDS ORDERED: AMOXIC-POT CLAV 875-125MG 1 EACH TAB PO STA (11:35)
== END 2023-06-16 11:30 | disposition home or self-care (01) ==
LOC: EC 11:20
DX: S41.152A Open bite of left upper arm, initial encounter (principal); I50.9 Heart failure, unspecified; G40.909 Epilepsy, unspecified, not intractable, without status epilepticus; F41.9 Anxiety disorder, unspecified; F17.200 Nicotine dependence, unspecified, uncomplicated; Z79.899 Other long term (current) drug therapy; Z91.030 Bee allergy status; Z88.5 Allergy status to narcotic agent; W54.0XXA Bitten by dog, initial encounter
CPT/HCPCS: 12002; 99283; J2001

== ENCOUNTER 2023-08-04 09:01 | Day surgery (SDC) | payer MEDICARE, OTHER ==
[2023-07-30 15:58] VITALS: BMI 21.3
[~2023-08-04 09:01] MED LIST changes: +LIDOCAINE 1% (10MG/ML) FOR IV START INTRADERMA PRN
[2023-08-04 10:06] VITALS: TEMP 97
[2023-08-04] MEDS ORDERED: PROPOFOL 10 MG/ML 20 ML VIAL IV ONE (10:38)
--- NOTE | 2023-08-04 11:06 | P.PCN ---
Date of Procedure: 08/04/23 Procedure(s) Performed: BRIEF HISTORY: Patient is a 58-year-old pleasant white female scheduled for colonoscopy to evaluation of Crohn's ileitis that was diagnosed in 2018. Patient currently and Pentasa 1 g 4 times daily and continues to have abdominal pain with severe diarrhea and developed and bowel movements daily. She was diagnosed with Crohn's ileitis by Dr. Singh in 2017 and subsequently was treated with Entyvio from June 2020 -2019-and did extremely well. However she wanted to stop the Entyvio and since then has been on Pentasa 1 g 4 times daily. For the last 2 months she is been having 1 bowel movement daily was to watery in consistency inserted with cramping lower abdominal pain PROCEDURE PERFORMED: Colonoscopy With biopsy. PREOPERATIVE DIAGNOSIS:History of Crohn's ileitis in symptoms thousand, now with lower abdominal pain and chronic diarrhea]. IV sedation per Anesthesia. PROCEDURE: After informed consent was obtained, the patient, was brought into the endoscopy unit. IV sedation was administered by Anesthesia under continuous monitoring. Digital rectal examination was normal. Initially the Olympus CF-160 flexible video colonoscope was then inserted in the rectum, gradually advanced into the cecum without any difficulty. Careful examination was performed as the scope was gradually being withdrawn. Ileocecal valve and the appendiceal orifice were visualized and appeared normal. Prep was excellent. The terminal ileum was intubated and 20 cm was visualized and appeared completely normal. Biopsies were done from this area. Mucosa of the cecum, ascending colon, transverse colon, descending colon, sigmoid colon, and rectum appeared normal. Random bio psies were done from ascending and descending colon to rule out collagenous/microscopic colitis Retroflexion was performed in the rectum and no lesions were seen. The patient tolerated the procedure well. IMPRESSION: Normal-appearing colon from rectum to cecum with no evidence of colitis or colorectal neoplasia. Normal-appearing terminal ileum RECOMMENDATIONS: Findings of this examination were discussed with the patient .as well as a family. She was advised to follow with the biopsy results. In the office in 2 weeks. In the meantime she'll be started on Bentyl 10 mg 4 times daily as the symptoms appeared to be most likely from irritable bowel syndrome rather than active Crohn's disease.
[2023-08-04 11:22] VITALS: BP 111/75; PULSE 61; RESP 15
== END 2023-08-04 11:28 | disposition home or self-care (01) ==
LOC: ORWHC2ENDO 09:01
PROVIDERS: ATTEND Internal Medicine Gastroenterology
DX: K52.9 Noninfective gastroenteritis and colitis, unspecified (principal); K63.89 Other specified diseases of intestine; K50.80 Crohn's disease of both small and large intestine without complications; I50.9 Heart failure, unspecified; G40.909 Epilepsy, unspecified, not intractable, without status epilepticus; J45.909 Unspecified asthma, uncomplicated; F89 Unspecified disorder of psychological development; F17.210 Nicotine dependence, cigarettes, uncomplicated; Z79.899 Other long term (current) drug therapy; Z79.51 Long term (current) use of inhaled steroids; Z79.01 Long term (current) use of anticoagulants; Z98.890 Other specified postprocedural states
CPT/HCPCS: 88305; 45380; J2704

== ENCOUNTER 2023-10-25 13:35 | Emergency (ER) | payer MEDICARE, OTHER ==
--- NOTE | 2023-10-25 14:14 | ED ---
Weakness HPI - General Source: patient, RN notes reviewed <Kellee Field - Last Filed: 10/25/23 14:13> - General Source: patient, RN notes reviewed, old records reviewed <Errol Meek - Last Filed: 10/25/23 20:57> - General Stated complaint: weakness Time Seen by Provider: 10/25/23 14:13 - History of Present Illness Initial comments: patient is a 38-year-old female presented ER with chief complaint of weakness. Patient states she's been feeling weak for the past week. Patient reports one episode of fever. (Kellee Field) Patient originally presented and evaluated is a quick note. I evaluated the patient when she was placed in a room. Presents with generalized weakness which she currently does not have as well as possible fever. Also endorses an episode of nausea and vomiting. Nonspecific complaints. Presents for further evaluation at this time. Denies any other acute complaints at this time. Request that we check for a UTI. Patient was in agreement this plan otherwise. Denies chest pain, shortness breath, abdominal pain, nausea, vomiting currently. No known sick contacts. (Errol Meek) - Related Data Home Medications Medication Instructions Recorded Confirmed FLUoxetine HCL [PROzac Weekly] 90 mg PO TU 08/27/17 07/30/23 Montelukast [Singulair] 10 mg PO HS 06/28/20 07/30/23 Loratadine [Claritin] 10 mg PO DAILY 03/22/21 07/30/23 levETIRAcetam [Keppra] 250 mg PO BID 09/04/21 07/30/23 risperiDONE [RisperDAL] 1 mg PO HS 09/04/21 07/30/23 Ergocalciferol (Vitamin D2) 1,250 mcg PO QMONTHLY 10/25/21 07/30/23 [Drisdol (50,000 Iu)] Acetaminophen [Tylenol Extra 500 mg PO BID 07/30/23 07/30/23 Strength] Albuterol Sulfate Nebulizer 0.083 inhalation INHALATION QID PRN 07/30/23 Ibuprofen [Motrin] 800 mg PO BID 07/30/23 07/30/23 Mesalamine [Pentasa] 1,000 mg PO QID 07/30/23 07/30/23 Mirtazapine [Remeron] 30 mg PO HS 07/30/23 07/30/23 Omeprazole [PriLOSEC] 40 mg PO DAILY 07/30/23 07/30/23 QUEtiapine FUMARATE [SEROquel] 300 mg PO HS 07/30/23 07/30/23 rOPINIRole HCL [Requip] 0.25 mg PO TID 07/30/23 07/30/23 Advair Inhaler 1 dose INHALATION DIRECTED PRN 07/31/23 Albuterol Sulfate [Proair 1 puff INHALATION DIRECTED PRN 07/31/23 07/31/23 Respiclick] Previous Rx's Medication Instructions Recorded Ibuprofen [Motrin] 600 mg PO Q8HR PRN #20 tab 08/23/23 Nitrofurantoin Monohyd/M-Cryst 100 mg PO Q12HR 5 Days #10 cap 10/25/23 [Macrobid] Allergies Allergy/AdvReac Type Severity Reaction Status Date / Time venom-honey bee Allergy Anaphylaxis Verified 10/25/23 14:16 codeine AdvReac Itching Verified 10/25/23 14:16 Review of Systems ROS Other: All systems not noted in ROS Statement are negative. <Kellee Field - Last Filed: 10/25/23 14:13> ROS Other: All systems not noted in ROS Statement are negative. <Errol Meek - Last Filed: 10/25/23 20:57> ROS Statement: Those systems with pertinent positive or pertinent negative responses have been documented in the HPI. Review of Systems: CONST: Denies fever EYES: Denies blurry vision ENT: Denies nasal congestion C/V: Denies Chest pain RESP: Denies shortness of breath GI: Denies abdominal pain : Denies dysuria SKIN: Denies rash. MSK: Denies joint pain. 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 , HX GI PROB FOR YEARS, HIATAL HERNIA. 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 , DEAF RIGHT EAR. , UNABLE TO READ History of Any Multi-Drug Resistant Organisms: ESBL Date of last positivie culture/infection: 05/31/22 MDRO Source:: ESBL URINE Past Surgical History: Ear Surgery, Hernia Repair, Orthopedic Surgery Additional Past Surgical History / Comment(s): RT Foot Surgery; Open Heart Surg @ 3 YRS OLD, VALVE REPLACED. EXC BRAIN TUMOR. HIATAL HERNIA REPAIR. RT EARDRUM REPAIRED. Past Anesthesia/Blood Transfusion Reactions: No Reported Reaction Past Psychological History: ADD/ADHD, Anxiety Smoking Status: Current every day smoker Past Alcohol Use History: None Reported Past Drug Use History: None Reported - Past Family History Father Family Medical History: No Reported History Additional Family Medical History / Comment(s): Mother Family Medical History: No Reported History Additional Family Medical History / Comment(s): <Kellee Field - Last Filed: 10/25/23 14:13> General Exam <Kellee Field - Last Filed: 10/25/23 14:13> <Errol Meek - Last Filed: 10/25/23 20:57> - General Exam Comments Initial Comments: Visual Physical Exam Vital signs reviewed General: Well-appearing, nontoxic, no acute distress. Head: Normocephalic, atraumatic Eyes: PERRLA, EOMI ENT: Airway patent Chest: Nonlabored breathing Skin: No visual rash, normal skin tone Neuro: Alert and oriented 3 Musculoskeletal: No gross abnormalities (Kellee Field) General: Appears in no acute distress. HEAD: Normal with no signs of head trauma. EYES: PERRLA, EOMI, conjunctiva normal, no discharge. ENT: Hearing grossly intact, normal oropharynx. RESPIRATORY: Clear breath sounds bilaterally. No wheezes, rales, or rhonchi. C/V: Regular rate and rhythm. S1 and S2 auscultated, no edema, peripheral pulses 2+ and intact throughout ABD: Abd is soft, nontender, nondistended EXT: Normal range of motion, no obvious deformity SKIN: No rashes or lesions observed on exposed skin. NEURO: Alert and oriented 4. (Errol Meek) Course Vital Signs 10/25/23 10/25/23 10/25/23 14:14 14:41 17:05 Temperature 98.2 F 98.1 F Pulse Rate 87 81 88 Respiratory 18 18 18 Rate Blood Pressure 101/69 110/78 108/72 O2 Sat by Pulse 96 96 97 Oximetry Medical Decision Making <Kellee Field - Last Filed: 10/25/23 14:13> - Lab Data Result diagrams: 10/25/23 14:43 10/25/23 14:43 - EKG Data -: EKG Interpreted by Me <Errol Meek - Last Filed: 10/25/23 20:57> - Medical Decision Making I performed the quick note portion of the exam. Electronically signed by Kellee Field PA-C (Kellee Field) Was pt. sent in by a medical professional or institution ([facility], PACK PRESS OPERATOR, urgent care, hospital, or long term...) When possible be specific @ -No Did you speak to anyone other than the patient for history (EMS, parent, family, police, friend...)? What history was obtained from this source @ -No Did you review nursing and triage notes (agree or disagree)? Why? @ -I reviewed and agree with nursing and triage notes Were old charts reviewed (outside hosp., previous admission, EMS record, old EKG, old radiological studies, urgent care reports/EKG's, long term records)? Report findings @ -Old charts reviewed Differential Diagnosis (chest pain, altered mental status, abdominal pain women, abdominal pain men, vaginal bleeding, weakness, fever, dyspnea, syncope, headache, dizziness, GI bleed, back pain, seizure, CVA, palpatations, mental health, musculoskeletal)? @ -Differential Weakness: Hypoglycemia, shock, sepsis, hyponatremia, anemia, infection, [place], ETOH, adverse medicine reaction, overdose, stroke, this is not meant to be an all-inclusive list. EKG interpreted by me (3pts min.). @ -As above X-rays interpreted by me (1pt min.). @ -Chest x-ray reveals no obvious acute cardio pulmonary process. CT interpreted by me (1pt min.). @ -None done U/S interpreted by me (1pt. min.). @ -None done What testing was considered but not performed or refused? (CT, X-rays, U/S, labs)? Why? @ -None What meds were considered but not given or refused? Why? @ -None Did you discuss the management of the patient with other professionals (professionals i.e. , PA, PACK PRESS OPERATOR, lab, RT, psych nurse, social work professor, coat agent, teacher, security police officer, case reviewer)? Give summary @ -No Was smoking cessation discussed for >3mins.? @ -No Was critical care preformed (if so, how long)? @ -No Were there social determinants of health that impacted care today? How? (Homelessness, low income, unemployed, alcoholism, drug addiction, transportation, low edu. Level, literacy, decrease access to med. care, senior care, rehab)? @ -No Was there de-escalation of care discussed even if they declined (Discuss DNR or withdrawal of care, Hospice)? DNR status @ -No What co-morbidities impacted this encounter? (DM, HTN, Smoking, COPD, CAD, Cancer, CVA, ARF, Chemo, Hep., AIDS, mental health diagnosis, sleep apnea, morbid obesity)? @ -None Was patient admitted / discharged? Hospital course, mention meds given and route, prescriptions, significant lab abnormalities, going to OR and other pertinent info. @ -Based on the patient's presentation and physical exam, presents with weakness for multiple days. Currently asymptomatic. Vital signs within acceptable limits. Workup was started in triage. We'll obtain basic labs, screening EKG, chest x-ray. Patient was symptomatically treated with IV fluids, Zofran. Patient agreement this plan. EKG unremarkable. Chest x-ray unremarkable. Patient's labs remarkable for findings for UTI. Urine culture sent. Patient started on Macrobid. Discussed results with her. She'll be discharged, this time with her antibiotic. She was in agreement with this plan. I will provide the patient with a prescription for Macrobid. I instructed the patient to follow up with their PCP in the next 1-3 days. I explained that the patient should return to the emergency department if they experience any worseni ng symptoms. Strict return precautions were discussed with the patient. The patient expressed understanding of these instructions. I answered all questions that the patient had. The patient was discharged home in good condition with their prescriptions and follow up information. Undiagnosed new problem with uncertain prognosis? @ -No Drug Therapy requiring intensive monitoring for toxicity (Heparin, Nitro, Insulin, Cardizem)? @ -No Were any procedures done? @ -No Diagnosis/symptom? @ -UTI Acute, or Chronic, or Acute on Chronic? @ -Acute Uncomplicated (without systemic symptoms) or Complicated (systemic symptoms)? @ -Complicated Side effects of treatment? @ -No Exacerbation, Progression, or Severe Exacerbation? @ -No Poses a threat to life or bodily function? How? (Chest pain, [place], [place], pneumonia, PE, COPD, DKA, ARF, appy, cholecystitis, CVA, Diverticulitis, Homicidal, Suicidal, threat to staff... and all critical care pts) @ -Unlikely (Errol Meek) - Lab Data Lab Results 10/25/23 10/25/23 10/25/23 Range/Units 14:43 14:43 14:43 WBC 11.8 H (3.8-10.6) k/uL RBC 4.30 (3.80-5.40) m/uL Hgb 12.7 (11.4-16.0) gm/dL Hct 36.1 (34.0-46.0) % MCV 84.0 (80.0-100.0) fL MCH 29.5 (25.0-35.0) pg MCHC 35.2 (31.0-37.0) g/dL RDW 14.4 (11.5-15.5) % Plt Count 298 (150-450) k/uL MPV 7.7 Sodium 135 L (137-145) mmol/L Potassium 4.7 (3.5-5.1) mmol/L Chloride 105 (98-107) mmol/L Carbon Dioxide 21 L (22-30) mmol/L Anion Gap 9 mmol/L BUN 17 (7-17) mg/dL Creatinine 0.57 (0.52-1.04) mg/dL Est GFR (CKD-EPI)AfAm >90 (>60 ml/min/1.73 sqM) Est GFR (CKD-EPI)NonAf >90 (>60 ml/min/1.73 sqM) Glucose 97 (74-99) mg/dL Calcium 9.0 (8.4-10.2) mg/dL Total Bilirubin 0.2 (0.2-1.3) mg/dL AST 20 (14-36) U/L ALT 16 (4-34) U/L Alkaline Phosphatase 83 (38-126) U/L Total Protein 6.1 L (6.3-8.2) g/dL Albumin 3.4 L (3.5-5.0) g/dL HCG, Qual Urine Color Light Yellow Urine Appearance Cloudy H (Clear) Urine pH 6.0 (5.0-8.0) Ur Specific [place] 1.007 (1.001-1.035) Urine Protein Negative (Negative) Urine Glucose (UA) Negative (Negative) Urine Ketones Negative (Negative) Urine Blood Large H (Negative) Urine Nitrite Negative (Negative) Urine Bilirubin Negative (Negative) Urine Urobilinogen <2.0 (<2.0) mg/dL Ur Leukocyte Esterase Small H (Negative) Urine RBC 180 H (0-5) /hpf Urine WBC 17 H (0-5) /hpf Ur Squamous Epith Cells 2 (0-4) /hpf Amorphous Sediment Occasional H (None) /hpf Urine Bacteria Few H (None) /hpf Influenza Type A (PCR) (Not Detectd) Influenza Type B (PCR) (Not Detectd) RSV (PCR) (Not Detectd) SARS-CoV-2 (PCR) (Not Detectd) 10/25/23 10/25/23 Range/Units 14:43 14:43 WBC (3.8-10.6) k/uL RBC (3.80-5.40) m/uL Hgb (11.4-16.0) gm/dL Hct (34.0-46.0) % MCV (80.0-100.0) fL MCH (25.0-35.0) pg MCHC (31.0-37.0) g/dL RDW (11.5-15.5) % Plt Count (150-450) k/uL MPV Sodium (137-145) mmol/L Potassium (3.5-5.1) mmol/L Chloride (98-107) mmol/L Carbon Dioxide (22-30) mmol/L Anion Gap mmol/L BUN (7-17) mg/dL Creatinine (0.52-1.04) mg/dL Est GFR (CKD-EPI)AfAm (>60 ml/min/1.73 sqM) Est GFR (CKD-EPI)NonAf (>60 ml/min/1.73 sqM) Glucose (74-99) mg/dL Calcium (8.4-10.2) mg/dL Total Bilirubin (0.2-1.3) mg/dL AST (14-36) U/L ALT (4-34) U/L Alkaline Phosphatase (38-126) U/L Total Protein (6.3-8.2) g/dL Albumin (3.5-5.0) g/dL HCG, Qual Not Detected Urine Color Urine Appearance (Clear) Urine pH (5.0-8.0) Ur Specific [place] (1.001-1.035) Urine Protein (Negative) Urine Glucose (UA) (Negative) Urine Ketones (Negative) Urine Blood (Negative) Urine Nitrite (Negative) Urine Bilirubin (Negative) Urine Urobilinogen (<2.0) mg/dL Ur Leukocyte Esterase (Negative) Urine RBC (0-5) /hpf Urine WBC (0-5) /hpf Ur Squamous Epith Cells (0-4) /hpf Amorphous Sediment (None) /hpf Urine Bacteria (None) /hpf Influenza Type A (PCR) Not Detected (Not Detectd) Influenza Type B (PCR) Not Detected (Not Detectd) RSV (PCR) Not Detected (Not Detectd) SARS-CoV-2 (PCR) Not Detected (Not Detectd) - EKG Data EKG Comments: 12-lead Electrocardiogram Interpretation Note EKG was reviewed and interpreted by myself. 12-lead ECG performed at 1502 is interpreted by me as revealing normal sinus rhythm at a rate of 73 beats per minute. [place] is normal. LA interval is 168 ms, QRS durations 84 ms, QTc is 415 ms.. There were no ST or T wave abnormalities to suggest myocardial ischemia or injury. R wave progression across the precordium was satisfactory. By my interpretation this EKG is non-diagnostic for acute ischemia. (Errol Meek) Disposition <Kellee Field - Last Filed: 10/25/23 14:13> Is patient prescribed a controlled substance at d/c from ED?: No Time of Disposition: 16:35 <Errol Meek - Last Filed: 10/25/23 20:57> Clinical Impression: UTI (urinary tract infection) Disposition: HOME SELF-CARE Condition: Good Prescriptions: Nitrofurantoin Monohyd/M-Cryst [Macrobid] 100 mg PO Q12HR 5 Days #10 cap Referrals: Eduardo Montoya MD [Primary Care Provider] - 1-2 days
[2023-10-25 14:38] VITALS: RESP 18
[2023-10-25] MEDS ORDERED: SODIUM CHLORIDE 0.9% 500 ML 500 ML IV STA (14:49)
[2023-10-25] MEDS ORDERED: ONDANSETRON 4 MG/2 ML VIAL IVP STA (14:50)
[2023-10-25 14:57] LABS: HCT 36.1 % (34.0-46.0); HGB 12.7 gm/dL (11.4-16.0); MCH 29.5 pg (25.0-35.0); MCHC 35.2 g/dL (31.0-37.0); Mean Platelet Volume 7.7; Platelet Count 298 k/uL (150-450); RDW 14.4 % (11.5-15.5); WBC 11.8 k/uL (3.8-10.6)
[2023-10-25 15:16] LABS: Amorphous Sediment,Urine Occasional /hpf; Appearance,Urine Cloudy (Clear); Bacteria,Urine Few /hpf; Bilirubin,Urine Negative (Negative); Blood,Urine Large (Negative); Color,Urine Light Yellow; Glucose,Urine (UA) Negative (Negative); Ketones,Urine Negative (Negative); Leukocyte Esterase,Urine Small (Negative); Nitrite,Urine Negative (Negative); Protein,Urine Negative (Negative); RBC,Urine 180 /hpf (0-5); Specific Gravity,Urine 1.007 (1.001-1.035); Squamous Epithelial Cell,Urine 2 /hpf (0-4); Urobilinogen,Urine <2.0 mg/dL (<2.0); WBC,Urine 17 /hpf (0-5)
[2023-10-25 15:34] LABS: ALT 16 U/L (4-34); AST 20 U/L (14-36); African American GFR (CKD) >90 (>60 ml/min/1.73 sqM); Albumin 3.4 g/dL (3.5-5.0); Alkaline Phosphatase 83 U/L (38-126); Anion Gap 9 mmol/L; Blood Urea Nitrogen 17 mg/dL (7-17); Carbon Dioxide 21 mmol/L (22-30); Chloride 105 mmol/L (98-107); Glucose 97 mg/dL (74-99); Non-African American GFR(CKD) >90 (>60 ml/min/1.73 sqM); Potassium 4.7 mmol/L (3.5-5.1); Sodium 135 mmol/L (137-145); Total Bilirubin 0.2 mg/dL (0.2-1.3); Total Protein 6.1 g/dL (6.3-8.2)
[2023-10-25] MEDS ORDERED: NITROFURANTOIN MONOHYD/M-CRYST 100 MG CAP PO STA (16:56)
--- NOTE | 2023-10-25 17:05 | XR ---
EXAMINATION TYPE: XR chest 1V portable DATE OF EXAM: 10/25/2023 4:01 PM CLINICAL INDICATION:Female, 38 years old with history of weakness; [facility] COMPARISON: Chest radiographs from 02/20/2023 TECHNIQUE: XR chest 1V portable Frontal view of the chest. FINDINGS: Lungs/Pleura: There is no evidence of pleural effusion, focal consolidation, or pneumothorax. Pulmonary vascularity: Unremarkable. Heart/mediastinum: Cardiomediastinal silhouette is unremarkable. Musculoskeletal: No acute osseous pathology. Other findings: None IMPRESSION: No acute cardiopulmonary disease/process.
[2023-10-25 17:22] VITALS: BP 108/72; PULSE 88; TEMP 98.1
== END 2023-10-25 17:10 | disposition home or self-care (01) ==
LOC: EC 13:35
DX: N39.0 Urinary tract infection, site not specified (principal); B97.0 Adenovirus as the cause of diseases classified elsewhere; J45.909 Unspecified asthma, uncomplicated; I50.9 Heart failure, unspecified; K21.9 Gastro-esophageal reflux disease without esophagitis; F41.9 Anxiety disorder, unspecified; F17.200 Nicotine dependence, unspecified, uncomplicated; Z79.899 Other long term (current) drug therapy; Z20.822 Contact with and (suspected) exposure to COVID-19; Z88.5 Allergy status to narcotic agent; Z91.030 Bee allergy status; Z95.2 Presence of prosthetic heart valve
CPT/HCPCS: 36415; 93005; 80053; 85027; 81001; 84703; 87086; 87636; 71045; 99285; 96374; 96361; J2405; 87077; 87186

== ENCOUNTER 2024-09-11 13:42 | Emergency (ER) | payer MEDICARE, OTHER ==
[2024-09-11] MEDS: SODIUM CHLORIDE 0.9% 1,000 ML IV STA (14:32)
[2024-09-11 14:33] LABS: ALT 12 U/L (4-34); African American GFR (CKD) >90 (>60 ml/min/1.73 sqM); Albumin 4.5 g/dL (3.5-5.0); Anion Gap 7 mmol/L; Basophils # (A) 0.1 k/uL (0-0.2); Basophils % (A) 1 %; Blood Urea Nitrogen 7 mg/dL (7-17); Calcium 9.1 mg/dL (8.4-10.2); Carbon Dioxide 22 mmol/L (22-30); Chloride 105 mmol/L (98-107); Eosinophils # (A) 0.1 k/uL (0-0.7); Eosinophils % (A) 1 %; Glucose 94 mg/dL (74-99); HCT 41.7 % (34.0-46.0); HGB 14.5 gm/dL (11.4-16.0); Lipase 35 U/L (23-300); Lymphocytes # (A) 2.3 k/uL (1.0-4.8); Lymphocytes % (A) 19 %; MCH 27.8 pg (25.0-35.0); MCHC 34.6 g/dL (31.0-37.0); MCV 80.1 fL (80.0-100.0); Mean Platelet Volume 7.9; Monocytes # (A) 1.2 k/uL (0-1.0); Monocytes % (A) 10 %; Neutrophils # (A) 8.4 k/uL (1.3-7.7); Neutrophils % (A) 68 %; Non-African American GFR(CKD) >90 (>60 ml/min/1.73 sqM); Platelet Count 234 k/uL (150-450); RBC 5.21 m/uL (3.80-5.40); RDW 15.4 % (11.5-15.5); Sodium 134 mmol/L (137-145); Total Bilirubin 0.6 mg/dL (0.2-1.3); Total Protein 7.3 g/dL (6.3-8.2); WBC 12.3 k/uL (3.8-10.6)
[2024-09-11 14:41] LABS: AST 21 U/L (14-36); Alkaline Phosphatase 80 U/L (38-126); Magnesium 1.7 mg/dL (1.6-2.3); Potassium 4.1 mmol/L (3.5-5.1)
[2024-09-11 14:42] LABS: INR 1.2 (<1.2); Prothrombin Time 12.5 sec (10.0-12.5)
[2024-09-11] MEDS: diphenhydrAMINE 50 MG/ML 1 ML VIAL IVP STA (14:42)
[2024-09-11] MEDS: METOCLOPRAMIDE 5 MG/ML 2 ML VIAL IVP STA (14:42)
[2024-09-11 14:47] LABS: Partial Thromboplastin Time 21.2 sec (22.0-30.0)
--- NOTE | 2024-09-11 15:38 | XR ---
EXAMINATION TYPE: XR chest 2V DATE OF EXAM: 09/11/2024 COMPARISON: 10/25/2023 INDICATION: Chest pain TECHNIQUE: Frontal and lateral views of the chest are obtained. FINDINGS: The heart size is normal. The pulmonary vasculature is normal. The lungs are clear. Sternotomy wires are in the midline Scoliosis within the thoracic spine. IMPRESSION: 1. No acute pulmonary process. [facility], Workstation: [facility], 09/11/2024 3:35 PM
--- NOTE | 2024-09-11 15:55 | ED ---
Chest Pain HPI - General Chief Complaint: Chest Pain Stated Complaint: vomiting Time Seen by Provider: 09/11/24 13:58 Source: patient, RN notes reviewed Mode of arrival: ambulatory Limitations: no limitations - History of Present Illness Initial Comments: 39-year-old female presents emergency department complaint abdominal pain, chest pain. Patient states that she been getting sick throughout the night states that she is having increasing burning in her chest but also states she has right-sided abdominal pain. Patient states that she did have some shortness of breath that is resolved she states she is lightheaded and dizzy. Patient denies any prior abdominal surgeries denies any flank pain no dysuria denies any chance - Related Data Home Medications Medication Instructions Recorded Confirmed FLUoxetine HCL [PROzac Weekly] 90 mg PO TU 08/27/17 07/30/23 Montelukast [Singulair] 10 mg PO HS 06/28/20 07/30/23 Loratadine [Claritin] 10 mg PO DAILY 03/22/21 07/30/23 levETIRAcetam [Keppra] 250 mg PO BID 09/04/21 07/30/23 risperiDONE [RisperDAL] 1 mg PO HS 09/04/21 07/30/23 Ergocalciferol (Vitamin D2) 1,250 mcg PO QMONTHLY 10/25/21 07/30/23 [Drisdol (50,000 Iu)] Acetaminophen [Tylenol Extra 500 mg PO BID 07/30/23 07/30/23 Strength] Albuterol Sulfate Nebulizer 0.083 inhalation INHALATION QID PRN 07/30/23 Ibuprofen [Motrin] 800 mg PO BID 07/30/23 07/30/23 Mesalamine [Pentasa] 1,000 mg PO QID 07/30/23 07/30/23 Mirtazapine [Remeron] 30 mg PO HS 07/30/23 07/30/23 Omeprazole [PriLOSEC] 40 mg PO DAILY 07/30/23 07/30/23 QUEtiapine FUMARATE [SEROquel] 300 mg PO HS 07/30/23 07/30/23 rOPINIRole HCL [Requip] 0.25 mg PO TID 07/30/23 07/30/23 Advair Inhaler 1 dose INHALATION DIRECTED PRN 07/31/23 Albuterol Sulfate [Proair 1 puff INHALATION DIRECTED PRN 07/31/23 07/31/23 Respiclick] Previous Rx's Medication Instructions Recorded Ibuprofen [Motrin] 600 mg PO Q8HR PRN #20 tab 08/23/23 Nitrofurantoin Monohyd/M-Cryst 100 mg PO Q12HR 5 Days #10 cap 10/25/23 [Macrobid] Allergies Allergy/AdvReac Type Severity Reaction Status Date / Time venom-honey bee Allergy Anaphylaxis Verified 10/25/23 14:16 codeine AdvReac Itching Verified 10/25/23 14:16 Review of Systems ROS Statement: Those systems with pertinent positive or pertinent negative responses have been documented in the HPI. ROS Other: All systems not noted in ROS Statement are negative. EKG Findings - EKG Comments: EKG Findings:: EKG performed at 14: 10 sinus rhythm rate of 70 DE 202 QRS 87 QT/QTc 400/421 - EKG Results: EKG: interpreted by [facility] Past Medical History Past Medical History: Asthma, Heart Failure, GERD/Reflux, Seizure Disorder Additional Past Medical History / Comment(s): HEART VALVE REPLACEMENT @ 3 YRS OLD. , HX GI PROB FOR YEARS, HIATAL HERNIA. 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 , DEAF RIGHT EAR. , UNABLE TO READ History of Any Multi-Drug Resistant Organisms: ESBL Date of last positivie culture/infection: 05/31/22 MDRO Source:: ESBL URINE Past Surgical History: Ear Surgery, Hernia Repair, Orthopedic Surgery Additional Past Surgical History / Comment(s): RT Foot Surgery; Open Heart Surg @ 3 YRS OLD, VALVE REPLACED. EXC BRAIN TUMOR. HIATAL HERNIA REPAIR. RT EARDRUM REPAIRED. Past Anesthesia/Blood Transfusion Reactions: No Reported Reaction Past Psychological History: ADD/ADHD, Anxiety Smoking Status: Current every day smoker Past Alcohol Use History: None Reported Past Drug Use History: None Reported - Past Family History Father Family Medical History: No Reported History Additional Family Medical History / Comment(s): Mother Family Medical History: No Reported History Additional Family Medical History / Comment(s): General Exam Limitations: no limitations General appearance: alert, in no apparent distress Head exam: Present: atraumatic, normal inspection. Absent: normocephalic Eye exam: Present: normal appearance, PERRL, EOMI. Absent: scleral icterus, conjunctival injection, periorbital swelling ENT exam: Present: normal exam, mucous membranes moist Neck exam: Present: normal inspection, full ROM. Absent: tenderness, meningismus, lymphadenopathy Respiratory exam: Present: normal lung sounds bilaterally. Absent: respiratory distress, wheezes, rales, rhonchi, stridor Cardiovascular Exam: Present: regular rate, normal rhythm, normal heart sounds. Absent: systolic murmur, diastolic murmur, rubs, gallop, clicks GI/Abdominal exam: Present: soft, tenderness, normal bowel sounds. Absent: distended, guarding, rebound, rigid Neurological exam: Present: alert Skin exam: Present: warm, dry, intact, normal color. Absent: rash Course Vital Signs 09/11/24 09/11/24 13:47 14:47 Temperature 97.8 F Pulse Rate 89 73 Respiratory 18 20 Rate Blood Pressure 118/78 110/73 O2 Sat by Pulse 95 96 Oximetry Chest Pain MDM - MDM Was pt. sent in by a medical professional or institution (, PA, MEDIC TECHNICIAN, urgent care, hospital, or snf...) When possible be specific @ -No Did you speak to anyone other than the patient for history (EMS, parent, family, police, friend...)? What history was obtained from this source @ -No Did you review nursing and triage notes (agree or disagree)? Why? @ -I reviewed and agree with nursing and triage notes Were old charts reviewed (outside hosp., previous admission, EMS record, old EKG, old radiological studies, urgent care reports/EKG's, snf records)? Report findings @ -No old charts were reviewed Differential Diagnosis (chest pain, altered mental status, abdominal pain women, abdominal pain men, vaginal bleeding, weakness, fever, dyspnea, syncope, headache, dizziness, GI bleed, back pain, seizure, CVA, palpatations, mental health, musculoskeletal)? @ -Differential Abdominal Pain Women: Appendicitis, Cholecystitis, diverticulosis, ischemic bowel, pancreatitis, hepatitis, UTI, gastroenteritis, AAA, incarcerated hernia, bowel obstruction, constipation, inflammatory bowel, hepatitis, peptic ulcer disease, splenic infarction, perforated viscus, vulvitis, ovarian torsion, PID, kidney stone, placenta abruption, this is not meant to be an all-inclusive list EKG interpreted by me (3pts min.). @ -As above X-rays interpreted by me (1pt min.). @ -Chest x-ray shows no acute cardiopulmonary process CT interpreted by me (1pt min.). @ -CT abdomen pelvis showing right ovarian cyst, gastroenteritis type changes U/S interpreted by me (1pt. min.). @ -None done What testing was considered but not performed or refused? (CT, X-rays, U/S, labs)? Why? @ -None What meds were considered but not given or refused? Why? @ -None Did you discuss the management of the patient with other professionals (professionals i.e. , PA, MEDIC TECHNICIAN, lab, RT, psych nurse, director of social work, rug setter velvet, teacher, campus police officer, casey saw operator)? Give summary @ -No Was smoking cessation discussed for >3mins.? @ -No Was critical care preformed (if so, how long)? @ -No Were there social determinants of health that impacted care today? How? (Homelessness, low income, unemployed, alcoholism, drug addiction, transportation, low edu. Level, literacy, decrease access to med. care, halfway, rehab)? @ -No Was there de-escalation of care discussed even if they declined (Discuss DNR or withdrawal of care, Hospice)? DNR status @ -No What co-morbidities impacted this encounter? (DM, HTN, Smoking, COPD, CAD, Cancer, CVA, ARF, Chemo, Hep., AIDS, mental health diagnosis, sleep apnea, morbid obesity)? @ -None Was patient admitted / discharged? Hospital course, mention meds given and route, prescriptions, significant lab abnormalities, going to OR and other pertinent info. @ -AMA -patient presented for abdominal pain, substernal chest pain nausea vomiting. Patient has gastroenteritis. Patient did have minimally elevated troponin recommended the patient to be admitted for heparin, repeat troponin, echocardiogram, cardiology evaluation is concerning for NSTEMI. Patient refuses states that she has no current symptoms. Understands risk of leaving could lead to . I recommend at least need for second troponin patient refuses and signed AGAINST MEDICAL ADVICE Undiagnosed new problem with uncertain prognosis? @ -No Drug Therapy requiring intensive monitoring for toxicity (Heparin, Nitro, Insulin, Cardizem)? @ -No Were any procedures done? @ -No Diagnosis/symptom? @ -Elevated troponin, gastroenteritis Acute, or Chronic, or Acute on Chronic? @ -Acute Uncomplicated (without systemic symptoms) or Complicated (systemic symptoms)? @ -Complicated Side effects of treatment? @ -No Exacerbation, Progression, or Severe Exacerbation? @ -No Poses a threat to life or bodily function? How? (Chest pain, [place], [place], pneumonia, PE, COPD, DKA, ARF, appy, cholecystitis, CVA, Diverticulitis, Homicidal, Suicidal, threat to staff... and all critical care pts) @ -Yes ACS cardiac arrest Disposition Clinical Impression: Gastroenteritis, Elevated troponin Disposition: LEFT AGAINST MEDICAL ADVICE Referrals: Denise Vasquez MD [Primary Care Provider] - 1-2 days Time of Disposition: 16:16
--- NOTE | 2024-09-11 16:04 | CT ---
EXAMINATION TYPE: CT abdomen pelvis w con DATE OF EXAM: 09/11/2024 COMPARISON: 06/26/2019 INDICATION: heartburn and vomiting that began last night. States she has vomited five times since night. DLP: 458.9 mGycm, Automated exposure control for dose reduction was used. CONTRAST: 70ml mL of Isovue 300. Study performed without Oral Contrast TECHNIQUE: Axial images were obtained from above the diaphragm to the pubic rami in the axial plane a t 5 mm thick sections. Reconstructed images are reviewed on the computer in the coronal plane. FINDINGS: Limited CT sections are obtained the lung bases. Minimal bilateral pleural effusions are present.. CT ABDOMEN: Liver: Normal Spleen: Normal Pancreas: Normal Adrenal glands: The adrenal glands are normal. Gallbladder: Normal Kidneys: No masses are evident. No hydronephrosis is present. No cysts are present. No renal stone s evident. Aorta: Unremarkable. Inferior vena cava: Normal. CT PELVIS: Loops of bowel within the abdomen and pelvis are normal. This study is without oral contrast limi ting bowel evaluation. There appears be some fluid within the colon. Mild fluid is within the small b owel loops consider gastroenteritis Appendix: Identified. No dilated tubular structure or inflammatory change is evident. Urinary bladder: Normal. Genitourinary structures: Right ovarian cysts present measuring 2.5 and 2.4 cm in size. Left adnexa a ppears unremarkable. Uterus appears normal. Osseous structures: No suspicious lytic or sclerotic lesions. IMPRESSION: 1. Right ovarian cysts. 2. Scattered small bowel and colon loops with fluid. Consider gastroenteritis. [facility], Workstation: [facility], 09/11/2024 4:02 PM
[2024-09-11] MEDS ORDERED: HEPARIN SODIUM 1,000 UN/ML (10ML VL) IV PRN (16:08)
[2024-09-11] MEDS ORDERED: HEPARIN SODIUM 1,000 UN/ML (10ML VL) IV ONE (16:08)
[2024-09-11] MEDS ORDERED: HEPARIN SOD,PORK IN 0.45% NACL 25,000 UNIT in 0.45% NACL 1 250ML.BAG IV SCH (16:15)
[2024-09-11 16:32] VITALS: BP 118/55; PULSE 72; RESP 16; TEMP 98
== END 2024-09-11 16:20 | disposition left against medical advice (07) ==
LOC: SUPCPDRO 13:42 → EC 13:42
CPT/HCPCS: 36415; 71046; 74177; 80053; 83690; 83735; 84484; 85025; 85610; 85730; 93005; 96361; 96374; 96375; 99285

== ENCOUNTER 2024-09-11 19:05 | Inpatient (IN) | payer MEDICARE, OTHER ==
--- NOTE | 2024-09-11 19:44 | ED ---
Nausea/Vomiting/Diarrhea HPI - General Source: patient, EMS, RN notes reviewed Mode of arrival: EMS <Stephanie Brown - Last Filed: 09/11/24 20:20> <Errol Meek - Last Filed: 09/13/24 07:29> - General Chief complaint: Nausea/Vomiting/Diarrhea Stated complaint: Acid reflux Time Seen by Provider: 09/11/24 19:25 - History of Present Illness Initial comments: 39-year-old female with past medical history of congestive heart failure present ing for heartburn x 5 days with associated nausea, vomiting, and right-sided abdominal pain. Patient was evaluated in the ER earlier today where she was told her troponin was elevated and recommended admission for possible NSTEMI. Patient reports she left AMA, however when she got home she continued to experience the heartburn and she decided to return for admission. Denies blood thinners. Denies history of heart attacks in the past. She does have a history of a heart valve replacement as a child. (Stephanie Brown) - Related Data Home Medications Medication Instructions Recorded Confirmed FLUoxetine HCL [PROzac Weekly] 90 mg PO Q7D 08/27/17 09/12/24 Montelukast [Singulair] 10 mg PO HS 06/28/20 09/12/24 Loratadine [Claritin] 10 mg PO DAILY 03/22/21 09/12/24 risperiDONE [RisperDAL] 1 mg PO HS 09/04/21 09/12/24 Ergocalciferol (Vitamin D2) 1,250 mcg PO QMONTHLY 10/25/21 09/12/24 [Drisdol (50,000 Iu)] Acetaminophen [Tylenol Extra 500 mg PO BID 07/30/23 09/12/24 Strength] Mirtazapine [Remeron] 30 mg PO HS 07/30/23 09/12/24 Omeprazole [PriLOSEC] 40 mg PO DAILY 07/30/23 09/12/24 QUEtiapine FUMARATE [SEROquel] 300 mg PO HS 07/30/23 09/12/24 Albuterol Sulfate [Albuterol 1 - 2 puff PO RT-QID PRN 09/12/24 09/12/24 Sulfate Hfa] Dicyclomine [Bentyl] 20 mg PO QID 09/12/24 09/12/24 EPINEPHrine (Auto Inject) [Epipen] 0.3 mg IM ONCE PRN 09/12/24 09/12/24 Famotidine [Pepcid] 20 mg PO DAILY 09/12/24 09/12/24 Fluticasone Nasal [place] [Flonase 1 spray EA NOSTRIL DAILY PRN 09/12/24 09/12/24 Nasal [place]] Furosemide [Lasix] 20 mg PO DAILY 09/12/24 09/12/24 Mesalamine [Mesalamine ER] 1.5 gm PO DAILY 09/12/24 09/12/24 Midazolam [Nayzilam] 1 spray NASAL DIRECTED PRN 09/12/24 09/12/24 Ondansetron [Zofran] 4 mg PO Q12HR PRN 09/12/24 09/12/24 Potassium Chloride ER [K-Dur 20] 20 meq PO DAILY 09/12/24 09/12/24 levETIRAcetam [Keppra] 500 mg PO BID 09/12/24 09/12/24 rOPINIRole HCL [Requip] 0.5 mg PO HS 09/12/24 09/12/24 Allergies Allergy/AdvReac Type Severity Reaction Status Date / Time milk Allergy Anaphylaxis Verified 09/12/24 09:27 venom-honey bee Allergy Anaphylaxis Verified 09/12/24 09:27 codeine AdvReac Itching Verified 09/12/24 09:27 egg AdvReac Diarrhea Verified 09/12/24 09:27 Review of Systems ROS Other: All systems not noted in ROS Statement are negative. <Stephanie Brown - Last Filed: 09/11/24 20:20> ROS Other: All systems not noted in ROS Statement are negative. <Errol Meek - Last Filed: 09/13/24 07:29> ROS Statement: Those systems with pertinent positive or pertinent negative responses have been documented in the HPI. 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 , HX GI PROB FOR YEARS, HIATAL HERNIA. 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 , DEAF RIGHT EAR. , UNABLE TO READ History of Any Multi-Drug Resistant Organisms: ESBL Date of last positivie culture/infection: 05/31/22 MDRO Source:: ESBL URINE Past Surgical History: Ear Surgery, Hernia Repair, Orthopedic Surgery Additional Past Surgical History / Comment(s): RT Foot Surgery; Open Heart Surg @ 3 YRS OLD, VALVE REPLACED. EXC BRAIN TUMOR. HIATAL HERNIA REPAIR. RT EARDRUM REPAIRED. Past Anesthesia/Blood Transfusion Reactions: No Reported Reaction Past Psychological History: ADD/ADHD, Anxiety Smoking Status: Current every day smoker Past Alcohol Use History: None Reported Past Drug Use History: None Reported - Past Family History Father Family Medical History: No Reported History Additional Family Medical History / Comment(s): Mother Family Medical History: No Reported History Additional Family Medical History / Comment(s): <Stephanie Brown - Last Filed: 09/11/24 20:20> General Exam General appearance: alert, in no apparent distress Head exam: Present: atraumatic, normocephalic, normal inspection Eye exam: Present: normal appearance, PERRL, EOMI. Absent: scleral icterus, conjunctival injection, periorbital swelling Neck exam: Present: normal inspection. Absent: tenderness, meningismus, lymphadenopathy Respiratory exam: Present: normal lung sounds bilaterally. Absent: respiratory distress, wheezes, rales, rhonchi, stridor Cardiovascular Exam: Present: regular rate, normal rhythm, normal heart sounds. Absent: systolic murmur, diastolic murmur, rubs, gallop, clicks GI/Abdominal exam: Present: soft, normal bowel sounds. Absent: distended, tenderness, guarding, rebound, rigid Neurological exam: Present: alert, oriented X3 Psychiatric exam: Present: normal affect, normal mood Skin exam: Present: warm, dry, intact, normal color. Absent: rash <Stephanie Brown - Last Filed: 09/11/24 20:20> Course Vital Signs 09/11/24 09/11/24 19:15 20:35 Temperature 98.3 F Pulse Rate 82 75 Respiratory 16 14 Rate Blood Pressure 111/67 107/69 O2 Sat by Pulse 97 97 Oximetry Medical Decision Making - EKG Data -: EKG Interpreted by Me <Stephanie Brown - Last Filed: 09/11/24 20:20> - Lab Data Result diagrams: 09/12/24 09:43 09/12/24 09:43 <FantasmaErrol - Last Filed: 09/13/24 07:29> - Medical Decision Making Was pt. sent in by a medical professional or institution (, MARLON, RAM CAR OPERATOR, urgent care, hospital, or snf...) When possible be specific @ -No Did you speak to anyone other than the patient for history (EMS, parent, family, police, friend...)? What history was obtained from this source @ -No Did you review nursing and triage notes (agree or disagree)? Why? @ -I reviewed and agree with nursing and triage notes Were old charts reviewed (outside hosp., previous admission, EMS record, old EKG, old radiological studies, urgent care reports/EKG's, snf records)? Report findings @ -ER note from earlier today reviewed including lab work, CT abdomen pelvis, and chest x-ray Differential Diagnosis (chest pain, altered mental status, abdominal pain women, abdominal pain men, vaginal bleeding, weakness, fever, dyspnea, syncope, headache, dizziness, GI bleed, back pain, seizure, CVA, palpatations, mental health, musculoskeletal)? @ -Differential Chest Pain: Stable Angina, Unstable Angina, STEMI, NSTEMI Aortic Dissection, Pneumothorax, Musculoskeletal, Esophageal Spasm GERD, Cholecystitis, Pancreatitis, Zoster, this is not meant to be an all-inclusive list. EKG interpreted by me (3pts min.). @ -As above X-rays interpreted by me (1pt min.). @ -None done CT interpreted by me (1pt min.). @ -None done U/S interpreted by me (1pt. min.). @ -None done What testing was considered but not performed or refused? (CT, X-rays, U/S, labs)? Why? @ -Chest x-ray deferred due to chest x-ray performed several hours ago at previous ER visit What meds were considered but not given or refused? Why? @ -None Did you discuss the management of the patient with other professionals (professionals i.e. MARLON Green, RAM CAR OPERATOR, lab, RT, psych nurse, social service worker, song and dance performer, teacher, artillery officer, pillowcase cleaner)? Give summary @ -I spoke with Dr. Balbuena who accepts admission for NSTEMI with consultation to cardiology Was smoking cessation discussed for >3mins.? @ -No Was critical care preformed (if so, how long)? @ -No Were there social determinants of health that impacted care today? How? (Homelessness, low income, unemployed, alcoholism, drug addiction, transpo rtation, low edu. Level, literacy, decrease access to med. care, fpc, rehab)? @ -No Was there de-escalation of care discussed even if they declined (Discuss DNR or withdrawal of care, Hospice)? DNR status @ -No What co-morbidities impacted this encounter? (DM, HTN, Smoking, COPD, CAD, Cancer, CVA, ARF, Chemo, Hep., AIDS, mental health diagnosis, sleep apnea, morbid obesity)? @ -None Was patient admitted / discharged? Hospital course, mention meds given and route, prescriptions, significant lab abnormalities, going to OR and other pertinent info. @ -Admitted. This is a 39-year-old female presenting for heartburn x 5 days with associated nausea, vomiting and chest pain. Patient was seen in ER earlier today for same symptoms and had an elevated troponin level. It was recommended at that time that patient was admitted and started on IV heparin. Patient left AGAINST MEDICAL ADVICE. Patient decided to come back as she continued to experience symptoms. EKG reveals normal sinus rhythm with no ST changes. Repeat CBC, CBC, coags, troponin were ordered. Patient was given loading dose a spirin and nitroglycerin and started on low-dose IV heparin. I spoke with Dr. Balbuena who accepts admission for NSTEMI with consultation to cardiology. Case was discussed with my ED attending Dr. Meek. Undiagnosed new problem with uncertain prognosis? @ -No Drug Therapy requiring intensive monitoring for toxicity (Heparin, Nitro, Insulin, Cardizem)? @ -Yes, heparin Were any procedures done? @ -No Diagnosis/symptom? @ -NSTEMI, chest pain Acute, or Chronic, or Acute on Chronic? @ -Acute Uncomplicated (without systemic symptoms) or Complicated (systemic symptoms)? @ -Complicated Side effects of treatment? @ -No Exacerbation, Progression, or Severe Exacerbation? @ -No Poses a threat to life or bodily function? How? (Chest pain, [place], [place], pneumonia, PE, COPD, DKA, ARF, appy, cholecystitis, CVA, Diverticulitis, Homicidal, Suicidal, threat to staff... and all critical care pts) @ -Yes (Stephanie Brown) - Lab Data Lab Results 09/11/24 09/11/24 09/11/24 Range/Units 19:45 19:45 19:45 WBC 9.9 (3.8-10.6) k/uL RBC 4.58 (3.80-5.40) m/uL Hgb 12.1 (11.4-16.0) gm/dL Hct 37.1 (34.0-46.0) % MCV 81.2 (80.0-100.0) fL MCH 26.5 (25.0-35.0) pg MCHC 32.7 (31.0-37.0) g/dL RDW 15.0 (11.5-15.5) % Plt Count 236 (150-450) k/uL MPV 7.6 Neutrophils % 67 % Lymphocytes % 19 % Monocytes % 10 % Eosinophils % 1 % Basophils % 0 % Neutrophils # 6.6 (1.3-7.7) k/uL Lymphocytes # 1.9 (1.0-4.8) k/uL Monocytes # 1.0 (0-1.0) k/uL Eosinophils # 0.1 (0-0.7) k/uL Basophils # 0.0 (0-0.2) k/uL PT 12.8 H (10.0-12.5) sec INR 1.2 H (<1.2) APTT 22.2 (22.0-30.0) sec Sodium (137-145) mmol/L Potassium (3.5-5.1) mmol/L Chloride (98-107) mmol/L Carbon Dioxide (22-30) mmol/L Anion Gap mmol/L BUN (7-17) mg/dL Creatinine (0.52-1.04) mg/dL Est GFR (CKD-EPI)AfAm (>60 ml/min/1.73 sqM) Est GFR (CKD-EPI)NonAf (>60 ml/min/1.73 sqM) Glucose (74-99) mg/dL Calcium (8.4-10.2) mg/dL Total Bilirubin (0.2-1.3) mg/dL AST (14-36) U/L ALT (4-34) U/L Alkaline Phosphatase (38-126) U/L Troponin I 0.037 H* (0.000-0.034) ng/mL Total Protein (6.3-8.2) g/dL Albumin (3.5-5.0) g/dL 09/11/24 Range/Units 19:45 WBC (3.8-10.6) k/uL RBC (3.80-5.40) m/uL Hgb (11.4-16.0) gm/dL Hct (34.0-46.0) % MCV (80.0-100.0) fL MCH (25.0-35.0) pg MCHC (31.0-37.0) g/dL RDW (11.5-15.5) % Plt Count (150-450) k/uL MPV Neutrophils % % Lymphocytes % % Monocytes % % Eosinophils % % Basophils % % Neutrophils # (1.3-7.7) k/uL Lymphocytes # (1.0-4.8) k/uL Monocytes # (0-1.0) k/uL Eosinophils # (0-0.7) k/uL Basophils # (0-0.2) k/uL PT (10.0-12.5) sec INR (<1.2) APTT (22.0-30.0) sec Sodium 137 (137-145) mmol/L Potassium 4.4 (3.5-5.1) mmol/L Chloride 112 H (98-107) mmol/L Carbon Dioxide 24 (22-30) mmol/L Anion Gap 1 mmol/L BUN 5 L (7-17) mg/dL Creatinine 0.46 L (0.52-1.04) mg/dL Est GFR (CKD-EPI)AfAm >90 (>60 ml/min/1.73 sqM) Est GFR (CKD-EPI)NonAf >90 (>60 ml/min/1.73 sqM) Glucose 77 (74-99) mg/dL Calcium 7.9 L (8.4-10.2) mg/dL Total Bilirubin 0.4 (0.2-1.3) mg/dL AST 19 (14-36) U/L ALT 10 (4-34) U/L Alkaline Phosphatase 60 (38-126) U/L Troponin I (0.000-0.034) ng/mL Total Protein 5.8 L (6.3-8.2) g/dL Albumin 3.4 L (3.5-5.0) g/dL - EKG Data EKG Comments: EKG reveals normal sinus rhythm with no ST changes. Ventricular rate 70 bpm, GA interval 207, QRS duration 86, QT/QTc 404/425 (Stephanie Brown) Disposition Time of Disposition: 20:19 <Stephanie Brown - Last Filed: 09/11/24 20:20> <Errol Meek - Last Filed: 09/13/24 07:29> Clinical Impression: Non-ST elevation [place] (NSTEMI) Disposition: ADMITTED IP TO THIS HOSP
[2024-09-11] MEDS: ASPIRIN 81 MG PO STA (20:11)
[2024-09-11] MEDS: NITROGLYCERIN SL TABS 0.4 MG TAB SUBLINGUAL STA (20:12)
[2024-09-11] MEDS ORDERED: ONDANSETRON 4 MG/2 ML VIAL IVP PRN (20:16)
[2024-09-11] MEDS ORDERED: NALOXONE 0.4 MG/ML 1 ML VIAL IV PRN (20:16)
[2024-09-11] MEDS: HEPARIN SOD,PORK IN 0.45% NACL 25,000 UNIT in 0.45% NACL 1 250ML.BAG IV SCH (20:18)
[2024-09-11] MEDS: HEPARIN SODIUM 1,000 UN/ML (10ML VL) IV ONE (20:19)
[2024-09-11 20:28] LABS: Basophils % (A) 0 %; Eosinophils # (A) 0.1 k/uL (0-0.7); Eosinophils % (A) 1 %; HCT 37.1 % (34.0-46.0); HGB 12.1 gm/dL (11.4-16.0); Lymphocytes # (A) 1.9 k/uL (1.0-4.8); Lymphocytes % (A) 19 %; MCH 26.5 pg (25.0-35.0); MCHC 32.7 g/dL (31.0-37.0); MCV 81.2 fL (80.0-100.0); Mean Platelet Volume 7.6; Monocytes % (A) 10 %; Neutrophils # (A) 6.6 k/uL (1.3-7.7); Neutrophils % (A) 67 %; Platelet Count 236 k/uL (150-450); RBC 4.58 m/uL (3.80-5.40); WBC 9.9 k/uL (3.8-10.6)
[2024-09-11 20:34] LABS: INR 1.2 (<1.2); Partial Thromboplastin Time 22.2 sec (22.0-30.0); Prothrombin Time 12.8 sec (10.0-12.5)
[2024-09-11 21:06] LABS: ALT 10 U/L (4-34); African American GFR (CKD) >90 (>60 ml/min/1.73 sqM); Albumin 3.4 g/dL (3.5-5.0); Anion Gap 1 mmol/L; Blood Urea Nitrogen 5 mg/dL (7-17); Calcium 7.9 mg/dL (8.4-10.2); Carbon Dioxide 24 mmol/L (22-30); Chloride 112 mmol/L (98-107); Glucose 77 mg/dL (74-99); Non-African American GFR(CKD) >90 (>60 ml/min/1.73 sqM); Sodium 137 mmol/L (137-145); Total Bilirubin 0.4 mg/dL (0.2-1.3); Total Protein 5.8 g/dL (6.3-8.2)
[2024-09-11 21:13] LABS: AST 19 U/L (14-36); Alkaline Phosphatase 60 U/L (38-126); Potassium 4.4 mmol/L (3.5-5.1)
[2024-09-11] MEDS ORDERED: levETIRAcetam 500 MG TAB PO SCH (22:17)
[2024-09-11] MEDS: MONTELUKAST 10 MG TAB PO SCH (22:29)
[2024-09-11] MEDS: MIRTAZAPINE 15 MG TAB PO SCH (22:29)
[2024-09-11] MEDS: levETIRAcetam 500 MG TAB PO SCH (22:29)
[2024-09-11] MEDS: risperiDONE 1 MG TAB PO SCH (22:29)
[2024-09-11] MEDS: QUEtiapine 100 MG TAB PO SCH (22:30)
[2024-09-11] MEDS: levETIRAcetam 250 MG TAB PO SCH (22:37)
[2024-09-12] MEDS: HEPARIN SODIUM 1,000 UN/ML (10ML VL) IV PRN (03:35)
[2024-09-12] MEDS: PANTOPRAZOLE 40 MG TABLET PO SCH (07:33)
[2024-09-12] MEDS ORDERED: ALPRAZolam 0.25 MG TAB PO PRN (09:19)
[2024-09-12] MEDS ORDERED: ALPRAZolam 0.5 MG TAB PO PRN (09:19)
[2024-09-12] MEDS ORDERED: NITROGLYCERIN SL TABS 0.4 MG TAB SUBLINGUAL PRN (09:19)
[2024-09-12 10:18] LABS: HCT 34.6 % (34.0-46.0); HGB 11.5 gm/dL (11.4-16.0); MCH 27.7 pg (25.0-35.0); MCHC 33.3 g/dL (31.0-37.0); MCV 83.1 fL (80.0-100.0); Mean Platelet Volume 7.6; Platelet Count 231 k/uL (150-450); RBC 4.16 m/uL (3.80-5.40); RDW 15.3 % (11.5-15.5); WBC 7.9 k/uL (3.8-10.6)
[2024-09-12 10:28] LABS: African American GFR (CKD) >90 (>60 ml/min/1.73 sqM); Anion Gap 2 mmol/L; Blood Urea Nitrogen 6 mg/dL (7-17); Calcium 8.1 mg/dL (8.4-10.2); Carbon Dioxide 22 mmol/L (22-30); Chloride 114 mmol/L (98-107); Glucose 88 mg/dL (74-99); Non-African American GFR(CKD) >90 (>60 ml/min/1.73 sqM); Potassium 3.8 mmol/L (3.5-5.1); Sodium 138 mmol/L (137-145); Total Protein 5.3 g/dL (6.3-8.2)
[2024-09-12 10:29] LABS: ALT 11 U/L (4-34); AST 16 U/L (14-36); Alkaline Phosphatase 66 U/L (38-126); Total Bilirubin 0.2 mg/dL (0.2-1.3)
[2024-09-12] MEDS: ASPIRIN 81 MG PO SCH (10:59)
--- NOTE | 2024-09-12 11:49 | P.CRDCN ---
History of Present Illness History of present illness: HISTORY OF PRESENT ILLNESS: This is a 39-year-old female with a past medical history significant for developmental disability, ADD/anxiety, valve replacement at 3 years old, and seizure disorder. Patient does not follow with a first beater. We have been asked to see the patient in consultation for chest pain. Patient examined at the bedside. Patient initially presented to the hospital yesterday for evaluation of chest pain. Patient states that she was having pain that she describes as heartburn. She denied any radiation of the pain. Denied feeling shortness of breath. The patient was found to have an elevated troponin of 0.04. Apparently, the patient left AMA because she had to feed her cats. She presented back to the hospital with ongoing chest discomfort. She was started on IV heparin. At the time of examination, she denies any chest pain or pressure. She denies any history of coronary artery disease. She does report having open heart surgery when she was 3 years old to have one of her valves replaced but she is unsure of which one or why this needed to be replaced. The patient is a current cigarette smoker and smokes half a pack per day. She states that she lives alone but she does have a legal guardian. She also states she does not drive due to her seizure history. DIAGNOSTICS: - EKG reveals sinus mechanism with T wave inversions in V1V3. - Chest xray negative for acute process - Laboratory data: WBC 7.9. Hemoglobin 11.5. Platelet count 231. Sodium 138. Potassium 3.8. BUN 6. Creatinine 0.63. Troponin 0.037. 0.032. 0.026. - Current home cardiac medications include Lasix 20 mg daily - No previous echocardiogram, stress test, or cardiac catheterization available in EMR for review REVIEW OF SYSTEMS: At the time of my exam: CONSTITUTIONAL: Denies fever or chills. HEENT: Denies blurred vision, vision changes, or eye pain. Denies hemoptysis CARDIOVASCULAR: Denies chest pain. Denies orthopnea. Denies PND. Denies palpitations RESPIRATORY: Denies shortness of breath. GASTROINTESTINAL: Denies abdominal pain. Denies nausea or vomiting. HEMATOLOGIC: Denies bleeding disorders. GENITOURINARY: Denies any blood in urine. SKIN: Denies pruitis. Denies rash. PHYSICAL EXAM: VITAL SIGNS: Reviewed. GENERAL: Well-developed in no acute distress. HEENT: Head is normocephalic. Pupils are equal, round. Sclerae anicteric. Mucous membranes of the mouth are moist. Neck supple. No JVD or thyromegaly LUNGS: Respirations even and unlabored. Lungs essentially clear to auscultation bilaterally. HEART: Regular rate and rhythm. S1 and S2 heard. ABDOMEN: Soft. Nondistended. Nontender. EXTREMITIES: Normal range of motion. No clubbing or cyanosis. Peripheral pulses intact. No lower extremity edema NEUROLOGIC: Awake and alert. Oriented x 3. ASSESSMENT: Chest pain Non-STEMI History of valve replacement at 3 years old, details unknown History of seizure disorder Developmental dysplasia History of ADD History of anxiety Nicotine dependence, patient smokes 1/2 pack per day PLAN: Obtain 2D echo to assess cardiac structure and function Continue IV heparin Add aspirin and atorvastatin Check lipid panel and hemoglobin A1c Continue Nitropaste N.p.o. at midnight Patient to undergo cardiac catheterization tomorrow with Dr. Gibson Smoking cessation recommended. Patient to be referred to [place] quit line upon discharge Further recommendations pending patient course Nurse practitioner note has been reviewed by physician. Signing provider agrees with the documented findings, assessment, and plan of care documented by NETWORK CONSULTANT as a scribe. 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 , HX GI PROB FOR YEARS, HIATAL HERNIA. 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 , UNABLE TO READ History of Any Multi-Drug Resistant Organisms: ESBL Date of last positivie culture/infection: 05/31/22 MDRO Source:: ESBL URINE Past Surgical History: Ear Surgery, Hernia Repair, Orthopedic Surgery Additional Past Surgical History / Comment(s): RT Foot Surgery; Open Heart Surg @ 3 YRS OLD, VALVE REPLACED. EXC BRAIN TUMOR. HIATAL HERNIA REPAIR. RT EARDRUM REPAIRED. Past Anesthesia/Blood Transfusion Reactions: No Reported Reaction Past Psychological History: ADD/ADHD, Anxiety Additional Psychological History / Comment(s): FROM HEALTH HX AT [facility]- ANXIETY DISORDER , PAST HX OF INTERMITTENT EXPLOSIVE DISORDER AND PHYSICAL AGGRESION. Smoking Status: Current every day smoker Past Alcohol Use History: None Reported Additional Past Alcohol Use History / Comment(s): smokes 1/2 ppd , started smoking age 18 Past Drug Use History: None Reported - Past Family History Father Family Medical History: No Reported History Additional Family Medical History / Comment(s): Mother Family Medical History: No Reported History Additional Family Medical History / Comment(s): Medications and Allergies Home Medications Medication Instructions Recorded Confirmed Type FLUoxetine HCL [PROzac Weekly] 90 mg PO Q7D 08/27/17 09/12/24 History Montelukast [Singulair] 10 mg PO HS 06/28/20 09/12/24 History Loratadine [Claritin] 10 mg PO DAILY 03/22/21 09/12/24 History risperiDONE [RisperDAL] 1 mg PO HS 09/04/21 09/12/24 History Ergocalciferol (Vitamin D2) 1,250 mcg PO QMONTHLY 10/25/21 09/12/24 History [Drisdol (50,000 Iu)] Acetaminophen [Tylenol Extra 500 mg PO BID 07/30/23 09/12/24 History Strength] Mirtazapine [Remeron] 30 mg PO HS 07/30/23 09/12/24 History Omeprazole [PriLOSEC] 40 mg PO DAILY 07/30/23 09/12/24 History QUEtiapine FUMARATE [SEROquel] 300 mg PO HS 07/30/23 09/12/24 History Albuterol Sulfate [Albuterol 1 - 2 puff PO RT-QID PRN 09/12/24 09/12/24 History Sulfate Hfa] Dicyclomine [Bentyl] 20 mg PO QID 09/12/24 09/12/24 History EPINEPHrine (Auto Inject) [Epipen] 0.3 mg IM ONCE PRN 09/12/24 09/12/24 History Famotidine [Pepcid] 20 mg PO DAILY 09/12/24 09/12/24 History Fluticasone Nasal [place] [Flonase 1 spray EA NOSTRIL DAILY PRN 09/12/24 09/12/24 History Nasal [place]] Furosemide [Lasix] 20 mg PO DAILY 09/12/24 09/12/24 History Mesalamine [Mesalamine ER] 1.5 gm PO DAILY 09/12/24 09/12/24 History Midazolam [Nayzilam] 1 spray NASAL DIRECTED PRN 09/12/24 09/12/24 History Ondansetron [Zofran] 4 mg PO Q12HR PRN 09/12/24 09/12/24 History Potassium Chloride ER [K-Dur 20] 20 meq PO DAILY 09/12/24 09/12/24 History levETIRAcetam [Keppra] 500 mg PO BID 09/12/24 09/12/24 History rOPINIRole HCL [Requip] 0.5 mg PO HS 09/12/24 09/12/24 History Allergies Allergy/AdvReac Type Severity Reaction Status Date / Time milk Allergy Anaphylaxis Verified 09/12/24 09:27 venom-honey bee Allergy Anaphylaxis Verified 09/12/24 09:27 codeine AdvReac Itching Verified 09/12/24 09:27 egg AdvReac Diarrhea Verified 09/12/24 09:27 Physical Exam Vitals: Vital Signs Temp Pulse Pulse Resp BP BP Pulse Ox 09/12/24 08:00 98.6 F 75 16 98/61 97 09/12/24 03:38 78 17 97/56 96 09/11/24 23:14 71 17 108/60 97 09/11/24 21:24 98.0 F 70 17 107/64 98 09/11/24 20:35 75 14 107/69 97 09/11/24 19:15 98.3 F 82 16 111/67 97 Intake and Output 09/11/24 09/12/24 09/12/24 22:59 06:59 14:59 Intake Total 27.813 Balance 27.813 Intake: Intake, IV Titration 27.813 Amount Heparin Sod,Pork in 0.45% 27.813 NaCl 25,000 unit In 0.45 % NaCl 1 250ml.bag @ 12 UNITS/KG/HR 3.81 mls/hr IV .Q24H [facility] Rx#: [id number] Other: Voiding Method Toilet Toilet # Voids 2 # Bowel Movements 1 Weight 31.751 kg 35.2 kg Results 09/12/24 09:43 09/12/24 09:43 Cardiac Enzymes 09/11/24 09/11/24 09/11/24 Range/Units 19:45 19:45 22:32 AST 19 (14-36) U/L Troponin I 0.037 H* 0.032 (0.000-0.034) ng/mL 09/12/24 Range/Units 02:24 AST (14-36) U/L Troponin I 0.026 (0.000-0.034) ng/mL Coagulation 09/11/24 09/12/24 Range/Units 19:45 02:24 PT 12.8 H (10.0-12.5) sec APTT 22.2 29.3 (22.0-30.0) sec CBC 09/11/24 Range/Units 19:45 WBC 9.9 (3.8-10.6) k/uL RBC 4.58 (3.80-5.40) m/uL Hgb 12.1 (11.4-16.0) gm/dL Hct 37.1 (34.0-46.0) % Plt Count 236 (150-450) k/uL Comprehensive Metabolic Panel 09/11/24 Range/Units 19:45 Sodium 137 (137-145) mmol/L Potassium 4.4 (3.5-5.1) mmol/L Chloride 112 H (98-107) mmol/L Carbon Dioxide 24 (22-30) mmol/L BUN 5 L (7-17) mg/dL Creatinine 0.46 L (0.52-1.04) mg/dL Glucose 77 (74-99) mg/dL Calcium 7.9 L (8.4-10.2) mg/dL AST 19 (14-36) U/L ALT 10 (4-34) U/L Alkaline Phosphatase 60 (38-126) U/L Total Protein 5.8 L (6.3-8.2) g/dL Albumin 3.4 L (3.5-5.0) g/dL Current Medications Generic Name Dose Route Start Last Admin Trade Name Freq PRN Reason Stop Dose Admin Acetaminophen 650 mg 09/11/24 20:16 Acetaminophen Tab 325 Mg Tab PO Q6HR PRN Mild Pain or Fever > 100.5 Heparin Sodium (Porcine) 0 unit 09/11/24 19:43 09/12/24 03:35 Heparin Sodium 1,000 Un/Ml (10ml Vl) IV 1,587 unit PER PROTOCOL PRN Administration Low PTT Protocol Heparin Sodium/Sodium Chloride 250 mls @ 3.81 mls/hr 09/11/24 19:45 09/12/24 03:36 25,000 unit/ Sodium Chloride IV 15 units/kg/hr .Q24H [facility] 4.763 mls/hr Titration Protocol 12 UNITS/KG/HR Levetiracetam 500 mg 09/11/24 22:24 09/12/24 07:33 Levetiracetam 500 Mg Tab PO 500 mg BID NUPUR Administration Mirtazapine 30 mg 09/11/24 22:15 09/11/24 22:29 Mirtazapine 15 Mg Tab PO 30 mg HS UNPUR Administration Montelukast Sodium 10 mg 09/11/24 22:15 09/11/24 22:29 Montelukast 10 Mg Tab PO 10 mg HS NUPUR Administration Naloxone HCl 0.2 mg 09/11/24 20:16 Naloxone 0.4 Mg/Ml 1 Ml Vial IV Q2M PRN Opioid Reversal Nitroglycerin 0.5 inch 09/12/24 20:31 Nitroglycerin Oint 1 Inch/Gm Packet TOPICAL Q8HR [facility] Ondansetron HCl 4 mg 09/11/24 20:16 Ondansetron 4 Mg/2 Ml Vial IVP Q8HR PRN Nausea And Vomiting Pantoprazole Sodium 40 mg 09/12/24 09:00 09/12/24 07:33 Pantoprazole 40 Mg Tablet PO 40 mg DAILY NUPUR Administration Quetiapine Fumarate 300 mg 09/11/24 22:30 09/11/24 22:30 Quetiapine 100 Mg Tab PO 300 mg HS NUPUR Administration Risperidone 1 mg 09/11/24 22:15 09/11/24 22:29 Risperidone 1 Mg Tab PO 1 mg HS NUPUR Administration Intake and Output 09/11/24 09/12/24 09/12/24 22:59 06:59 14:59 Intake Total 27.813 Balance 27.813 Intake: Intake, IV Titration 27.813 Amount Heparin Sod,Pork in 0.45% 27.813 NaCl 25,000 unit In 0.45 % NaCl 1 250ml.bag @ 12 UNITS/KG/HR 3.81 mls/hr IV .Q24H [facility] Rx#: [id number] Other: Voiding Method Toilet Toilet # Voids 2 # Bowel Movements 1 Weight 31.751 kg 35.2 kg 09/11/24 19:45 09/11/24 19:45
--- NOTE | 2024-09-12 13:36 | XR ---
EXAMINATION TYPE: XR chest 1V portable DATE OF EXAM: 09/12/2024 1:07 PM CLINICAL INDICATION: Female, 39 years old with history of chf; PHH COMPARISON: Chest radiographs from 09/11/2024 TECHNIQUE: XR chest 1V portable Frontal view of the chest. FINDINGS: Lungs/Pleura: There is no evidence of pleural effusion, focal consolidation, or pneumothorax. Pulmonary vascularity: Unremarkable. Heart/mediastinum: Cardiomediastinal silhouette is unremarkable. Musculoskeletal: No acute osseous pathology. Scoliosis changes. Sternotomy wires. Other findings: None IMPRESSION: No acute cardiopulmonary disease/process. [facility], , 09/12/2024 1:33 PM
[2024-09-12] MEDS ORDERED: ALBUTEROL NEBULIZED 2.5 MG/3 ML INHALATION PRN (14:12)
[2024-09-12] MEDS ORDERED: FLUTICASONE NASAL 50MCG/SPRAY 16GM BTL EA NOSTRIL PRN (14:14)
[2024-09-12] MEDS: FLUOXETINE HCL 90 MG PO SCH (14:23)
--- NOTE | 2024-09-12 14:24 | P.HPIM ---
History of Present Illness Chief complaint: Chest pain History of present illness; 39-year-old female with a past medical history of asthma, GERD, mood disorder, and seizure disorder presents with complaints of heartburn for the last 5 days. Patient reports she has also had associated symptoms with her heartburn including nausea, vomiting, and right-sided abdominal pain. Of note patient was evaluated in the ER earlier yesterday and found to have elevated troponins and was recommended for admission for possible NSTEMI at that time. Patient however left AMA, but when she got home continued to experience the heartburn decided to return for admission. Patient denies a history of taking blood thinners, having history of heart attacks, but does admit to having a hole in her heart as a child that was prepared surgically at the age of 43 years old. Initial lab work from the ER was significant for WBC 9.9, hemoglobin 12.1, MCV 81.2, PT 12.8, INR 1.2, chloride 112, calcium 7.9, troponin 0.032--> 0.026. EKG done in the ER showed heart rate of 70 bpm, no ST segment elevation or depression seen, no T-wave inversions seen. Sinus rhythm. ER CXR: No acute pulmonary process. ER CT ABD: Right ovarian cysts, and scattered small bowel and colon loops with fluid. Consider gastroenteritis. Patient admitted to internal medicine service REVIEW OF SYSTEMS: Pertinent positives discussed in the HPI. The rest of the 14-point review of systems is negative. PHYSICAL EXAMINATION: GENERAL: The patient is alert and oriented x3, not in any acute distress. Well developed, well nourished. HEENT: Pupils are round and equally reacting to light. EOMI. No scleral icterus. No conjunctival pallor. Normocephalic, atraumatic. No pharyngeal erythema. No thyromegaly. CARDIOVASCULAR: S1 and S2 present. No murmurs, rubs, or gallops. PULMONARY: Chest is clear to auscultation b/l, no wheezing or crackles. ABDOMEN: Soft, nontender, nondistended, normoactive bowel sounds. No palpable organomegaly. MUSCULOSKELETAL: No joint swelling or deformity. EXTREMITIES: No cyanosis, clubbing, or pedal edema. NEUROLOGICAL: Gross neurological examination did not reveal any focal deficits. SKIN: No rashes. Assessment & Plan: Acute: #NSTEMI: Patient initially found to have elevated troponins which have since downtrended Cardiology on consult, plan for cardiac cath today, appreciate further recommendations 2D echo pending Continue heparin drip Continue Nitrostat 0.4 mg sublingual as needed Continue to monitor Chronic: #Asthma: Ventolin HFA inhaler 1 to 2 puffs 4 times daily as needed #GERD: Protonix 40 mg p.o. daily #Mood disorder: Requip 0.5 mg p.o. at bedtime, risperidone 1 mg p.o. at bedtime, mirtazapine 30 mg p.o. nightly #Seizure disorder: Continue Keppra 500 mg p.o. twice daily F: None E: None N: Heart healthy diet A: Normally ambulates at home unassisted DVT ppx: Heparin drip GI ppx: Protonix 40 mg p.o. daily Dispo: Pending medical course John Craig MD PGY-1 FM Dictation was produced using [email or web address] dictation software. please excuse any grammatical, word or spelling errors. 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 , HX GI PROB FOR YEARS, HIATAL HERNIA. 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 , UNABLE TO READ History of Any Multi-Drug Resistant Organisms: ESBL Date of last positivie culture/infection: 05/31/22 MDRO Source:: ESBL URINE Past Surgical History: Ear Surgery, Hernia Repair, Orthopedic Surgery Additional Past Surgical History / Comment(s): RT Foot Surgery; Open Heart Surg @ 3 YRS OLD, VALVE REPLACED. EXC BRAIN TUMOR. HIATAL HERNIA REPAIR. RT EARDRUM REPAIRED. Past Anesthesia/Blood Transfusion Reactions: No Reported Reaction Past Psychological History: ADD/ADHD, Anxiety Additional Psychological History / Comment(s): FROM HEALTH HX AT [facility]- ANXIETY DISORDER , PAST HX OF INTERMITTENT EXPLOSIVE DISORDER AND PHYSICAL AGGRESION. Smoking Status: Current every day smoker Past Alcohol Use History: None Reported Additional Past Alcohol Use History / Comment(s): smokes 1/2 ppd , started smoking age 18 Past Drug Use History: None Reported - Past Family History Father Family Medical History: No Reported History Additional Family Medical History / Comment(s): Mother Family Medical History: No Reported History Additional Family Medical History / Comment(s): Medications and Allergies Home Medications Medication Instructions Recorded Confirmed Type FLUoxetine HCL [PROzac Weekly] 90 mg PO Q7D 08/27/17 09/12/24 History Montelukast [Singulair] 10 mg PO HS 06/28/20 09/12/24 History Loratadine [Claritin] 10 mg PO DAILY 03/22/21 09/12/24 History risperiDONE [RisperDAL] 1 mg PO HS 09/04/21 09/12/24 History Ergocalciferol (Vitamin D2) 1,250 mcg PO QMONTHLY 10/25/21 09/12/24 History [Drisdol (50,000 Iu)] Acetaminophen [Tylenol Extra 500 mg PO BID 07/30/23 09/12/24 History Strength] Mirtazapine [Remeron] 30 mg PO HS 07/30/23 09/12/24 History Omeprazole [PriLOSEC] 40 mg PO DAILY 07/30/23 09/12/24 History QUEtiapine FUMARATE [SEROquel] 300 mg PO HS 07/30/23 09/12/24 History Albuterol Sulfate [Albuterol 1 - 2 puff PO RT-QID PRN 09/12/24 09/12/24 History Sulfate Hfa] Dicyclomine [Bentyl] 20 mg PO QID 09/12/24 09/12/24 History EPINEPHrine (Auto Inject) [Epipen] 0.3 mg IM ONCE PRN 09/12/24 09/12/24 History Famotidine [Pepcid] 20 mg PO DAILY 09/12/24 09/12/24 History Fluticasone Nasal [place] [Flonase 1 spray EA NOSTRIL DAILY PRN 09/12/24 09/12/24 History Nasal [place]] Furosemide [Lasix] 20 mg PO DAILY 09/12/24 09/12/24 History Mesalamine [Mesalamine ER] 1.5 gm PO DAILY 09/12/24 09/12/24 History Midazolam [Nayzilam] 1 spray NASAL DIRECTED PRN 09/12/24 09/12/24 History Ondansetron [Zofran] 4 mg PO Q12HR PRN 09/12/24 09/12/24 History Potassium Chloride ER [K-Dur 20] 20 meq PO DAILY 09/12/24 09/12/24 History levETIRAcetam [Keppra] 500 mg PO BID 09/12/24 09/12/24 History rOPINIRole HCL [Requip] 0.5 mg PO HS 09/12/24 09/12/24 History Allergies Allergy/AdvReac Type Severity Reaction Status Date / Time milk Allergy Anaphylaxis Verified 09/12/24 09:27 venom-honey bee Allergy Anaphylaxis Verified 09/12/24 09:27 codeine AdvReac Itching Verified 09/12/24 09:27 egg AdvReac Diarrhea Verified 09/12/24 09:27 Physical Exam Vitals: Vital Signs Temp Pulse Pulse Resp BP BP Pulse Ox 09/12/24 03:38 78 17 97/56 96 09/11/24 23:14 71 17 108/60 97 09/11/24 21:24 98.0 F 70 17 107/64 98 09/11/24 20:35 75 14 107/69 97 09/11/24 19:15 98.3 F 82 16 111/67 97 Intake and Output 09/11/24 09/12/24 09/12/24 22:59 06:59 14:59 Intake Total 27.813 Balance 27.813 Intake: Intake, IV Titration 27.813 Amount Heparin Sod,Pork in 0.45% 27.813 NaCl 25,000 unit In 0.45 % NaCl 1 250ml.bag @ 12 UNITS/KG/HR 3.81 mls/hr IV .Q24H [facility] Rx#: [id number] Other: Voiding Method Toilet # Voids 2 # Bowel Movements 1 Weight 31.751 kg 35.2 kg Results CBC & Chem 7: 09/12/24 09:43 09/12/24 09:43 Labs: Abnormal Lab Results - Last 24 Hours (Table) 09/11/24 09/11/24 09/11/24 Range/Units 19:45 19:45 19:45 PT 12.8 H (10.0-12.5) sec INR 1.2 H (<1.2) Chloride 112 H (98-107) mmol/L BUN 5 L (7-17) mg/dL Creatinine 0.46 L (0.52-1.04) mg/dL Calcium 7.9 L (8.4-10.2) mg/dL Troponin I 0.037 H* (0.000-0.034) ng/mL Total Protein 5.8 L (6.3-8.2) g/dL Albumin 3.4 L (3.5-5.0) g/dL Thrombosis Risk Factor Assmnt - Choose All That Apply Any of the Below Risk Factors Present?: Yes Each Factor Represents 1 point: Age 41-60 years Other Risk Factors: No Thrombosis Risk Factor Assessment Total Risk Factor Score: 1 Thrombosis Risk Factor Assessment Level: Low Risk
--- NOTE | 2024-09-12 15:10 | CA ---
Transthoracic Echo Report Name: Hortensia Sanchez Age: 39 Gender: F : 1985 Exam Date: 09/12/2024 09:49 Exam Location: [facility] Ht (in): 60 Wt (lb): 77 Ordering Physician: Nicci Bautista Attending/Referring Phys: [id number], Lily Glazier Stained Glass Tiffanie Mendez RDCS Procedure CPT: Indications: LV function, CP, elevated trops Cardiac Hx: Technical Quality: Fair Contrast 1: Total Dose (mL): Contrast 2: Total Dose (mL): MEASUREMENTS (Male / Female) Normal Values 2D ECHO LV Diastolic Diameter PLAX 3.9 cm 4.2 - 5.9 / 3.9 - 5.3 cm LV Systolic Diameter PLAX 2.9 cm IVS Diastolic Thickness 0.7 cm 0.6 - 1.0 / 0.6 - 0.9 cm LVPW Diastolic Thickness 0.8 cm 0.6 - 1.0 / 0.6 - 0.9 cm LV Relative Wall Thickness 0.4 LVOT Diameter 1.7 cm LV Diastolic Volume MOD 4C 72.1 cm??? LV Systolic Volume MOD 4C 23.5 cm??? LV Ejection Fraction MOD 4C 67.4 % LV Cardiac Index MOD 4C 3193.9 cm???/min???m??? LV Diastolic Length 4C 7.0 cm LV Systolic Length 4C 5.2 cm LA Volume 22.3 cm??? 18 - 58 / 22 - 52 cm??? LA Volume Index 18.6 cm???/m??? 16 - 28 cm???/m??? Ascending Aorta Diameter 2.3 cm DOPPLER AV Peak Velocity 121.6 cm/s AV Peak Gradient 5.9 mmHg AV Mean Velocity 79.3 cm/s AV Mean Gradient 2.9 mmHg AV Velocity Time Integral 24.0 cm LVOT Peak Velocity 82.0 cm/s LVOT Peak Gradient 2.7 mmHg LVOT Velocity Time Integral 15.2 cm LVOT Stroke Volume 32.7 cm??? LVOT Stroke Volume Index 26.3 ml/m??? LVOT Cardiac Index 2147.6 cm???/min???m??? AV Area Cont Eq vti 1.4 cm??? AV Area Cont Eq pk 1.5 cm??? MV Area PHT 5.0 cm??? Mitral E Point Velocity 77.1 cm/s Mitral A Point Velocity 66.1 cm/s Mitral E to A Ratio 1.2 MV Deceleration Time 151.2 ms TR Peak Velocity 250.1 cm/s TR Peak Gradient 25.0 mmHg Right Atrial Pressure 5.0 mmHg Pulmonary Artery Systolic Pressu 30.0 mmHg Right Ventricular Systolic Press 30.0 mmHg PV Peak Velocity 101.4 cm/s PV Peak Gradient 4.1 mmHg FINDINGS Left Ventricle Left ventricular ejection fraction is estimated at 55-60 %. Left ventricular cavity size normal. Left ventricular wall thickness normal. No obvious regional wall motion abnormalities. Right Ventricle Mild right ventricular dilatation with reduced function at the apex. Right ventricular systolic pressure within normal limits. Right Atrium Normal right atrial size. Left Atrium Normal left atrial size. Mitral Valve Structurally normal mitral valve. No evidence for mitral valve prolapse. No mitral stenosis. Trace mitral regurgitation. Aortic Valve Trileaflet aortic valve. No aortic valve stenosis or regurgitation. Tricuspid Valve Structurally normal tricuspid valve. No tricuspid stenosis. Mild tricuspid regurgitation. Pulmonic Valve Structurally normal pulmonic valve. No pulmonic stenosis. Moderate pulmonic regurgitation. Pericardium No pericardial effusion. Aorta Normal size aortic root and proximal ascending aorta. CONCLUSIONS Left ventricular ejection fraction 55-60% Mild right ventricular dilation RVSP 30 Mild tricuspid regurgitation Trubulent flow in the RV likely consistent with moderate pulmonic regurgitation however cannot exclude VSD. Consider CARISSA or cardiac MRI if clinically indicated. Previewed by: Dr. Jose Jorge DO (Electronically Signed) Final Date: 12 September 2024 15:09
[2024-09-12 15:17] LABS: Chol/HDL Ratio 4.61 Ratio; LDL Cholesterol,Calculated 84.9 mg/dL (0.0-131.0)
[2024-09-12] MEDS: NITROGLYCERIN OINT 1 INCH/GM PACKET TOPICAL SCH (20:14)
[2024-09-12] MEDS: ATORVASTATIN 80 MG TAB PO SCH (20:16)
[2024-09-13] MEDS: SODIUM CHLORIDE 0.9% 1,000 ML in EMPTY BAG 1 BAG IV SCH (01:36)
[2024-09-13] MEDS: ATORVASTATIN 80 MG TAB PO ONE (06:09)
[2024-09-13] MEDS: LORATADINE 10 MG TAB PO SCH (06:10)
[2024-09-13] MEDS: FAMOTIDINE 20 MG TAB PO SCH (06:10)
[2024-09-13] MEDS: ASPIRIN 325 MG TAB PO ONE (06:10)
[2024-09-13 07:39] LABS: Basophils % (A) 0 %; Eosinophils # (A) 0.1 k/uL (0-0.7); Eosinophils % (A) 1 %; HCT 36.7 % (34.0-46.0); Lymphocytes # (A) 1.7 k/uL (1.0-4.8); Lymphocytes % (A) 20 %; MCH 27.1 pg (25.0-35.0); MCHC 32.7 g/dL (31.0-37.0); Mean Platelet Volume 7.9; Monocytes # (A) 0.7 k/uL (0-1.0); Monocytes % (A) 9 %; Neutrophils # (A) 5.7 k/uL (1.3-7.7); Neutrophils % (A) 67 %; Platelet Count 235 k/uL (150-450); RBC 4.42 m/uL (3.80-5.40); RDW 15.4 % (11.5-15.5); WBC 8.5 k/uL (3.8-10.6)
[2024-09-13 08:06] LABS: African American GFR (CKD) >90 (>60 ml/min/1.73 sqM); Anion Gap 4 mmol/L; Blood Urea Nitrogen 9 mg/dL (7-17); Calcium 8.4 mg/dL (8.4-10.2); Carbon Dioxide 24 mmol/L (22-30); Chloride 110 mmol/L (98-107); Glucose 90 mg/dL (74-99); Non-African American GFR(CKD) >90 (>60 ml/min/1.73 sqM); Potassium 4.7 mmol/L (3.5-5.1); Sodium 138 mmol/L (137-145)
[2024-09-13] MEDS: IV FLUID CONTINUATION 1,000 ML IV ONE (09:49)
[2024-09-13] MEDS: MIDAZOLAM 2 MG/2 ML VIAL IVP ONE (09:53)
[2024-09-13] MEDS: fentaNYL (PF) 50 MCG/ML 2 ML AMP IVP ONE (09:54)
[2024-09-13] MEDS: LIDOCAINE 1% INJ 10MG/ML (20 ML MDV) SQ ONE (09:54)
[2024-09-13] MEDS: VERAPAMIL SYRINGE (5 MG/10 ML) INTRAARTER ONE (09:55)
[2024-09-13] MEDS: HEPARIN SODIUM 1,000 UN/ML (10ML VL) IV ONE (09:59)
[2024-09-13] MEDS: IOPAMIDOL-370 100ML BTL INJ ONE (10:09)
[2024-09-13] MEDS: HEPARIN SODIUM,PORCINE (1 ML) 2,500 UNIT in SODIUM CHLORIDE 0.9% 250 ML IRRIGATION PRN (10:10)
[2024-09-13] MEDS: HEPARIN SODIUM,PORCINE 10,000 UNIT in SODIUM CHLORIDE 0.9% 1,000 ML IRRIGATION PRN (10:10)
[2024-09-13] MEDS: SODIUM CHLORIDE 0.9% 1,000 ML IV SCH ×2 (10:28→11:26)
--- NOTE | 2024-09-13 10:41 | CC ---
CARDIAC CATHETERIZATION REPORT INDICATION: [id number] elevation TX. PROCEDURE NOTE: After obtaining informed consent, left heart catheterization and coronary angiogram were performed via the right radial artery using standard Mayra catheters. The patient tolerated the procedure well without any obvious immediate complications. A TR band was used for hemostasis. Right radial artery access was obtained using Seldinger technique, 6-Kenyan sheath was placed. Catheters and wires were floated into the ascending aorta under fluoroscopic guidance. The patient received verapamil and heparin per protocol. FINDINGS: 1. HEMODYNAMICS: Left ventricular end-diastolic pressure is 8 mm. There is no significant gradient across the aortic valve. 2. LEFT VENTRICULOGRAM: Left ventriculogram is not performed. 3. ANGIOGRAPHIC DATA: a.Right coronary artery: Right coronary artery is a large dominant vessel and is free of significant stenosis. b.Left main coronary artery is a short vessel and is free of significant disease. It divides into left anterior descending coronary artery and circumflex coronary arteries. LAD and its branches and circumflex coronary artery and its branches are free of significant stenosis. CONCLUSION: 1. Normal coronary arteries. 2. Normal left ventricular end-diastolic pressure. PLAN: The patient's chest discomfort is noncardiac in origin and her management is going to be in the form of medical therapy and aggressive risk factor modification. MMODL / IJN: [id number] /
[2024-09-13] MEDS ORDERED: RX INFO: IV CONTRAST WAS GIVEN 1 EACH MISC MISCELLANE PRN (11:05)
--- NOTE | 2024-09-13 12:11 | P.PN ---
Subjective HISTORY OF PRESENT ILLNESS: This is a 39-year-old female with a past medical history significant for developmental disability, ADD/anxiety, valve replacement at 3 years old, and seizure disorder. 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 We have been asked to see the patient in consultation for chest pain. Patient examined at the bedside. Patient initially presented to the hospital yesterday for evaluation of chest pain. Patient states that she was having pain that she describes as heartburn. She denied any radiation of the pain. Denied feeling shortness of breath. The patient was found to have an elevated troponin of 0.04. Appa rently, the patient left AMA because she had to feed her cats. She presented back to the hospital with ongoing chest discomfort. She was started on IV heparin. At the time of examination, she denies any chest pain or pressure. She denies any history of coronary artery disease. She does report having open heart surgery when she was 3 years old to have one of her valves replaced but she is unsure of which one or why this needed to be replaced. The patient is a current cigarette smoker and smokes half a pack per day. She states that she lives alone but she does have a legal guardian. She also states she does not drive due to her seizure history. DIAGNOSTICS: - EKG reveals sinus mechanism with T wave inversions in V1V3. - Chest xray negative for acute process - Laboratory data: WBC 7.9. Hemoglobin 11.5. Platelet count 231. Sodium 138. Potassium 3.8. BUN 6. Creatinine 0.63. Troponin 0.037. 0.032. 0.026. - Current home cardiac medications include Lasix 20 mg daily - No previous echocardiogram, stress test, or cardiac catheterization available in EMR for review 09/13/2024 Patient underwent cardiac catheterization this morning with Dr. Gibson revealing normal coronary arteries and normal left ventricular end-diastolic pressure. Echocardiogram completed revealing ejection fraction 55 to 60%, trace MR, mild TR, and turbulent flow in the RV likely consistent with moderate pulmonic regurgitation however cannot exclude VSD. Patient examined this afternoon. Patient denies any chest pain or pressure. She denies any shortness of breath. Vital signs are stable. She is hoping to be discharged home today. Patient's sister is at the bedside who states that the patient did not have valve replacement surgery when she was a child but had a hole in her heart repaired. PHYSICAL EXAM: VITAL SIGNS: Reviewed. GENERAL: Well-developed in no acute distress. HEENT: Head is normocephalic. Pupils are equal, round. Sclerae anicteric. Mucous membranes of the mouth are moist. Neck supple. No JVD or thyromegaly LUNGS: Respirations even and unlabored. Lungs essentially clear to auscultation bilaterally. HEART: Regular rate and rhythm. S1 and S2 heard. ABDOMEN: Soft. Nondistended. Nontender. EXTREMITIES: Normal range of motion. No clubbing or cyanosis. Peripheral puls es intact. No lower extremity edema NEUROLOGIC: Awake and alert. Oriented x 3. ASSESSMENT: Chest pain Non-STEMI status post cardiac catheterization revealing normal coronary arteries History of heart surgery at 3 years old, sister states to "fix a hole in her heart" History of seizure disorder Developmental delay History of ADD History of anxiety Nicotine dependence, patient smokes 1/2 pack per day PLAN: 2D echo reviewed. No indication for CARISSA at this time. Smoking cessation recommended. Patient to be referred to [place] quit line upon discharge Patient is stable for discharge home today from a cardiac standpoint She is to follow-up in the office with Dr. Gibson Nurse practitioner note has been reviewed by physician. Signing provider agrees with the documented findings, assessment, and plan of care documented by EXECUTIVE LEGAL SECRETARY as a scribe. Objective - Vital Signs Vital signs: Vital Signs Temp 97.9 F 09/13/24 10:46 Pulse 86 09/13/24 11:20 Resp 18 09/13/24 10:46 BP 110/71 09/13/24 11:20 Pulse Ox 97 09/13/24 11:20 FiO2 Intake & Output 09/12/24 09/13/24 09/13/24 18:59 06:59 18:59 Intake Total 1738.007 401.225 150 Balance 1738.007 401.225 150 Weight 35.4 kg Intake: IV 150 Intake, IV Titration 76.007 41.225 Amount Heparin Sod,Pork in 0.45% 76.007 41.225 NaCl 25,000 unit In 0.45 % NaCl 1 250ml.bag @ 12 UNITS/KG/HR 3.81 mls/hr IV .Q24H [facility] Rx#: [id number] Oral 1662 360 Other: Voiding Method Toilet Toilet Toilet # Voids 4 2 - Labs CBC & Chem 7: 10/15/24 07:24 09/13/24 07:24 Labs: Abnormal Lab Results - Last 24 Hours (Table) 09/12/24 09/12/24 09/13/24 Range/Units 09:43 17:50 00:23 APTT 35.1 H 41.1 H (22.0-30.0) sec Chloride (98-107) mmol/L HDL Cholesterol 29.50 L (40.00-60.00) mg/dL 09/13/24 09/13/24 Range/Units 07:24 07:24 APTT 49.6 H (22.0-30.0) sec Chloride 110 H (98-107) mmol/L HDL Cholesterol (40.00-60.00) mg/dL
[2024-09-13] MEDS ORDERED: HALOPERIDOL LACTATE 5 MG/ML 1 ML VIAL IM PRN (16:55)
[2024-09-13] MEDS ORDERED: ALPRAZolam 0.25 MG TAB PO PRN (16:55)
[2024-09-13] MEDS: ACETAMINOPHEN TAB 325 MG TAB PO PRN (17:33)
--- NOTE | 2024-09-13 17:56 | P.PN ---
Subjective Progress Note Date: 09/13/24 Chief complaint: Chest pain History of present illness; 39-year-old female with a past medical history of asthma, GERD, mood disorder, and seizure disorder presents with complaints of heartburn for the last 5 days. Patient reports she has also had associated symptoms with her heartburn including nausea, vomiting, and right-sided abdominal pain. Of note patient was evaluated in the ER earlier yesterday and found to have elevated troponins and was recommended for admission for possible NSTEMI at that time. Patient however left AMA, but when she got home continued to experience the heartburn decided to return for admission. Patient denies a history of taking blood thinners, having history of heart attacks, but does admit to having a hole in her heart as a child that was prepared surgically at the age of 43 years old. Initial lab work from the ER was significant for WBC 9.9, hemoglobin 12.1, MCV 81.2, PT 12.8, INR 1.2, chloride 112, calcium 7.9, troponin 0.032--> 0.026. EKG done in the ER showed heart rate of 70 bpm, no ST segment elevation or depression seen, no T-wave inversions seen. Sinus rhythm. ER CXR: No acute pulmonary process. ER CT ABD: Right ovarian cysts, and scattered small bowel and colon loops with fluid. Consider gastroenteritis. Patient admitted to internal medicine service 09/13/2024 Patient is being followed by cardiology scheduled to undergo cardiac c atheterization today. Patient is afebrile with no reports of chest pain or shortness of breath. Patient is extremely anxious and wants to go home. Currently n.p.o. and will await cardiac catheterization report. Review of systems: Constitutional: No reports of fatigue, fever, or chills Cardiovascular: No reports of chest pain or palpitations Respiratory: No reports of shortness of breath or cough GI: No reports of nausea, vomiting, or diarrhea : No reports of dysuria or retention Neurovascular: No reports of weakness or numbness All medications have been reviewed PHYSICAL EXAMINATION: GENERAL: The patient is alert and oriented x3, anxious. Well developed, thin built, elderly appearing HEENT: Pupils are round and equally reacting to light. EOMI. No scleral icterus. No conjunctival pallor. Normocephalic, atraumatic. No pharyngeal erythema. No thyromegaly. CARDIOVASCULAR: S1 and S2 muffled PULMONARY: Diminished breath sounds bilaterally otherwise chest is clear to auscultation b/l, no wheezing or crackles. ABDOMEN: Soft, thin, scaphoid nontender, nondistended, normoactive bowel sounds. No palpable organomegaly. MUSCULOSKELETAL: No joint swelling or deformity. EXTREMITIES: No cyanosis, clubbing, or pedal edema. NEUROLOGICAL: Gross neurological examination did not reveal any focal deficits. SKIN: No rashes. Assessment : NSTEMI: Status post cardiac catheterization with no intervention today recommending maximizing medical management Hematoma at the right wrist radial site status post cardiac catheterization History of asthma, not in exacerbation GERD History of mood disorder History of seizure disorder GI prophylaxis DVT prophylaxis Full code Plan: Patient is continued on telemetry monitoring although is refusing to wear telemetry. Patient was initially cleared for discharge status post cardiac catheterization recommending maximizing medical management although patient developed a hematoma on the right wrist catheterization site and cardiology recommend monitoring overnight. Patient is extremely anxious and guardian was notified and was reported to stay hospitalized until cleared by cardiology. Will monitor overnight and probable discharge in 24 hours. Monitor the right catheterization site and repeat hemoglobin. The impression and plan of care has been dictated by Judit Mccurdy, Nurse Practitioner as directed. Dr. Yomi MD I have performed a history and examination and MDM of this patient, discussed the same with the dictator, and agree with the dictator's assessment and plan as written ,documented as a scribe. Based on total visit time, I have performed more than 50% of the visit. Objective - Vital Signs Vital signs: Vital Signs Temp 97.8 F 09/13/24 16:25 Pulse 74 09/13/24 16:25 Resp 20 09/13/24 16:25 BP 124/72 09/13/24 16:25 Pulse Ox 97 09/13/24 16:25 FiO2 Intake & Output 09/12/24 09/13/24 09/13/24 18:59 06:59 18:59 Intake Total 1738.007 401.225 268 Balance 1738.007 401.225 268 Weight 35.4 kg Intake: IV 150 Intake, IV Titration 76.007 41.225 Amount Heparin Sod,Pork in 0.45% 76.007 41.225 NaCl 25,000 unit In 0.45 % NaCl 1 250ml.bag @ 12 UNITS/KG/HR 3.81 mls/hr IV .Q24H PENDING [facility] TO [facility] Rx#: [id number] Oral [id number] [id number] Other: Voiding Method Toilet Toilet Toilet # Voids 4 2 2 - Labs CBC & Chem 7: 09/13/24 07:24 09/13/24 07:24 Labs: Abnormal Lab Results - Last 24 Hours (Table) 09/12/24 09/13/24 09/13/24 Range/Units 17:50 00:23 07:24 APTT 35.1 H 41.1 H (22.0-30.0) sec Chloride 110 H (98-107) mmol/L 09/13/24 Range/Units 07:24 APTT 49.6 H (22.0-30.0) sec Chloride (98-107) mmol/L
[2024-09-14 07:57] VITALS: BP 124/76; PULSE 62; RESP 15; TEMP 98.1
--- NOTE | 2024-09-14 09:28 | P.DS ---
Providers Date of admission: 09/11/24 20:18 Expected date of discharge: 09/14/24 Attending physician: Elvira Zuleta MD Consults: 09/11/24 20:16 Consult Physician Urgent Consulting Provider: [facility] Consult Reason/Comments: NSTEMI Do you want consulting provider notified?: Yes Primary care physician: Denise Vasquez [facility] Course: Final diagnosis NSTEMI: Status post cardiac catheterization with no intervention today recommending maximizing medical management Hematoma at the right wrist radial site status post cardiac catheterization, improved History of asthma, not in exacerbation GERD History of mood disorder History of seizure disorder GI prophylaxis DVT prophylaxis Full code Discharge disposition Patient is being discharged in a stable condition with guarded prognosis to home. Patient will follow-up with Dr. Selvin Celaya in the outpatient setting upon discharge. Patient is to continue with current cardiac medications and outpatient follow-up with cardiology as scheduled. Total time taken is greater than 35 minutes. Hospital course This is a 39-year-old female who was recently admitted with chest pain found to have NSTEMI underwent cardiac catheterization and recommending maximizing medical management. Patient was cleared by cardiology although when getting ready for discharge yesterday a hematoma developed in the right wrist radial catheterization site and cardiology recommended monitoring overnight. Patient's hematoma is improved and patient has been cleared by cardiology to follow-up in the outpatient setting in the next 1 to 2 weeks. Guardian was notified and patient will be discharged today. Please refer to cardiology note for further HPI. Patient denies any further chest pain and is extremely anxious and wants to go home. Currently no reports of chest pain, shortness of breath, or palpitations. Patient is afebrile. No reports of nausea or vomiting and patient is tolerating diet. Patient will be discharged home today. Guarded prognosis and high risk for readmissions. Physical exam: Gen: This is a 39-year-old female who is awake, alert and oriented x 3, well- developed, thin build, elderly appearing, cachectic HEENT: Head is atraumatic, normocephalic. Pupils equal, round. Sclerae is anicteric. NECK: Supple. No JVD. No lymphadenopathy. No thyromegaly. LUNGS: Diminished breath sounds bilaterally otherwise clear to auscultation. No wheezes or rhonchi. No intercostal retractions. HEART: S1, S2 are muffled ABDOMEN: Soft. Thin, scaphoid, bowel sounds are present. No masses. No tenderness. EXTREMITIES: No pedal edema. No calf tenderness. NEUROLOGICAL: Patient is awake, alert and oriented x3. Cranial nerves 2 through 12 are grossly intact. Please refer to medication reconciliation sheet for a list of medications. The impression and plan of care has been dictated by Judit Mccurdy, Nurse Practitioner as directed. Dr. Yomi MD I have performed a history and examination and MDM of this patient, discussed the same with the dictator, and agree with the dictator's assessment and plan as written ,documented as a scribe. Based on total visit time, I have performed more than 50% of the visit. Patient Condition at Discharge: Stable Plan - Discharge Summary New Discharge Prescriptions: New Aspirin 81 mg PO DAILY #30 tab Atorvastatin [Lipitor] 80 mg PO HS #30 tab Nitroglycerin Sl Tabs [Nitrostat] 0.4 mg SUBLINGUAL Q5M PRN #20 tab PRN Reason: Chest Pain Continue FLUoxetine HCL [PROzac Weekly] 90 mg PO Q7D Montelukast [Singulair] 10 mg PO HS risperiDONE [RisperDAL] 1 mg PO HS Omeprazole [PriLOSEC] 40 mg PO DAILY QUEtiapine FUMARATE [SEROquel] 300 mg PO HS Mirtazapine [Remeron] 30 mg PO HS Potassium Chloride ER [K-Dur 20] 20 meq PO DAILY EPINEPHrine (Auto Inject) [Epipen] 0.3 mg IM ONCE PRN PRN Reason: Anaphylaxis Midazolam [Nayzilam] 1 spray NASAL DIRECTED PRN PRN Reason: Overdose levETIRAcetam [Keppra] 500 mg PO BID Dicyclomine [Bentyl] 20 mg PO QID Albuterol Sulfate [Albuterol Sulfate Hfa] 1 - 2 puff PO RT-QID PRN PRN Reason: Shortness Of Breath Loratadine [Claritin] 10 mg PO DAILY Ergocalciferol (Vitamin D2) [Drisdol (50,000 Iu)] 1,250 mcg PO QMONTHLY Acetaminophen [Tylenol Extra Strength] 500 mg PO BID Fluticasone Nasal Easley [Flonase Nasal Easley] 1 spray EA NOSTRIL DAILY PRN PRN Reason: Allergy Symptoms Ondansetron [Zofran] 4 mg PO Q12HR PRN PRN Reason: Nausea And Vomiting rOPINIRole HCL [Requip] 0.5 mg PO HS Mesalamine [Mesalamine ER] 1.5 gm PO DAILY Furosemide [Lasix] 20 mg PO DAILY Famotidine [Pepcid] 20 mg PO DAILY Discharge Medication List FLUoxetine HCL [PROzac Weekly] 90 mg PO Q7D 08/27/17 [History] Montelukast [Singulair] 10 mg PO HS 06/28/20 [History] Loratadine [Claritin] 10 mg PO DAILY 03/22/21 [History] risperiDONE [RisperDAL] 1 mg PO HS 09/04/21 [History] Ergocalciferol (Vitamin D2) [Drisdol (50,000 Iu)] 1,250 mcg PO QMONTHLY 10/25/21 [History] Acetaminophen [Tylenol Extra Strength] 500 mg PO BID 07/30/23 [History] Mirtazapine [Remeron] 30 mg PO HS 07/30/23 [History] Omeprazole [PriLOSEC] 40 mg PO DAILY 07/30/23 [History] QUEtiapine FUMARATE [SEROquel] 300 mg PO HS 07/30/23 [History] Albuterol Sulfate [Albuterol Sulfate Hfa] 1 - 2 puff PO RT-QID PRN 09/12/24 [History] Dicyclomine [Bentyl] 20 mg PO QID 09/12/24 [History] EPINEPHrine (Auto Inject) [Epipen] 0.3 mg IM ONCE PRN 09/12/24 [History] Famotidine [Pepcid] 20 mg PO DAILY 09/12/24 [History] Fluticasone Nasal Easley [Flonase Nasal Easley] 1 spray EA NOSTRIL DAILY PRN 09/12/24 [History] Furosemide [Lasix] 20 mg PO DAILY 09/12/24 [History] Mesalamine [Mesalamine ER] 1.5 gm PO DAILY 09/12/24 [History] Midazolam [Nayzilam] 1 spray NASAL DIRECTED PRN 09/12/24 [History] Ondansetron [Zofran] 4 mg PO Q12HR PRN 09/12/24 [History] Potassium Chloride ER [K-Dur 20] 20 meq PO DAILY 09/12/24 [History] levETIRAcetam [Keppra] 500 mg PO BID 09/12/24 [History] rOPINIRole HCL [Requip] 0.5 mg PO HS 09/12/24 [History] Aspirin 81 mg PO DAILY #30 tab 09/13/24 [Rx] Atorvastatin [Lipitor] 80 mg PO HS #30 tab 09/13/24 [Rx] Nitroglycerin Sl Tabs [Nitrostat] 0.4 mg SUBLINGUAL Q5M PRN #20 tab 09/13/24 [Rx] Follow up Appointment(s)/Referral(s): Denise Vasquez MD [Primary Care Provider] - 09/30/24 2:00 pm (Earliest available appointment) Eyal Gibson MD [STAFF PHYSICIAN] - 09/21/24 9:30 am (Thursday) Patient Instructions/Handouts: *Surgery [facility] - After Heart Catheterization - Aquaculture Farm Manager Instructions, Heart Catheterization (DC) Activity/Diet/Wound Care/Special Instructions: Activity related until follow-up Follow-up with primary care provider on discharge Follow up with cardiology in 1 to 2 weeks Continue taking medications as prescribed Continue heart healthy diet Discharge Disposition: HOME SELF-CARE
--- NOTE | 2024-09-14 10:43 | P.PN ---
Subjective HISTORY OF PRESENT ILLNESS: This is a 39-year-old female with a past medical history significant for developmental disability, ADD/anxiety, valve replacement at 3 years old, and seizure disorder. 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 We have been asked to see the patient in consultation for chest pain. Patient examined at the bedside. Patient initially presented to the hospital yesterday for evaluation of chest pain. Patient states that she was having pain that she describes as heartburn. She denied any radiation of the pain. Denied feeling shortness of breath. The patient was found to have an elevated troponin of 0.04. Appa rently, the patient left AMA because she had to feed her cats. She presented back to the hospital with ongoing chest discomfort. She was started on IV heparin. At the time of examination, she denies any chest pain or pressure. She denies any history of coronary artery disease. She does report having open heart surgery when she was 3 years old to have one of her valves replaced but she is unsure of which one or why this needed to be replaced. The patient is a current cigarette smoker and smokes half a pack per day. She states that she lives alone but she does have a legal guardian. She also states she does not drive due to her seizure history. DIAGNOSTICS: - EKG reveals sinus mechanism with T wave inversions in V1V3. - Chest xray negative for acute process - Laboratory data: WBC 7.9. Hemoglobin 11.5. Platelet count 231. Sodium 138. Potassium 3.8. BUN 6. Creatinine 0.63. Troponin 0.037. 0.032. 0.026. - Current home cardiac medications include Lasix 20 mg daily - No previous echocardiogram, stress test, or cardiac catheterization available in EMR for review 09/13/2024 Patient underwent cardiac catheterization this morning with Dr. Gibson revealing normal coronary arteries and normal left ventricular end-diastolic pressure. Echocardiogram completed revealing ejection fraction 55 to 60%, trace MR, mild TR, and turbulent flow in the RV likely consistent with moderate pulmonic regurgitation however cannot exclude VSD. Patient examined this afternoon. Patient denies any chest pain or pressure. She denies any shortness of breath. Vital signs are stable. She is hoping to be discharged home today. Patient's sister is at the bedside who states that the patient did not have valve replacement surgery when she was a child but had a hole in her heart repaired. 09/14/2024 Patients discharge was held yesterday as she developed a small radial hematoma after her TR band was removed. Patient examined this morning the bedside. Patient currently denies chest pain or pressure. She denies shortness of breath. Vital signs are stable. She is anxious to be discharged home this morning. PHYSICAL EXAM: VITAL SIGNS: Reviewed. GENERAL: Well-developed in no acute distress. HEENT: Head is normocephalic. Pupils are equal, round. Sclerae anicteric. Mucous membranes of the mouth are moist. Neck supple. No JVD or thyromegaly LUNGS: Respirations even and unlabored. Lungs essentially clear to auscultation bilaterally. HEART: Regular rate and rhythm. S1 and S2 heard. ABDOMEN: Soft. Nondistended. Nontender. EXTREMITIES: Normal range of motion. No clubbing or cyanosis. Peripheral pulses intact. No lower extremity edema NEUROLOGIC: Awake and alert. Oriented x 3. ASSESSMENT: Chest pain Non-STEMI status post cardiac catheterization revealing normal coronary arteries History of heart surgery at 3 years old, sister states to "fix a hole in her heart" History of seizure disorder Developmental delay History of ADD History of anxiety Nicotine dependence, patient smokes 1/2 pack per day PLAN: Continue current cardiac medications 2D echo reviewed. No indication for CARISSA at this time. Smoking cessation recommended. Patient to be referred to [place] quit line upon discharge Patient is stable for discharge home today from a cardiac standpoint She is to follow-up in the office with Dr. Gibson Nurse practitioner note has been reviewed by physician. Signing provider agrees with the documented findings, assessment, and plan of care documented by SCALE TESTER as a scribe. Objective - Vital Signs Vital signs: Vital Signs Temp 98.1 F 09/14/24 07:10 Pulse 62 09/14/24 07:10 Resp 15 09/14/24 07:10 BP 124/76 09/14/24 07:10 Pulse Ox 97 09/14/24 07:10 FiO2 Intake & Output 09/13/24 09/14/24 09/14/24 18:59 06:59 18:59 Intake Total 508 Balance 508 Weight 35.4 kg Intake: IV 150 Oral 358 Other: Voiding Method Toilet Toilet # Voids 2 1 1 - Labs CBC & Chem 7: 09/13/24 07:24 09/13/24 07:24
--- NOTE | 2024-09-29 10:42 | CDI ---
Documentation Clarification Form Date: 09/29/2024 09:47:45 AM From: Johanna Cantu RN CCDS Phone: [phone] Admit Date: 09/11/2024 08:18:00 PM Patient Name: Hortensia Sanchez Visit Number: [id number] Discharge Date: 09/14/2024 08:55:00 AM ATTENTION: The Clinical Documentation Specialists (CDI) and [facility] Coding Staff appreciate your assistance in clarifying documentation. Please respond to the clarification below the line at the bottom and electronically sign. The CDI & [facility] Coding staff will review the response and follow-up if needed. Please note: Queries are made part of the Legal Health Record. If you have any questions, please contact the author of this message via ITS. Doctor: Eyal Gibson Right wrist radial site hematoma is documented 09/14, DCS and patient had cardiac catheterization, 09/13. Additional clarification is requested regarding the relationship, if any, that exists between the diagnosis and the procedure. Patients Admitting Diagnosis: NSTEMI Post-Operative Diagnosis: Left Heart Catheterization and Coronary Angiogram Procedure performed: Left Heart Catheterization and Coronary Angiogram History/Risk Factors: 39 year old female presents to the ED for chest pain. Patient states that she was having pain described as heart burn. The patient left AMA and came back with ongoing chest pain. Medical History: Open heart surgery when she was [age] years old. Current smoker, Asthma, GERD, Mood disorder and Seizure disorder. 09/12, Clinical Indicators: 09/14, Discharge Summary: Patient was cleared by cardiology although when getting ready for discharge yesterday a hematoma developed in the right wrist radial catheterization site and cardiology recommended monitoring overnight. 09/11 Heparin IV x 1; 09/11 - 09/13 Heparin Sodium/ Sodium Chloride 12 units /kg/hr IV 09/13 Heparin IV Intra operative x 1 bag Treatment: Monitoring overnight What relationship, if any, exists between the diagnosis of [insert dx] and the procedure: [ x ] Right wrist radial site hematoma is a complication of surgical procedure [ ] Right wrist radial site hematoma is an expected outcome of the surgical procedure [ ] Right wrist radial site hematoma is related to heparin not a complication of the procedure [ ] Other please specify ____ [ ] Unable to determine (Template Last Revised: January 2021) MTDD
[2024-09-30] MEDS ORDERED: ERGOCALCIFEROL 1,250 MCG (50,000 IU) CAPSULE PO SCH (09:00)
== END 2024-09-14 08:55 | disposition home or self-care (01) | DRG 281 ==
LOC: EC 19:05 → 3SCARD 20:18
PROVIDERS: ADMIT Internal Medicine; ATTEND Internal Medicine
PROC: B2111ZZ Fluoroscopy of Multiple Coronary Arteries using Low Osmolar Contrast (ICD-10-PCS; 2024-09-13)
PROC: 4A023N7 Measurement of Cardiac Sampling and Pressure, Left Heart, Percutaneous Approach (ICD-10-PCS; principal; 2024-09-13 10:30)
DX: I21.4 Non-ST elevation (NSTEMI) myocardial infarction (principal); L76.32 Postprocedural hematoma of skin and subcutaneous tissue following other procedure; Z95.2 Presence of prosthetic heart valve; I50.9 Heart failure, unspecified; F39 Unspecified mood [affective] disorder; J45.909 Unspecified asthma, uncomplicated; G40.909 Epilepsy, unspecified, not intractable, without status epilepticus; F41.9 Anxiety disorder, unspecified; F17.210 Nicotine dependence, cigarettes, uncomplicated; R62.50 Unspecified lack of expected normal physiological development in childhood; K21.9 Gastro-esophageal reflux disease without esophagitis; Z53.29 Procedure and treatment not carried out because of patient's decision for other reasons; F90.1 Attention-deficit hyperactivity disorder, predominantly hyperactive type; H91.91 Unspecified hearing loss, right ear; N83.201 Unspecified ovarian cyst, right side; F63.81 Intermittent explosive disorder; Y84.0 Cardiac catheterization as the cause of abnormal reaction of the patient, or of later complication, without mention of misadventure at the time of the procedure; Y92.230 Patient room in hospital as the place of occurrence of the external cause; Z79.82 Long term (current) use of aspirin; Z79.899 Other long term (current) drug therapy; Z88.5 Allergy status to narcotic agent
CPT/HCPCS: 36415; 71045; 80048; 80053; 80061; 83036; 84484; 85025; 85027; 85610; 85730; 93005; 93306; 93458; 96365; 99285

== ENCOUNTER 2024-09-26 13:56 | Emergency (ER) | payer MEDICARE, OTHER ==
[2024-09-26 14:13] VITALS: RESP 18
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
[2024-09-26 15:48] VITALS: BP 120/68; PULSE 84; TEMP 98
== END 2024-09-26 17:16 | disposition home or self-care (01) ==
LOC: EC 13:56
CPT/HCPCS: 99283

== ENCOUNTER 2024-10-04 11:36 | Emergency (ER) | payer MEDICARE, OTHER ==
--- NOTE | 2024-10-04 12:04 | ED ---
Nausea/Vomiting/Diarrhea HPI - General Chief complaint: Nausea/Vomiting/Diarrhea Stated complaint: VOMITING Source: patient, RN notes reviewed Mode of arrival: ambulatory Limitations: no limitations - History of Present Illness Initial comments: This is a 39-year-old female with history of GERD and heart failure presenting with nausea, vomiting and abdominal pain starting last night. Patient states abdominal pain mostly around her umbilicus described as intermittent and sque ezing (9 out of 10). Patient also endorses decreased appetite and inability to take daily medication due to vomiting. Patient endorses associated burning sensation in esophagus associated to GERD. Patient denies recent sick contact or abnormal/undercooked food intake. Patient denies history of appendectomy or cholecystectomy. Patient denies fever, chills, fatigue, chest pain, dyspnea, diarrhea, constipation, hematemesis, urinary symptoms. MD complaint: nausea, vomiting, abdominal pain Onset/Timin -: days(s) Description of Vomiting: food contents, watery, bilious Associated Abdominal Pain: Yes Location: periumbilical Radiation: none Severity scale (1-10): 9 Quality: cramping Consistency: intermittent Associated Symptoms: denies other symptoms - Related Data Home Medications Medication Instructions Recorded Confirmed FLUoxetine HCL [PROzac Weekly] 90 mg PO Q7D 08/27/17 09/12/24 Montelukast [Singulair] 10 mg PO HS 06/28/20 09/12/24 Loratadine [Claritin] 10 mg PO DAILY 03/22/21 09/12/24 risperiDONE [RisperDAL] 1 mg PO HS 09/04/21 09/12/24 Ergocalciferol (Vitamin D2) 1,250 mcg PO QMONTHLY 10/25/21 09/12/24 [Drisdol (50,000 Iu)] Acetaminophen [Tylenol Extra 500 mg PO BID 07/30/23 09/12/24 Strength] Mirtazapine [Remeron] 30 mg PO HS 07/30/23 09/12/24 Omeprazole [PriLOSEC] 40 mg PO DAILY 07/30/23 09/12/24 QUEtiapine FUMARATE [SEROquel] 300 mg PO HS 07/30/23 09/12/24 Albuterol Sulfate [Albuterol 1 - 2 puff PO RT-QID PRN 09/12/24 09/12/24 Sulfate Hfa] Dicyclomine [Bentyl] 20 mg PO QID 09/12/24 09/12/24 EPINEPHrine (Auto Inject) [Epipen] 0.3 mg IM ONCE PRN 09/12/24 09/12/24 Famotidine [Pepcid] 20 mg PO DAILY 09/12/24 09/12/24 Fluticasone Nasal Filion [Flonase 1 spray EA NOSTRIL DAILY PRN 09/12/24 09/12/24 Nasal Filion] Furosemide [Lasix] 20 mg PO DAILY 09/12/24 09/12/24 Mesalamine [Mesalamine ER] 1.5 gm PO DAILY 09/12/24 09/12/24 Midazolam [Nayzilam] 1 spray NASAL DIRECTED PRN 09/12/24 09/12/24 Ondansetron [Zofran] 4 mg PO Q12HR PRN 09/12/24 09/12/24 Potassium Chloride ER [K-Dur 20] 20 meq PO DAILY 09/12/24 09/12/24 levETIRAcetam [Keppra] 500 mg PO BID 09/12/24 09/12/24 rOPINIRole HCL [Requip] 0.5 mg PO HS 09/12/24 09/12/24 Previous Rx's Medication Instructions Recorded Aspirin 81 mg PO DAILY #30 tab 09/13/24 Atorvastatin [Lipitor] 80 mg PO HS #30 tab 09/13/24 Nitroglycerin Sl Tabs [Nitrostat] 0.4 mg SUBLINGUAL Q5M PRN #20 tab 09/13/24 Allergies Allergy/AdvReac Type Severity Reaction Status Date / Time milk Allergy Anaphylaxis Verified 10/04/24 11:38 venom-honey bee Allergy Anaphylaxis Verified 10/04/24 11:38 codeine AdvReac Itching Verified 10/04/24 11:38 egg AdvReac Diarrhea Verified 10/04/24 11:38 Review of Systems ROS Statement: Those systems with pertinent positive or pertinent negative responses have been documented in the HPI. ROS Other: All systems not noted in ROS Statement are negative. 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 , HX GI PROB FOR YEARS, HIATAL HERNIA. 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 , UNABLE TO READ History of Any Multi-Drug Resistant Organisms: ESBL Date of last positivie culture/infection: 05/31/22 MDRO Source:: ESBL URINE Past Surgical History: Ear Surgery, Hernia Repair, Orthopedic Surgery Additional Past Surgical History / Comment(s): RT Foot Surgery; Open Heart Surg @ 3 YRS OLD, VALVE REPLACED. EXC BRAIN TUMOR. HIATAL HERNIA REPAIR. RT EARDRUM REPAIRED. Past Anesthesia/Blood Transfusion Reactions: No Reported Reaction Past Psychological History: ADD/ADHD, Anxiety Smoking Status: Current every day smoker Past Alcohol Use History: None Reported Past Drug Use History: None Reported - Past Family History Father Family Medical History: No Reported History Additional Family Medical History / Comment(s): Mother Family Medical History: No Reported History Additional Family Medical History / Comment(s): General Exam Limitations: no limitations General appearance: alert, in no apparent distress Head exam: Present: atraumatic, normocephalic, normal inspection Eye exam: Present: normal appearance, PERRL, EOMI. Absent: scleral icterus, conjunctival injection, periorbital swelling ENT exam: Present: normal exam, mucous membranes moist Neck exam: Present: normal inspection. Absent: tenderness, meningismus, lymphadenopathy Respiratory exam: Present: normal lung sounds bilaterally. Absent: respiratory distress, wheezes, rales, rhonchi, stridor Cardiovascular Exam: Present: regular rate, normal rhythm, normal heart sounds. Absent: systolic murmur, diastolic murmur, rubs, gallop, clicks GI/Abdominal exam: Present: soft, tenderness (Positive diffuse abdominal tenderness with tympanic tenderness especially in periumbilical region.), guarding (Voluntary), hypoactive bowel sounds. Absent: distended, rebound, rigid Extremities exam: Present: normal inspection, full ROM, normal capillary refill. Absent: tenderness, pedal edema, joint swelling, calf tenderness Back exam: Present: normal inspection Neurological exam: Present: alert, oriented X3, CN II-XII intact Psychiatric exam: Present: normal affect, normal mood Skin exam: Present: warm, dry, intact, normal color. Absent: rash Course Vital Signs 10/04/24 10/04/24 11:39 12:47 Temperature 98.3 F 98.9 F Pulse Rate 91 64 Respiratory 18 16 Rate Blood Pressure 109/69 112/70 O2 Sat by Pulse 94 L 99 Oximetry Medical Decision Making - Medical Decision Making Was pt. sent in by a medical professional or institution (, PA, [employer]ER, urgent care, hospital, or skilled nursing...) When possible be specific @ -[No] Did you speak to anyone other than the patient for history (EMS, parent, family, police, friend...)? What history was obtained from this source @ -[No] Did you review nursing and triage notes (agree or disagree)? Why? @ -[I reviewed and agree with nursing and triage notes] Were old charts reviewed (outside hosp., previous admission, EMS record, old EKG, old radiological studies, urgent care reports/EKG's, skilled nursing records)? Report findings @ -[No old charts were reviewed] Differential Diagnosis (chest pain, altered mental status, abdominal pain women, abdominal pain men, vaginal bleeding, weakness, fever, dyspnea, syncope, headache, dizziness, GI bleed, back pain, seizure, CVA, palpatations, mental health, musculoskeletal)? @ -Differential Abdominal Pain Women: Appendicitis, Cholecystitis, diverticulosis, ischemic bowel, pancreatitis, hepatitis, UTI, gastroenteritis, AAA, incarcerated hernia, bowel obstruction, constipation, inflammatory bowel, hepatitis, peptic ulcer disease, splenic infarction, perforated viscus, vulvitis, ovarian torsion, PID, kidney stone, placenta abruption, this is not meant to be an all-inclusive list EKG interpreted by me (3pts min.). @ -Sinus rhythm without ST changes or T wave inversion. Ventricular rate 83 bpm, SANTI 151 ms, QRS duration 86 ms, QTc 413 ms. X-rays interpreted by me (1pt min.). @ -[None done] CT interpreted by me (1pt min.). @ -[None done] U/S interpreted by me (1pt. min.). @ -[None done] What testing was considered but not performed or refused? (CT, X-rays, U/S, labs)? Why? @ -Patient declined abdominal CT after resolution of symptoms with initial treatment. What meds were considered but not given or refused? Why? @ -[None] Did you discuss the management of the patient with other professionals (professionals i.e. , PA, [employer] INSTALLER, lab, RT, psych nurse, transition social worker, motel keeper, teacher, civil preparedness officer, block and case maker)? Give summary @ -[No] Was smoking cessation discussed for >3mins.? @ -[No] Was critical care preformed (if so, how long)? @ -[No] Were there social determinants of health that impacted care today? How? (Homelessness, low income, unemployed, alcoholism, drug addiction, tr ansportation, low edu. Level, literacy, decrease access to med. care, skilled nursing, rehab)? @ -[No] Was there de-escalation of care discussed even if they declined (Discuss DNR or withdrawal of care, Hospice)? DNR status @ -[No] What co-morbidities impacted this encounter? (DM, HTN, Smoking, COPD, CAD, Canc er, CVA, ARF, Chemo, Hep., AIDS, mental health diagnosis, sleep apnea, morbid obesity)? @ -GERD, heart failure Was patient admitted / discharged? Hospital course, mention meds given and route, prescriptions, significant lab abnormalities, going to OR and other pertinent info. @ -Discharge. Patient started on IV normal saline and given Zofran IV. Patient was scheduled for CT and then states abdominal pain in all other GI symptoms resolved since start of treatment. Patient states she would like to be discharged without any further treatment. Patient discharged with Zofran starter pack. Undiagnosed new problem with uncertain prognosis? @ -[No] Drug Therapy requiring intensive monitoring for toxicity (Heparin, Nitro, Insulin, Cardizem)? @ -[No] Were any procedures done? @ -[No] Diagnosis/symptom? @ -Gastroenteritis Acute, or Chronic, or Acute on Chronic? @ -Acute Uncomplicated (without systemic symptoms) or Complicated (systemic symptoms)? @ -Uncomplicated Side effects of treatment? @ -[No] Exacerbation, Progression, or Severe Exacerbation? @ -[No] Poses a threat to life or bodily function? How? (Chest pain, [place], [place], pneumonia, PE, COPD, DKA, ARF, appy, cholecystitis, CVA, Diverticulitis, Homicidal, Suicidal, threat to staff... and all critical care pts) @ -[No] - Lab Data Result diagrams: 10/04/24 12:18 10/04/24 12:18 Lab Results 10/04/24 10/04/24 10/04/24 Range/Units 12:18 12:18 12:18 WBC 13.1 H (3.8-10.6) k/uL RBC 5.15 (3.80-5.40) m/uL Hgb 13.9 (11.4-16.0) gm/dL Hct 42.3 (34.0-46.0) % MCV 82.1 (80.0-100.0) fL MCH 27.0 (25.0-35.0) pg MCHC 32.9 (31.0-37.0) g/dL RDW 15.2 (11.5-15.5) % Plt Count 286 (150-450) k/uL MPV 7.6 Neutrophils % 67 % Lymphocytes % 19 % Monocytes % 8 % Eosinophils % 3 % Basophils % 1 % Neutrophils # 8.8 H (1.3-7.7) k/uL Lymphocytes # 2.5 (1.0-4.8) k/uL Monocytes # 1.1 H (0-1.0) k/uL Eosinophils # 0.4 (0-0.7) k/uL Basophils # 0.1 (0-0.2) k/uL Sodium 138 (137-145) mmol/L Potassium 3.9 (3.5-5.1) mmol/L Chloride 102 (98-107) mmol/L Carbon Dioxide 29 (22-30) mmol/L Anion Gap 7 mmol/L BUN 4 L (7-17) mg/dL Creatinine 0.65 (0.52-1.04) mg/dL Est GFR (CKD-EPI)AfAm >90 (>60 ml/min/1.73 sqM) Est GFR (CKD-EPI)NonAf >90 (>60 ml/min/1.73 sqM) Glucose 85 (74-99) mg/dL Plasma Lactic Acid [place] 0.7 (0.7-2.0) mmol/L Calcium 9.1 (8.4-10.2) mg/dL Total Bilirubin 0.3 (0.2-1.3) mg/dL AST 23 (14-36) U/L ALT 26 (4-34) U/L Alkaline Phosphatase 142 H (38-126) U/L Troponin I (0.000-0.034) ng/mL Total Protein 6.7 (6.3-8.2) g/dL Albumin 4.0 (3.5-5.0) g/dL Amylase 46 (30-110) U/L Lipase 25 (23-300) U/L Urine Color Urine Appearance (Clear) Urine pH (5.0-8.0) Ur Specific [place] (1.001-1.035) Urine Protein (Negative) Urine Glucose (UA) (Negative) Urine Ketones (Negative) Urine Blood (Negative) Urine Nitrite (Negative) Urine Bilirubin (Negative) Urine Urobilinogen (<2.0) mg/dL Ur Leukocyte Esterase (Negative) Urine WBC (0-5) /hpf Ur Squamous Epith Cells (0-4) /hpf Urine Bacteria (None) /hpf Urine HCG, Qual (Not Detectd) 10/04/24 10/04/24 10/04/24 Range/Units 12:18 12:27 12:27 WBC (3.8-10.6) k/uL RBC (3.80-5.40) m/uL Hgb (11.4-16.0) gm/dL Hct (34.0-46.0) % MCV (80.0-100.0) fL MCH (25.0-35.0) pg MCHC (31.0-37.0) g/dL RDW (11.5-15.5) % Plt Count (150-450) k/uL MPV Neutrophils % % Lymphocytes % % Monocytes % % Eosinophils % % Basophils % % Neutrophils # (1.3-7.7) k/uL Lymphocytes # (1.0-4.8) k/uL Monocytes # (0-1.0) k/uL Eosinophils # (0-0.7) k/uL Basophils # (0-0.2) k/uL Sodium (137-145) mmol/L Potassium (3.5-5.1) mmol/L Chloride (98-107) mmol/L Carbon Dioxide (22-30) mmol/L Anion Gap mmol/L BUN (7-17) mg/dL Creatinine (0.52-1.04) mg/dL Est GFR (CKD-EPI)AfAm (>60 ml/min/1.73 sqM) Est GFR (CKD-EPI)NonAf (>60 ml/min/1.73 sqM) Glucose (74-99) mg/dL Plasma Lactic Acid Grant (0.7-2.0) mmol/L Calcium (8.4-10.2) mg/dL Total Bilirubin (0.2-1.3) mg/dL AST (14-36) U/L ALT (4-34) U/L Alkaline Phosphatase (38-126) U/L Troponin I <0.012 (0.000-0.034) ng/mL Total Protein (6.3-8.2) g/dL Albumin (3.5-5.0) g/dL Amylase (30-110) U/L Lipase (23-300) U/L Urine Color Light Yellow Urine Appearance Cloudy H (Clear) Urine pH 6.0 (5.0-8.0) Ur Specific [place] 1.007 (1.001-1.035) Urine Protein Negative (Negative) Urine Glucose (UA) Negative (Negative) Urine Ketones Negative (Negative) Urine Blood Negative (Negative) Urine Nitrite Negative (Negative) Urine Bilirubin Negative (Negative) Urine Urobilinogen <2.0 (<2.0) mg/dL Ur Leukocyte Esterase Small H (Negative) Urine WBC 3 (0-5) /hpf Ur Squamous Epith Cells 27 H (0-4) /hpf Urine Bacteria Rare H (None) /hpf Urine HCG, Qual Not Detected (Not Detectd) Disposition Clinical Impression: Gastroenteritis Disposition: HOME SELF-CARE Condition: Good Instructions (If sedation given, give patient instructions): Acute Nausea and Vomiting (ED) Is patient prescribed a controlled substance at d/c from ED?: No Referrals: Denise Vasquez MD [Primary Care Provider] - 1-2 days Time of Disposition: 13:42
[2024-10-04] MEDS: SODIUM CHLORIDE 0.9% 1,000 ML IV STA (12:18)
[2024-10-04] MEDS: ONDANSETRON 4 MG/2 ML VIAL IVP STA (12:19)
[2024-10-04] MEDS: FAMOTIDINE 20 MG/2 ML VIAL IV STA (12:21)
[2024-10-04] MEDS: PANTOPRAZOLE 40 MG/10 ML VIAL IVP STA (12:22)
[2024-10-04 12:43] LABS: Basophils # (A) 0.1 k/uL (0-0.2); Basophils % (A) 1 %; Eosinophils # (A) 0.4 k/uL (0-0.7); Eosinophils % (A) 3 %; HCT 42.3 % (34.0-46.0); HGB 13.9 gm/dL (11.4-16.0); Lymphocytes # (A) 2.5 k/uL (1.0-4.8); Lymphocytes % (A) 19 %; MCHC 32.9 g/dL (31.0-37.0); MCV 82.1 fL (80.0-100.0); Mean Platelet Volume 7.6; Monocytes # (A) 1.1 k/uL (0-1.0); Monocytes % (A) 8 %; Neutrophils # (A) 8.8 k/uL (1.3-7.7); Neutrophils % (A) 67 %; Platelet Count 286 k/uL (150-450); RBC 5.15 m/uL (3.80-5.40); RDW 15.2 % (11.5-15.5); WBC 13.1 k/uL (3.8-10.6)
[2024-10-04 12:52] LABS: Appearance,Urine Cloudy (Clear); Bacteria,Urine Rare /hpf; Bilirubin,Urine Negative (Negative); Blood,Urine Negative (Negative); Color,Urine Light Yellow; Glucose,Urine (UA) Negative (Negative); Ketones,Urine Negative (Negative); Leukocyte Esterase,Urine Small (Negative); Nitrite,Urine Negative (Negative); Protein,Urine Negative (Negative); Specific Gravity,Urine 1.007 (1.001-1.035); Squamous Epithelial Cell,Urine 27 /hpf (0-4); Urobilinogen,Urine <2.0 mg/dL (<2.0); WBC,Urine 3 /hpf (0-5)
[2024-10-04 13:03] LABS: ALT 26 U/L (4-34); AST 23 U/L (14-36); African American GFR (CKD) >90 (>60 ml/min/1.73 sqM); Alkaline Phosphatase 142 U/L (38-126); Amylase 46 U/L (30-110); Anion Gap 7 mmol/L; Blood Urea Nitrogen 4 mg/dL (7-17); Calcium 9.1 mg/dL (8.4-10.2); Carbon Dioxide 29 mmol/L (22-30); Chloride 102 mmol/L (98-107); Glucose 85 mg/dL (74-99); Lipase 25 U/L (23-300); Non-African American GFR(CKD) >90 (>60 ml/min/1.73 sqM); Potassium 3.9 mmol/L (3.5-5.1); Sodium 138 mmol/L (137-145); Total Bilirubin 0.3 mg/dL (0.2-1.3); Total Protein 6.7 g/dL (6.3-8.2)
[2024-10-04] MEDS: ONDANSETRON 4 MG ODT STARTER PACK 2 TAB BTL PO STA (14:02)
[2024-10-04 14:04] VITALS: BP 112/70; PULSE 64; RESP 16; TEMP 98.9
== END 2024-10-04 14:16 | disposition home or self-care (01) ==
LOC: EC 11:36
DX: K52.9 Noninfective gastroenteritis and colitis, unspecified (principal); F17.200 Nicotine dependence, unspecified, uncomplicated; I50.9 Heart failure, unspecified; K21.9 Gastro-esophageal reflux disease without esophagitis; Z88.5 Allergy status to narcotic agent; Z91.030 Bee allergy status; Z91.011 Allergy to milk products
CPT/HCPCS: 36415; 80053; 82150; 83605; 83690; 84484; 85025; 81001; 81025; 99284; 96374; 96375 ×2; 96376; 96361; J2405; J3490; S0119; J2470; 99285

== ENCOUNTER 2024-10-18 10:51 | Emergency (ER) | payer MEDICARE, OTHER ==
[2024-10-18 11:05] VITALS: PULSE 99; RESP 18
--- NOTE | 2024-10-18 11:08 | ED ---
Extremity Problem HPI - General Chief complaint: Extremity Problem,Nontraumatic Stated complaint: Bilateral leg swelling Time Seen by Provider: 10/18/24 11:05 Source: patient, RN notes reviewed Mode of arrival: wheelchair Limitations: no limitations - History of Present Illness Initial comments: This is a 39-year-old female with a history of developmental disability, seizure disorder, and valve replacement at 3 years old, who is presenting to the emergency department with the chief complaint of bilateral lower extremity edema and posterior lower extremity pain that started this morning. she denies chest pain, shortness of breath, difficulty breathing, heart palpitations, dizziness, lightheadedness. Denies recent prolonged travel, recent surgeries, history of blood clotting disorders, DVT/PE. Patient states that she has an appointment scheduled with her primary care provider in approximately 1 week with discussion for starting diuretics. patient is a daily smoker. denies blood thinner use. - Related Data Home Medications Medication Instructions Recorded Confirmed FLUoxetine HCL [PROzac Weekly] 90 mg PO Q7D 08/27/17 09/12/24 Montelukast [Singulair] 10 mg PO HS 06/28/20 09/12/24 Loratadine [Claritin] 10 mg PO DAILY 03/22/21 09/12/24 risperiDONE [RisperDAL] 1 mg PO HS 09/04/21 09/12/24 Ergocalciferol (Vitamin D2) 1,250 mcg PO QMONTHLY 10/25/21 09/12/24 [Drisdol (50,000 Iu)] Acetaminophen [Tylenol Extra 500 mg PO BID 07/30/23 09/12/24 Strength] Mirtazapine [Remeron] 30 mg PO HS 07/30/23 09/12/24 Omeprazole [PriLOSEC] 40 mg PO DAILY 07/30/23 09/12/24 QUEtiapine FUMARATE [SEROquel] 300 mg PO HS 07/30/23 09/12/24 Albuterol Sulfate [Albuterol 1 - 2 puff PO RT-QID PRN 09/12/24 09/12/24 Sulfate Hfa] Dicyclomine [Bentyl] 20 mg PO QID 09/12/24 09/12/24 EPINEPHrine (Auto Inject) [Epipen] 0.3 mg IM ONCE PRN 09/12/24 09/12/24 Famotidine [Pepcid] 20 mg PO DAILY 09/12/24 09/12/24 Fluticasone [place] [Flonase 1 spray EA NOSTRIL DAILY PRN 09/12/24 09/12/24 Nas[place]] Furosemide [Lasix] 20 mg PO DAILY 09/12/24 09/12/24 Mesalamine [Mesalamine ER] 1.5 gm PO DAILY 09/12/24 09/12/24 Midazolam [Nayzilam] 1 spray NASAL DIRECTED PRN 09/12/24 09/12/24 Ondansetron [Zofran] 4 mg PO Q12HR PRN 09/12/24 09/12/24 Potassium Chloride ER [K-Dur 20] 20 meq PO DAILY 09/12/24 09/12/24 levETIRAcetam [Keppra] 500 mg PO BID 09/12/24 09/12/24 rOPINIRole HCL [Requip] 0.5 mg PO HS 09/12/24 09/12/24 Previous Rx's Medication Instructions Recorded Aspirin 81 mg PO DAILY #30 tab 09/13/24 Atorvastatin [Lipitor] 80 mg PO HS #30 tab 09/13/24 Nitroglycerin Sl Tabs [Nitrostat] 0.4 mg SUBLINGUAL Q5M PRN #20 tab 09/13/24 Allergies Allergy/AdvReac Type Severity Reaction Status Date / Time milk Allergy Anaphylaxis Verified 10/18/24 11:04 venom-honey bee Allergy Anaphylaxis Verified 10/18/24 11:04 codeine AdvReac Itching Verified 10/18/24 11:04 egg AdvReac Diarrhea Verified 10/18/24 11:04 Review of Systems ROS Statement: Those systems with pertinent positive or pertinent negative responses have been documented in the HPI. ROS Other: All systems not noted in ROS Statement are negative. 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 , HX GI PROB FOR YEARS, HIATAL HERNIA. 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 TAKES CARE OF PTS MEDICATIONS., DEAF RIGHT EAR. , UNABLE TO READ History of Any Multi-Drug Resistant Organisms: ESBL Date of last positivie culture/infection: 05/31/22 MDRO Source:: ESBL URINE Past Surgical History: Ear Surgery, Hernia Repair, Orthopedic Surgery Additional Past Surgical History / Comment(s): RT Foot Surgery; Open Heart Surg @ 3 YRS OLD, VALVE REPLACED. EXC BRAIN TUMOR. HIATAL HERNIA REPAIR. RT EARDRUM REPAIRED. Past Anesthesia/Blood Transfusion Reactions: No Reported Reaction Past Psychological History: ADD/ADHD, Anxiety Smoking Status: Current every day smoker Past Alcohol Use History: None Reported Past Drug Use History: None Reported - Past Family History Father Family Medical History: No Reported History Additional Family Medical History / Comment(s): Mother Family Medical History: No Reported History Additional Family Medical History / Comment(s): General Exam Limitations: no limitations General appearance: alert, in no apparent distress, cachectic Eye exam: Present: normal appearance, PERRL, EOMI. Absent: scleral icterus, conjunctival injection, periorbital swelling Neck exam: Present: normal inspection. Absent: tenderness, meningismus, lymphadenopathy Respiratory exam: Present: normal lung sounds bilaterally. Absent: respiratory distress, wheezes, rales, rhonchi, stridor Cardiovascular Exam: Present: regular rate, normal rhythm, normal heart sounds. Absent: systolic murmur, diastolic murmur, rubs, gallop, clicks GI/Abdominal exam: Present: soft, normal bowel sounds. Absent: distended, tenderness, guarding, rebound, rigid Left Lower Leg exam: Present: tenderness (posterior calf), swelling. Absent: abrasion, ecchymosis, deformity, crepitus, palpable cord Neurovascular tendon exam: Present: no vascular compromise. Absent: pulse deficit, abnormal cap refill Right Lower Leg exam: Present: tenderness (posterior). Absent: ecchymosis, deformity, palpable cord Neurovascular tendon exam: Present: no vascular compromise. Absent: pulse deficit, abnormal cap refill, sensory deficit Back exam: Present: normal inspection Skin exam: Present: warm, dry, intact, normal color. Absent: rash Course Vital Signs 10/18/24 11:04 Temperature 98.2 F Pulse Rate 99 Respiratory 18 Rate Blood Pressure 104/67 O2 Sat by Pulse 99 Oximetry Medical Decision Making - Medical Decision Making Was pt. sent in by a medical professional or institution (MARLON Green, GLOBAL LOGISTICS ANALYST, urgent care, hospital, or halfway...) When possible be specific @ -No Did you speak to anyone other than the patient for history (EMS, parent, family, police, friend...)? What history was obtained from this source @ -No Did you review nursing and triage notes (agree or disagree)? Why? @ -I reviewed and agree with nursing and triage notes Were old charts reviewed (outside hosp., previous admission, EMS record, old EKG, old radiological studies, urgent care reports/EKG's, halfway records)? Report findings @ -No old charts were reviewed Differential Diagnosis (chest pain, altered mental status, abdominal pain women, abdominal pain men, vaginal bleeding, weakness, fever, dyspnea, syncope, headache, dizziness, GI bleed, back pain, seizure, CVA, palpatations, mental health, musculoskeletal)? @ -Differential Musculoskeletal Muscular strain, contusion, ligament sprain, fracture, arthritis, septic arthritis, bursitis, cellulitis, muscle spasm, nerve compression, DVT, arterial occlusion, herpes zoster, electrolyte abnormality, tumor.... This is not meant to be in all inclusive list EKG interpreted by me (3pts min.). @ -None X-rays interpreted by me (1pt min.). @ -None done CT interpreted by me (1pt min.). @ -None done U/S interpreted by me (1pt. min.). @ -Duplex ultrasound bilateral lower extremities negative for DVT What testing was considered but not performed or refused? (CT, X-rays, U/S, labs)? Why? @ -None What meds were considered but not given or refused? Why? @ -None Did you discuss the management of the patient with other professionals (pro fessionals i.e. MARLON Green, GLOBAL LOGISTICS ANALYST, lab, RT, psych nurse, social services technician, it desktop support specialist, teacher, canine enforcement officer, correctional casework specialist)? Give summary @ -No Was smoking cessation discussed for >3mins.? @ -No Was critical care preformed (if so, how long)? @ -No Were there social determinants of health that impacted care today? How? (Homelessness, low income, unemployed, alcoholism, drug addiction, transportation, low edu. Level, literacy, decrease access to med. care, halfway, rehab)? @ -No Was there de-escalation of care discussed even if they declined (Discuss DNR or withdrawal of care, Hospice)? DNR status @ -No What co-morbidities impacted this encounter? (DM, HTN, Smoking, COPD, CAD, Cancer, CVA, ARF, Chemo, Hep., AIDS, mental health diagnosis, sleep apnea, morbid obesity)? @ -None Was patient admitted / discharged? Hospital course, mention meds given and route, prescriptions, significant lab abnormalities, going to OR and other pertinent info. @ -Discharge. 3-year-old female with mild lower extremity edema and pain. On evaluation patient noted to have tenderness palpation of the posterior calves most notable over the left flank. There is mild edema of the left calf. There is no palpable cord. Pulses 2+ bilaterally. There is no signs of erythema or overlying skin changes. Patient provided with dose of pain medication and will be evaluated via ultrasound imaging to rule out DVT. Ultrasound negative bilateral lower extremities. Patient states that she does have a follow-up appointment scheduled with primary care provider next week where they are going to discuss starting patient on a diuretic, Lasix. Patient is given a prescription for compression stockings and will follow-up as scheduled primary care provider for further evaluation. This mental clinical concern for further pathology at this time. All questions have been answered at bedside and strict return parameters have been discussed with the patient and she has verbalized understanding. Case discussed with Dr. Lyon Undiagnosed new problem with uncertain prognosis? @ -No Drug Therapy requiring intensive monitoring for toxicity (Heparin, Nitro, Insulin, Cardizem)? @ -No Were any procedures done? @ -No Diagnosis/symptom? @ -venous insufficiency, pain of lower extremities Acute, or Chronic, or Acute on Chronic? @ -acute Uncomplicated (without systemic symptoms) or Complicated (systemic symptoms)? @ -uncomplicated Side effects of treatment? @ -No Exacerbation, Progression, or Severe Exacerbation? @ -No Poses a threat to life or bodily function? How? (Chest pain, USA, ND, pneumonia, PE, COPD, DKA, ARF, appy, cholecystitis, CVA, Diverticulitis, Homicidal, Suicidal, threat to staff... and all critical care pts) @ -No Disposition Clinical Impression: Lower extremity edema, Venous insufficiency Disposition: HOME SELF-CARE Condition: Good Instructions (If sedation given, give patient instructions): Venous Insufficiency (DC) Additional Instructions: Please return to the Emergency Department if symptoms worsen or any other concerns. Wear compression stockings to aid in lower extremity edema. Follow- up as scheduled with primary care provider next week for further evaluation. Is patient prescribed a controlled substance at d/c from ED?: No Referrals: Denise Vasquez MD [Primary Care Provider] - 1-2 days Time of Disposition: 12:25
[2024-10-18] MEDS: ACETAMINOPHEN TAB 325 MG TAB PO STA (11:21)
--- NOTE | 2024-10-18 12:05 | US ---
EXAMINATION TYPE: US venous doppler duplex LE BI DATE OF EXAM: 10/18/2024 11:59 AM COMPARISON: Prev left leg only CLINICAL INDICATION: Female, 39 years old with history of pain, swelling; Pt states swelling and pain , more to left leg, no known prior DVT, not on blood thinners, TECHNIQUE: The lower extremity deep venous system is examined utilizing real time linear array sonog randy with graded compression, color doppler sonography, and spectral doppler. SIDE PERFORMED: Bilateral FINDINGS: VESSELS IMAGED: Common Femoral Vein Deep Femoral Vein Greater Saphenous Vein * Femoral Vein Popliteal Vein Small Saphenous Vein * Proximal Calf Veins (* superficial vessels) Right Leg: Negative for DVT, Color Doppler imaging shows patency of the vessels. Spectral waveforms are within normal limits. Left Leg: Negative for DVT, Color Doppler imaging shows patency of the vessels. Spectral waveforms a re within normal limits. IMPRESSION: No ultrasound evidence for deep venous thrombosis. [facility], , 10/18/2024 12:03 PM
[2024-10-18 12:50] VITALS: BP 101/71; TEMP 98.1
== END 2024-10-18 12:50 | disposition home or self-care (01) ==
LOC: EC 10:51
DX: I87.2 Venous insufficiency (chronic) (peripheral) (principal); R22.43 Localized swelling, mass and lump, lower limb, bilateral; F17.200 Nicotine dependence, unspecified, uncomplicated; Z88.5 Allergy status to narcotic agent; Z91.030 Bee allergy status; Z91.012 Allergy to eggs; Z91.011 Allergy to milk products
CPT/HCPCS: 93970; 99283

== ENCOUNTER 2025-01-31 19:38 | Emergency (ER) | payer MEDICARE, OTHER ==
[2025-01-31 19:58] VITALS: TEMP 97.3
--- NOTE | 2025-01-31 20:17 | ED ---
General Adult HPI - General Chief complaint: Nausea/Vomiting/Diarrhea Stated complaint: Vomiting Time Seen by Provider: 01/31/25 20:00 Source: patient, EMS, RN notes reviewed, old records reviewed Mode of arrival: EMS Limitations: no limitations - History of Present Illness Initial comments: This is a 39-year-old female who presents to the emergency department stating last 2 days she has been having nausea and vomiting. Patient states she is also experienced some abdominal pain. Patient states she has not had any vomiting in the last hour and she feels much better. Patient states she had a normal bowel movement earlier and that also made her feel much better. Patient denies any abdominal pain at this time. Patient Nuys any fever or chills. Patient states she would rather not have any lab work or any IV fluids because she think she can go home and drink on her own. Patient is asking to go home immediately if she could. - Related Data Home Medications Medication Instructions Recorded Confirmed FLUoxetine HCL [PROzac Weekly] 90 mg PO Q7D 08/27/17 09/12/24 Montelukast [Singulair] 10 mg PO HS 06/28/20 09/12/24 Loratadine [Claritin] 10 mg PO DAILY 03/22/21 09/12/24 risperiDONE [RisperDAL] 1 mg PO HS 09/04/21 09/12/24 Ergocalciferol (Vitamin D2) 1,250 mcg PO QMONTHLY 10/25/21 09/12/24 [Drisdol (50,000 Iu)] Acetaminophen [Tylenol Extra 500 mg PO BID 07/30/23 09/12/24 Strength] Mirtazapine [Remeron] 30 mg PO HS 07/30/23 09/12/24 Omeprazole [PriLOSEC] 40 mg PO DAILY 07/30/23 09/12/24 QUEtiapine FUMARATE [SEROquel] 300 mg PO HS 07/30/23 09/12/24 Albuterol Sulfate [Albuterol 1 - 2 puff PO RT-QID PRN 09/12/24 09/12/24 Sulfate Hfa] Dicyclomine [Bentyl] 20 mg PO QID 09/12/24 09/12/24 EPINEPHrine (Auto Inject) [Epipen] 0.3 mg IM ONCE PRN 09/12/24 09/12/24 Famotidine [Pepcid] 20 mg PO DAILY 09/12/24 09/12/24 Fluticasone Nasal [place] [Flonase 1 spray EA NOSTRIL DAILY PRN 09/12/24 09/12/24 Nasal [place]] Furosemide [Lasix] 20 mg PO DAILY 09/12/24 09/12/24 Mesalamine [Mesalamine ER] 1.5 gm PO DAILY 09/12/24 09/12/24 Midazolam [Nayzilam] 1 spray NASAL DIRECTED PRN 09/12/24 09/12/24 Ondansetron [Zofran] 4 mg PO Q12HR PRN 09/12/24 09/12/24 Potassium Chloride ER [K-Dur 20] 20 meq PO DAILY 09/12/24 09/12/24 levETIRAcetam [Keppra] 500 mg PO BID 09/12/24 09/12/24 rOPINIRole HCL [Requip] 0.5 mg PO HS 09/12/24 09/12/24 Previous Rx's Medication Instructions Recorded Aspirin 81 mg PO DAILY #30 tab 09/13/24 Atorvastatin [Lipitor] 80 mg PO HS #30 tab 09/13/24 Nitroglycerin Sl Tabs [Nitrostat] 0.4 mg SUBLINGUAL Q5M PRN #20 tab 09/13/24 Allergies Allergy/AdvReac Type Severity Reaction Status Date / Time milk Allergy Anaphylaxis Verified 01/31/25 19:52 venom-honey bee Allergy Anaphylaxis Verified 01/31/25 19:52 codeine AdvReac Itching Verified 01/31/25 19:52 egg AdvReac Diarrhea Verified 01/31/25 19:52 Review of Systems ROS Statement: Those systems with pertinent positive or pertinent negative responses have been documented in the HPI. ROS Other: All systems not noted in ROS Statement are negative. 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 , HX GI PROB FOR YEARS, HIATAL HERNIA. 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 , UNABLE TO READ History of Any Multi-Drug Resistant Organisms: ESBL Date of last positivie culture/infection: 05/31/22 MDRO Source:: ESBL URINE Past Surgical History: Ear Surgery, Hernia Repair, Orthopedic Surgery Additional Past Surgical History / Comment(s): RT Foot Surgery; Open Heart Surg @ 3 YRS OLD, VALVE REPLACED. EXC BRAIN TUMOR. HIATAL HERNIA REPAIR. RT EARDRUM REPAIRED. Past Anesthesia/Blood Transfusion Reactions: No Reported Reaction Past Psychological History: ADD/ADHD, Anxiety Smoking Status: Current every day smoker Past Alcohol Use History: None Reported Past Drug Use History: None Reported - Past Family History Father Family Medical History: No Reported History Additional Family Medical History / Comment(s): Mother Family Medical History: No Reported History Additional Family Medical History / Comment(s): General Exam - General Exam Comments Initial Comments: GENERAL: Patient is well-developed and well-nourished. Patient is nontoxic and well- hydrated and is in no acute distress. ENT: Neck is soft and supple. No significant lymphadenopathy is noted. Oropharynx is clear. Moist mucous membranes. Neck has full range of motion without eliciting any pain. EYES: The sclera were anicteric and conjunctiva were pink and moist. Extraocular movements were intact and pupils were equal round and reactive to light. Eyelids were unremarkable. PULMONARY: Unlabored respirations. Good breath sounds bilaterally. No audible rales rhonchi or wheezing was noted. CARDIOVASCULAR: There is a regular rate and rhythm without any murmurs gallops or rubs. ABDOMEN: Soft and nontender with normal bowel sounds. SKIN: Skin is clear with no lesions or rashes and otherwise unremarkable. NEUROLOGIC: Patient is alert and oriented at baseline. Cranial nerves II through XII are grossly intact. Motor and sensory are also intact. Normal speech, volume and content. Symmetrical smile. MUSCULOSKELETAL: Normal extremities with adequate strength and full range of motion. LYMPHATICS: No significant lymphadenopathy is noted PSYCHIATRIC: Normal psychiatric evaluation. Limitations: no limitations Course Vital Signs 01/31/25 19:53 Temperature 97.3 F L Pulse Rate 84 Respiratory 18 Rate Blood Pressure 125/72 O2 Sat by Pulse 97 Oximetry Medical Decision Making - Medical Decision Making Was pt. sent in by a medical professional or institution (, PA, DYE EXPERT, urgent care, hospital, or long term...) When possible be specific @ -No Did you speak to anyone other than the patient for history (EMS, parent, family, police, friend...)? What history was obtained from this source @ -No Did you review nursing and triage notes (agree or disagree)? Why? @ -I reviewed and agree with nursing and triage notes Were old charts reviewed (outside hosp., previous admission, EMS record, old EKG, old radiological studies, urgent care reports/EKG's, long term records)? Report findings @ -No old charts were reviewed Differential Diagnosis? @ -Differential Abdominal Pain Women: Appendicitis, Cholecystitis, diverticulosis, ischemic bowel, pancreatitis, hepatitis, UTI, gastroenteritis, AAA, incarcerated hernia, bowel obstruction, constipation, inflammatory bowel, hepatitis, peptic ulcer disease, splenic infarction, perforated viscus, vulvitis, ovarian torsion, PID, kidney stone, placenta abruption, this is not meant to be an all-inclusive list EKG interpreted by me (3pts min.). @ -As above X-rays interpreted by me (1pt min.). @ -None done CT interpreted by me (1pt min.). @ -None done U/S interpreted by me (1pt. min.). @ -None done What testing was considered but not performed or refused? (CT, X-rays, U/S, labs)? Why? @ -None What meds were considered but not given or refused? Why? @ -None Did you discuss the management of the patient with other professionals (professionals i.e. , PA, DYE EXPERT, lab, RT, psych nurse, social services aide, award clerk, teacher, senior administrative services officer, adult protective caseworker)? Give summary @ -No Was smoking cessation discussed for >3mins.? @ -No Was critical care preformed (if so, how long)? @ -No Were there social determinants of health that impacted care today? How? (Homelessness, low income, unemployed, alcoholism, drug addiction, transportation, low edu. Level, literacy, decrease access to med. care, halfway, rehab)? @ -No Was there de-escalation of care discussed even if they declined (Discuss DNR or withdrawal of care, Hospice)? DNR status @ -No What co-morbidities impacted this encounter? (DM, HTN, Smoking, COPD, CAD, Cancer, CVA, ARF, Chemo, Hep., AIDS, mental health diagnosis, sleep apnea, morbid obesity)? @ -None Was patient admitted / discharged? Hospital course, mention meds given and route, prescriptions, significant lab abnormalities, going to OR and other pertinent info. @ -There was lab work ordered in triage however when I spoke with the patient she stated she was having no more symptoms at this time and wanted to be sent home without any lab work or any fluids. I have verified this a little bit later and she continued to want a go home and continue to have no symptoms so patient will be discharged home. Undiagnosed new problem with uncertain prognosis? @ -No Drug Therapy requiring intensive monitoring for toxicity (Heparin, Nitro, Insulin, Cardizem)? @ -No Were any procedures done? @ -No Diagnosis/symptom? @ -Acute vomiting Acute, or Chronic, or Acute on Chronic? @ -Acute Uncomplicated (without systemic symptoms) or Complicated (systemic symptoms)? @ -Uncomplicated Side effects of treatment? @ -No Exacerbation, Progression, or Severe Exacerbation? @ -No Poses a threat to life or bodily function? How? (Chest pain, [place], AR, pneumonia, PE, COPD, DKA, ARF, appy, cholecystitis, CVA, Diverticulitis, Homicidal, Suicidal, threat to staff... and all critical care pts) @ -No Disposition Clinical Impression: Acute vomiting Disposition: HOME SELF-CARE Condition: Good Instructions (If sedation given, give patient instructions): Acute Nausea and Vomiting (ED) Is patient prescribed a controlled substance at d/c from ED?: No Referrals: Denise Vasquez MD [Primary Care Provider] - 1-2 days Time of Disposition: 20:17
[2025-01-31 20:32] VITALS: BP 119/77; PULSE 88; RESP 16
== END 2025-01-31 20:32 | disposition home or self-care (01) ==
LOC: EC 19:38
DX: R11.2 Nausea with vomiting, unspecified (principal); Z91.012 Allergy to eggs; Z91.011 Allergy to milk products; Z88.5 Allergy status to narcotic agent; Z91.030 Bee allergy status; F17.200 Nicotine dependence, unspecified, uncomplicated
CPT/HCPCS: 99284

== ENCOUNTER → 2025-01-31 | Outpatient (CLI) | payer MEDICARE, OTHER ==
--- NOTE | 2025-01-31 13:15 | US ---
EXAMINATION TYPE: US pelvic complete DATE OF EXAM: 01/31/2025 COMPARISON: US 2018 CLINICAL INDICATION: Female, 39 years old with history of E28.319 EARLY ONSET MENOPAUSE; Irregular pe riods TECHNIQUE: Transabdominal (TA). FINDINGS: Date of LMP: Patient unsure EXAM MEASUREMENTS: Uterus: 7.1 x 3.9 x 4.3 cm Endometrial Stripe: 0.9 cm Right Ovary: 2.3 x 1.7 x 1.7 cm Left Ovary: 2.2 x 1.0 x 1.2 cm 1. Uterus: retroverted 2. Endometrium: appears wnl 3. Right Ovary: 1.2cm dominant follicle 4. Left Ovary: wnl 5. Bilateral Adnexa: wnl 6. Posterior cul-de-sac: wnl Unremarkable retroverted uterus without focal lesion. Endometrium is within normal limits. Both ovari es appear unremarkable with a dominant right ovarian follicle. No free fluid. IMPRESSION: No ultrasound evidence for acute pelvic process. [facility], , 01/31/2025 1:13 PM
--- NOTE | 2025-01-31 18:04 | MM ---
Reason for Exam: Screening (asymptomatic). Patient History: Menarche at age 12. First Full-Term at age 16. Risk Values: Lindsay 5 year model risk: 0.4%. NCI Lifetime model risk: 7.3%. Tissue Density: The breasts are heterogeneously dense, which may obscure small masses. Findings: Analyzed By CAD. No significant mass, suspicious microcalcification, or other discrete abnormality is seen. Overall Assessment: Negative, BI-RAD 1 Management: Screening Mammogram of both breasts in 1 year. Patient should continue monthly self-breast exams. A clinical breast exam by your physician is recommended on an annual basis. This exam should not preclude additional follow-up of suspicious palpable abnormalities. Note on Lindsay scores and lifetime risk: 1. A Lindsay score greater than 3% is considered moderate risk. If this is the case, consider specialist referral to assess eligibility for a risk reducing agent. 2. If overall lifetime risk for the development of breast cancer is 20% or higher, the patient may qualify for future screening with alternating mammogram and breast MRI. [facility], , 01/31/2025 6:01 PM. Electronically signed and approved by: Ashish Choudhury M.D. Radiologist
== END | disposition home or self-care (01) ==
LOC: RADUSWWP 12:16
PROVIDERS: ATTEND Family Medicine
DX: Z12.31 Encounter for screening mammogram for malignant neoplasm of breast (principal); R92.333 Mammographic heterogeneous density, bilateral breasts; E28.319 Asymptomatic premature menopause; J45.20 Mild intermittent asthma, uncomplicated
CPT/HCPCS: 76856; 77063; 77067; 94060; 94726; 94729

== ENCOUNTER → 2025-02-08 | Outpatient (CLI) | payer MEDICARE, OTHER ==
--- NOTE | 2025-02-08 15:56 | XR ---
EXAMINATION TYPE: XR thoracic spine complete, XR lumbosacral spine min 4V DATE OF EXAM: 02/08/2025 3:38 PM COMPARISON: None CLINICAL INDICATION: Female, 39 years old with history of M54.9; PHH, pain TECHNIQUE: XR thoracic spine complete, XR lumbosacral spine min 4V 3 views of the thoracic spine 4 views of the lumbar spine FINDINGS: No evidence of acute fracture. There is no evidence of disk space narrowing or loss of vertebral bod y height. Dextroscoliosis alignment of the vertebral bodies. Guardado angle of 36 degrees of the thoracic spine. No significant sclerosis of the lumbar spine. No significant neural foraminal stenosis or spi nal canal stenosis of the lumbar spine. Gaseous distention of the upper abdomen. Mild degeneration changes with facet joint arthropathy and d isc space narrowing. IMPRESSION: 1. No acute osseous pathology. 2. Mild multilevel degeneration changes of the spine. 3. Scoliosis changes, Guardado angle 36 degrees. [facility], , 02/08/2025 3:53 PM
== END | disposition home or self-care (01) ==
LOC: RADXRMAIN 15:11
PROVIDERS: ATTEND Family Medicine
DX: M47.816 Spondylosis without myelopathy or radiculopathy, lumbar region (principal); M47.814 Spondylosis without myelopathy or radiculopathy, thoracic region; M41.86 Other forms of scoliosis, lumbar region; M41.84 Other forms of scoliosis, thoracic region
CPT/HCPCS: 72072; 72110

== ENCOUNTER 2025-03-31 16:16 | Emergency (ER) | payer MEDICARE, OTHER ==
[2025-03-31] MEDS: BENZONATATE 100 MG CAP PO STA (16:38)
[2025-03-31] MEDS: methylPREDNISolone SOD SUCCI 125 MG/2 ML VIAL IM ONE (16:39)
[2025-03-31] MEDS: OXYMETAZOLINE 0.05% NASL SPRAY 1 SPRAY BOTTLE NASAL STA (16:54)
--- NOTE | 2025-03-31 16:54 | ED ---
URI HPI - General Chief Complaint: Upper Respiratory Infection Stated Complaint: congestion Time Seen by Provider: 03/31/25 16:22 Source: patient, RN notes reviewed Mode of arrival: ambulatory Limitations: no limitations - History of Present Illness Initial Comments: This is a 39-year-old female who presents to the emergency department for coughing and congestion. States that it started yesterday. Cough is mildly productive. Denies any chest pain. She has some shortness of breath if she goes into a coughing fit. Denies any fevers/chills or sick contacts. Reports a history of asthma. She tried using a breathing treatment without much relief. MD Complaint: cough, nasal congestion - Related Data Home Medications Medication Instructions Recorded Confirmed RX: FLUoxetine HCL [PROzac Weekly] 90 mg PO Q7D 08/27/17 09/12/24 RX: Montelukast [Singulair] 10 mg PO HS 06/28/20 09/12/24 RX: Loratadine [Claritin] 10 mg PO DAILY 03/22/21 09/12/24 RX: risperiDONE [RisperDAL] 1 mg PO HS 09/04/21 09/12/24 RX: Ergocalciferol (Vitamin D2) 1,250 mcg PO QMONTHLY 10/25/21 09/12/24 [Drisdol (50,000 Iu)] RX: Acetaminophen [Tylenol Extra 500 mg PO BID 07/30/23 09/12/24 Strength] RX: Mirtazapine [Remeron] 30 mg PO HS 07/30/23 09/12/24 RX: Omeprazole [PriLOSEC] 40 mg PO DAILY 07/30/23 09/12/24 RX: QUEtiapine FUMARATE [SEROquel] 300 mg PO HS 07/30/23 09/12/24 RX: Albuterol Sulfate [Albuterol 1 - 2 puff PO RT-QID PRN 09/12/24 09/12/24 Sulfate Hfa] RX: Dicyclomine [Bentyl] 20 mg PO QID 09/12/24 09/12/24 RX: EPINEPHrine (Auto Inject) 0.3 mg IM ONCE PRN 09/12/24 09/12/24 [Epipen] RX: Famotidine [Pepcid] 20 mg PO DAILY 09/12/24 09/12/24 RX: Fluticasone Nasal [place] 1 spray EA NOSTRIL DAILY PRN 09/12/24 09/12/24 [Flonase Nasal [place]] RX: Furosemide [Lasix] 20 mg PO DAILY 09/12/24 09/12/24 RX: Mesalamine [Mesalamine ER] 1.5 gm PO DAILY 09/12/24 09/12/24 RX: Midazolam [Nayzilam] 1 spray NASAL DIRECTED PRN 09/12/24 09/12/24 RX: Ondansetron [Zofran] 4 mg PO Q12HR PRN 09/12/24 09/12/24 RX: Potassium Chloride ER [K-Dur 20 meq PO DAILY 09/12/24 09/12/24 20] RX: levETIRAcetam [Keppra] 500 mg PO BID 09/12/24 09/12/24 RX: rOPINIRole HCL [Requip] 0.5 mg PO HS 09/12/24 09/12/24 Previous Rx's Medication Instructions Recorded RX: Aspirin 81 mg PO DAILY #30 tab 09/13/24 RX: Atorvastatin [Lipitor] 80 mg PO HS #30 tab 09/13/24 RX: Nitroglycerin Sl Tabs 0.4 mg SUBLINGUAL Q5M PRN #20 tab 09/13/24 [Nitrostat] Benzonatate [Tessalon Perle] 200 mg PO TID PRN #30 capsule 03/31/25 RX: predniSONE [Deltasone] 20 mg PO BID 5 Days #10 tab 03/31/25 Allergies Allergy/AdvReac Type Severity Reaction Status Date / Time milk Allergy Anaphylaxis Verified 02/02/25 21:06 venom-honey bee Allergy Anaphylaxis Verified 02/02/25 21:06 codeine AdvReac Itching Verified 02/02/25 21:06 egg AdvReac Diarrhea Verified 02/02/25 21:06 Review of Systems ROS Statement: Those systems with pertinent positive or pertinent negative responses have been documented in the HPI. ROS Other: All systems not noted in ROS Statement are negative. 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 , HX GI PROB FOR YEARS, HIATAL HERNIA. 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 , UNABLE TO READ History of Any Multi-Drug Resistant Organisms: ESBL Date of last positivie culture/infection: 05/31/22 MDRO Source:: ESBL URINE Past Surgical History: Ear Surgery, Hernia Repair, Orthopedic Surgery Additional Past Surgical History / Comment(s): RT Foot Surgery; Open Heart Surg @ 3 YRS OLD, VALVE REPLACED. EXC BRAIN TUMOR. HIATAL HERNIA REPAIR. RT EARDRUM REPAIRED. Past Anesthesia/Blood Transfusion Reactions: No Reported Reaction Past Psychological History: ADD/ADHD, Anxiety Smoking Status: Current every day smoker Past Alcohol Use History: None Reported Past Drug Use History: None Reported - Past Family History Father Family Medical History: No Reported History Additional Family Medical History / Comment(s): Mother Family Medical History: No Reported History Additional Family Medical History / Comment(s): General Exam Limitations: no limitations General appearance: alert, in no apparent distress Head exam: Present: atraumatic, normocephalic, normal inspection Respiratory exam: Present: decreased breath sounds, prolonged expiratory Cardiovascular Exam: Present: regular rate, normal rhythm Neurological exam: Present: alert, oriented X3, CN II-XII intact Psychiatric exam: Present: normal affect, normal mood Skin exam: Present: warm, dry, intact, normal color. Absent: rash Course Vital Signs 03/31/25 03/31/25 03/31/25 16:18 17:12 17:43 Temperature 97.7 F Pulse Rate 104 H 104 H Respiratory 18 18 22 Rate Blood Pressure 112/72 O2 Sat by Pulse 95 Oximetry 03/31/25 03/31/25 17:49 17:51 Temperature 97.9 F Pulse Rate 104 H 99 Respiratory 22 20 Rate Blood Pressure 110/76 O2 Sat by Pulse 96 Oximetry Medical Decision Making - Medical Decision Making This is a 39-year-old female who presents to the emergency department for coughing and congestion. Was pt. sent in by a medical professional or institution? @ -No Did you speak to anyone other than the patient for history? @ -No Did you review nursing and triage notes? @ -Yes, and I agree, it is accurate with regards to the patient's symptoms. Were old charts reviewed? @ -No Differential Diagnosis? @ -Differential Cough: -Influenza, Covid, RSV, croup, allergic rhinitis, GERD, pneumonia, bronchitis, COPD, viral pharyngitis, streptococcal pharyngitis, this is not meant to be an all-inclusive list. EKG interpreted by me (3pts min.)? @ -Not obtained X-rays interpreted by me (1pt min.)? @ -Chest x-ray obtained, my interpretation identifies no localized consolidations or infiltrates. CT interpreted by me (1pt min.)? @ -Not obtained U/S interpreted by me (1pt. min.)? @ -Not obtained What testing was considered but not performed? (CT, X-rays, U/S, labs)? Why? @ -None What meds were considered but not given? Why? @ -None Did you discuss the management of the patient with other professionals? @ -No Did you reconcile home meds? @ -No Was smoking cessation discussed for >3mins.? @ -No Was critical care preformed (if so, how long)? @ -No Were there social determinants of health that impacted care today? How? (Homelessness, low income, unemployed, alcoholism, drug addiction, transportation, low edu. Level, literacy, decrease access to med. care, halfway, rehab)? @ -No Was there de-escalation of care discussed even if they declined? (Discuss DNR or withdrawal of care, Hospice)? @ -No What co-morbidities impacted this encounter? (DM, HTN, Smoking, COPD, CAD, Cancer, CVA, Hep., AIDS, mental health diagnosis, sleep apnea, morbid obesity)? @ -Asthma, CHF Was patient admitted / discharged? @ -Discharged. COVID, influenza, and RSV testing negative. Chest x-ray reveals no acute process. Symptoms treated in the emergency department. Advised that we can treat her for an asthma exacerbation/asthmatic bronchitis. Prednisone and Tessalon Perles prescribed. Advised she continue with her breathing treatments as needed. Patient discharged home in stable condition. Case discussed with ED attending Dr. Lyon. Return precautions reviewed in depth, the patient is instructed to return to the emergency department with any new, worsening, or concerning symptoms. Patient verbalized understanding. Undiagnosed new problem with uncertain prognosis? @ -None Drug Therapy requiring intensive monitoring for toxicity (Heparin, Nitro, Insulin, Cardizem)? @ -None Were any procedures done? @ -None Diagnosis/symptom? @ -Asthmatic bronchitis Acute, or Chronic, or Acute on Chronic? @ -Acute Uncomplicated (without systemic symptoms) or Complicated (systemic symptoms)? @ -Uncomplicated Side effects of treatment? @ -None Exacerbation, Progression, or Severe Exacerbation] @ -Not applicable Poses a threat to life or bodily function? @ -No - Lab Data Lab Results 03/31/25 Range/Units 16:40 Influenza Type A (PCR) Not Detected (Not Detectd) Influenza Type B (PCR) Not Detected (Not Detectd) RSV (PCR) Not Detected (Not Detectd) SARS-CoV-2 (PCR) Not Detected (Not Detectd) - Radiology Data Radiology results: report reviewed, image reviewed Disposition Clinical Impression: Asthmatic bronchitis Disposition: HOME SELF-CARE Instructions (If sedation given, give patient instructions): Upper Respiratory Infection (ED), Acute Bronchitis (ED) Additional Instructions: Return to the emergency department with any new, worsening, or concerning symptoms. Take the prednisone twice daily for 5 days. You can use the cough medication every 8 hours as needed for coughing. You can use the nasal spray provided to help with congestion, however avoid using this for more than 3 to 4 days as your body can become dependent on it. Follow up with your primary care provider in 1-2 days. Prescriptions: RX: predniSONE [Deltasone] 20 mg PO BID 5 Days #10 tab Benzonatate [Tessalon Perle] 200 mg PO TID PRN #30 capsule PRN Reason: Cough Is patient prescribed a controlled substance at d/c from ED?: No Referrals: Denise Vasquez MD [Primary Care Provider] - 1-2 days Time of Disposition: 17:29
--- NOTE | 2025-03-31 17:11 | XR ---
EXAMINATION TYPE: XR chest 2V DATE OF EXAM: 03/31/2025 4:48 PM COMPARISON: Chest radiographs from 09/12/2024 CLINICAL INDICATION: Female, 39 years old with history of Cough, KESHAWN; PHH TECHNIQUE: XR chest 2V Frontal and lateral views of the chest. FINDINGS: Lungs/Pleura: There is no evidence of pleural effusion, focal consolidation, or pneumothorax. Pulmonary vascularity: Unremarkable. Heart/mediastinum: Cardiomediastinal silhouette is unremarkable. Musculoskeletal: No acute osseous pathology. Midline sternotomy wires are noted. Scoliosis changes th roughout the spine. IMPRESSION: Rotated exam, with scoliosis. No evidence for airspace consolidation. No acute cardiopulmonary diseas e/process. [facility], , 03/31/2025 5:09 PM
[2025-03-31 17:21] LABS: Influenza A Not Detected (Not Detectd); Influenza B Not Detected (Not Detectd); RSV Not Detected (Not Detectd)
[2025-03-31] MEDS: IPRATROPIUM-ALBUTEROL 3 ML NEB INHALATION STA (17:43)
[2025-03-31 17:53] VITALS: BP 110/76; PULSE 99; RESP 20; TEMP 97.9
== END 2025-03-31 16:24 | disposition home or self-care (01) ==
LOC: EC 16:16
DX: J45.909 Unspecified asthma, uncomplicated (principal); I50.9 Heart failure, unspecified; Z11.52 Encounter for screening for COVID-19; F17.200 Nicotine dependence, unspecified, uncomplicated; Z88.5 Allergy status to narcotic agent; Z91.011 Allergy to milk products; Z91.012 Allergy to eggs; Z91.030 Bee allergy status
CPT/HCPCS: 94640; 87636; 71046; 99283; 96372; J2919

== ENCOUNTER 2025-04-08 10:08 | Emergency (ER) | payer MEDICARE, OTHER ==
[2025-04-08 10:13] VITALS: TEMP 98
--- NOTE | 2025-04-08 10:25 | ED ---
General Adult HPI - General Chief complaint: ENT Stated complaint: sore throat Time Seen by Provider: 04/08/25 10:11 Source: patient, RN notes reviewed Mode of arrival: ambulatory Limitations: no limitations - History of Present Illness Initial comments: 39-year-old female presents emergency department complaint of cough, sore throat. Patient states that she has had a cough for the last week she states her throat is worsening she was here earlier today had negative Cepheid swab. Patient denies any fevers or chills nonproductive cough. Patient denies abdominal complaints no chest pain states she uses Advair inhaler. - Related Data Home Medications Medication Instructions Recorded Confirmed FLUoxetine HCL [PROzac Weekly] 90 mg PO Q7D 08/27/17 09/12/24 Montelukast [Singulair] 10 mg PO HS 06/28/20 09/12/24 Loratadine [Claritin] 10 mg PO DAILY 03/22/21 09/12/24 risperiDONE [RisperDAL] 1 mg PO HS 09/04/21 09/12/24 Ergocalciferol (Vitamin D2) 1,250 mcg PO QMONTHLY 10/25/21 09/12/24 [Drisdol (50,000 Iu)] Acetaminophen [Tylenol Extra 500 mg PO BID 07/30/23 09/12/24 Strength] Mirtazapine [Remeron] 30 mg PO HS 07/30/23 09/12/24 Omeprazole [PriLOSEC] 40 mg PO DAILY 07/30/23 09/12/24 QUEtiapine FUMARATE [SEROquel] 300 mg PO HS 07/30/23 09/12/24 Albuterol Sulfate [Albuterol 1 - 2 puff PO RT-QID PRN 09/12/24 09/12/24 Sulfate Hfa] Dicyclomine [Bentyl] 20 mg PO QID 09/12/24 09/12/24 EPINEPHrine (Auto Inject) [Epipen] 0.3 mg IM ONCE PRN 09/12/24 09/12/24 Famotidine [Pepcid] 20 mg PO DAILY 09/12/24 09/12/24 Fluticasone Nasal [place] [Flonase 1 spray EA NOSTRIL DAILY PRN 09/12/24 09/12/24 Nasal [place]] Furosemide [Lasix] 20 mg PO DAILY 09/12/24 09/12/24 Mesalamine [Mesalamine ER] 1.5 gm PO DAILY 09/12/24 09/12/24 Midazolam [Nayzilam] 1 spray NASAL DIRECTED PRN 09/12/24 09/12/24 Ondansetron [Zofran] 4 mg PO Q12HR PRN 09/12/24 09/12/24 Potassium Chloride ER [K-Dur 20] 20 meq PO DAILY 09/12/24 09/12/24 levETIRAcetam [Keppra] 500 mg PO BID 09/12/24 09/12/24 rOPINIRole HCL [Requip] 0.5 mg PO HS 09/12/24 09/12/24 Previous Rx's Medication Instructions Recorded Aspirin 81 mg PO DAILY #30 tab 09/13/24 Atorvastatin [Lipitor] 80 mg PO HS #30 tab 09/13/24 Nitroglycerin Sl Tabs [Nitrostat] 0.4 mg SUBLINGUAL Q5M PRN #20 tab 09/13/24 Benzonatate [Tessalon Perle] 200 mg PO TID PRN #30 capsule 03/31/25 predniSONE [Deltasone] 20 mg PO BID 5 Days #10 tab 03/31/25 Azithromycin [Zithromax Z Pack] 0 tab PO DIRECTED #6 tab 04/08/25 Nystatin 100,000 Unit/ml Susp 5 ml PO QID #200 ml 04/08/25 [Mycostatin Oral Susp] Allergies Allergy/AdvReac Type Severity Reaction Status Date / Time milk Allergy Anaphylaxis Verified 04/08/25 10:13 venom-honey bee Allergy Anaphylaxis Verified 04/08/25 10:13 codeine AdvReac Itching Verified 04/08/25 10:13 egg AdvReac Diarrhea Verified 04/08/25 10:13 Review of Systems ROS Statement: Those systems with pertinent positive or pertinent negative responses have been documented in the HPI. ROS Other: All systems not noted in ROS Statement are negative. 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 , HX GI PROB FOR YEARS, HIATAL HERNIA. 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 , UNABLE TO READ History of Any Multi-Drug Resistant Organisms: ESBL Date of last positivie culture/infection: 05/31/22 MDRO Source:: ESBL URINE Past Surgical History: Ear Surgery, Hernia Repair, Orthopedic Surgery Additional Past Surgical History / Comment(s): RT Foot Surgery; Open Heart Surg @ 3 YRS OLD, VALVE REPLACED. EXC BRAIN TUMOR. HIATAL HERNIA REPAIR. RT EARDRUM REPAIRED. Past Anesthesia/Blood Transfusion Reactions: No Reported Reaction Past Psychological History: ADD/ADHD, Anxiety Smoking Status: Current every day smoker Past Alcohol Use History: None Reported Past Drug Use History: None Reported - Past Family History Father Family Medical History: No Reported History Additional Family Medical History / Comment(s): Mother Family Medical History: No Reported History Additional Family Medical History / Comment(s): General Exam Limitations: no limitations General appearance: alert, in no apparent distress Head exam: Present: atraumatic, normocephalic, normal inspection Eye exam: Present: normal appearance, PERRL, EOMI. Absent: scleral icterus, conjunctival injection, periorbital swelling ENT exam: Present: mucous membranes moist. Absent: normal oropharynx (Posterior pharynx erythematous, small white patches noted) Neck exam: Present: normal inspection, full ROM. Absent: tenderness, meningismus, lymphadenopathy Respiratory exam: Present: normal lung sounds bilaterally. Absent: respiratory distress, wheezes, rales, rhonchi, stridor Cardiovascular Exam: Present: regular rate, normal rhythm, normal heart sounds. Absent: systolic murmur, diastolic murmur, rubs, gallop, clicks Neurological exam: Present: alert, oriented X3, CN II-XII intact Course Vital Signs 04/08/25 04/08/25 10:09 11:16 Temperature 98.0 F 98.0 F Pulse Rate 87 86 Respiratory 17 20 Rate Blood Pressure 104/68 111/70 O2 Sat by Pulse 96 97 Oximetry Medical Decision Making - Medical Decision Making Was pt. sent in by a medical professional or institution (, PA, INDUSTRIAL X RAY OPERATOR, urgent care, hospital, or fpc...) When possible be specific @ -No Did you speak to anyone other than the patient for history (EMS, parent, family, police, friend...)? What history was obtained from this source @ -No Did you review nursing and triage notes (agree or disagree)? Why? @ -I reviewed and agree with nursing and triage notes Were old charts reviewed (outside hosp., previous admission, EMS record, old EKG, old radiological studies, urgent care reports/EKG's, fpc records)? Report findings @ -No old charts were reviewed Differential Diagnosis (chest pain, altered mental status, abdominal pain women, abdominal pain men, vaginal bleeding, weakness, fever, dyspnea, syncope, headache, dizziness, GI bleed, back pain, seizure, CVA, palpatations, mental health, musculoskeletal)? @ -COVID 19, RSV, influenza, pneumonia, acute bronchitis, URI, this list is not all inclusive EKG interpreted by me (3pts min.). @ -None X-rays interpreted by me (1pt min.). @ -Chest x-ray shows patchy area of infiltrates, pneumonia CT interpreted by me (1pt min.). @ -None done U/S interpreted by me (1pt. min.). @ -None done What testing was considered but not performed or refused? (CT, X-rays, U/S, labs)? Why? @ -None What meds were considered but not given or refused? Why? @ -None Did you discuss the management of the patient with other professionals (professionals i.e. , PA, INDUSTRIAL X RAY OPERATOR, lab, RT, psych nurse, social research assistant, building trades instructor, teacher, army officer, manager rn case)? Give summary @ -No Was smoking cessation discussed for >3mins.? @ -No Was critical care preformed (if so, how long)? @ -No Were there social determinants of health that impacted care today? How? (Homelessness, low income, unemployed, alcoholism, drug addiction, transportation, low edu. Level, literacy, decrease access to med. care, senior living, rehab)? @ -No Was there de-escalation of care discussed even if they declined (Discuss DNR or withdrawal of care, Hospice)? DNR status @ -No What co-morbidities impacted this encounter? (DM, HTN, Smoking, COPD, CAD, Cancer, CVA, ARF, Chemo, Hep., AIDS, mental health diagnosis, sleep apnea, morbid obesity)? @ -None Was patient admitted / discharged? Hospital course, mention meds given and route, prescriptions, significant lab abnormalities, going to OR and other pertinent info. @ -[Discharge patient has evidence of early pneumonia changes patient started on oral antibiotics. Patient had negative strep she does have some white patches concerning for candidiasis. Patient started on oral nystatin. Patient discharged in stable condition. Undiagnosed new problem with uncertain prognosis? @ -No Drug Therapy requiring intensive monitoring for toxicity (Heparin, Nitro, Insulin, Cardizem)? @ -No Were any procedures done? @ -No Diagnosis/symptom? @ -Oral candidiasis, pneumonia Acute, or Chronic, or Acute on Chronic? @ -[Acute Uncomplicated (without systemic symptoms) or Complicated (systemic symptoms)? @ -Uncomplicated Side effects of treatment? @ -No Exacerbation, Progression, or Severe Exacerbation? @ -No Poses a threat to life or bodily function? How? (Chest pain, [place], [place], pneumonia, PE, COPD, DKA, ARF, appy, cholecystitis, CVA, Diverticulitis, Homicidal, Suicidal, threat to staff... and all critical care pts) @ -No - Lab Data Lab Results 04/08/25 Range/Units 10:24 Group A Strep (PCR) NOT DETECTED (Not Detectd) Disposition Clinical Impression: Pneumonia, Oral candidiasis Disposition: HOME SELF-CARE Condition: Stable Instructions (If sedation given, give patient instructions): Pneumonia (ED) Additional Instructions: Please return to the Emergency Department if symptoms worsen or any other concerns. Prescriptions: Nystatin 100,000 Unit/ml Susp [Mycostatin Oral Susp] 5 ml PO QID #200 ml Azithromycin [Zithromax Z Pack] 0 tab PO DIRECTED #6 tab Is patient prescribed a controlled substance at d/c from ED?: No Referrals: Denise Vasquez MD [Primary Care Provider] - 1-2 days Time of Disposition: 11:09
--- NOTE | 2025-04-08 10:56 | XR ---
EXAMINATION TYPE: XR chest 2V DATE OF EXAM: 04/08/2025 10:35 AM COMPARISON: Chest radiographs from 03/31/2025. CLINICAL INDICATION: Female, 39 years old with history of cough; [facility] TECHNIQUE: XR chest 2V Frontal and lateral views of the chest. FINDINGS: Lungs/Pleura: Airspace opacities projecting over the spine on lateral view. eThere is no evidence of pleural effusion, focal consolidation, or pneumothorax. Pulmonary vascularity: Unremarkable. Heart/mediastinum: Cardiomediastinal silhouette is unremarkable. Musculoskeletal: No acute osseous pathology. Midline sternotomy wires are noted. Scoliosis changes of the spine. IMPRESSION: Airspace opacities projecting over the spine lateral view correlate for pneumonia. [facility], , 04/08/2025 10:54 AM
[2025-04-08 11:18] VITALS: BP 111/70; PULSE 86; RESP 20
== END 2025-04-08 11:25 | disposition home or self-care (01) ==
LOC: EC 10:08
DX: J18.9 Pneumonia, unspecified organism (principal); B37.0 Candidal stomatitis; F17.200 Nicotine dependence, unspecified, uncomplicated; Z88.5 Allergy status to narcotic agent; Z91.030 Bee allergy status; Z91.012 Allergy to eggs; Z91.011 Allergy to milk products
CPT/HCPCS: 71046; 87651; 99283

== ENCOUNTER 2025-04-08 13:33 | Emergency (ER) | payer MEDICARE, OTHER ==
[2025-04-08 13:37] VITALS: RESP 18
--- NOTE | 2025-04-08 13:37 | ED ---
General Adult HPI - General Stated complaint: Sore Throat Time Seen by Provider: 04/08/25 13:35 Source: patient, RN notes reviewed Mode of arrival: ambulatory Limitations: no limitations - History of Present Illness Initial comments: 39-year-old female presents emergency department via EMS for complaint of sore throat. Patient was seen here earlier and left prior to discharge paperwork. Patient was found to have pneumonia, oral candidiasis. Patient has no new complaints denies any difficulty swallowing denies fever currently. - Related Data Home Medications Medication Instructions Recorded Confirmed FLUoxetine HCL [PROzac Weekly] 90 mg PO Q7D 08/27/17 09/12/24 Montelukast [Singulair] 10 mg PO HS 06/28/20 09/12/24 Loratadine [Claritin] 10 mg PO DAILY 03/22/21 09/12/24 risperiDONE [RisperDAL] 1 mg PO HS 09/04/21 09/12/24 Ergocalciferol (Vitamin D2) 1,250 mcg PO QMONTHLY 10/25/21 09/12/24 [Drisdol (50,000 Iu)] Acetaminophen [Tylenol Extra 500 mg PO BID 07/30/23 09/12/24 Strength] Mirtazapine [Remeron] 30 mg PO HS 07/30/23 09/12/24 Omeprazole [PriLOSEC] 40 mg PO DAILY 07/30/23 09/12/24 QUEtiapine FUMARATE [SEROquel] 300 mg PO HS 07/30/23 09/12/24 Albuterol Sulfate [Albuterol 1 - 2 puff PO RT-QID PRN 09/12/24 09/12/24 Sulfate Hfa] Dicyclomine [Bentyl] 20 mg PO QID 09/12/24 09/12/24 EPINEPHrine (Auto Inject) [Epipen] 0.3 mg IM ONCE PRN 09/12/24 09/12/24 Famotidine [Pepcid] 20 mg PO DAILY 09/12/24 09/12/24 Fluticasone Nasal [place] [Flonase 1 spray EA NOSTRIL DAILY PRN 09/12/24 09/12/24 Nasal [place]] Furosemide [Lasix] 20 mg PO DAILY 09/12/24 09/12/24 Mesalamine [Mesalamine ER] 1.5 gm PO DAILY 09/12/24 09/12/24 Midazolam [Nayzilam] 1 spray NASAL DIRECTED PRN 09/12/24 09/12/24 Ondansetron [Zofran] 4 mg PO Q12HR PRN 09/12/24 09/12/24 Potassium Chloride ER [K-Dur 20] 20 meq PO DAILY 09/12/24 09/12/24 levETIRAcetam [Keppra] 500 mg PO BID 09/12/24 09/12/24 rOPINIRole HCL [Requip] 0.5 mg PO HS 09/12/24 09/12/24 Previous Rx's Medication Instructions Recorded Aspirin 81 mg PO DAILY #30 tab 09/13/24 Atorvastatin [Lipitor] 80 mg PO HS #30 tab 09/13/24 Nitroglycerin Sl Tabs [Nitrostat] 0.4 mg SUBLINGUAL Q5M PRN #20 tab 09/13/24 Benzonatate [Tessalon Perle] 200 mg PO TID PRN #30 capsule 03/31/25 predniSONE [Deltasone] 20 mg PO BID 5 Days #10 tab 03/31/25 Azithromycin [Zithromax Z Pack] 0 tab PO DIRECTED #6 tab 04/08/25 Nystatin 100,000 Unit/ml Susp 5 ml PO QID #200 ml 04/08/25 [Mycostatin Oral Susp] Allergies Allergy/AdvReac Type Severity Reaction Status Date / Time milk Allergy Anaphylaxis Verified 04/08/25 13:37 venom-honey bee Allergy Anaphylaxis Verified 04/08/25 13:37 codeine AdvReac Itching Verified 04/08/25 13:37 egg AdvReac Diarrhea Verified 04/08/25 13:37 Review of Systems ROS Statement: Those systems with pertinent positive or pertinent negative responses have been documented in the HPI. ROS Other: All systems not noted in ROS Statement are negative. 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 , HX GI PROB FOR YEARS, HIATAL HERNIA. 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 , UNABLE TO READ History of Any Multi-Drug Resistant Organisms: ESBL Date of last positivie culture/infection: 05/31/22 MDRO Source:: ESBL URINE Past Surgical History: Ear Surgery, Hernia Repair, Orthopedic Surgery Additional Past Surgical History / Comment(s): RT Foot Surgery; Open Heart Surg @ 3 YRS OLD, VALVE REPLACED. EXC BRAIN TUMOR. HIATAL HERNIA REPAIR. RT EARDRUM REPAIRED. Past Anesthesia/Blood Transfusion Reactions: No Reported Reaction Past Psychological History: ADD/ADHD, Anxiety Smoking Status: Current every day smoker Past Alcohol Use History: None Reported Past Drug Use History: None Reported - Past Family History Father Family Medical History: No Reported History Additional Family Medical History / Comment(s): Mother Family Medical History: No Reported History Additional Family Medical History / Comment(s): General Exam General appearance: alert, in no apparent distress Head exam: Present: atraumatic, normocephalic, normal inspection Eye exam: Present: normal appearance, PERRL, EOMI. Absent: scleral icterus, conjunctival injection, periorbital swelling ENT exam: Present: mucous membranes moist. Absent: normal oropharynx Neck exam: Present: normal inspection, full ROM. Absent: tenderness, meningismus, lymphadenopathy Respiratory exam: Present: rhonchi. Absent: respiratory distress, wheezes, rales, stridor Cardiovascular Exam: Present: regular rate, normal rhythm, normal heart sounds. Absent: systolic murmur, diastolic murmur, rubs, gallop, clicks GI/Abdominal exam: Present: soft, normal bowel sounds. Absent: distended, tenderness, guarding, rebound, rigid Course Vital Signs 04/08/25 04/08/25 13:34 13:41 Temperature 98.2 F 98.0 F Pulse Rate 97 90 Respiratory 18 18 Rate Blood Pressure 94/56 96/62 O2 Sat by Pulse 96 97 Oximetry Medical Decision Making - Medical Decision Making Was pt. sent in by a medical professional or institution (, PA, PAYROLL SECRETARY, urgent ca re, hospital, or long-term...) When possible be specific @ -No Did you speak to anyone other than the patient for history (EMS, parent, family, police, friend...)? What history was obtained from this source @ -No Did you review nursing and triage notes (agree or disagree)? Why? @ -I reviewed and agree with nursing and triage notes Were old charts reviewed (outside hosp., previous admission, EMS record, old EKG, old radiological studies, urgent care reports/EKG's, long-term records)? Report findings @ -Reviewed chest x-ray from earlier today showing evidence of pneumonia Differential Diagnosis (chest pain, altered mental status, abdominal pain women, abdominal pain men, vaginal bleeding, weakness, fever, dyspnea, syncope, headache, dizziness, GI bleed, back pain, seizure, CVA, palpatations, mental health, musculoskeletal)? @ -COVID 19, RSV, influenza, pneumonia, acute bronchitis, URI, this list is not all inclusive EKG interpreted by me (3pts min.). @ -None X-rays interpreted by me (1pt min.). @ -None done CT interpreted by me (1pt min.). @ -None done U/S interpreted by me (1pt. min.). @ -None done What testing was considered but not performed or refused? (CT, X-rays, U/S, labs)? Why? @ -None What meds were considered but not given or refused? Why? @ -None Did you discuss the management of the patient with other professionals (professionals i.e. , PA, PAYROLL SECRETARY, lab, RT, psych nurse, pediatric social worker, aircraft designer, teacher, disability hearing officer, medical case worker)? Give summary @ -No Was smoking cessation discussed for >3mins.? @ -No Was critical care preformed (if so, how long)? @ -No Were there social determinants of health that impacted care today? How? (Homelessness, low income, unemployed, alcoholism, drug addiction, transportation, low edu. Level, literacy, decrease access to med. care, group home, rehab)? @ -No Was there de-escalation of care discussed even if they declined (Discuss DNR or withdrawal of care, Hospice)? DNR status @ -No What co-morbidities impacted this encounter? (DM, HTN, Smoking, COPD, CAD, Cancer, CVA, ARF, Chemo, Hep., AIDS, mental health diagnosis, sleep apnea, morbid obesity)? @ -None Was patient admitted / discharged? Hospital course, mention meds given and route, prescriptions, significant lab abnormalities, going to OR and other pertinent info. @ -Discharge patient advised to miner pick his prescriptions were sent in earlier today. Patient has thrush, pneumonia. Undiagnosed new problem with uncertain prognosis? @ -No Drug Therapy requiring intensive monitoring for toxicity (Heparin, Nitro, Insulin, Cardizem)? @ -No Were any procedures done? @ -No Diagnosis/symptom? @ -Thrush, pneumonia Acute, or Chronic, or Acute on Chronic? @ -Acute Uncomplicated (without systemic symptoms) or Complicated (systemic symptoms)? @ -Uncomplicated Side effects of treatment? @ -No Exacerbation, Progression, or Severe Exacerbation? @ -No Poses a threat to life or bodily function? How? (Chest pain, [place], [place], pneumonia, PE, COPD, DKA, ARF, appy, cholecystitis, CVA, Diverticulitis, Homicidal, Suicidal, threat to staff... and all critical care pts) @ -No Disposition Clinical Impression: Oral candidiasis, Pneumonia Disposition: HOME SELF-CARE Condition: Stable Additional Instructions: Please miner pick your prescriptions that were sent at your earlier visit. Please return to the Emergency Department if symptoms worsen or any other concerns. Is patient prescribed a controlled substance at d/c from ED?: No Referrals: Denise Vasquez MD [Primary Care Provider] - 1-2 days Time of Disposition: 13:37
[2025-04-08 13:49] VITALS: BP 96/62; PULSE 90; TEMP 98
== END 2025-04-08 13:41 | disposition home or self-care (01) ==
LOC: EC 13:33
DX: B37.0 Candidal stomatitis (principal); J18.9 Pneumonia, unspecified organism; F17.200 Nicotine dependence, unspecified, uncomplicated; Z91.030 Bee allergy status; Z88.5 Allergy status to narcotic agent; Z91.011 Allergy to milk products; Z91.012 Allergy to eggs
CPT/HCPCS: 99283

== ENCOUNTER → 2025-06-23 | Outpatient (CLI) | payer MEDICARE, OTHER ==
--- NOTE | 2025-06-23 13:36 | CT ---
EXAMINATION TYPE: CT abdomen pelvis w con CT DLP: 446 mGycm, Automated exposure control for dose reduction was used. DATE OF EXAM: 06/23/2025 1:20 PM COMPARISON: CT abdomen pelvis 09/11/2024, 06/26/2019 CLINICAL INDICATION:Female, 40 years old with history of R10.9 ABD PAIN Z87.19 HX DIS DIGESTIVE SYSTE M; abdominal pain TECHNIQUE: Standard CT of the abdomen and pelvis following the administration of 100 cc of Isovue 3 00 IV contrast material and oral contrast. Coronal and sagittal reformats were performed. FINDINGS: LOWER CHEST: Partial visualization of sternotomy wire. The visualized lung bases are clear. ABDOMEN LIVER: Unremarkable GALLBLADDER AND BILE DUCTS: Unremarkable. PANCREAS: Unremarkable. SPLEEN: Unremarkable. ADRENAL GLANDS: Unremarkable. KIDNEYS AND URETERS: No evidence of hydronephrosis or renal calculus. The kidneys enhance symmetrical ly. Contrast is demonstrated within both collecting systems on the delayed phase. PELVIS BLADDER: Unremarkable REPRODUCTIVE: Unremarkable. ABDOMEN & PELVIS STOMACH AND BOWEL: Stomach and duodenum are unremarkable. Enteric contrast reaches the distal small b owel. Redundant ascending colon with cecum in the left lower quadrant. Prominent lung segment submuco ksenia fat deposition within the ascending colon. There is associated hyperemia. No definitive fistula i dentified. The appendix is within normal limits. No evidence of bowel obstruction. PERITONEUM: No evidence of pneumoperitoneum. Trace free fluid in the pelvic cul-de-sac which is likel y physiologic. VASCULATURE: Minimal atherosclerotic calcifications of the abdominal aorta. No evidence of aortic ane urysm. MUSCULOSKELETAL: No acute osseous abnormalities. Dextrocurvature of the thoracic spine. LYMPH NODES: No evidence for lymphadenopathy. SOFT TISSUE/ABDOMINAL WALL: Unremarkable IMPRESSION: Hyperemia within the submucosal fat deposition within the ascending colon likely related to reported Crohn's disease. No evidence for bowel obstruction. [facility], , 06/23/2025 1:33 PM
== END | disposition home or self-care (01) ==
LOC: RADCTMAIN 11:18
PROVIDERS: ATTEND Family Medicine
DX: R10.9 Unspecified abdominal pain (principal); Z87.19 Personal history of other diseases of the digestive system
CPT/HCPCS: 74177; Q9967